=== PATIENT | male | born 1980 | race Caucasian/White ===

== ENCOUNTER → 2024-08-15 12:21 | Outpatient (REF) | payer BC, SELFPAY ==
[2024-08-15 13:40] LABS: Absolute Lymphocyte Count 0.92 X10^3/uL (0.83-4.51); Absolute Neutrophil Count 2.7 X10^3/uL (2.0-7.7); Basophil# 0.03 X10^3/uL; Basophil% 0.7 % (0-1); Eosinophil# 0.17 X10^3/uL; Eosinophils% 4.1 % (0-5); Hematocrit 36.6 % (40-54); Hemoglobin 11.1 g/dL (13.0-16.5); Lymphocyte # 0.92 X10^3/ul (0.83-4.51); Lymphocyte % 22.4 % (19-41); Mean Corp Hgb Conc 30.3 g/dL (32-36); Mean Corpuscular Hgb 23.8 pg (27.0-32.0); Mean Corpuscular Volume 78.4 fL (80-94); Mean Platelet Vol. 11.1 fl (6.2-12.0); Monocyte# 0.29 X10^3/uL; Monocyte% 7.1 % (0-10); NRBC Flagged by Analyzer 0 % (0-5); Neutrophil # 2.69 X10^3/uL (2.7-7.7); Neutrophil % 65.5 % (47-70); Platelet Count 228 K/mm3 (150-450); RBC Distribution Width CV 15.4 % (11.6-14.6); RBC Distribution Width SD 43.3 fl (35.1-43.9); Red Blood Count 4.67 M/mm3 (4.6-6.2); White Blood Count 4.1 K/mm3 (4.4-11.0)
[2024-08-15 14:08] LABS: ALB/GLOB Ratio 1.7 RATIO (0.9-2.4); AST(SGOT) 32 U/L (<=37); Alanine Aminotransfer ALT/SGPT 35 U/L (<=46); Albumin, Serum 4.5 g/dL (3.5-5.0); Alkaline Phosphatase 72 U/L (40-129); Anion Gap 10 (5-15); BUN 14 mg/dL (4-19); BUN/Creat Ratio 10.6 RATIO (10-20); Calcium,Total 9.3 mg/dL (7.6-11.0); Carbon Dioxide 25.6 mmol/L (21.0-32.0); Chloride 104 mmol/L (98-108); Cholesterol 144 mg/dL (<=200); Creatinine, Serum 1.27 mg/dL (0.70-1.20); EST Glomerular Filtration Rate 71 (>60); Ferritin 6 ng/mL (37-417); Globulin 2.6 g/dL (2.2-4.2); Glucose 101 mg/dL (70-99); High Density Lipoprotein 64 mg/dL; Low Density Lipoprotein Calc. 65 mg/dL; Potassium 4.5 mmol/L (3.3-5.1); Protein, Total 7.1 g/dL (5.9-8.4); Sodium Level 139 mmol/L (133-145); Total Bilirubin 0.31 mg/dL (0.00-1.30); Triglycerides 78 mg/dL; Very Low Density Lipoprotein 16 mg/dL (5-40); cholesterol:hdl ratio screen 2.26
[2024-08-15 14:44] LABS: Iron 17 ug/dL (65-175)
[2024-08-19 05:07] LABS: PSA, Total 0.9 ng/mL (0.0-4.0)
== END ==
LOC: LABSPEC 12:21
PROVIDERS: Referring Provider Nurse Practitioner Family; Visit Provider Nurse Practitioner Family
DX: K50.90 Crohn's disease, unspecified, without complications (principal); N41.1 Chronic prostatitis; R35.1 Nocturia; R19.7 Diarrhea, unspecified; K92.1 Melena
CPT/HCPCS: 80053; 80061; 82728; 83036; 83540; 84153; 85025

== ENCOUNTER → 2024-09-22 | Outpatient (CLI) | payer BC, SELFPAY ==
[2024-09-22 16:22] LABS: Absolute Lymphocyte Count 0.93 X10^3/uL (0.83-4.51); Absolute Neutrophil Count 2.4 X10^3/uL (2.0-7.7); Basophil# 0.02 X10^3/uL; Basophil% 0.5 % (0-1); Eosinophils% 2.7 % (0-5); Hematocrit 39.7 % (40-54); Hemoglobin 12.4 g/dL (13.0-16.5); Lymphocyte # 0.93 X10^3/ul (0.83-4.51); Lymphocyte % 25.4 % (19-41); Mean Corp Hgb Conc 31.2 g/dL (32-36); Mean Corpuscular Hgb 24.8 pg (27.0-32.0); Mean Corpuscular Volume 79.6 fL (80-94); Mean Platelet Vol. 10.3 fl (6.2-12.0); Monocyte# 0.21 X10^3/uL; Monocyte% 5.7 % (0-10); NRBC Flagged by Analyzer 0 % (0-5); Neutrophil # 2.39 X10^3/uL (2.7-7.7); Neutrophil % 65.4 % (47-70); Platelet Count 220 K/mm3 (150-450); RBC Distribution Width CV 19.7 % (11.6-14.6); RBC Distribution Width SD 54.3 fl (35.1-43.9); Red Blood Count 4.99 M/mm3 (4.6-6.2); White Blood Count 3.7 K/mm3 (4.4-11.0)
[2024-09-22 16:27] LABS: Iron 45 ug/dL (65-175)
[2024-09-22 16:59] LABS: Ferritin 19 ng/mL (37-417)
== END | disposition home or self-care (01) ==
LOC: LABSPEC 15:34
PROVIDERS: Referring Provider Nurse Practitioner Family; Visit Provider Nurse Practitioner Family
DX: K50.90 Crohn's disease, unspecified, without complications (principal); N41.1 Chronic prostatitis; R35.1 Nocturia; R19.7 Diarrhea, unspecified; K92.1 Melena; D50.9 Iron deficiency anemia, unspecified
CPT/HCPCS: 82728; 83540; 85025

== ENCOUNTER → 2024-10-12 | Outpatient (CLI) | payer BC, SELFPAY ==
[2024-10-13 00:28] LABS: Hematocrit 43.8 % (40-54); Hemoglobin 13.3 g/dL (13.0-16.5); Immature Granulocytes Count 0.010 X10^3/uL (0.0-0.0); Mean Corp Hgb Conc 30.4 g/dL (32-36); Mean Corpuscular Volume 85.4 fL (80-94); Mean Platelet Vol. 10.5 fl (6.2-12.0); NRBC Flagged by Analyzer 0 % (0-5); POSITIVE MORPHOLOGY YES; Platelet Count 212 K/mm3 (150-450); RBC Distribution Width CV 22.3 % (11.6-14.6); RBC Distribution Width SD 67.7 fl (35.1-43.9); Red Blood Count 5.13 M/mm3 (4.6-6.2); White Blood Count 3.8 K/mm3 (4.4-11.0)
[2024-10-13 00:32] LABS: Differential Indicated SCAN CRITERIA MET
[2024-10-13 01:52] LABS: Ferritin 42 ng/mL (37-417); Iron 48 ug/dL (65-175)
[2024-10-13 02:35] LABS: Acanthocytes RARE; Anisocytosis 2+; Crenated RBC 2+; Differential Comment SCANNED; Tear Drop Cell RARE
== END | disposition home or self-care (01) ==
PROVIDERS: Referring Provider Nurse Practitioner Family; Visit Provider Nurse Practitioner Family
DX: K50.90 Crohn's disease, unspecified, without complications (principal); N41.1 Chronic prostatitis; R35.1 Nocturia; R19.7 Diarrhea, unspecified; K92.1 Melena; D50.9 Iron deficiency anemia, unspecified
CPT/HCPCS: 82728; 83540; 85025

== ENCOUNTER → 2024-11-21 | Outpatient (CLI) | payer BC, SELFPAY ==
[2024-11-21 18:44] LABS: AST(SGOT) 19 U/L (<=37); Alanine Aminotransfer ALT/SGPT 22 U/L (<=46); Albumin, Serum 3.9 g/dL (3.5-5.0); Alkaline Phosphatase 61 U/L (40-129); Anion Gap 13 (5-15); BUN 17 mg/dL (4-19); BUN/Creat Ratio 14.6 RATIO (10-20); Calcium,Total 8.9 mg/dL (7.6-11.0); Carbon Dioxide 21.2 mmol/L (21.0-32.0); Chloride 102 mmol/L (98-108); Globulin 2.7 g/dL (2.2-4.2); Glucose 100 mg/dL (70-99); Potassium 3.9 mmol/L (3.3-5.1)
[2024-11-21 18:46] LABS: Hematocrit 31.5 % (40-54); Hemoglobin 10.2 g/dL (13.0-16.5); Immature Granulocytes Count 0.020 X10^3/uL (0.0-0.0); Mean Corp Hgb Conc 32.4 g/dL (32-36); Mean Corpuscular Volume 85.6 fL (80-94); Mean Platelet Vol. 10.1 fl (6.2-12.0); NRBC Flagged by Analyzer 0 % (0-5); Platelet Count 323 K/mm3 (150-450); RBC Distribution Width CV 18.1 % (11.6-14.6); RBC Distribution Width SD 56.1 fl (35.1-43.9); Red Blood Count 3.68 M/mm3 (4.6-6.2); White Blood Count 4.2 K/mm3 (4.4-11.0)
[2024-11-23 14:08] LABS: CRP, High Sensitivity 1.01 mg/L (0.00-3.00)
== END | disposition home or self-care (01) ==
PROVIDERS: PCP Nurse Practitioner Family; Referring Provider Nurse Practitioner Family; Visit Provider Nurse Practitioner Family
DX: K50.90 Crohn's disease, unspecified, without complications (principal); N41.1 Chronic prostatitis; R19.7 Diarrhea, unspecified; J18.9 Pneumonia, unspecified organism; R53.83 Other fatigue; D50.0 Iron deficiency anemia secondary to blood loss (chronic)
CPT/HCPCS: 80053; 82784; 82785; 85025; 86140; 86141; 86738; 86769

== ENCOUNTER → 2024-11-23 | Outpatient (CLI) | payer BC, SELFPAY | END | disposition home or self-care (01) | LOC: LABSPEC 16:08 | PROVIDERS: PCP Nurse Practitioner Family; Referring Provider Nurse Practitioner Family; Visit Provider Nurse Practitioner Family | DX: K50.90 Crohn's disease, unspecified, without complications (principal); R19.7 Diarrhea, unspecified; B96.82 Vibrio vulnificus as the cause of diseases classified elsewhere | CPT/HCPCS: 87493; 87506 ==

== ENCOUNTER → 2024-12-12 | Outpatient (CLI) | payer BC, SELFPAY ==
[2024-12-12 16:24] LABS: Ferritin 63 ng/mL (37-417)
--- OUTSIDE RECORDS SUMMARY | 2024-12-12 22:05 | XMS RPT_ITS | CCD ---
Author Organization [facility] Care Team Providers Care Dining Room Maid Name Role Phone Merlin Deutsch RDipti Unavailable Unavaila ble Stetler DO, Juan Joseer R Primary Care Provider Stetler DO, Juan Joseer R Primary Care Provider Stetler DO, Christadinaer R Primary Care Provider Unavailable Primary Care Provider Unavailabl e Louistler DO, Merlin R Primary Care Provider Ernesto William MD Primary Care Provider Richi Loja MD Unavailable Stetler DOJuan Joseer R Primary Care Provider Mariann Sánchez PA-C Unavailable [phone] [employer]-C, Lidia Wolff Attending Provider Unava ilable [employer]-C, Lidia Wolff Referring Provider Unava ilable Olya SWENSON, Sonia Sweeney Unavailable SELF Referring Unavailable RICHI LOJA Attending Unavailable MERLIN DEUTSCH Primary Care Unavailab le MERLIN DEUTSCH Primary Care Unavailab le RICHI LOJA Attending Unavailable MERLIN DEUTSCH Primary Care Unavailab le RICHI LOJA Referring Unavailable [employer] SPECIALIST-C, Lidia Wolff Primary Care Provider Un available [employer] SPECIALIST, Lidia Wolff Referring Unavailabl e [employer] SPECIALIST, Lidia Wolff Attending Unavailabl e [employer]IST, Lidia K Primary Care Unavailabl e [employer]IST, Lidia K Referring Unavailabl e [employer] SPECIALIST, Lidia Wolff Attending Unavailabl e [employer] SPECIALIST, Lidia Wolff Referring Unavailabl e [employer] SPECIALIST, Lidia Wolff Attending Unavailcorrine Koenig FIRE CREW SPECIALIST, Lidia K Referring Unavailabl e [employer] SPECIALIST, Lidia K Attending Unavailabl shaan Koenig FIRE CREW SPECIALIST, Lidia K Referring Unavailabl e [employer] SPECIALIST, Lidia K Attending Unavailabl e [employer] SPECIALIST, Lidia K Primary Care Unavailabl e STETLER, CHRISTADINAER R Attending Unavailab le STETLER, MERLIN R Primary Care Unavailab le STETLER, CHRISTOPHER R Primary Care Unavailab le CUCCI, SUKH R Admitting Unavailable NYDIA, JENNIFER DODSON Attending Unavailable LUCRECIA TIM Consulting Unavailable STETLER, JUAN JOSEER R Primary Care Unavailab le STETLER, CHRISTADINAER R Primary Care Unavailab le STETLER, CHRISTADINAER R Primary Care Unavailab le STETLER, CHRISTADINAER R Referring Unavailab le STETLER, CHRISTOPHER R Primary Care Unavailab le LASHNER, RICHI A Referring Unavailable STETLER, JUAN JOSEER R Primary Care Unavailab le Allergies Allergy Classification Reported Allergen(s) Allergy Type Date of Onset Reaction(s) Facility (20 sources) Mold Extract; Translations: [MOLD] Drug Allergy 0 Other: See Comments [facility] (20 sources) Pollen; Translations: [POLLEN EXTRACTS] Drug Intolerance 0 Other: See Comments [facility] (20 sources) adalimumab; Translations: [ADALIMUMAB] Drug Allergy 6 Other: See Comments [facility] (20 sources) Dust; Translations: [DUST] Allergy to substance 3 Other: See Comments [facility] Medications Current Medications Medication Drug Class(es) Dates Sig (Normalized) Sig (Original) acetaminophen 500 mg oral tablet (20 sources) Start: 12-20-2019 take 2 tablets by mouth every six hours as needed acetaminophen (TYLENOL) 500 mg tablet Take 2 tablets by mouth every 6 hours as needed. 12/20/2019 Active Comment on above: Take 2 tablets by mo [facility] every 6 hours as needed. acetylcysteine 600 mg oral capsule (20 sources) Antidote, Mucolytic, Antidote for Acetaminophen Overdose take 2 capsules by mouth twice daily acetylcysteine (NAC) 600 mg capsule Take 1,200 mg by mouth twice daily. Active Comment on above: [facility]. ascorbic acid 500 mg oral tablet (10 sources) Vitamin C take 1 tablet by mouth once daily ascorbic acid, vitamin C, (VITAMIN C) 500 mg tablet Take 500 mg by mouth once daily. Active calcium carb/magnesium carb (CALCIUM & MAGNESIUM CARBONATES ORAL) (10 sources) take 1 tablet by mouth once daily calcium carb/magnesium carb (CALCIUM & MAGNESIUM CARBONATES ORAL) Take 1 tablet by mouth once daily. Active calcium carb/vit D2/minerals (CALCIUM 600/MINERALS ORAL) (20 sources) take 1 tablet by mouth once daily calcium carb/vit D2/minerals (CALCIUM 600/MINERALS ORAL) Take 1 tablet by mouth once daily. Active calcium carb/vit D2/minerals (CALCIUM 600/MINERALS ORAL) Take by mouth. Active calcium carb/vit D2/minerals (CALCIUM 600/MINERALS ORAL) Take by mouth. 0 Active Comment on above: Take by mouth. Chlor-Mal/Phenyleph/Methscop (PE HCL-CPM-MSN ORAL) (13 sources) Chlor-Mal/Phenyl eph/Methscop (PE HCL-CPM-MSN ORAL) Take by mouth. Active Chlor-Mal/Phenyl eph/Methscop (PE HCL-CPM-MSN ORAL) Take by mouth. 0 Active Comment on above: Take by mouth. cholecalciferol 0.125 mg oral tablet (10 sources) Vitamin D take 1 tablet by mouth once daily cholecalciferol (VITAMIN D-3) 5,000 unit tab Take 5,000 Units by mouth once daily. Active cholecalciferol, vitamin D3, (VITAJOY DAILY D ORAL) (13 sources) cholecalciferol, vitamin D3, (VITAJOY DAILY D ORAL) Take by mouth. Active cholecalciferol, vitamin D3, (VITAJOY DAILY D ORAL) Take by mouth. 0 Active Comment on above: Take by mouth. ferrous sulfate 325 mg oral tablet (10 sources) take 1 tablet by mouth once daily ferrous sulfate (IRON) 325 mg (65 mg iron) tablet Take 325 mg by mouth once daily. Active fluticasone (20 sources) Corticosteroid End: 04-11-2024 fluticasone propionate (FLONASE NASAL) Use in the nose as needed. 04/11/2024 Discontinued fluticasone prop ionate (FLONASE NASAL) Use in the nose as needed. Active fluticasone prop ionate (FLONASE NASAL) Use in the nose as needed. 0 Active Comment on above: Use in the nose as n eeded. glucosam/chond-msm1/C/ bur[place]/bor (FXIQEFBKZBG-LWRQO-VWE COMPLEX PO) (10 sources) take 1 tablet by mouth three times daily glucosam/chond-msm1/C /burton/bor (QDRDDMDVQIY-PADPR-SA M COMPLEX PO) Take 1 tablet by mouth three times a day. Active glucosamine 1000 mg oral tablet (3 sources) Start: 5 take 1 tablet by mouth three times daily Glucosamine 1,000 mg tab Take 1 tablet by mouth three times a day. 04/11/2024 Active magnesium L-threonate 48 mg magnesium (667 mg) cap (10 sources) take 1 capsule by mouth three times daily magnesium L-threonate 48 mg magnesium (667 mg) cap Take 1 capsule by mouth three times a day. Active multivitamin tablet (20 sources) Start: 0 take 1 tablet by mouth twice daily multivitamin tablet Take 1 tablet by mouth two times a day. 04/06/1969 Active Start: 04-06-1969 multivitamin t ablet multivitamin tablet 04/06/1969 Active Start: 04-06-1969 multivitamin t ablet multivitamin tablet 0 04/06/1969 Active Comment on above: multivitamin tablet Naltrexone (10 sources) Opioid Antagonist take 1 capsule by mouth once daily naltrexone 4.5 mg cap Take 4.5 mg by mouth once daily. Active Eyayf-1-KSY-EPA-Fish Oil (FISH OIL) 1,000 mg (120 mg-180 mg) cap (20 sources) take 1 capsule by mouth twice daily Nbqsf-2-DFM-EPA-Fish Oil (FISH OIL) 1,000 mg (120 mg-180 mg) cap Take 2 g by mouth twice daily. Active take 1 capsule by mouth twice da ej Iykuu-9-GWT-EPA-Fish Oil (FISH OIL) 1,000 mg (120 mg-180 mg) cap Take 2 g by mouth twice daily. 0 Active Comment on above: Take 2 g by mouth tw ice daily. OTC NUTRITIONAL SUPPLEMENT (20 sources) take 1 capsule by mouth once daily OTC NUTRITIONAL SUPPLEMENT Take 1 capsule by mouth once daily. Avamocal Advanced - Natural detoxification and antioxidant Active take 1 capsule by mouth once olena ly OTC NUTRITIONAL SUPPLEMENT Take 1 capsule by mouth once daily. Biofilm disruptor - gut detox cleanse Active QUERCETIN DIHYDRATE, BULK, M ISC (20 sources) QUERCETIN DIHYDR ATE, BULK, MISC twice daily. quercetin 800mg with zinc Active QUERCETIN DIHYDR ATE, BULK, MISC twice daily. quercetin 800mg with zinc 0 Active Comment on above: twice daily. quercet in 800mg with zinc saw palmetto 320 mg capsule (18 sources) take 1 capsule by mouth once daily saw palmetto 320 mg capsule Take 1 capsule by mouth once daily. Active take 1 capsule by mouth once olena ly saw palmetto 320 mg capsule Take 1 capsule by mouth once daily. 0 Active Comment on above: Take 1 capsule by [facility] once daily. vedolizumab 300 mg injection (20 sources) Integrin Receptor Antagonist Start: 02-19-2021 End: 01-19-2024 vedolizumab (ENTYVIO) 300 mg injection Infuse 300mg via IV every 8 weeks. 1 Each 5 01/19/2024 Active Start: 06-27-2020 End: 08-20-2021 vedolizumab (ENTYVIO) 300 mg injection RECONSTITUTE WITH 4.8 ML STERILE WATER. ADD 5 ML TO 250 ML NS AND INFUSE 300 MG INTRAVENOUSLY OVER 30 MINUTES AT WEEK 6. THEN EVERY 8 WEEKS THEREAFTER 300 mL 5 06/27/2020 08/20/2021 Discontinued Comment on above: RECONSTITUTE WITH 4. 8 ML STERILE WATER. ADD 5 ML TO 250 ML NS AND INFUSE 300 MG INTRAVENOUSLY OVER 30 MINUTES AT WEEK 6. THEN EVERY 8 WEEKS THEREAFTER Infuse 300mg via IV every 8 weeks. Completed/Discontinued Medications Medication Drug Class(es) Dates Sig (Normalized) Sig (Original) polyethylene glycol 3350 381798 mg / potassium chloride 2970 mg / sodium bicarbonate 6740 mg / sodium chloride 5860 mg / sodium sulfate 13980 mg powder for oral solution (15 sources) Osmotic Laxative Start: 03-04-2021 peg 3350-Electrolytes (GOLYTELY) 236-22.74-6.74 -5.86 gram suspension Refer to printed prep instructions from your provider. 4000 mL 0 03/04/2021 Active Comment on above: Refer to printed pre p instructions from your provider. VSL#3 DS 900 billion cell pwpk (5 sources) Start: 01-12-2015 End: 08-20-2021 VSL#3 DS 900 billion cell pwpk one tab daily 0 01/12/2015 08/20/2021 Discontinued Start: 01-12-2015 VSL#3 DS 900 b illion cell pwpk one tab daily 0 01/12/2015 Active Comment on above: one tab daily Problems Active Problems Problem Classification Problem Date Documented Da te Episodic/Chronic Abdominal pain (1 source) Generalized abdominal pain; Translations: [Generalized abdominal pain] Onset: 5 Episodic Acute posthemorrhagic anemia (20 sources) Acute posthemorrhagic anemia; Translations: [Acute posthemorrhagic anemia] Onset: 5 11-10-2024 Episodic Gastrointestinal hemorrhage (13 sources) Gastrointestinal hemorrhage; Translations: [Gastrointestinal hemorrhage, unspecified] Onset: 5 11-09-2024 Episodic Inflammatory conditions of male genital organs (1 source) Chronic prostatitis; Translations: [Chronic prostatitis] Onset: 5 Chronic Other aftercare (1 source) Long-term current use of systemic steroid; Translations: [terminologist (current) use of systemic steroids] Episodic Other nutritional; endocrine; and metabolic disorders (1 source) Hypomagnesemia; Translations: [Hypomagnesemia] Onset: 5 Chronic Other nutritional; endocrine; and metabolic disorders (1 source) Hypocalcemia; Translations: [Hypocalcemia] Onset: 5 Chronic Regional enteritis and ulcerative colitis (20 sources) Crohn's disease of small AND large intestines; Translations: [Crohn's disease of both small and large intestine with intestinal obstruction] Onset: 5 Chronic Syncope (1 source) Syncope and collapse; Translations: [Syncope, unspecified syncope type] Onset: 5 Episodic Unclassified (1 source) Unknown / UNK(Unknown) Onset: 7 Past or Other Problems Problem Classification Problem Date Documented Da te Episodic/Chronic Genitourinary symptoms and ill-defined conditions (1 source) Nocturia; Translations: [Nocturia] Onset: 08-15-2024 Episodic Immunizations and screening for infectious disease (20 sources) Contact with or exposure to other viral diseases; Translations: [Close exposure to COVID-19 virus] Onset: 12-17-2019 12-20-2019 Episodic Other gastrointestinal disorders (1 source) Diarrhea, unspecified; Translations: [Diarrhea, unspecified] Onset: 08-15-2024 Episodic Other nervous system disorders (20 sources) Postoperative pain ; Translations: [Other acute postprocedural pain] Onset: 12-19-2019 12-20-2019 Episodic Other nutritional; endocrine; and metabolic disorders (17 sources) Hypomagnesemia; Translations: [Hypomagnesemia] Onset: 12-19-2019 Resolved: 12-20-2019 12-20-2019 Chronic Residual codes; unclassified (20 sources) Postoperative state; Translations: [Other specified postprocedural states] Onset: 12-19-2019 Resolved: 09-25-2022 12-20-2019 Episodic Residual codes; unclassified (19 sources) History of partial resection of colon; Translations: [Acquired absence of other specified parts of digestive tract] Onset: 01-02-2020 04-08-2023 Episodic Residual codes; unclassified (1 source) Acquired absence of other specified parts of digestive tract; Translations: [History of partial surgical removal of colon] Onset: 04-08-2023 Episodic Screening and history of mental health and substance abuse codes (4 sources) Patient encounter status; Translations: [Encounter for screening for depression] Onset: 04-11-2024 04-11-2024 Episodic Unclassified (1 source) Z13.6,Z13.1 Onset: 12-23-2016 Results Test Name Value Interpretation Reference Range Facility CBC panel Auto (Bld)on 12-09 Erythrocyte distribution width (RBC) [Ratio] 18.0 % High 11.5-15.0 [facility] Comment on above: Order Comment: Trisha nam Type: BLOOD SPECIMEN Ordering Facility: [facility] Address: [address] [place] [address] Performed By: #### 5 8410-2 #### [facility] CLIA [id number] [address] [place] [address] [place] [facility] Hematocrit (Bld) [Volume fraction] 40.7 % Normal 39.0-51.0 [facility] Comment on above: Order Comment: Trisha nam Type: BLOOD SPECIMEN Ordering Facility: [facility] Address: [address] [place] [address] Performed By: #### 5 8410-2 #### [facility] CLIA [id number] [address] STATES OF [facility] Hemoglobin (Bld) [Mass/Vol] 13.0 g/dL Normal 13.0-17.0 [facility] Comment on above: Order Comment: Speci men Type: BLOOD SPECIMEN Ordering Facility: [facility] Address: [address] [place] [address] Performed By: #### 5 8410-2 #### [facility] CLIA [id number] [address] OF [facility] MCH (RBC) [Entitic mass] 29.1 pg Normal 26.0-34.0 [facility] Comment on above: Order Comment: Speci men Type: BLOOD SPECIMEN Ordering Facility: [facility] Address: [address] [place] [address] Performed By: #### 5 8410-2 #### [facility] CLIA [id number] [address] MCHC (RBC) [Mass/Vol] 31.9 g/dL Normal 30.5-36.0 [facility] Comment on above: Order Comment: Speci men Type: BLOOD SPECIMEN Ordering Facility: [facility] Address: [address] [place] [address] Performed By: #### 5 8410-2 #### [facility] CLIA [id number] [address] MCV (RBC) [Entitic vol] 91.3 fL Normal 80.0-100.0 [facility] Comment on above: Order Comment: Speci men Type: BLOOD SPECIMEN Ordering Facility: [facility] Address: [address] [place] [address] Performed By: #### 5 8410-2 #### [facility] CLIA [id number] [address] Nucleated RBC (Bld) [#/Vol] 10*3/uL Normal <0.01 [facility] Comment on above: Order Comment: Speci men Type: BLOOD SPECIMEN Ordering Facility: [facility] Address: [address] [place] [address] Performed By: #### 5 8410-2 #### [facility] CLIA [id number] [address] STATES [facility] Platelet mean volume (Bld) [Entitic vol] 11.1 fL Normal 9.0-12.7 [facility] Comment on above: Order Comment: Speci men Type: BLOOD SPECIMEN Ordering Facility: [facility] Address: [address] [place] [address] Performed By: #### 5 8410-2 #### [facility] CLIA [id number] [address] [place] Platelets (Bld) [#/Vol] 209 10*3/uL Normal 150-400 [facility] Comment on above: Order Comment: Speci men Type: BLOOD SPECIMEN Ordering Facility: [facility] Address: [address] [place] [address] Performed By: #### 5 8410-2 #### [facility] CLIA [id number] [address] [place] RBC (Bld) [#/Vol] 4.46 10*6/uL Normal 4.20-6.00 [facility] Comment on above: Order Comment: Speci men Type: BLOOD SPECIMEN Ordering Facility: [facility] Address: [address] [place] [address] Performed By: #### 5 8410-2 #### [facility] CLIA [id number] [address] [place] WBC (Bld) [#/Vol] 4.06 10*3/uL Normal 3.70-11.00 [facility] Comment on above: Order Comment: Speci men Type: BLOOD SPECIMEN Ordering Facility: [facility] Address: [address] [place] [address] Performed By: #### 5 8410-2 #### [facility] CLIA [id number] [address] OF [place] Comprehensive metabolic 2000 panelon 12-09-2024 Albumin [Mass/Vol] 4.1 g/dL Normal 3.9-4.9 [facility] Comment on above: Order Comment: Speci men Type: BLOOD SPECIMENOrdering Facility: [facility] Address: [address] [place] [address] Performed By: #### 2 4323-8, 85862-9 ####[facility] [id number] [address] [place] ALP [Catalytic activity/Vol] 74 U/L Normal 38-113 [facility] Comment on above: Order Comment: Speci men Type: BLOOD SPECIMENOrdering Facility: [facility] Address: [address] [place] [address] Performed By: #### 2 4323-8, 76333-8 ####[facility] [id number] [address] [place] ALT With P-5'-P [Catalytic activity/Vol] 44 U/L Normal 10-54 [facility] Comment on above: Order Comment: Speci men Type: BLOOD SPECIMENOrdering Facility: [facility] Address: [address] [place] [address] Performed By: #### 2 4323-8, 42768-3 ####[facility] [id number] [place] [id number] [place] Anion gap [Moles/Vol] 10 mmol/L Normal 8-15 [facility] Comment on above: Order Comment: Speci men Type: BLOOD SPECIMENOrdering Facility: [facility] Address: [address] [place] [address] Performed By: #### 2 4323-8, 70502-6 ####[facility] [id number] [place] [address] [place] AST With P-5'-P [Catalytic activity/Vol] 31 U/L Normal 14-40 [facility] Comment on above: Order Comment: Speci men Type: BLOOD SPECIMENOrdering Facility: [facility] Address: [address] [place] [address] Performed By: #### 2 4323-8, 67413-9 ####[facility] [id number] [place] [address] [place] Bilirubin [Mass/Vol] 0.5 mg/dL Normal 0.2-1.3 [facility] Comment on above: Order Comment: Speci men Type: BLOOD SPECIMENOrdering Facility: [facility] Address: [address] [place] [address] Performed By: #### 2 4323-8, 83697-7 ####[facility] [id number] [place] [address] [place] Calcium [Mass/Vol] 9.4 mg/dL Normal 8.5-10.2 [facility] Comment on above: Order Comment: Speci men Type: BLOOD SPECIMENOrdering Facility: [facility] Address: [address] [place] [address] Performed By: #### 2 4323-8, 90260-4 ####[facility] [id number] [place] [address] [place] Chloride [Moles/Vol] 102 mmol/L Normal 98-107 [facility] Comment on above: Order Comment: Speci men Type: BLOOD SPECIMENOrdering Facility: [facility] Address: [address] [place] [address] Performed By: #### 2 4323-8, 74234-3 ####[facility] [id number] [place] [id number] [place] CO2 [Moles/Vol] 28 mmol/L Normal 22-30 [facility] Comment on above: Order Comment: Speci men Type: BLOOD SPECIMENOrdering Facility: [facility] Address: [address] [place] [address] Performed By: #### 2 4323-8, 37592-8 ####[facility] [id number] [place] [address] [place] Creatinine [Mass/Vol] 1.25 mg/dL High 0.73-1.22 [facility] Comment on above: Order Comment: Clarenceraina nam Type: BLOOD SPECIMENOrdering Facility: [facility] Address: [address] [facility] [place] [address] Performed By: #### 2 4323-8, 73741-1 ####[facility] [id number] [place] [address] [place] eGFRcr SerPlBld CKD-EPI 2020 72 mL/min/1.73m??? Normal >=60 [facility] Comment on above: Order Comment: Trisha nam Type: BLOOD SPECIMENOrdering Facility: [facility] Address: [address] [place] [address] Result Comment: Maday mated Glomerular Filtration Rate (eGFR) is calculated using the 2020 CKD-EPI creatinine equation. This equation utilizes serum creatinine, sex, and age as parameters. The creatinine assay has traceable calibration to isotope dilution-mass spectrometry. Refer to KDIGO guidelines for clinical interpretation. In patients with unstable renal function, e.g. those with acute kidney injury, the eGFR may not accurately reflect actual GFR. Performed By: #### 2 4323-8, 22518-9 ####[facility] [id number] [place] [id number] [place] Glucose [Mass/Vol] 74 mg/dL Normal 74-99 [facility] Comment on above: Order Comment: Clarenceraina nam Type: BLOOD SPECIMENOrdering Facility: [facility] Address: [address] [place] [address] Result Comment: The [place] [employer] (ADA) provides guidance for cutoff values for fasting glucose and random glucose. The ADA defines fasting as no caloric intake for at least 8 hours. Fasting plasma glucose results between 100 to 125 mg/dL indicate increased risk for diabetes (prediabetes). Fasting plasma glucose results greater than or equal to 126 mg/dL meet the criteria for diagnosis of diabetes. In the absence of unequivocal hyperglycemia, results should be confirmed by repeat testing. In a patient with classic symptoms of hyperglycemia or hyperglycemic crisis, random plasma glucose results greater than or equal to 200 mg/dL meet the criteria for diagnosis of diabetes. Reference: Standards of Medical Care in Diabetes 2016, [place] [employer]. Diabetes Care. 2016.39(Suppl 1). Performed By: #### 2 4323-8, 25831-1 ####[facility]ORY[facility]IA [id number] [place] [address] [place] Potassium [Moles/Vol] 4.5 mmol/L Normal 3.7-5.1 [facility] Comment on above: Order Comment: Speci men Type: BLOOD SPECIMENOrdering Facility: [facility] Address: [address] [place] [address] Performed By: #### 2 4323-8, 82963-8 ####[facility]ORYCLIA [id number] [place] [address] [place] Protein [Mass/Vol] 6.9 g/dL Normal 6.3-8.0 [facility] Comment on above: Order Comment: Speci men Type: BLOOD SPECIMENOrdering Facility: [facility] Address: [address] [place] [address] Performed By: #### 2 4323-8, 21301-4 ####[facility]ORYCLIA [id number] [place] [address] [place] Sodium [Moles/Vol] 140 mmol/L Normal 136-144 [facility] Comment on above: Order Comment: Speci men Type: BLOOD SPECIMENOrdering Facility: [facility] Address: [address] [place] [address] Performed By: #### 2 4323-8, 10853-2 ####[facility]ORY[facility]IA [id number] [address] [place] Urea nitrogen [Mass/Vol] 17 mg/dL Normal 9-24 [facility] Comment on above: Order Comment: Speci men Type: BLOOD SPECIMENOrdering Facility: [facility] Address: [address] [place] [address] Performed By: #### 2 4323-8, 27148-8 ####[facility]ORYCLIA [id number] [place] [id number] [place] Iron and Iron binding capaci ty panelon 12-09-2024 Iron [Mass/Vol] 43 ug/dL Normal 41-186 [facility] Comment on above: Order Comment: Speci men Type: BLOOD SPECIMENOrdering Facility: [facility] Address: [address] [place] [address] Performed By: #### 2 4323-8, 64488-6 ####[facility]ORYCLIA [id number] [address] Iron binding capacity [Mass/Vol] 282 ug/dL Normal 232-386 [facility] Comment on above: Order Comment: Speci men Type: BLOOD SPECIMENOrdering Facility: [facility] Address: [address] [place] [address] Performed By: #### 2 4323-8, 89347-3 ####[facility]ORYCLIA [id number] [address] OF [facility] Iron saturation [Mass fraction] 15.2 % Normal 15.0-57.0 [facility] Comment on above: Order Comment: Speci men Type: BLOOD SPECIMENOrdering Facility: [facility] Address: [address] [place] [address] Performed By: #### 2 4323-8, 87352-8 ####[facility]ATORYCLIA [id number] [address] OF [facility] CBC panel Auto (Bld)on 12-02 Erythrocyte distribution width (RBC) [Ratio] 18.6 % High 11.5-15.0 [facility] Comment on above: Order Comment: Speci men Type: BLOOD SPECIMEN [facility] Address: [address] [place] [address] Performed By: #### 5 8410-2 #### [facility] CLIA [id number] [address] Hematocrit (Bld) [Volume fraction] 36.3 % Low 39.0-51.0 [facility] Comment on above: Order Comment: Speci men Type: BLOOD SPECIMEN [facility] Address: [address] [place] [address] Performed By: #### 5 8410-2 #### [facility] CLIA [id number] [address] Hemoglobin (Bld) [Mass/Vol] 11.4 g/dL Low 13.0-17.0 [facility] Comment on above: Order Comment: Speci men Type: BLOOD SPECIMEN [facility]ing Facility: [facility] Address: [address] [place] [address] Performed By: #### 5 8410-2 #### [facility] CLIA [id number] [address] MCH (RBC) [Entitic mass] 28.4 pg Normal 26.0-34.0 [facility] Comment on above: Order Comment: Speci men Type: BLOOD SPECIMEN [facility] Address: [address] [place] [address] Performed By: #### 5 8410-2 #### [facility] CLIA [id number] [address] MCHC (RBC) [Mass/Vol] 31.4 g/dL Normal 30.5-36.0 [facility] Comment on above: Order Comment: Speci men Type: BLOOD SPECIMEN [facility] Address: [address] [place] [address] Performed By: #### 5 8410-2 #### [facility] CLIA [id number] [address] MCV (RBC) [Entitic vol] 90.3 fL Normal 80.0-100.0 [facility] Comment on above: Order Comment: Speci men Type: BLOOD SPECIMEN [facility] Address: [address] [place] [address] Performed By: #### 5 8410-2 #### [facility] CLIA [id number] [address] Nucleated RBC (Bld) [#/Vol] 10*3/uL Normal <0.01 [facility] Comment on above: Order Comment: Speci men Type: BLOOD SPECIMEN [facility] Address: [address] [place] [address] Performed By: #### 5 8410-2 #### [facility] CLIA [id number] [address] Platelet mean volume (Bld) [Entitic vol] 11.0 fL Normal 9.0-12.7 [facility] Comment on above: Order Comment: Speci men Type: BLOOD SPECIMEN [facility] Address: [address] [place] [address] Performed By: #### 5 8410-2 #### [facility] CLIA [id number] [address] [place] Platelets (Bld) [#/Vol] 258 10*3/uL Normal 150-400 [facility] Comment on above: Order Comment: Speci men Type: BLOOD SPECIMEN [facility] Address: [address] [place] [address] Performed By: #### 5 8410-2 #### [facility] CLIA [id number] [address] OF [place] RBC (Bld) [#/Vol] 4.02 10*6/uL Low 4.20-6.00 [facility] Comment on above: Order Comment: Speci men Type: BLOOD SPECIMEN [facility] Address: [address] [place] [address] Performed By: #### 5 8410-2 #### [facility] CLIA [id number] [address] [place] WBC (Bld) [#/Vol] 3.68 10*3/uL Low 3.70-11.00 [facility] Comment on above: Order Comment: Speci men Type: BLOOD SPECIMEN [facility] Address: [address] [place] [address] Performed By: #### 5 8410-2 #### [facility] CLIA [id number] [address] Comprehensive metabolic 2000 panelon 12-02-2024 Albumin [Mass/Vol] 3.9 g/dL Normal 3.9-4.9 [facility] Comment on above: Order Comment: Speci men Type: BLOOD SPECIMEN [facility] Address: [address] [place] [address] Performed By: #### 5 8410-2 #### [facility] CLIA [id number] [address] [place] ALP [Catalytic activity/Vol] 56 U/L Normal 38-113 [facility] Comment on above: Order Comment: Speci men Type: BLOOD SPECIMEN [facility] Address: [address] [place] [address] Performed By: #### 5 8410-2 #### [facility] CLIA [id number] [address] ALT With P-5'-P [Catalytic activity/Vol] 67 U/L High 10-54 [facility] Comment on above: Order Comment: Speci men Type: BLOOD SPECIMEN [facility] Address: [address] [place] [address] Performed By: #### 5 8410-2 #### [facility] CLIA [id number] [address] Anion gap [Moles/Vol] 9 mmol/L Normal 8-15 [facility] Comment on above: Order Comment: Speci men Type: BLOOD SPECIMEN [facility] Address: [address] [place] [address] Performed By: #### 5 8410-2 #### [facility] CLIA [id number] [address] AST With P-5'-P [Catalytic activity/Vol] 45 U/L High 14-40 [facility] Comment on above: Order Comment: Speci men Type: BLOOD SPECIMEN [facility] Address: [address] [place] [address] Performed By: #### 5 8410-2 #### [facility] CLIA [id number] 1 [place] [address] [place] Bilirubin [Mass/Vol] 0.3 mg/dL Normal 0.2-1.3 [facility] Comment on above: Order Comment: Speci men Type: BLOOD SPECIMEN [facility] Address: [address] [place] [address] Performed By: #### 5 8410-2 #### [facility] CLIA [id number] 1 [place] [address] [place] Calcium [Mass/Vol] 9.0 mg/dL Normal 8.5-10.2 [facility] Comment on above: Order Comment: Speci men Type: BLOOD SPECIMEN [facility] Address: [address] [place] [address] Performed By: #### 5 8410-2 #### [facility] CLIA [id number] 1 [place] [address] [place] Chloride [Moles/Vol] 105 mmol/L Normal 98-107 [facility] Comment on above: Order Comment: Speci men Type: BLOOD SPECIMEN [facility] Address: [address] [place] [address] Performed By: #### 5 8410-2 #### [facility] CLIA [id number] 1 [place] [address] [place] CO2 [Moles/Vol] 27 mmol/L Normal 22-30 [facility] Comment on above: Order Comment: Speci men Type: BLOOD SPECIMEN [facility] Address: [address] [place] [address] Performed By: #### 5 8410-2 #### [facility] CLIA [id number] [address] [place] Creatinine [Mass/Vol] 1.25 mg/dL High 0.73-1.22 [facility] Comment on above: Order Comment: Speci men Type: BLOOD SPECIMEN [facility] Address: [address] [place], [place] [address] Performed By: #### 5 8410-2 #### [facility] CLIA [id number] 1 [place] [address] [place] eGFRcr SerPlBld CKD-EPI 2020 72 mL/min/1.73m??? Normal >=60 [facility] Comment on above: Order Comment: Trisha nam Type: BLOOD SPECIMEN [facility] Address: [address] [place] [address] Result Comment: Maday mated Glomerular Filtration Rate (eGFR) is calculated using the 2020 CKD-EPI creatinine equation. This equation utilizes serum creatinine, sex, and age as parameters. The creatinine assay has traceable calibration to isotope dilution-mass spectrometry. Refer to KDIGO guidelines for clinical interpretation. In patients with unstable renal function, e.g. those with acute kidney injury, the eGFR may not accurately reflect actual GFR. Performed By: #### 5 8410-2 #### [facility] CLIA [id number] 1 [place] [address] [place] Glucose [Mass/Vol] 82 mg/dL Normal 74-99 [facility] Comment on above: Order Comment: Trisha nam Type: BLOOD SPECIMEN [facility] Address: [address] [place] [address] Result Comment: The [place] [employer] (ADA) provides guidance for cutoff values for fasting glucose and random glucose. The ADA defines fasting as no caloric intake for at least 8 hours. Fasting plasma glucose results between 100 to 125 mg/dL indicate increased risk for diabetes (prediabetes). Fasting plasma glucose results greater than or equal to 126 mg/dL meet the criteria for diagnosis of diabetes. In the absence of unequivocal hyperglycemia, results should be confirmed by repeat testing. In a patient with classic symptoms of hyperglycemia or hyperglycemic crisis, random plasma glucose results greater than or equal to 200 mg/dL meet the criteria for diagnosis of diabetes. Reference: Standards of Medical Care in Diabetes 2016, [place] [employer]. Diabetes Care. 2016.39(Suppl 1). Performed By: #### 5 8410-2 #### [facility] CLIA [id number] 1 [place] [address] [place] Potassium [Moles/Vol] 4.7 mmol/L Normal 3.7-5.1 [facility] Comment on above: Order Comment: Speci men Type: BLOOD SPECIMEN [facility] Address: [address] [place] [address] Performed By: #### 5 8410-2 #### [facility] CLIA [id number] 1 [place] [address] [place] Protein [Mass/Vol] 6.4 g/dL Normal 6.3-8.0 [facility] Comment on above: Order Comment: Speci men Type: BLOOD SPECIMEN [facility] Address: [address] [place] [address] Performed By: #### 5 8410-2 #### [facility] CLIA [id number] [address] [place] Sodium [Moles/Vol] 141 mmol/L Normal 136-144 [facility] Comment on above: Order Comment: Speci men Type: BLOOD SPECIMEN [facility] Address: [address] [place] [address] Performed By: #### 5 8410-2 #### [facility] CLIA [id number] 1 [place] [address] [place] Urea nitrogen [Mass/Vol] 12 mg/dL Normal 9-24 [facility] Comment on above: Order Comment: Speci men Type: BLOOD SPECIMEN [facility] Address: [address] [place] [address] Performed By: #### 5 8410-2 #### [facility] CLIA [id number] 1 [place] [address] [place] Iron and Iron binding capaci ty panelon 12-02-2024 Iron [Mass/Vol] 53 ug/dL Normal 41-186 [facility] Comment on above: Order Comment: Speci men Type: BLOOD SPECIMEN [facility] Address: [address] [place] [address] Performed By: #### 5 8410-2 #### [facility] CLIA [id number] [address] [place] Iron binding capacity [Mass/Vol] 307 ug/dL Normal 232-386 [facility] Comment on above: Order Comment: Speci men Type: BLOOD SPECIMEN [facility] Address: [address] [place] [address] Performed By: #### 5 8410-2 #### [facility] CLIA [id number] [address] [place] Iron saturation [Mass fraction] 17.3 % Normal 15.0-57.0 [facility] Comment on above: Order Comment: Speci men Type: BLOOD SPECIMEN [facility] Address: [address] [place] [address] Performed By: #### 5 8410-2 #### [facility] CLIA [id number] [address] CBC panel Auto (Bld)on 11-25 Erythrocyte distribution width (RBC) [Ratio] 18.2 % High 11.5-15.0 [facility] Comment on above: Order Comment: Speci men Type: BLOOD SPECIMEN [facility] Address: [address] [place] [address] Performed By: #### 5 8410-2 #### [facility] CLIA [id number] [address] [place] Hematocrit (Bld) [Volume fraction] 32.2 % Low 39.0-51.0 [facility] Comment on above: Order Comment: Speci men Type: BLOOD SPECIMEN [facility] Address: [address] [place] [address] Performed By: #### 5 8410-2 #### [facility] CLIA [id number] [address] [place] Hemoglobin (Bld) [Mass/Vol] 9.8 g/dL Low 13.0-17.0 [facility] Comment on above: Order Comment: Speci men Type: BLOOD SPECIMEN [facility] Address: [address] [place] [address] Performed By: #### 5 8410-2 #### [facility] CLIA [id number] [address] MCH (RBC) [Entitic mass] 27.3 pg Normal 26.0-34.0 [facility] Comment on above: Order Comment: Speci men Type: BLOOD SPECIMEN [facility] Address: [address] [place] [address] Performed By: #### 5 8410-2 #### [facility] CLIA [id number] [address] MCHC (RBC) [Mass/Vol] 30.4 g/dL Low 30.5-36.0 [facility] Comment on above: Order Comment: Speci men Type: BLOOD SPECIMEN [facility] Facility[facility] Address: [address] [place] [address] Performed By: #### 5 8410-2 #### [facility] CLIA [id number] [address] MCV (RBC) [Entitic vol] 89.7 fL Normal 80.0-100.0 [facility] Comment on above: Order Comment: Speci men Type: BLOOD SPECIMEN [facility] Facility[facility] Address: [address] [place] [address] Performed By: #### 5 8410-2 #### [facility] CLIA [id number] [address] Nucleated RBC (Bld) [#/Vol] 10*3/uL Normal <0.01 [facility] Comment on above: Order Comment: Speci men Type: BLOOD SPECIMEN [facility] Facility[facility] Address: [address] [place] [address] Performed By: #### 5 8410-2 #### [facility] CLIA [id number] [address] OF [facility] Platelet mean volume (Bld) [Entitic vol] 10.9 fL Normal 9.0-12.7 [facility] Comment on above: Order Comment: Speci men Type: BLOOD SPECIMEN [facility] Address: [address] [place] [address] Performed By: #### 5 8410-2 #### [facility] CLIA [id number] [address] [place] Platelets (Bld) [#/Vol] 255 10*3/uL Normal 150-400 [facility] Comment on above: Order Comment: Speci men Type: BLOOD SPECIMEN [facility] Address: [address] [place] [address] Performed By: #### 5 8410-2 #### [facility] CLIA [id number] 1 [place] [address] [place] RBC (Bld) [#/Vol] 3.59 10*6/uL Low 4.20-6.00 [facility] Comment on above: Order Comment: Speci men Type: BLOOD SPECIMEN [facility] Address: [address] [place] [address] Performed By: #### 5 8410-2 #### [facility] CLIA [id number] [address] [place] WBC (Bld) [#/Vol] 4.00 10*3/uL Normal 3.70-11.00 [facility] Comment on above: Order Comment: Speci men Type: BLOOD SPECIMEN [facility] Address: [address] [place] [address] Performed By: #### 5 8410-2 #### [facility] CLIA [id number] 1 [place] [address] [place] CDIFF (PCR)on 11-25-2024 CDIFF RESULTS CALLED TO AB BY AT [facility] 11/24/24 Hong Lara. REPORT READ BACK BY SEGUN. Pending 027 027 NAP1-B1 Presumptive Negative *for epidemiolologic???use C. Diff PCR Negative- No toxigenic C. Diff Detected Normal [facility] Comment on above: Performed By: #### L 3100.7870, L501.6710, L102.100, L3410.9996, L100.0100, L500.4050, L3410.9994 #### [facility] [address] [place], [address] Comprehensive metabolic 2000 panelon 11-25-2024 Albumin [Mass/Vol] 3.8 g/dL Low 3.9-4.9 [facility] Comment on above: Order Comment: Speci men Type: BLOOD SPECIMEN [facility] Address: [address] [place] [address] Performed By: #### 5 8410-2 #### [facility] CLIA [id number] [address] ALP [Catalytic activity/Vol] 72 U/L Normal 38-113 [facility] Comment on above: Order Comment: Speci men Type: BLOOD SPECIMEN [facility] Address: [address] [place] [address] Performed By: #### 5 8410-2 #### [facility] CLIA [id number] [address] STATES [facility] ALT With P-5'-P [Catalytic activity/Vol] 24 U/L Normal 10-54 [facility] Comment on above: Order Comment: Speci men Type: BLOOD SPECIMEN [facility] Address: [address] [place] [address] Performed By: #### 5 8410-2 #### [facility] CLIA [id number] [address] Anion gap [Moles/Vol] 10 mmol/L Normal 8-15 [facility] Comment on above: Order Comment: Speci men Type: BLOOD SPECIMEN [facility] Facility[facility] Address: [facility] [place] [address] Performed By: #### 5 8410-2 #### [facility] CLIA [id number] [address] [place] AST With P-5'-P [Catalytic activity/Vol] 26 U/L Normal 14-40 [facility] Comment on above: Order Comment: Speci men Type: BLOOD SPECIMEN [facility] Address: [address] [place] [address] Performed By: #### 5 8410-2 #### [facility] CLIA [id number] [address] [place] Bilirubin [Mass/Vol] 0.3 mg/dL Normal 0.2-1.3 [facility] Comment on above: Order Comment: Speci men Type: BLOOD SPECIMEN [facility] Facility[facility] Address: [address] [place] [address] Performed By: #### 5 8410-2 #### [facility] CLIA [id number] [address] [place] Calcium [Mass/Vol] 8.9 mg/dL Normal 8.5-10.2 [facility] Comment on above: Order Comment: Speci men Type: BLOOD SPECIMEN [facility] Facility: [facility] Address: [address] [place] [address] Performed By: #### 5 8410-2 #### [facility] CLIA [id number] [address] [place] Chloride [Moles/Vol] 106 mmol/L Normal 98-107 [facility] Comment on above: Order Comment: Speci men Type: BLOOD SPECIMEN [facility]ing Facility: [facility] Address: [address] [place] [address] Performed By: #### 5 8410-2 #### [facility] CLIA [id number] 1 [place] [address] [place] CO2 [Moles/Vol] 26 mmol/L Normal 22-30 [facility] Comment on above: Order Comment: Speci men Type: BLOOD SPECIMEN [facility]ing Facility: [facility] Address: [address] [place] [address] Performed By: #### 5 8410-2 #### [facility] CLIA [id number] [address] STATES OF [facility] Creatinine [Mass/Vol] 1.06 mg/dL Normal 0.73-1.22 [facility] Comment on above: Order Comment: Trisha nam Type: BLOOD SPECIMEN Ordering Facility: [facility] Address: [address] [place] [address] Performed By: #### 5 8410-2 #### [facility] CLIA [id number] [address] eGFRcr SerPlBld CKD-EPI 2020 88 mL/min/1.73m??? Normal >=60 [facility] Comment on above: Order Comment: Trisha nam Type: BLOOD SPECIMEN Ordering Facility: [facility] Address: [address] [place] [address] Result Comment: Maday mated Glomerular Filtration Rate (eGFR) is calculated using the 2020 CKD-EPI creatinine equation. This equation utilizes serum creatinine, sex, and age as parameters. The creatinine assay has traceable calibration to isotope dilution-mass spectrometry. Refer to KDIGO guidelines for clinical interpretation. In patients with unstable renal function, e.g. those with acute kidney injury, the eGFR may not accurately reflect actual GFR. Performed By: #### 5 8410-2 #### [facility] CLIA [id number] [address] STATES OF [facility] Glucose [Mass/Vol] 95 mg/dL Normal 74-99 [facility] Comment on above: Order Comment: Trisha nam Type: BLOOD SPECIMEN Ordering Facility: [facility] Address: [address] [place] [address] Result Comment: The [place] [employer] (ADA) provides guidance for cutoff values for fasting glucose and random glucose. The ADA defines fasting as no caloric intake for at least 8 hours. Fasting plasma glucose results between 100 to 125 mg/dL indicate increased risk for diabetes (prediabetes). Fasting plasma glucose results greater than or equal to 126 mg/dL meet the criteria for diagnosis of diabetes. In the absence of unequivocal hyperglycemia, results should be confirmed by repeat testing. In a patient with classic symptoms of hyperglycemia or hyperglycemic crisis, random plasma glucose results greater than or equal to 200 mg/dL meet the criteria for diagnosis of diabetes. Reference: Standards of Medical Care in Diabetes 2016, [place] [employer]. Diabetes Care. 2016.39(Suppl 1). Performed By: #### 5 8410-2 #### [facility] CLIA [id number] [address] STATES [facility] Potassium [Moles/Vol] 4.3 mmol/L Normal 3.7-5.1 [facility] Comment on above: Order Comment: Speci men Type: BLOOD SPECIMEN [facility]ing Facility: [facility] Address: [address] [place] [address] Performed By: #### 5 8410-2 #### [facility] CLIA [id number] [address] [place] [facility] Protein [Mass/Vol] 6.2 g/dL Low 6.3-8.0 [facility] Comment on above: Order Comment: Speci men Type: BLOOD SPECIMEN Ordering Facility: [facility] Address: [address] [place] [address] Performed By: #### 5 8410-2 #### [facility] CLIA [id number] [address] [place] [facility] Sodium [Moles/Vol] 142 mmol/L Normal 136-144 [facility] Comment on above: Order Comment: Speci men Type: BLOOD SPECIMEN [facility]ing Facility: [facility] Address: [address] [place] [address] Performed By: #### 5 8410-2 #### [facility] [facility] CLIA [id number] [address] [place] [facility] Urea nitrogen [Mass/Vol] 10 mg/dL Normal 9-24 [facility] Comment on above: Order Comment: Speci men Type: BLOOD SPECIMEN Ordering Facility: [facility] Address: [address] [place] [address] Performed By: #### 5 8410-2 #### [facility] CLIA [id number] [address] [place] Iron and Iron binding capaci ty panelon 11-25-2024 Iron [Mass/Vol] 21 ug/dL Low 41-186 [facility] Comment on above: Order Comment: Speci men Type: BLOOD SPECIMEN Ordering Facility: [facility] Address: [address] [place] [address] Performed By: #### 5 8410-2 #### [facility] CLIA [id number] [address] Iron binding capacity [Mass/Vol] 281 ug/dL Normal 232-386 [facility] Comment on above: Order Comment: Speci men Type: BLOOD SPECIMEN Ordering Facility: [facility] Address: [address] [place] [address] Performed By: #### 5 8410-2 #### [facility] CLIA [id number] [address] OF [facility] Iron saturation [Mass fraction] 7.5 % Low 15.0-57.0 [facility] Comment on above: Order Comment: Speci viv Type: BLOOD SPECIMEN Ordering Facility: [facility] Address: [address] [place] [address] Performed By: #### 5 8410-2 #### [facility] CLIA [id number] [address] OF [facility] ENTERIC PATHOGEN PANEL STOOL on 11-24-2024 EP PANEL RESULTS CALLED TO AB BY AT [facility] 11/24/24 1134 Usha Lara. REPORT READ BACK BY SEGUN. Normal Reference Range = Not Detected Nucleic acid amplification test method Vibrio species detected to include one or more of the following: V. cholerae and V. parahaemolyticus. Susceptibility testing not routinely performed but can be completed at the request by the ordering physician. Typical treatment may include Tetracycline/Doxycycli ne, Azithromycin, or Ciprofloxacin. This is an amplified DNA test which makes it both specific and sensitive. [facility] REPORT NO VIBRIO ISOLATED, UNABLE TO PERFORM SENSITIVITY PANEL. Copy of report sent to Infection Control Printer [id number] 11/23/24 4468 MLTIFFANI. CALLED AND LEFT MESSAGE TO RETURN OUR CALL FOR CRITICAL RESULT 11/24/24 0900 VSICK CAMPYLOBACTER Not Detected Norovirus Not Detected Rotavirus Not Detected Salmonella Not Detected Shiga Toxin Not Detected Shigella sp. Not Detected VIBRIO A Vibrio Detected A Yersinia Not Detected Vibrio Species * This is an amended result. * A prior result that was reported as final has been changed. 11/29/24 1606 by WENDY * This is an amended result. * A prior result that was reported as final has been changed. 11/30/24 0952 by DEAN Staley [facility] Comment on above: Performed By: #### L 3100.7870, L501.6710, L102.100, L3410.9996, L100.0100, L500.4050, L3410.9994 #### [facility] [address] [place], [address] CRP, High Sensitivity [id number] on 11-23-2024 CRP, HIGH SENS 1.01 mg/L Normal 0.00-3.00 [facility] Comment on above: Result Comment: Rela tive Risk for Future Cardiovascular Event Low <1.00 Average 1.00 - 3.00 High >3.00 Performed By: #### L 3100.7870, L501.6710, L102.100, L3410.9996, L100.0100, L500.4050, L3410.9994 #### [facility] [address] [place], [address] Clostridium difficile detect ion by polymerase chain reactionOrdered By: Lidia Koenig on 11-23-2024 C. difficile DNA LEILA+probe Ql (Unsp spec) [facility] [id number] 11-23-2024 [facility] Misc. 2 COMMENT Normal . [facility] Comment on above: Order Comment: REDRA WS NEEDED. ERRORS WHEN PROCESSED [id number] T-CELL REARRANGEMENT, PCR Result Comment: REDR ELEUTERIO NEEDED. ERRORS WHEN PROCESSED Test Ordered: [id number] T Cell Panel (gamma, beta) T-Cell PCR Interpretation Reference Range: . Test not performed. The required specimen for the test ordered was not received. RECEIVED WHOLE BLOOD IN TRANSFER TUBE REQUIRES Lavender-top (EDTA) tube, yellow-top (ACD) tube, green-top (heparin) tube, Martínez-top (K2-EDTA) tube, and Rhodell-top (K2-EDTA) tube, FFPE tissue block or slides, tissue in RPMI or frozen CONTACTED BRAYAN AT YOUR FACILITY ON 11-23-2024 T Clonal Size FIRE CREW SPECIALIST NOLAB Reference Range: . Block Number: FIRE CREW SPECIALIST NOLAB Reference Range: . Director Review: FIRE CREW SPECIALIST NOLAB Reference Range: . Methodology: FIRE CREW SPECIALIST NOLAB Reference Range: . References: FIRE CREW SPECIALIST NOLAB Reference Range: . TCRB Gene Clonality Results: NOLAB Reference Range: . Test not performed Clonal Size: FIRE CREW SPECIALIST NOLAB Reference Range: . Block Number: FIRE CREW SPECIALIST NOLAB Reference Range: . Director Review: FIRE CREW SPECIALIST NOLAB Reference Range: . Methodology: FIRE CREW SPECIALIST NOLAB Reference Range: . References: FIRE CREW SPECIALIST NOLAB Reference Range: . Performed at: [address] [id number] Farm Crew Leader: Gilmer Parker PhD, Phone: [phone] Performed at: [facility] [address] [place], [place] [id number] Farm Crew Leader: Amira Guthrie [facility], Phone: [phone] Performed By: #### L 3100.5956, L501.6110, L102.100, L3410.9996, L100.0100, L500.4050, L3410.9994 #### [facility] [address] [place], [address] L3410.9996on 11-23-2024 [facility] COMMENT Normal . [facility] Comment on above: Order Comment: REDRA WS NEEDED. ERRORS WHEN PROCESSED [id number] GENE REARRANEMENTS IGH IGK Result Comment: REDR ELEUTERIO NEEDED. ERRORS WHEN PROCESSED Test Ordered: [id number] Gene Rearrangements, IGH IGK B-Cell PCR Interpretation Reference Range: . Test not performed. The required specimen for the test ordered was not received. RECEIVED WHOLE BLOOD IN TRANSFER TUBE REQUIRES Lavender-top (EDTA) tube, yellow-top (ACD) tube, green-top (heparin) tube, Martínez-top (K2-EDTA) tube, and Rhodell-top (K2-EDTA) tube, FFPE tissue block or slides, tissue in RPMI or frozen CONTACTED BRAYAN AT YOUR FACILITY ON 11-23-2024 B Clonal Size FIRE CREW SPECIALIST NOLAB Reference Range: . Block Number: FIRE CREW SPECIALIST NOLAB Reference Range: . Director Review: FIRE CREW SPECIALIST NOLAB Reference Range: . Methodology: FIRE CREW SPECIALIST NOLAB Reference Range: . References: FIRE CREW SPECIALIST NOLAB Reference Range: . IgK PCR Interpretation NOLAB Reference Range: . Test not performed K Clonal Size FIRE CREW SPECIALIST NOLAB Reference Range: . Block Number: FIRE CREW SPECIALIST NOLAB Reference Range: . Director Review FIRE CREW SPECIALIST NOLAB Reference Range: . Methodology: FIRE CREW SPECIALIST NOLAB Reference Range: . References: FIRE CREW SPECIALIST NOLAB Reference Range: . Performed at: [facility] [employer] [address] [id number] Farm Crew Leader: Gilmer Praker PhD, Phone: [phone] Performed at: [facility] [address] [place], [place] [id number] Farm Crew Leader: Amira Guthrie [facility], Phone: [phone] Performed By: #### L 3100.7870, L501.6710, L102.100, L3410.9996, L100.0100, L500.4050, L3410.9994 #### [facility] [address] [place], [address] Sedimentation Rate 5215on SED RATE 22 mm/hr High 0-15 [facility] Comment on above: Result Comment: Perf ormed at: [address] [id number] Farm Crew Leader: Gilmer Parker PhD, Phone: [phone] Performed By: #### L 3100.7870, L501.6710, L102.100, L3410.9996, L100.0100, L500.4050, L3410.9994 #### [facility] [address] [place], [address] Absolute lymphocyte countOrd ered By: Lidia Koenig on 11-21-2024 Lymphocytes Auto (Unsp spec) [#/Vol] 0.93 10*3/uL 0.83-4.51 [facility] Absolute neutrophil countOrd ered By: Lidia Koenig on 11-21-2024 Neutrophils (Bld) [#/Vol] 2.7 10*3/uL 2.0-7.7 [facility] Anion gap in Serum or Plasma Ordered By: Lidia Koenig on 11-21-2024 Anion gap [Moles/Vol] 13 mmol/L 5-15 [facility] Automated lymphocyte count a s percentage of total leukocytesOrdered By: Lidia Koenig on 11-21-2024 Lymphocytes/100 WBC Auto (Unsp spec) 22.4 % 19-41 [facility] BUN/creatinine ratioOrdered By: Lidia Koenig on 11-21-2024 Urea nitrogen/Creatinine [Mass ratio] 14.6 mg/mg 10-20 [facility] Basophil percentageOrdered B y: Lidia Koenig on 11-21-2024 Basophils/100 WBC (Bld) 1.0 % 0-1 [facility] Bilirubin, totalOrdered By: Lidia Koenig on 11-21-2024 Bilirubin [Mass/Vol] 0.50 mg/dL 0.00-1.30 [facility] C-reactive protein measureme nt by high sensitivity methodOrdered By: Lidia Koenig on 11-21-2024 C-reactive protein measurement by high sensitivity method 1.01 mg/L 0.00-3.00 [facility] Comment on above: Relative Risk for Fu ture Cardiovascular Event Low <1.00 Average 1.00 - 3.00 High >3.00 CBC W/Diff, Automatedon 11-04 Absolute Lymph 0.93 X10 3/uL Normal 0.83-4.51 [facility] Comment on above: Performed By: #### L 3100.7870, L501.6710, L102.100, L3410.9996, L100.0100, L500.4050, L3410.9994 #### [facility] [address] [place], [address] Absolute Neut 2.7 X10 3/uL Normal 2.0-7.7 [facility] Comment on above: Performed By: #### L 3100.7870, L501.6710, L102.100, L3410.9996, L100.0100, L500.4050, L3410.9994 #### [facility] [address] [place], [address] Basophils/100 WBC (Bld) 1.0 % Normal 0-1 [facility] Comment on above: Performed By: #### L 3100.7870, L501.6710, L102.100, L3410.9996, L100.0100, L500.4050, L3410.9994 #### [facility] [address] [place], [address] Eosinophils/100 WBC (Bld) 3.9 % Normal 0-5 [facility] Comment on above: Performed By: #### L 3100.7870, L501.6710, L102.100, L3410.9996, L100.0100, L500.4050, L3410.9994 #### [facility] [address] [place], [address] Erythrocyte distribution width (RBC) [Ratio] 18.1 % High 11.6-14.6 [facility] Comment on above: Performed By: #### L 3100.7870, L501.6710, L102.100, L3410.9996, L100.0100, L500.4050, L3410.9994 #### [facility] [address] [place], [address] Hematocrit (Bld) [Volume fraction] 31.5 % Low 40-54 [facility] Comment on above: Performed By: #### L 3100.7870, L501.6710, L102.100, L3410.9996, L100.0100, L500.4050, L3410.9994 #### [facility] [address] [place], [address] Hemoglobin (Bld) [Mass/Vol] 10.2 g/dL Low 13.0-16.5 [facility] Comment on above: Performed By: #### L 3100.7870, L501.6710, L102.100, L3410.9996, L100.0100, L500.4050, L3410.9994 #### [facility] [address] [place], [address] IG% 0.500 Normal 0.0-0.9 [facility] Comment on above: Result Comment: IG% - Immature Granulocytes (promyelocytes, myelocytes and metamyelocytes) > 1% indicates that a LEFT SHIFT is Present. Performed By: #### L 3100.7870, L501.6710, L102.100, L3410.9996, L100.0100, L500.4050, L3410.9994 #### [facility] [address] [place], [address] Lymphocytes/100 WBC (Bld) 22.4 % Normal 19-41 [facility] Comment on above: Performed By: #### L 3100.7870, L501.6710, L102.100, L3410.9996, L100.0100, L500.4050, L3410.9994 #### [facility] [address] [place], [address] MCH (RBC) [Entitic mass] 27.7 pg Normal 27.0-32.0 [facility] Comment on above: Performed By: #### L 3100.7870, L501.6710, L102.100, L3410.9996, L100.0100, L500.4050, L3410.9994 #### [facility] [address], [address] MCHC (RBC) [Mass/Vol] 32.4 g/dL Normal 32-36 [facility] Comment on above: Performed By: #### L 3100.7870, L501.6710, L102.100, L3410.9996, L100.0100, L500.4050, L3410.9994 #### [facility] [address] [place], [address] MCV (RBC) [Entitic vol] 85.6 fL Normal 80-94 [facility] Comment on above: Performed By: #### L 3100.7870, L501.6710, L102.100, L3410.9996, L100.0100, L500.4050, L3410.9994 #### [facility] [address] [place], [address] Monocytes/100 WBC (Bld) 8.2 % Normal 0-10 [facility] Comment on above: Performed By: #### L 3100.7870, L501.6710, L102.100, L3410.9996, L100.0100, L500.4050, L3410.9994 #### [facility] [address], [address] Neutrophils/100 WBC (Bld) 64.0 % Normal 47-70 [facility] Comment on above: Performed By: #### L 3100.7870, L501.6710, L102.100, L3410.9996, L100.0100, L500.4050, L3410.9994 #### [facility] [address] [place], [address] Nucleated RBC (Bld) [#/Vol] 0 10*3/uL Normal 0-5 [facility] Comment on above: Performed By: #### L 3100.7870, L501.6710, L102.100, L3410.9996, L100.0100, L500.4050, L3410.9994 #### [facility] [address] [place], [address] Platelet mean volume (Bld) [Entitic vol] 10.1 fL Normal 6.2-12.0 [facility] Comment on above: Performed By: #### L 3100.7870, L501.6710, L102.100, L3410.9996, L100.0100, L500.4050, L3410.9994 #### [facility] [address] [place], [address] Platelets (Bld) [#/Vol] 323 10*3/uL Normal 150-450 [facility] Comment on above: Performed By: #### L 3100.7870, L501.6710, L102.100, L3410.9996, L100.0100, L500.4050, L3410.9994 #### [facility] [address] [place], [address] RBC (Bld) [#/Vol] 3.68 10*6/uL Low 4.6-6.2 [facility] Comment on above: Performed By: #### L 3100.7870, L501.6710, L102.100, L3410.9996, L100.0100, L500.4050, L3410.9994 #### [facility] [address] [place], [address] RDW SD 56.1 fl High 35.1-43.9 [facility] Comment on above: Performed By: #### L 3100.7870, L501.6710, L102.100, L3410.9996, L100.0100, L500.4050, L3410.9994 #### [facility] [address] [place], [address] WBC (Bld) [#/Vol] 4.2 10*3/uL Low 4.4-11.0 [facility] Comment on above: Performed By: #### L 3100.7870, L501.6710, L102.100, L3410.9996, L100.0100, L500.4050, L3410.9994 #### [facility] [address] [place], [address] CRPon 11-21-2024 C-REACTIVE PROT < 3.00 Normal 0.0-3.0 [facility] Comment on above: Performed By: #### L 3100.7870, L501.6710, L102.100, L3410.9996, L100.0100, L500.4050, L3410.9994 #### [facility] [address], [address] Carbon dioxide, total [Moles /volume] in Central venous bloodOrdered By: Lidia Koenig on 11-21-2024 CO2 [Moles/Vol] 21.2 mmol/L 21.0-32.0 [facility] Chloride assayOrdered By: Griffin Koenig on 11-21-2024 Chloride [Moles/Vol] 102 mmol/L 98-108 [facility] Comprehensive Metabolic Prof ilon 11-21-2024 Albumin [Mass/Vol] 3.9 g/dL Normal 3.5-5.0 [facility] Comment on above: Performed By: #### L 3100.7870, L501.6710, L102.100, L3410.9996, L100.0100, L500.4050, L3410.9994 #### [facility] [address] [place], [address] Albumin/Globulin [Mass ratio] 1.4 {ratio} Normal 0.9-2.4 [facility] Comment on above: Performed By: #### L 3100.7870, L501.6710, L102.100, L3410.9996, L100.0100, L500.4050, L3410.9994 #### [facility] [address] [place], [address] ALK PHOS 61 U/L Normal 40-129 [facility] Comment on above: Performed By: #### L 3100.7870, L501.6710, L102.100, L3410.9996, L100.0100, L500.4050, L3410.9994 #### [facility] [address] [place], [address] ALT [Catalytic activity/Vol] 22 U/L Normal <=46 [facility] Comment on above: Performed By: #### L 3100.7870, L501.6710, L102.100, L3410.9996, L100.0100, L500.4050, L3410.9994 #### [facility] [address] [place], [address] AST [Catalytic activity/Vol] 19 U/L Normal <=37 [facility] Comment on above: Performed By: #### L 3100.7870, L501.6710, L102.100, L3410.9996, L100.0100, L500.4050, L3410.9994 #### [facility] [address] [place], [address] Bilirubin [Mass/Vol] 0.50 mg/dL Normal 0.00-1.30 [facility] Comment on above: Performed By: #### L 3100.7870, L501.6710, L102.100, L3410.9996, L100.0100, L500.4050, L3410.9994 #### [facility] [address] [place], [address] BUN/CRE 14.6 RATIO Normal 10-20 [facility] Comment on above: Performed By: #### L 3100.7870, L501.6710, L102.100, L3410.9996, L100.0100, L500.4050, L3410.9994 #### [facility] [address] [place], [address] Calcium [Mass/Vol] 8.9 mg/dL Normal 7.6-11.0 [facility] Comment on above: Performed By: #### L 3100.7870, L501.6710, L102.100, L3410.9996, L100.0100, L500.4050, L3410.9994 #### [facility] [address] [place], [address] Chloride [Moles/Vol] 102 mmol/L Normal 98-108 [facility] Comment on above: Performed By: #### L 3100.7870, L501.6710, L102.100, L3410.9996, L100.0100, L500.4050, L3410.9994 #### [facility] [address] [place], [address] CO2 [Moles/Vol] 21.2 mmol/L Normal 21.0-32.0 [facility] Comment on above: Performed By: #### L 3100.7870, L501.6710, L102.100, L3410.9996, L100.0100, L500.4050, L3410.9994 #### [facility] [address] [place], [address] Creatinine [Mass/Vol] 1.16 mg/dL Normal 0.70-1.20 [facility] Comment on above: Performed By: #### L 3100.7870, L501.6710, L102.100, L3410.9996, L100.0100, L500.4050, L3410.9994 #### [facility] [address] [place], [address] GAP 13 Normal 5-15 [facility] Comment on above: Performed By: #### L 3100.7870, L501.6710, L102.100, L3410.9996, L100.0100, L500.4050, L3410.9994 #### [facility] [address] [place], [address] GFR/1.73 sq M.predicted among non-blacks MDRD (S/P/Bld) [Vol rate/Area] 79 mL/min/{1.73_m2} Normal >60 [facility] Comment on above: Result Comment: mL/m in/1.73m2 CKD-EPI Creatinine Equation (2020) Performed By: #### L 3100.7870, L501.6710, L102.100, L3410.9996, L100.0100, L500.4050, L3410.9994 #### [facility] [address] [place], [address] Globulin (S) [Mass/Vol] 2.7 g/dL Normal 2.2-4.2 [facility] Comment on above: Performed By: #### L 3100.7870, L501.6710, L102.100, L3410.9996, L100.0100, L500.4050, L3410.9994 #### [facility] [address] [place], [address] Glucose [Mass/Vol] 100 mg/dL High 70-99 [facility] Comment on above: Performed By: #### L 3100.7870, L501.6710, L102.100, L3410.9996, L100.0100, L500.4050, L3410.9994 #### [facility] [address] [place], [address] Potassium [Moles/Vol] 3.9 mmol/L Normal 3.3-5.1 [facility] Comment on above: Performed By: #### L 3100.7870, L501.6710, L102.100, L3410.9996, L100.0100, L500.4050, L3410.9994 #### [facility] [address] [place], [address] Sodium [Moles/Vol] 136 mmol/L Normal 133-145 [facility] Comment on above: Performed By: #### L 3100.7870, L501.6710, L102.100, L3410.9996, L100.0100, L500.4050, L3410.9994 #### [facility] [address] [place], [address] T PROT 6.6 g/dL Normal 5.9-8.4 [facility] Comment on above: Performed By: #### L 3100.7870, L501.6710, L102.100, L3410.9996, L100.0100, L500.4050, L3410.9994 #### [facility] [address] [place], [place], [id number] (870) Urea nitrogen [Mass/Vol] 17 mg/dL Normal 4-19 [facility] Comment on above: Performed By: #### L 3100.7870, L501.6710, L102.100, L3410.9996, L100.0100, L500.4050, L3410.9994 #### [facility] [address] [place], [address] ESR Westergren method (Bld) [Velocity]Ordered By: Lidia Koenig on 11-21-2024 ESR (Bld) [Velocity] 22 mm/h High 0-15 [facility] Comment on above: Performed at: [address] [id number] Director: Gilmer Parker PhD, Phone: [phone] Eosinophil percentageOrdered By: Lidia Koenig on 11-21-2024 Eosinophils/100 WBC (Bld) 3.9 % 0-5 [facility] Erythrocyte distribution wid th ratioOrdered By: Lidia Koenig on 11-21-2024 Erythrocyte distribution width (RBC) [Ratio] 18.1 % High 11.6-14.6 [facility] Erythrocyte distribution wid th standard deviationOrdered By: Lidia Koenig on 11-21-2024 Erythrocyte distribution width (RBC) [Ratio] 56.1 fl High 35.1-43.9 [facility] Glomerular filtration rate ( GFR) estimation/1.73 sq m using serum, plasma, or whole bOrdered By: Lidia Koenig on 11-21-2024 GFR/1.73 sq M.predicted among non-blacks MDRD (S/P/Bld) [Vol rate/Area] 79 mL/min/{1.73_m2} >60 [facility] Comment on above: mL/min/1.73m2 CKD-EP I Creatinine Equation (2020) Hematocrit Auto (Bld) [Volum e fraction]Ordered By: Lidia Koenig on 11-21-2024 Hematocrit (Bld) [Volume fraction] 31.5 % Low 40-54 [facility] Hemoglobin measurementOrdere d By: Lidia Koenig on 11-21-2024 Hemoglobin (Bld) [Mass/Vol] 10.2 g/dL Low 13.0-16.5 [facility] Immature granulocytes/100 WB C Auto (Bld)Ordered By: Lidia Koenig 11-21-2024 Immature granulocytes/100 WBC (Bld) 0.500 % 0.0-0.9 [facility] Comment on above: IG% - Immature Granu locytes (promyelocytes, myelocytes and metamyelocytes) > 1% indicates that a LEFT SHIFT is Present. Laboratory - Chemistry and C hemistry - challengeOrdered By: Lidia Koenig on 11-21-2024 AST [Catalytic activity/Vol] 19 U/L <38 [facility] MCV (mean corpuscular volume ) determinationOrdered By: Lidia Koenig on 11-21-2024 MCV (RBC) [Entitic vol] 85.6 fL 80-94 [facility] Mean corpuscular hemoglobin (MCH) determinationOrdered By: Lidia Koenig on 11-21-2024 MCH (RBC) [Entitic mass] 27.7 pg 27.0-32.0 [facility] Mean corpuscular hemoglobin concentration (MCHC) determinationOrdered By: Lidia Koenig on 11-21-2024 MCHC (RBC) [Mass/Vol] 32.4 g/dL 32-36 [facility] Mean platelet volume determi nationOrdered By: Lidia Keonig on 11-21-2024 Platelet mean volume (Bld) [Entitic vol] 10.1 fL 6.2-12.0 [facility] Monocyte percentageOrdered B y: Lidia Koenig on 11-21-2024 Monocytes/100 WBC (Bld) 8.2 % 0-10 [facility] Neutrophil percentageOrdered By: Lidia Koenig on 11-21-2024 Neutrophils/100 WBC (Bld) 64.0 % 47-70 [facility] [facility] Nucleated red blood cell per centageOrdered By: Lidia Koenig on 11-21-2024 Nucleated RBC/100 WBC (Bld) [Ratio] 0 % 0-5 [facility] Platelet countOrdered By: Griffin Koenig on 11-21-2024 Platelets (Bld) [#/Vol] 323 10*3/uL 150-450 [facility] Potassium measurement (mass/ volume)Ordered By: Lidia Koneig on 11-21-2024 Potassium (Unsp spec) [Mass/Vol] 3.9 mmol/L 3.3-5.1 [facility] RBC Auto (Bld) [#/Vol]Ordere d By: Lidia Koenig on 11-21-2024 RBC (Bld) [#/Vol] 3.68 10*6/uL Low 4.6-6.2 [facility] Serum creatinine measurement (mass/volume)Ordered By: Lidia Koenig on 11-21-2024 Creatinine [Mass/Vol] 1.16 mg/dL 0.70-1.20 [facility] Serum globulin measurementOr dered By: Lidia Koenig on 11-21-2024 Globulin (S) [Mass/Vol] 2.7 g/dL 2.2-4.2 [facility] Serum glucose measurement (m ass/volume)Ordered By: Lidia Koenig on 11-21-2024 Glucose [Mass/Vol] 100 mg/dL High 70-99 [facility] Serum or plasma alanine dubon otransferase (ALT) measurementOrdered By: Lidia Koenig on 11-21-2024 ALT [Catalytic activity/Vol] 22 U/L <47 [facility] Serum or plasma albumin juve urement (mass/volume)Ordered By: Lidia Koenig on 11-21-2024 Albumin [Mass/Vol] 3.9 g/dL 3.5-5.0 [facility] Serum or plasma albumin/glob ulin mass ratioOrdered By: Lidia Koenig on 11-21-2024 Albumin/Globulin [Mass ratio] 1.4 {ratio} 0.9-2.4 [facility] Serum or plasma alkaline janeth sphatase measurementOrdered By: Lidia Koenig on 11-21-2024 ALP [Catalytic activity/Vol] 61 U/L 40-129 [facility] Serum or plasma calcium juve urement (mass/volume)Ordered By: Lidia Koenig on 11-21-2024 Calcium [Mass/Vol] 8.9 mg/dL 7.6-11.0 [facility] Serum or plasma urea nitroge n measurement (mass/volume)Ordered By: Lidia Koenig on 11-21-2024 Urea nitrogen [Mass/Vol] 17 mg/dL 4-19 [facility] Sodium levelOrdered By: Mike Koenig on 11-21-2024 Sodium [Moles/Vol] 136 mmol/L 133-145 [facility] Total proteinOrdered By: Prashant Koenig on 11-21-2024 Protein [Mass/Vol] 6.6 g/dL 5.9-8.4 [facility] White blood cell (WBC) count Ordered By: Lidia Koenig on 11-21-2024 WBC (Bld) [#/Vol] 4.2 10*3/uL Low 4.4-11.0 [facility] CBC panel Auto (Bld)on 11-18 Erythrocyte distribution width (RBC) [Ratio] 19.2 % High 11.5 - 15.0 % [facility] Hematocrit (Bld) [Volume fraction] 34.5 % Low 39.0 - 51.0 % [facility] Hemoglobin (Bld) [Mass/Vol] 10.9 g/dL Low 13.0 - 17.0 g/dL [facility] Interpretation and review of laboratory results Abnormal [facility] MCH (RBC) [Entitic mass] 27.9 pg 26.0 - 34.0 pg [facility] MCHC (RBC) [Mass/Vol] 31.6 g/dL 30.5 - 36.0 g/dL [facility] MCV (RBC) [Entitic vol] 88.5 fL 80.0 - 100.0 fL [facility] Nucleated RBC (Bld) [#/Vol] NINF [facility] Platelet mean volume (Bld) [Entitic vol] 9.8 fL 9.0 - 12.7 fL [facility] Platelets (Bld) [#/Vol] 321 10*3/uL [facility] RBC (Bld) [#/Vol] 3.90 10*6/uL Low 4.20 - 6.0 0 m/uL [facility] WBC (Bld) [#/Vol] 5.67 10*3/uL [facility] Erythrocyte distribution width (RBC) [Ratio] 19.2 % High 11.5-15.0 [facility] Comment on above: Order Comment: Speci viv Type: BLOOD SPECIMEN Ordering Facility: [facility] Address: [address] [place] [address] Performed By: #### 5 8410-2 #### [facility] CLIA [id number] [address] [place] [address] [place] Hematocrit (Bld) [Volume fraction] 34.5 % Low 39.0-51.0 [facility] Comment on above: Order Comment: Speci viv Type: BLOOD SPECIMEN Ordering Facility: [facility] Address: [address] [place] [address] Performed By: #### 5 8410-2 #### [facility] CLIA [id number] [address] [place] [address] [place] Hemoglobin (Bld) [Mass/Vol] 10.9 g/dL Low 13.0-17.0 [facility] Comment on above: Order Comment: Speci men Type: BLOOD SPECIMEN Ordering Facility: [facility] Address: [address] [place] [address] Performed By: #### 5 8410-2 #### [facility] CLIA [id number] [address] [place] [address] [place] MCH (RBC) [Entitic mass] 27.9 pg Normal 26.0-34.0 [facility] Comment on above: Order Comment: Speci men Type: BLOOD SPECIMEN Ordering Facility: [facility] Address: [address] [place] [address] Performed By: #### 5 8410-2 #### [facility] CLIA [id number] [address] [place] [address] [place] MCHC (RBC) [Mass/Vol] 31.6 g/dL Normal 30.5-36.0 [facility] Comment on above: Order Comment: Speci men Type: BLOOD SPECIMEN Ordering Facility: [facility] Address: [address] [place] [address] Performed By: #### 5 8410-2 #### [facility] CLIA [id number] [address] [place] [address] [place] MCV (RBC) [Entitic vol] 88.5 fL Normal 80.0-100.0 [facility] Comment on above: Order Comment: Speci men Type: BLOOD SPECIMEN Ordering Facility: [facility] Address: [address] [place] [address] Performed By: #### 5 8410-2 #### [facility] CLIA [id number] [address] [place] [address] [place] Nucleated RBC (Bld) [#/Vol] 10*3/uL Normal <0.01 [facility] Comment on above: Order Comment: Speci men Type: BLOOD SPECIMEN Ordering Facility: [facility] Address: [address] [place] [address] Performed By: #### 5 8410-2 #### [facility] CLIA [id number] [address] [place], [place] [address] [place] Platelet mean volume (Bld) [Entitic vol] 9.8 fL Normal 9.0-12.7 [facility] Comment on above: Order Comment: Speci men Type: BLOOD SPECIMEN Ordering Facility: [facility] Address: [address] [place] [address] Performed By: #### 5 8410-2 #### [facility] CLIA [id number] [address] [place], [place] [address] [place] Platelets (Bld) [#/Vol] 321 10*3/uL Normal 150-400 [facility] Comment on above: Order Comment: Speci men Type: BLOOD SPECIMEN Ordering Facility: [facility] Address: [address] [place] [address] Performed By: #### 5 8410-2 #### [facility] CLIA [id number] [address] [place] [address] [place] RBC (Bld) [#/Vol] 3.90 10*6/uL Low 4.20-6.00 [facility] Comment on above: Order Comment: Speci men Type: BLOOD SPECIMEN Ordering Facility: [facility] Address: [address] [place] [address] Performed By: #### 5 8410-2 #### [facility] CLIA [id number] [address] [place] [address] [place] WBC (Bld) [#/Vol] 5.67 10*3/uL Normal 3.70-11.00 [facility] Comment on above: Order Comment: Speci men Type: BLOOD SPECIMEN Ordering Facility: [facility] Address: [address] [place], [place] [address] Performed By: #### 5 8410-2 #### [facility] CLIA [id number] [address] [place], [place] [address] [place] Comprehensive metabolic 2000 panelon 11-18-2024 Albumin [Mass/Vol] 4.1 g/dL 3.9 - 4.9 g/dL [facility] ALP [Catalytic activity/Vol] 59 U/L 38 - 113 U/L [facility] ALT [Catalytic activity/Vol] 27 U/L 10 - 54 U/L [facility] Anion gap [Moles/Vol] 11 mmol/L 8 - 15 mmol/L [facility] AST [Catalytic activity/Vol] 21 U/L 14 - 40 U/L [facility] Bilirubin [Mass/Vol] 0.4 mg/dL 0.2 - 1 .3 mg/dL [facility] Calcium [Mass/Vol] 9.6 mg/dL 8.5 - 10. 2 mg/dL [facility] Chloride [Moles/Vol] 103 mmol/L 98 - 10 7 mmol/L [facility] CO2 [Moles/Vol] 25 mmol/L 22 - 30 mmol/L [facility] Creatinine [Mass/Vol] 1.24 mg/dL High 0.73 - 1.22 mg/dL [facility] GFR/1.73 sq M.predicted among non-blacks MDRD (S/P/Bld) [Vol rate/Area] 73 mL/min/{1.73_m2} - PINF [facility] Comment on above: Estimated Glomerular Filtration Rate (eGFR) is calculated using the 2020 CKD-EPI creatinine equation. This equation utilizes serum creatinine, sex, and age as parameters. The creatinine assay has traceable calibration to isotope dilution-mass spectrometry. Refer to KDIGO guidelines for clinical interpretation. In patients with unstable renal function, e.g. those with acute kidney injury, the eGFR may not accurately reflect actual GFR. Glucose [Mass/Vol] 104 mg/dL High 74 - 99 mg/dL [facility] Comment on above: The [place] Diab[employer] s Association (ADA) provides guidance for cutoff values for fasting glucose and random glucose. The ADA defines fasting as no caloric intake for at least 8 hours. Fasting plasma glucose results between 100 to 125 mg/dL indicate increased risk for diabetes (prediabetes). Fasting plasma glucose results greater than or equal to 126 mg/dL meet the criteria for diagnosis of diabetes. In the absence of unequivocal hyperglycemia, results should be confirmed by repeat testing. In a patient with classic symptoms of hyperglycemia or hyperglycemic crisis, random plasma glucose results greater than or equal to 200 mg/dL meet the criteria for diagnosis of diabetes. Reference: Standards of Medical Care in Diabetes 2016, [place] [employer]. Diabetes Care. 2016.39(Suppl 1). Potassium [Moles/Vol] 5.0 mmol/L 3.7 - 5.1 mmol/L [facility] Protein [Mass/Vol] 7.0 g/dL 6.3 - 8.0 g/dL [facility] Sodium [Moles/Vol] 139 mmol/L 136 - 144 mmol/L [facility] Urea nitrogen [Mass/Vol] 19 mg/dL 9 - 24 mg/dL [facility] Albumin [Mass/Vol] 4.1 g/dL Normal 3.9-4.9 [facility] Comment on above: Order Comment: Clarencei viv Type: BLOOD SPECIMEN Ordering Facility: [facility] Address: [address] [place] [address] Performed By: #### 2 4323-8, 38545-8 #### [facility] CLIA [id number] [address] [place] [address] [place] ALP [Catalytic activity/Vol] 59 U/L Normal 38-113 [facility] Comment on above: Order Comment: Trisha nam Type: BLOOD SPECIMEN Ordering Facility: [facility] Address: [address] [place] [address] Performed By: #### 2 4323-8, 99853-1 #### [facility] CLIA [id number] [address] [place] [address] [place] ALT [Catalytic activity/Vol] 27 U/L Normal 10-54 [facility] Comment on above: Order Comment: Clarencei men Type: BLOOD SPECIMEN Ordering Facility: [facility] Address: [address] [place] [address] Performed By: #### 2 4323-8, 72563-7 #### [facility] CLIA [id number] [address] [place] [address] [place] Anion gap [Moles/Vol] 11 mmol/L Normal 8-15 [facility] Comment on above: Order Comment: Speci men Type: BLOOD SPECIMEN Ordering Facility: [facility] Address: [address] [place] [address] Performed By: #### 2 4323-8, 27127-7 #### [facility] CLIA [id number] [address] [place] [address] [place] AST [Catalytic activity/Vol] 21 U/L Normal 14-40 [facility] Comment on above: Order Comment: Speci men Type: BLOOD SPECIMEN Ordering Facility: [facility] Address: [address] [place] [address] Performed By: #### 2 4323-8, 79585-0 #### [facility] CLIA [id number] [address] [place] [address] [place] Bilirubin [Mass/Vol] 0.4 mg/dL Normal 0.2-1.3 [facility] Comment on above: Order Comment: Speci men Type: BLOOD SPECIMEN Ordering Facility: [facility] Address: [address] [place] [address] Performed By: #### 2 4323-8, 08165-4 #### [facility] CLIA [id number] [address] [place] [address] [place] Calcium [Mass/Vol] 9.6 mg/dL Normal 8.5-10.2 [facility] Comment on above: Order Comment: Speci men Type: BLOOD SPECIMEN Ordering Facility: [facility] Address: [address] [place], [place] [address] Performed By: #### 2 4323-8, 36183-6 #### [facility] CLIA [id number] [address] [place] [address] [place] Chloride [Moles/Vol] 103 mmol/L Normal 98-107 [facility] Comment on above: Order Comment: Speci men Type: BLOOD SPECIMEN Ordering Facility: [facility] Address: [address] [place] [address] Performed By: #### 2 4323-8, 68690-5 #### [facility] CLIA [id number] [address] [place] [address] [place] CO2 [Moles/Vol] 25 mmol/L Normal 22-30 [facility] Comment on above: Order Comment: Speci men Type: BLOOD SPECIMEN Ordering Facility: [facility] Address: [address] [place] [address] Performed By: #### 2 4323-8, 67588-5 #### [facility] CLIA [id number] [address] [place] [address] [place] [facility] Creatinine [Mass/Vol] 1.24 mg/dL High 0.73-1.22 [facility] Comment on above: Order Comment: Speci men Type: BLOOD SPECIMEN Ordering Facility: [facility] Address: [address] [place] [address] Performed By: #### 2 4323-8, 41684-8 #### [facility] CLIA [id number] [address] [place] [address] [place] [facility] eGFRcr SerPlBld CKD-EPI 2020 73 mL/min/1.73m??? Normal >=60 [facility] Comment on above: Order Comment: Speci men Type: BLOOD SPECIMEN Ordering Facility: [facility] Address: [address] [place] [address] Result Comment: Maday mated Glomerular Filtration Rate (eGFR) is calculated using the 2020 CKD-EPI creatinine equation. This equation utilizes serum creatinine, sex, and age as parameters. The creatinine assay has traceable calibration to isotope dilution-mass spectrometry. Refer to KDIGO guidelines for clinical interpretation. In patients with unstable renal function, e.g. those with acute kidney injury, the eGFR may not accurately reflect actual GFR. Performed By: #### 2 4323-8, 12531-0 #### [facility] CLIA [id number] [address] [place] [address] [place] Glucose [Mass/Vol] 104 mg/dL High 74-99 [facility] Comment on above: Order Comment: Speci men Type: BLOOD SPECIMEN Ordering Facility: [facility] Address: [address] [place] [address] Result Comment: The [place] Diabetes Association (ADA) provides guidance for cutoff values for fasting glucose and random glucose. The ADA defines fasting as no caloric intake for at least 8 hours. Fasting plasma glucose results between 100 to 125 mg/dL indicate increased risk for diabetes (prediabetes). Fasting plasma glucose results greater than or equal to 126 mg/dL meet the criteria for diagnosis of diabetes. In the absence of unequivocal hyperglycemia, results should be confirmed by repeat testing. In a patient with classic symptoms of hyperglycemia or hyperglycemic crisis, random plasma glucose results greater than or equal to 200 mg/dL meet the criteria for diagnosis of diabetes. Reference: Standards of Medical Care in Diabetes 2016, [place] [employer]. Diabetes Care. 2016.39(Suppl 1). Performed By: #### 2 4323-8, 69445-3 #### [facility] CLIA [id number] [address] [place] [address] [place] Potassium [Moles/Vol] 5.0 mmol/L Normal 3.7-5.1 [facility] Comment on above: Order Comment: Trisha nam Type: BLOOD SPECIMEN Ordering Facility: [facility] Address: [address] [place] [address] Performed By: #### 2 4323-8, 04003-8 #### [facility] CLIA [id number] [address] [place] [address] [place] Protein [Mass/Vol] 7.0 g/dL Normal 6.3-8.0 [facility] Comment on above: Order Comment: Trisha nam Type: BLOOD SPECIMEN Ordering Facility: [facility] Address: [address] [place] [address] Performed By: #### 2 4323-8, 89372-9 #### [facility] CLIA [id number] [address] [address] [place] Sodium [Moles/Vol] 139 mmol/L Normal 136-144 [facility] Comment on above: Order Comment: Speci men Type: BLOOD SPECIMEN Ordering Facility: [facility] Address: [address] [place] [address] Performed By: #### 2 4323-8, 62174-1 #### [facility] CLIA [id number] [address] [place] [address] [place] Urea nitrogen [Mass/Vol] 19 mg/dL Normal 9-24 [facility] Comment on above: Order Comment: Speci men Type: BLOOD SPECIMEN Ordering Facility: [facility] Address: [address] [place] [address] Performed By: #### 2 4323-8, 51935-3 #### [facility] CLIA [id number] [address] [place] [address] [place] Iron and Iron binding capaci ty panel 11-18-2024 Iron [Mass/Vol] 23 ug/dL Low 41 - 186 ug/dL [facility] Iron binding capacity [Mass/Vol] 304 ug/dL 232 - 386 ug/dL [facility] Iron/TIBC [Molar ratio] 7.6 % Low 15.0 - 57.0 % [facility] Iron [Mass/Vol] 23 ug/dL Low 41-186 [facility] Comment on above: Order Comment: Speci men Type: BLOOD SPECIMEN Ordering Facility: [facility] Address: [address] [place] [address] Performed By: #### 2 4323-8, 23962-5 #### [facility] CLIA [id number] [address] [place] [address] [place] Iron binding capacity [Mass/Vol] 304 ug/dL Normal 232-386 [facility] Comment on above: Order Comment: Speci men Type: BLOOD SPECIMEN Ordering Facility: [facility] Address: [address] [place] [address] Performed By: #### 2 4323-8, 41940-1 #### [facility] CLIA [id number] [address] [place] [address] [place] Iron/TIBC [Molar ratio] 7.6 % Low 15.0-57.0 [facility] Comment on above: Order Comment: Speci men Type: BLOOD SPECIMEN Ordering Facility: [facility] Address: [address] [place] [address] Performed By: #### 2 4323-8, 92861-8 #### [facility] CLIA [id number] [address] [place] [address] [place] No Panel Informationon 11-18 Interpretation and review of laboratory results Abnormal [facility] CBC panel Auto (Bld)on 11-14 Erythrocyte distribution width (RBC) [Ratio] 19.4 % High 11.5 - 15.0 % [facility] Hematocrit (Bld) [Volume fraction] 27.1 % Low 39.0 - 51.0 % [facility] Hemoglobin (Bld) [Mass/Vol] 8.7 g/dL Low 13.0 - 17.0 g/dL [facility] Interpretation and review of laboratory results Abnormal [facility] MCH (RBC) [Entitic mass] 28.3 pg 26.0 - 34.0 pg [facility] MCHC (RBC) [Mass/Vol] 32.1 g/dL 30.5 - 36.0 g/dL [facility] MCV (RBC) [Entitic vol] 88.3 fL 80.0 - 100.0 fL [facility] Nucleated RBC (Bld) [#/Vol] NINF [facility] Platelet mean volume (Bld) [Entitic vol] 11.0 fL 9.0 - 12.7 fL [facility] Platelets (Bld) [#/Vol] 233 10*3/uL [facility] RBC (Bld) [#/Vol] 3.07 10*6/uL Low 4.20 - 6.0 0 m/uL [facility] WBC (Bld) [#/Vol] 3.60 10*3/uL Low [facility] Erythrocyte distribution width (RBC) [Ratio] 19.4 % High 11.5-15.0 [facility] Comment on above: Order Comment: Speci men Type: BLOOD SPECIMEN Ordering Facility: [facility] Address: [address] [place] [address] Performed By: #### 5 8410-2 #### [facility] CLIA [id number] [address] Hematocrit (Bld) [Volume fraction] 27.1 % Low 39.0-51.0 [facility] Comment on above: Order Comment: Speci men Type: BLOOD SPECIMEN Ordering Facility: [facility] Address: [address] [place] [address] Performed By: #### 5 8410-2 #### [facility] CLIA [id number] [address] Hemoglobin (Bld) [Mass/Vol] 8.7 g/dL Low 13.0-17.0 [facility] Comment on above: Order Comment: Speci men Type: BLOOD SPECIMEN Ordering Facility: [facility] Address: [address] [place] [address] Performed By: #### 5 8410-2 #### [facility] CLIA [id number] [address] MCH (RBC) [Entitic mass] 28.3 pg Normal 26.0-34.0 [facility] Comment on above: Order Comment: Speci men Type: BLOOD SPECIMEN Ordering Facility: [facility] Address: [address] [place] [address] Performed By: #### 5 8410-2 #### [facility] CLIA [id number] [address] [place] MCHC (RBC) [Mass/Vol] 32.1 g/dL Normal 30.5-36.0 [facility] Comment on above: Order Comment: Speci men Type: BLOOD SPECIMEN Ordering Facility: [facility] Address: [address] [place] [address] Performed By: #### 5 8410-2 #### [facility] CLIA [id number] [address] MCV (RBC) [Entitic vol] 88.3 fL Normal 80.0-100.0 [facility] Comment on above: Order Comment: Speci men Type: BLOOD SPECIMEN Ordering Facility: [facility] Address: [address] [place] [address] Performed By: #### 5 8410-2 #### [facility] CLIA [id number] [address] [place] Nucleated RBC (Bld) [#/Vol] 10*3/uL Normal <0.01 [facility] Comment on above: Order Comment: Speci men Type: BLOOD SPECIMEN Ordering Facility: [facility] Address: [address] [place] [address] Performed By: #### 5 8410-2 #### [facility] CLIA [id number] [address] Platelet mean volume (Bld) [Entitic vol] 11.0 fL Normal 9.0-12.7 [facility] Comment on above: Order Comment: Speci men Type: BLOOD SPECIMEN Ordering Facility: [facility] Address: [address] [place] [address] Performed By: #### 5 8410-2 #### [facility] CLIA [id number] [address] Platelets (Bld) [#/Vol] 233 10*3/uL Normal 150-400 [facility] Comment on above: Order Comment: Speci men Type: BLOOD SPECIMEN Ordering Facility: [facility] Address: [address] [place] [address] Performed By: #### 5 8410-2 #### [facility] CLIA [id number] [address] [place] RBC (Bld) [#/Vol] 3.07 10*6/uL Low 4.20-6.00 [facility] Comment on above: Order Comment: Speci men Type: BLOOD SPECIMEN Ordering Facility: [facility] Address: [address] [place] [address] Performed By: #### 5 8410-2 #### [facility] CLIA [id number] [address] [place] [address] [place] WBC (Bld) [#/Vol] 3.60 10*3/uL Low 3.70-11.00 [facility] Comment on above: Order Comment: Trisha nam Type: BLOOD SPECIMEN Ordering Facility: [facility] Address: [address] [place] [address] Performed By: #### 5 8410-2 #### [facility] CLIA [id number] [address] [place] CNPNon 11-14-2024 CNPN Telephone ([employer]) JESUS DISLA ([id number]) 1980 M [facility] Date Time Provider Department 11/14/24 MERLIN DEUTSCH During your visit today, we recorded the following information about you: Anay Nahomy 11/14/2024 11:54 AM Signed Patient called in and wanted to know if you would put in lab orders for him? He would like to check the hemoglobin because it low. Patient just got out of the hospital [facility] on Thursday. He said he doesn't want to set up a hospital appt. Nahomy Cueva November 14, 2024 11:54 AM Merlin Deutsch DO 11/14/2024 12:07 PM Signed Chart reviewed. Order placed. Merlin Deutsch DO November 14, 2024 12:07 PM Allergies As of Date: 11/14/2024 Noted Allergy Reaction ADALIMUMAB 12/12/2015 14 - Other: See Comments DUST 11/12/2022 14 - Other: See Comments MOLD 12/08/2019 14 - Other: See Comments Comments: runny nose POLLEN EXTRACTS 12/08/2019 14 - Other: See Comments Comments: runny nose Date Reviewed: 11/10/2024 Reviewed by: Kailyn Nieto RN - Fully Assessed Reason for Visit: Patient Question [1477] Orders [681] Primary Visit Diagnosis:Crohn's disease of both small and large intestine with intestinal obstruction (HCC) [K50.812] Other Visit Diagnosis:Gastrointest inal hemorrhage, unspecified gastrointestinal hemorrhage type [K92.2] Order(s):COMPLETE BLOOD COUNT [CB] Order #: [id number] FUTURE Prescriptions as of 11/14/2024 - cholecalciferol (VITAMIN D-3) 5,000 unit tab Take 5,000 Units by mouth once daily. - glucosam/chond-msm1/C/ burton/bor (MWUKBPQCOUD-ZSPMV-YNP COMPLEX PO) Take 1 tablet by mouth three times a day. - magnesium L-threonate 48 mg magnesium (667 mg) cap Take 1 capsule by mouth three times a day. - ferrous sulfate (IRON) 325 mg (65 mg iron) tablet Take 325 mg by mouth once daily. - ascorbic acid, vitamin C, (VITAMIN C) 500 mg tablet Take 500 mg by mouth once daily. - calcium carb/magnesium carb (CALCIUM AND MAGNESIUM CARBONATES ORAL) Take 1 tablet by mouth once daily. - OTC NUTRITIONAL SUPPLEMENT Take 1 capsule by mouth once daily. Avamocal Advanced - Natural detoxification and antioxidant - OTC NUTRITIONAL SUPPLEMENT Take 1 capsule by mouth once daily. Biofilm disruptor - gut detox cleanse - naltrexone 4.5 mg cap Take 4.5 mg by mouth once daily. - vedolizumab (ENTYVIO) 300 mg injection Infuse 300mg via IV every 8 weeks. - saw palmetto 320 mg capsule Take 1 capsule by mouth once daily. - multivitamin tablet Take 1 tablet by mouth two times a day. - acetylcysteine (NAC) 600 mg capsule Take 1,200 mg by mouth twice daily. - Hsgnf-4-AFP-EPA-Fish Oil (FISH OIL) 1,000 mg (120 mg-180 mg) cap Take 2 g by mouth twice daily. - calcium carb/vit D2/minerals (CALCIUM 600/MINERALS ORAL) Take 1 tablet by mouth once daily. Problem List As Of Date 11/14/2024 Noted Resolved Crohn's disease of both small and large intesti*02/19/2015 Crohn's disease (HCC) [K50.90] 12/16/2019 Close exposure to COVID-19 virus [Z20.822] 12/17/2019 Post-op pain [G89.18] 12/19/2019 Post-operative state [Z98.890] 12/19/2019 09/25/2022 Hypomagnesemia [E83.42] 12/19/2019 12/20/2019 History of partial surgical removal of colon [Z*01/02/2020 Diagnosed: 04/08/2023 GI bleed [K92.2] 11/09/2024 Acute blood loss anemia [D62] 11/09/2024 ABLA (acute blood loss anemia) [D62] 11/10/2024 Encounter Status:Closed by MERLIN DEUTSCH on 11/14/24 [facility] CBC panel Auto (Bld)on 11-12 Erythrocyte distribution width (RBC) [Ratio] 18.7 % High 11.5-15.0 [facility] Comment on above: Order Comment: Trisha nam Type: BLOOD SPECIMEN Ordering Facility: [facility] Address: [address] [place] [address] Performed By: #### 5 8410-2 #### [employer] [facility] CLIA [id number] [address] [place] Hematocrit (Bld) [Volume fraction] 22.7 % Low 39.0-51.0 [facility] Comment on above: Order Comment: Clarencei men Type: BLOOD SPECIMEN Ordering Facility: [facility] Address: [address] [place] [address] Performed By: #### 5 8410-2 #### [employer] [facility] CLIA [id number] [address] [place] [address] [place] Hemoglobin (Bld) [Mass/Vol] 7.3 g/dL Low 13.0-17.0 [facility] Comment on above: Order Comment: Trisha nam Type: BLOOD SPECIMEN Ordering Facility: [facility] Address: [address] [place] [address] Performed By: #### 5 8410-2 #### [facility] CLIA [id number] [address] MCH (RBC) [Entitic mass] 27.4 pg Normal 26.0-34.0 [facility] Comment on above: Order Comment: Speci men Type: BLOOD SPECIMEN Ordering Facility: [facility] Address: [address] [place] [address] Performed By: #### 5 8410-2 #### [facility] CLIA [id number] [address] MCHC (RBC) [Mass/Vol] 32.2 g/dL Normal 30.5-36.0 [facility] Comment on above: Order Comment: Speci men Type: BLOOD SPECIMEN Ordering Facility: [facility] Address: [address] [place] [address] Performed By: #### 5 8410-2 #### [facility] CLIA [id number] [address] MCV (RBC) [Entitic vol] 85.3 fL Normal 80.0-100.0 [facility] Comment on above: Order Comment: Speci men Type: BLOOD SPECIMEN Ordering Facility: [facility] Address: [address] [place] [address] Performed By: #### 5 8410-2 #### [facility] CLIA [id number] [address] Nucleated RBC (Bld) [#/Vol] 10*3/uL Normal <0.01 [facility] Comment on above: Order Comment: Speci men Type: BLOOD SPECIMEN Ordering Facility: [facility] Address: [address] [place] [address] Performed By: #### 5 8410-2 #### [facility] CLIA [id number] [address] Platelet mean volume (Bld) [Entitic vol] 9.9 fL Normal 9.0-12.7 [facility] Comment on above: Order Comment: Speci men Type: BLOOD SPECIMEN Ordering Facility: [facility] Address: [address] [place] [address] Performed By: #### 5 8410-2 #### [facility] CLIA [id number] [address] Platelets (Bld) [#/Vol] 153 10*3/uL Normal 150-400 [facility] Comment on above: Order Comment: Speci men Type: BLOOD SPECIMEN Ordering Facility: [facility] Address: [address] [place] [address] Performed By: #### 5 8410-2 #### [facility] CLIA [id number] [address] RBC (Bld) [#/Vol] 2.66 10*6/uL Low 4.20-6.00 [facility] Comment on above: Order Comment: Speci men Type: BLOOD SPECIMEN Ordering Facility: [facility] Address: [address] [place] [address] Performed By: #### 5 8410-2 #### [facility] CLIA [id number] [address] WBC (Bld) [#/Vol] 3.63 10*3/uL Low 3.70-11.00 [facility] Comment on above: Order Comment: Speci men Type: BLOOD SPECIMEN Ordering Facility: [facility] Address: [address] [place] [address] Performed By: #### 5 8410-2 #### [facility] CLIA [id number] [address] Erythrocyte distribution width (RBC) [Ratio] 18.6 % High 11.5-15.0 [facility] Comment on above: Order Comment: Speci men Type: BLOOD SPECIMEN Ordering Facility: [facility] Address: [address] [place] [address] Performed By: #### 5 8410-2 #### [facility] CLIA [id number] [address] Hematocrit (Bld) [Volume fraction] 21.9 % Low 39.0-51.0 [facility] Comment on above: Order Comment: Speci men Type: BLOOD SPECIMEN Ordering Facility: [facility] Address: [address] [place] [address] Performed By: #### 5 8410-2 #### [facility] CLIA [id number] [address] Hemoglobin (Bld) [Mass/Vol] 7.2 g/dL Low 13.0-17.0 [facility] Comment on above: Order Comment: Speci men Type: BLOOD SPECIMEN Ordering Facility: [facility] Address: [address] [place] [address] Performed By: #### 5 8410-2 #### [facility] CLIA [id number] [address] OF [facility] MCH (RBC) [Entitic mass] 28.3 pg Normal 26.0-34.0 [facility] Comment on above: Order Comment: Speci men Type: BLOOD SPECIMEN Ordering Facility: [facility] Address: [address] [place] [address] Performed By: #### 5 8410-2 #### [facility] CLIA [id number] [address] OF [facility] MCHC (RBC) [Mass/Vol] 32.9 g/dL Normal 30.5-36.0 [facility] Comment on above: Order Comment: Speci men Type: BLOOD SPECIMEN Ordering Facility: [facility] Address: [address] [place] [address] Performed By: #### 5 8410-2 #### [facility] CLIA [id number] [address] MCV (RBC) [Entitic vol] 86.2 fL Normal 80.0-100.0 [facility] Comment on above: Order Comment: Speci men Type: BLOOD SPECIMEN Ordering Facility: [facility] Address: [address] [place] [address] Performed By: #### 5 8410-2 #### [facility] CLIA [id number] [address] [place] Nucleated RBC (Bld) [#/Vol] 10*3/uL Normal <0.01 [facility] Comment on above: Order Comment: Speci men Type: BLOOD SPECIMEN Ordering Facility: [facility] Address: [address] [place] [address] Performed By: #### 5 8410-2 #### [facility] CLIA [id number] [address] [place] Platelet mean volume (Bld) [Entitic vol] 9.9 fL Normal 9.0-12.7 [facility] Comment on above: Order Comment: Speci men Type: BLOOD SPECIMEN Ordering Facility: [facility] Address: [address] [place] [address] Performed By: #### 5 8410-2 #### [facility] CLIA [id number] [address] [place] Platelets (Bld) [#/Vol] 162 10*3/uL Normal 150-400 [facility] Comment on above: Order Comment: Speci men Type: BLOOD SPECIMEN Ordering Facility: [facility] Address: [address] [place] [address] Performed By: #### 5 8410-2 #### [facility] CLIA [id number] [address] RBC (Bld) [#/Vol] 2.54 10*6/uL Low 4.20-6.00 [facility] Comment on above: Order Comment: Speci men Type: BLOOD SPECIMEN Ordering Facility: [facility] Address: [address] [place] [address] Performed By: #### 5 8410-2 #### [facility] CLIA [id number] [address] [place] WBC (Bld) [#/Vol] 3.75 10*3/uL Normal 3.70-11.00 [facility] Comment on above: Order Comment: Speci men Type: BLOOD SPECIMEN Ordering Facility: [facility] Address: [facility] [place] [address] Performed By: #### 5 8410-2 #### [facility] CLIA [id number] [address] OF [facility] VASILEDSjassi 11-12-2024 [facility] HNO ID: [id number] Author: JENNIFER HILL MD Service: Hospital Medicine Author Type: Physician Type: Discharge Summary Filed: 11/12/2024 16:11 Note Text: DISCHARGE SUMMARY PATIENT NAME: Jesus Disla ADMISSION DATE: 11/09/2024 DISCHARGE DATE: 11/12/2024 ATTENDING PHYSICIAN: Jennifer Hill MD Code Status: Full Code Highest Readmission Risk Score: 17 The 30 day readmissions risk score is derived from an internally validated risk model which evaluates patient level characteristics, utilization history, medication orders and lab results up until the day of discharge. Patients with a score of 39 or above are considered highest risk for readmission. Specific patient level drivers will be listed at the bottom of the summary. CONSULTING TEAMS DURING HOSPITALIZATION: Treatment Team: Attending Provider: Jennifer Hill MD Consulting: Juliana Cevallos MD Consulting: Lucrecia Tim DO Primary Service: AVIS BOLAÑOS REASON FOR HOSPITALIZATION: FINAL DIAGNOSIS: Active Hospital Problems Diagnosis POA GI bleed Yes ABLA (acute blood loss anemia) Yes Acute blood loss anemia Yes Resolved Hospital Problems No resolved problems to display. OPERATIONS DURING HOSPITALIZATION: None PROCEDURES DURING HOSPITALIZATION: No procedures performed HOSPITAL COURSE: 44 year old male with PMH of Crohn's Disease diagnosed in 2003, s/p partial colectomy in 2019 and Laparoscopic ileocolic anastomosis with lymphadenectomy presents to the MICU with acute lower GI bleeding, presenting with multiple bloody bowel movements at work with lightheadedness, syncopal episode. He has been receiving Entyvio and iron infusions for chronic anemia. CTA positive for bleeding within the proximal ascending colon near enterocolic anastomosis. IR was consulted for an emergent embolization. However there was no active bleed found in the entero colic anastomosis and an embolization was not performed. (site of right groin sheath. ) bedside colonoscopy done on 11/10/24-Coagulation for hemostasis done. On 11/11/2024, patient received 1 more unit of blood transfusion. Vitals has been stable. No more GI bleed x 48 hours. GI saw patient, stable for discharge. Patient is to follow-up with his regular GI doctor in 2 weeks. Recommended recheck blood work in 3 to 5 days and follow-up with his primary care. Pt and family has no concerns with discharge today. Nursing staff has no concern with discharge today. Patient had the opportunity to ask questions and questions were answered to satisfaction. Discharge preparation required approximately 45 minutes, encompassing patient education, medication review, and completion of discharge planning and paperwork. Transitions of Care Critical Issues: follow-up with his regular GI doctor in 2 weeks. Recommended recheck blood work in 3 to 5 days and follow-up with his primary care. LABS AND PROCEDURES PENDING AT DISCHARGE: No pending results. PATIENT CONDITION AT DISCHARGE: Fair DISCHARGE DISPOSITION: Home with Self Care Constitutional - Vitals as above, NAD Respiratory - Clear to auscultate both sides. No crackles, wheezes or rales, No labored breathing noted CVS- RRR, no murmur/gallop/rub, pulse 2+ GI- NTND, bowel sounds normally heard INFORMATION PROVIDED TO PATIENT: You were admitted for bleeding bowel movement, syncope. CTA scan positive for bleeding within the proximal ascending colon near enterocolic anastomosis. After CT scan, attempted emergent embolization to control bleeding however there was no active bleeding found and embolization procedure was not done. Gastroenterology consult saw you and you had colonoscopy done on 11/10/24-Coagulation for hemostasis done. On 11/11/2024, patient received 1 more unit of blood transfusion. Patient is to follow-up with his regular GI doctor in 2 weeks. Recommended recheck blood work in 3 to 5 days and follow-up with his primary care. WOUND/SURGICAL SITE CARE: None DIET: Resume your pre-hospital diet ACTIVITY: Resume pre-hospital activity ALLERGIES[1] DISCHARGE MEDICATION: Medication List CONTINUE taking these medications CALCIUM AND MAGNESIUM CARBONATES ORAL CALCIUM 600/MINERALS ORAL ENTYVIO 300 mg injection Generic drug: vedolizumab Infuse 300mg via IV every 8 weeks. Fish OiL 1,000 (120-180) mg Cap Generic drug: Kekxj-9-EQQ-EPA-Fish Oil DSZUEKRCLZI-CYFHK-GJT COMPLEX PO Iron 325 mg (65 mg iron) tablet Generic drug: ferrous sulfate magnesium L-threonate 48 mg magnesium (667 mg) Cap multivitamin tablet NAC 600 mg capsule Generic drug: acetylcysteine naltrexone 4.5 mg Cap OTC NUTRITIONAL SUPPLEMENT OTC NUTRITIONAL SUPPLEMENT saw palmetto capsule VITAMIN C 500 mg tablet Generic drug: ascorbic acid (vitamin C) Vitamin D-3 5,000 unit Tab Generic drug: cholecalciferol STOP taking these medications ibuprofen 200 mg tablet Commonly known as: MOTRIN FUTURE APPOINTMENTS: (more content not included)... Normal [facility] CONSULT PROGon 11-12-2024 CONSULT PROG HNO ID: [id number] Author: CAROLINA SUMNER MD Service: Gastroenterology Author Type: Physician Type: Consult Progress Note Filed: 11/12/2024 14:02 Note Text: GI CONSULT PROGRESS NOTE SERVICE DATE: 11/12/2024 SERVICE TIME: 1430 CONSULTING SERVICE: Gastroenterology Subjective feels well no pain n/v no bleeding INTERVAL HPI: discharge planning today case reviewed with family pt/medical attending Current Facility-Administered Medications Medication Dose Route Frequency NaCl 0.9% iv flush bag 20 mL INTRAVENOUS PRN magnesium sulfate iv piggyback in sterile water 2 g 50 mL 2 g INTRAVENOUS PRN pantoprazole 40 mg injection (PROTONIX) 40 mg INTRAVENOUS BID AC (0600/1600) acetaminophen 1,000 mg tab(s) (TYLENOL) 1,000 mg ORAL/FEEDING TUBE q 6 H PRN NaCl 0.9% iv infusion 75 mL/hr INTRAVENOUS CONTINUOUS Objective PHYSICAL EXAM: Physical Exam Performed: ABDOMEN: Abdomen soft, non-tender, BS normal, No masses or organomegaly BP 93/54 Pulse 58 Temp (Src) 98.9 (Oral) Resp 18 Ht 5' 10 (1.78m) Wt 181 lb 10.5 oz (82.4kg) SpO2 94% BMI 26.07 kg/(m2). O2 Therapy: Room Air DATA: Diagnostic tests reviewed for today's visit: Most recent labs and imaging results. Impression/Recommendat ions lower gi bleed resolved ileocolonic ulcer noted on colonoscopy discharge palnning today can foll ow up with his regular gi as outpt diet as tolerated activity ad lynn etiology most likely related to recurrent crohns at anastomosis can follow up fecal calpropectin as outpt SIGNATURE: Carolina Sumner MD PATIENT NAME: Jesus Disla DATE: November 12, 2024 TIME: 1:58 PM Normal [facility] Renal function 2000 panelon 11-12-2024 Albumin [Mass/Vol] 2.8 g/dL Low 3.9-4.9 [facility] Comment on above: Order Comment: Speci men Type: BLOOD SPECIMEN Ordering Facility: [facility] Address: [address] [place] [address] Performed By: #### 5 8410-2 #### [facility] CLIA [id number] 1 [place] [address] [place] Anion gap [Moles/Vol] 7 mmol/L Low 8-15 [facility] Comment on above: Order Comment: Speci men Type: BLOOD SPECIMEN Ordering Facility: [facility] Address: [address] [place] [address] Performed By: #### 5 8410-2 #### [facility] CLIA [id number] 1 [place] [address] [place] Calcium [Mass/Vol] 7.9 mg/dL Low 8.5-10.2 [facility] Comment on above: Order Comment: Speci men Type: BLOOD SPECIMEN Ordering Facility: [facility] Address: [address] [place] [address] Performed By: #### 5 8410-2 #### [facility] CLIA [id number] 1 [place] [address] [place] Chloride [Moles/Vol] 108 mmol/L High 98-107 [facility] Comment on above: Order Comment: Speci men Type: BLOOD SPECIMEN Ordering Facility: [facility] Address: [address] [place] [address] Performed By: #### 5 8410-2 #### [facility] CLIA [id number] 1 [place] [address] [place] CO2 [Moles/Vol] 27 mmol/L Normal 22-30 [facility] Comment on above: Order Comment: Speci men Type: BLOOD SPECIMEN Ordering Facility: [facility] Address: [address] [place] [address] Performed By: #### 5 8410-2 #### [facility] CLIA [id number] 1 [place] [address] [place] Creatinine [Mass/Vol] 1.19 mg/dL Normal 0.73-1.22 [facility] Comment on above: Order Comment: Trihsa nam Type: BLOOD SPECIMEN Ordering Facility: [facility] Address: [address] [place] [address] Performed By: #### 5 8410-2 #### [facility] CLIA [id number] [address] [place] eGFRcr SerPlBld CKD-EPI 2020 76 mL/min/1.73m??? Normal >=60 [facility] Comment on above: Order Comment: Trisha nam Type: BLOOD SPECIMEN Ordering Facility: [facility] Address: [address] [place] [address] Result Comment: Maday mated Glomerular Filtration Rate (eGFR) is calculated using the 2020 CKD-EPI creatinine equation. This equation utilizes serum creatinine, sex, and age as parameters. The creatinine assay has traceable calibration to isotope dilution-mass spectrometry. Refer to KDIGO guidelines for clinical interpretation. In patients with unstable renal function, e.g. those with acute kidney injury, the eGFR may not accurately reflect actual GFR. Performed By: #### 5 8410-2 #### [facility] CLIA [id number] [address] [place] Glucose [Mass/Vol] 91 mg/dL Normal 74-99 [facility] Comment on above: Order Comment: Trisha nam Type: BLOOD SPECIMEN Ordering Facility: [facility] Address: [address] [place] [address] Result Comment: The [place] [employer] (ADA) provides guidance for cutoff values for fasting glucose and random glucose. The ADA defines fasting as no caloric intake for at least 8 hours. Fasting plasma glucose results between 100 to 125 mg/dL indicate increased risk for diabetes (prediabetes). Fasting plasma glucose results greater than or equal to 126 mg/dL meet the criteria for diagnosis of diabetes. In the absence of unequivocal hyperglycemia, results should be confirmed by repeat testing. In a patient with classic symptoms of hyperglycemia or hyperglycemic crisis, random plasma glucose results greater than or equal to 200 mg/dL meet the criteria for diagnosis of diabetes. Reference: Standards of Medical Care in Diabetes 2016, [place] [employer]. Diabetes Care. 2016.39(Suppl 1). Performed By: #### 5 8410-2 #### [facility] CLIA [id number] [address] STATES OF [facility] Phosphate [Mass/Vol] 3.9 mg/dL Normal 2.7-4.8 [facility] Comment on above: Order Comment: Speci men Type: BLOOD SPECIMEN Ordering Facility: [facility] Address: [address] [place] [address] Performed By: #### 5 8410-2 #### [facility] CLIA [id number] [address] STATES [facility] Potassium [Moles/Vol] 3.9 mmol/L Normal 3.7-5.1 [facility] Comment on above: Order Comment: Speci men Type: BLOOD SPECIMEN Ordering Facility: [facility] Address: [address] [place] [address] Performed By: #### 5 8410-2 #### [facility] CLIA [id number] [address] Sodium [Moles/Vol] 142 mmol/L Normal 136-144 [facility] Comment on above: Order Comment: Speci men Type: BLOOD SPECIMEN Ordering Facility: [facility] Address: [address] [place] [address] Performed By: #### 5 8410-2 #### [facility] CLIA [id number] [address] [place] Urea nitrogen [Mass/Vol] 8 mg/dL Low 9-24 [facility] Comment on above: Order Comment: Speci men Type: BLOOD SPECIMEN Ordering Facility: [facility] Address: [address] [place] [address] Performed By: #### 5 8410-2 #### [facility] CLIA [id number] [address] [place] CBC panel Auto (Bld)on 11-11 Erythrocyte distribution width (RBC) [Ratio] 18.8 % High 11.5-15.0 [facility] Comment on above: Order Comment: Speci men Type: BLOOD SPECIMEN Ordering Facility: [facility] Address: [address] [place] [address] Performed By: #### 5 8410-2 #### [facility] CLIA [id number] [address] OF [facility] Hematocrit (Bld) [Volume fraction] 21.9 % Low 39.0-51.0 [facility] Comment on above: Order Comment: Speci men Type: BLOOD SPECIMEN Ordering Facility: [facility] Address: [address] [place] [address] Performed By: #### 5 8410-2 #### [facility] CLIA [id number] [address] STATES [place] [facility] Hemoglobin (Bld) [Mass/Vol] 7.3 g/dL Low 13.0-17.0 [facility] Comment on above: Order Comment: Speci men Type: BLOOD SPECIMEN Ordering Facility: [facility] Address: [address] [place] [address] Performed By: #### 5 8410-2 #### [facility] CLIA [id number] [address] STATES [place] [facility] HOSPITAL MCH (RBC) [Entitic mass] 27.8 pg Normal 26.0-34.0 [facility] Comment on above: Order Comment: Speci men Type: BLOOD SPECIMEN Ordering Facility: [facility] Address: [address] [place] [address] Performed By: #### 5 8410-2 #### [facility] CLIA [id number] [address] [place] [facility] MCHC (RBC) [Mass/Vol] 33.3 g/dL Normal 30.5-36.0 [facility] Comment on above: Order Comment: Speci men Type: BLOOD SPECIMEN Ordering Facility: [facility] Address: [address] [place] [address] Performed By: #### 5 8410-2 #### [facility] CLIA [id number] [address] MCV (RBC) [Entitic vol] 83.3 fL Normal 80.0-100.0 [facility] Comment on above: Order Comment: Speci men Type: BLOOD SPECIMEN Ordering Facility: [facility] Address: [address] [place] [address] Performed By: #### 5 8410-2 #### [facility] CLIA [id number] [address] [place] Nucleated RBC (Bld) [#/Vol] 10*3/uL Normal <0.01 [facility] Comment on above: Order Comment: Speci men Type: BLOOD SPECIMEN Ordering Facility: [facility] Address: [address] [place] [address] Performed By: #### 5 8410-2 #### [facility] CLIA [id number] [address] Platelet mean volume (Bld) [Entitic vol] 9.2 fL Normal 9.0-12.7 [facility] Comment on above: Order Comment: Speci men Type: BLOOD SPECIMEN Ordering Facility: [facility] Address: [address] [place] [address] Performed By: #### 5 8410-2 #### [facility] CLIA [id number] [address] Platelets (Bld) [#/Vol] 152 10*3/uL Normal 150-400 [facility] Comment on above: Order Comment: Speci men Type: BLOOD SPECIMEN Ordering Facility: [facility] Address: [address] [place] [address] Performed By: #### 5 8410-2 #### [facility] CLIA [id number] [address] [place] RBC (Bld) [#/Vol] 2.63 10*6/uL Low 4.20-6.00 [facility] Comment on above: Order Comment: Speci men Type: BLOOD SPECIMEN Ordering Facility: [facility] Address: [address] [place] [address] Performed By: #### 5 8410-2 #### [facility] CLIA [id number] [address] WBC (Bld) [#/Vol] 4.30 10*3/uL Normal 3.70-11.00 [facility] Comment on above: Order Comment: Speci men Type: BLOOD SPECIMEN Ordering Facility: [facility] Address: [address] [place] [address] Performed By: #### 5 8410-2 #### [facility] CLIA [id number] [address] Erythrocyte distribution width (RBC) [Ratio] 19.0 % High 11.5-15.0 [facility] Comment on above: Order Comment: Speci men Type: BLOOD SPECIMEN Ordering Facility: [facility] Address: [address] [place] [address] Performed By: #### 5 8410-2 #### [facility] CLIA [id number] [address] Hematocrit (Bld) [Volume fraction] 22.4 % Low 39.0-51.0 [facility] Comment on above: Order Comment: Speci men Type: BLOOD SPECIMEN Ordering Facility: [facility] Address: [address] [place] [address] Performed By: #### 5 8410-2 #### [facility] CLIA [id number] [address] Hemoglobin (Bld) [Mass/Vol] 7.4 g/dL Low 13.0-17.0 [facility] Comment on above: Order Comment: Speci men Type: BLOOD SPECIMEN Ordering Facility: [facility] Address: [address] [place] [address] Performed By: #### 5 8410-2 #### [facility] CLIA [id number] [address] [place] [address] [place] MCH (RBC) [Entitic mass] 28.2 pg Normal 26.0-34.0 [facility] Comment on above: Order Comment: Speci men Type: BLOOD SPECIMEN Ordering Facility: [facility] Address: [address] [place] [address] Performed By: #### 5 8410-2 #### [facility] CLIA [id number] [address] MCHC (RBC) [Mass/Vol] 33.0 g/dL Normal 30.5-36.0 [facility] Comment on above: Order Comment: Speci men Type: BLOOD SPECIMEN Ordering Facility: [facility] Address: [address] [place] [address] Performed By: #### 5 8410-2 #### [facility] CLIA [id number] [address] MCV (RBC) [Entitic vol] 85.5 fL Normal 80.0-100.0 [facility] Comment on above: Order Comment: Speci men Type: BLOOD SPECIMEN Ordering Facility: [facility] Address: [address] [place] [address] Performed By: #### 5 8410-2 #### [facility] CLIA [id number] [address] Nucleated RBC (Bld) [#/Vol] 10*3/uL Normal <0.01 [facility] Comment on above: Order Comment: Speci men Type: BLOOD SPECIMEN Ordering Facility: [facility] Address: [address] [place] [address] Performed By: #### 5 8410-2 #### [facility] CLIA [id number] [address] Platelet mean volume (Bld) [Entitic vol] 9.7 fL Normal 9.0-12.7 [facility] Comment on above: Order Comment: Speci men Type: BLOOD SPECIMEN Ordering Facility: [facility] Address: [address] [place] [address] Performed By: #### 5 8410-2 #### [facility] CLIA [id number] [address] [place] Platelets (Bld) [#/Vol] 165 10*3/uL Normal 150-400 [facility] Comment on above: Order Comment: Speci men Type: BLOOD SPECIMEN Ordering Facility: [facility] Address: [address] [place] [address] Performed By: #### 5 8410-2 #### [facility] CLIA [id number] [address] [place] RBC (Bld) [#/Vol] 2.62 10*6/uL Low 4.20-6.00 [facility] Comment on above: Order Comment: Speci men Type: BLOOD SPECIMEN Ordering Facility: [facility] Address: [address] [place] [address] Performed By: #### 5 8410-2 #### [facility] CLIA [id number] [address] WBC (Bld) [#/Vol] 5.77 10*3/uL Normal 3.70-11.00 [facility] Comment on above: Order Comment: Speci men Type: BLOOD SPECIMEN Ordering Facility: [facility] Address: [address] [place] [address] Performed By: #### 5 8410-2 #### [facility] CLIA [id number] [address] Erythrocyte distribution width (RBC) [Ratio] 19.0 % High 11.5-15.0 [facility] Comment on above: Order Comment: Speci men Type: BLOOD SPECIMEN Ordering Facility: [facility] Address: [address] [place] [address] Performed By: #### 5 8410-2 #### [facility] CLIA [id number] [address] Hematocrit (Bld) [Volume fraction] 23.0 % Low 39.0-51.0 [facility] Comment on above: Order Comment: Speci men Type: BLOOD SPECIMEN Ordering Facility: [facility] Address: [address] [place] [address] Performed By: #### 5 8410-2 #### [facility] CLIA [id number] [address] Hemoglobin (Bld) [Mass/Vol] 7.8 g/dL Low 13.0-17.0 [facility] Comment on above: Order Comment: Speci men Type: BLOOD SPECIMEN Ordering Facility: [facility] Address: [address] [place] [address] Performed By: #### 5 8410-2 #### [facility] CLIA [id number] [address] MCH (RBC) [Entitic mass] 29.0 pg Normal 26.0-34.0 [facility] Comment on above: Order Comment: Speci men Type: BLOOD SPECIMEN Ordering Facility: [facility] Address: [address] [place] [address] Performed By: #### 5 8410-2 #### [facility] CLIA [id number] [address] MCHC (RBC) [Mass/Vol] 33.9 g/dL Normal 30.5-36.0 [facility] Comment on above: Order Comment: Speci men Type: BLOOD SPECIMEN Ordering Facility: [facility] Address: [address] [place] [address] Performed By: #### 5 8410-2 #### [facility] CLIA [id number] [address] MCV (RBC) [Entitic vol] 85.5 fL Normal 80.0-100.0 [facility] Comment on above: Order Comment: Speci men Type: BLOOD SPECIMEN Ordering Facility: [facility] Address: [address] [place] [address] Performed By: #### 5 8410-2 #### [facility] CLIA [id number] [address] Nucleated RBC (Bld) [#/Vol] 10*3/uL Normal <0.01 [facility] Comment on above: Order Comment: Speci men Type: BLOOD SPECIMEN Ordering Facility: [facility] Address: [address] [place] [address] Performed By: #### 5 8410-2 #### [facility] CLIA [id number] [address] Platelet mean volume (Bld) [Entitic vol] 9.9 fL Normal 9.0-12.7 [facility] Comment on above: Order Comment: Speci men Type: BLOOD SPECIMEN Ordering Facility: [facility] Address: [address] [place] [address] Performed By: #### 5 8410-2 #### [facility] CLIA [id number] [address] [place] Platelets (Bld) [#/Vol] 147 10*3/uL Low 150-400 [facility] Comment on above: Order Comment: Speci men Type: BLOOD SPECIMEN Ordering Facility: [facility] Address: [address] [place] [address] Performed By: #### 5 8410-2 #### [facility] CLIA [id number] [address] [place] RBC (Bld) [#/Vol] 2.69 10*6/uL Low 4.20-6.00 [facility] Comment on above: Order Comment: Speci men Type: BLOOD SPECIMEN Ordering Facility: [facility] Address: [address] [place] [address] Performed By: #### 5 8410-2 #### [facility] CLIA [id number] [address] [place] WBC (Bld) [#/Vol] 7.83 10*3/uL Normal 3.70-11.00 [facility] Comment on above: Order Comment: Speci men Type: BLOOD SPECIMEN Ordering Facility: [facility] Address: [facility] [place] [address] Performed By: #### 5 8410-2 #### [facility] CLIA [id number] [address] STATES OF [facility] Erythrocyte distribution width (RBC) [Ratio] 18.3 % High 11.5-15.0 [facility] Comment on above: Order Comment: Speci men Type: BLOOD SPECIMEN Ordering Facility: [facility] Address: [address] [place] [address] Performed By: #### 5 8410-2 #### [facility] CLIA [id number] [address] [place] Hematocrit (Bld) [Volume fraction] 21.6 % Low 39.0-51.0 [facility] Comment on above: Order Comment: Speci men Type: BLOOD SPECIMEN Ordering Facility: [facility] Address: [address] [place] [address] Performed By: #### 5 8410-2 #### [facility] CLIA [id number] [address] [place] Hemoglobin (Bld) [Mass/Vol] 6.8 g/dL Low 13.0-17.0 [facility] Comment on above: Order Comment: Speci men Type: BLOOD SPECIMEN Ordering Facility: [facility] Address: [address] [place] [address] Performed By: #### 5 8410-2 #### [facility] CLIA [id number] [address] STATES OF [facility] MCH (RBC) [Entitic mass] 27.4 pg Normal 26.0-34.0 [facility] Comment on above: Order Comment: Speci men Type: BLOOD SPECIMEN Ordering Facility: [facility] Address: [address] [place] [address] Performed By: #### 5 8410-2 #### [facility] CLIA [id number] [address] [place] [facility] MCHC (RBC) [Mass/Vol] 31.5 g/dL Normal 30.5-36.0 [facility] Comment on above: Order Comment: Speci men Type: BLOOD SPECIMEN Ordering Facility: [facility] Address: [address] [place] [address] Performed By: #### 5 8410-2 #### [facility] CLIA [id number] [address] MCV (RBC) [Entitic vol] 87.1 fL Normal 80.0-100.0 [facility] Comment on above: Order Comment: Speci men Type: BLOOD SPECIMEN Ordering Facility: [facility] Address: [address] [place] [address] Performed By: #### 5 8410-2 #### [facility] CLIA [id number] [address] Nucleated RBC (Bld) [#/Vol] 10*3/uL Normal <0.01 [facility] Comment on above: Order Comment: Speci men Type: BLOOD SPECIMEN Ordering Facility: [facility] Address: [address] [place] [address] Performed By: #### 5 8410-2 #### [facility] CLIA [id number] [address] Platelet mean volume (Bld) [Entitic vol] 9.8 fL Normal 9.0-12.7 [facility] Comment on above: Order Comment: Speci men Type: BLOOD SPECIMEN Ordering Facility: [facility] Address: [address] [place] [address] Performed By: #### 5 8410-2 #### [facility] CLIA [id number] [address] Platelets (Bld) [#/Vol] 150 10*3/uL Normal 150-400 [facility] Comment on above: Order Comment: Speci men Type: BLOOD SPECIMEN Ordering Facility: [facility] Address: [address] [place] [address] Performed By: #### 5 8410-2 #### [facility] CLIA [id number] [address] [place] RBC (Bld) [#/Vol] 2.48 10*6/uL Low 4.20-6.00 [facility] Comment on above: Order Comment: Speci men Type: BLOOD SPECIMEN Ordering Facility: [facility] Address: [address] [place] [address] Performed By: #### 5 8410-2 #### [facility] CLIA [id number] [address] [place] WBC (Bld) [#/Vol] 7.44 10*3/uL Normal 3.70-11.00 [facility] Comment on above: Order Comment: Speci men Type: BLOOD SPECIMEN Ordering Facility: [facility] Address: [address] [place] [address] Performed By: #### 5 8410-2 #### [facility] CLIA [id number] [address] CONSULT PROGon 11-11-2024 CONSULT PROG HNO ID: [id number] Author: MEAGAN ROSADO APRN.SHRINKER Service: Gastroenterology Author Type: Nurse Practitioner Type: Consult Progress Note Filed: 11/11/2024 10:22 Note Text: GI CONSULT PROGRESS NOTE SERVICE DATE: 11/11/2024 SERVICE TIME: 8:48 AM CONSULTING SERVICE: Gastroenterology Subjective INTERVAL HPI: GI following for LGIB. Patient s/p colonoscopy with Dr. Cevallos. Subsequently transferred out of ICU. However noted to have continued HgB drop, 6.8 this morning. Reports not bleeding with BM at this time. Current Facility-Administered Medications Medication Dose Route Frequency NaCl 0.9% iv flush bag 20 mL INTRAVENOUS PRN potassium chloride ER 20-40 mEq tab(s) (KLOR-CON) 20-40 mEq ORAL/FEEDING TUBE PRN Or potassium chloride iv piggyback 20 mEq/100 mL 20 mEq INTRAVENOUS PRN magnesium sulfate iv piggyback in sterile water 2 g 50 mL 2 g INTRAVENOUS PRN phosphorus 500 mg tab(s) (K PHOS NEUTRAL) 500 mg ORAL/FEEDING TUBE PRN(NO DISPENSE) calcium gluconate iv piggyback 2 g in NaCl (iso-osmotic) 100 mL 2 g INTRAVENOUS PRN(NO DISPENSE) pantoprazole 40 mg injection (PROTONIX) 40 mg INTRAVENOUS BID AC (0600/1600) acetaminophen 1,000 mg tab(s) (TYLENOL) 1,000 mg ORAL/FEEDING TUBE q 6 H PRN fentaNYL 50 mcg/mL injection (SUBLIMAZE) INTRAVENOUS PRN midazolam (PF) injection (VERSED) INTRAVENOUS PRN iv contrast (radiology procedure) INTRAVENOUS DIRECTED PRN Objective PHYSICAL EXAM: Physical Exam Performed: GENERAL: Alert, no distress, cooperative ABDOMEN: Abdomen soft, non-tender, BS normal, No masses or organomegaly BP 96/55 Pulse 64 Temp (Src) 98.4 (Oral) Resp 18 Ht 5' 10 (1.78m) Wt 181 lb 10.5 oz (82.4kg) SpO2 96% BMI 26.07 kg/(m2). O2 Therapy: Room Air DATA: Diagnostic tests reviewed for today's visit: Most recent labs and imaging results. WBC (k/uL) Date Value 11/11/2024 7.44 RBC (m/uL) Date Value 11/11/2024 2.48 (L) Hemoglobin (g/dL) Date Value 11/11/2024 6.8 (L) Hematocrit (%) Date Value 11/11/2024 21.6 (L) MCV (fL) Date Value 11/11/2024 87.1 MCH (pg) Date Value 11/11/2024 27.4 MCHC (g/dL) Date Value 11/11/2024 31.5 RDW-CV (%) Date Value 11/11/2024 18.3 (H) Platelet Count (k/uL) Date Value 11/11/2024 150 MPV (fL) Date Value 11/11/2024 9.8 Glucose (mg/dL) Date Value 11/11/2024 85 BUN (mg/dL) Date Value 11/11/2024 9 Creatinine (mg/dL) Date Value 11/11/2024 1.40 (H) Sodium (mmol/L) Date Value 11/11/2024 139 Potassium (mmol/L) Date Value 11/11/2024 4.0 Chloride (mmol/L) Date Value 11/11/2024 108 (H) CO2 (mmol/L) Date Value 11/11/2024 23 Protein, Total (g/dL) Date Value 11/09/2024 4.8 (L) Albumin (g/dL) Date Value 11/11/2024 3.0 (L) Calcium, Total (mg/dL) Date Value 11/11/2024 7.8 (L) Alkaline Phosphatase (U/L) Date Value 11/09/2024 37 (L) Bilirubin, Total (mg/dL) Date Value 11/09/2024 0.7 AST (U/L) Date Value 11/09/2024 20 ALT (U/L) Date Value 11/09/2024 16 Cholesterol, Total (mg/dL) Date Value 09/26/2022 111 Triglyceride (mg/dL) Date Value 09/26/2022 44 CTA abdomen/ pelvis 11/09 Active GI bleeding within the proximal ascending colon near an enterocolic anastomosis. Attempted IR embolization 11/09 No active bleed seen in area around the entero colic anastomosis Colonoscopy 11/10 - Preparation of the colon was fair. - Circumferential bleeding ulcer in the romeo-terminal ileum. Treated with bipolar cautery. - Stricture in the terminal ileum. - Blood in the entire examined colon. - The distal rectum and anal verge are normal on retroflexion view. - No specimens collected. Impression/Recommendat ions Lower GI bleed- notes bloody bowel movements at home. CTA positive for bleeding within the proximal ascending colon near enterocolic anastomosis. -continue to monitor HgB, transfuse as needed -continue to monitor and document any episodes of overt GI bleeding -avoid NSAID's -initiate IV PPI BID -maintain NPO status at this time -IR attempted embolization 11/09; no active bleeding noted -s/p colonoscopy with Circumferential bleeding ulcer in the romeo-terminal ileum and stricture within terminal ileum noted Crohn's disease- diagnosed in 2003; s/p partial colectomy in 2019 and laparoscopic ileocolic anastomosis. On . Last colonoscopy 2022. -continue to follow outpatient with established GI Dr. Loja [facility] will continue to follow GI attending: Dr. Cevallos After 4 pm and on weekends, please refer to the airborne electronics analyst list for the GI physician airborne electronics analyst. Physician can be reached via [employer] chat Some documentation from previous visit has been copied and pasted, documentation has been reviewed and edited as necessary to reflect today's visit SIGNATURE: Meagan Rosado APRN.SHRINKER PATIENT NAME: Jesus Disla DATE: November 11, 2024 TIME: 7:32 AM Normal [facility] Creatinine Unsp time (U) [Ma ss/Vol]on 11-11-2024 Creatinine (U) [Mass/Vol] 133.1 mg/dL Normal 46.8-314.5 [facility] Comment on above: Order Comment: Speci men Type: BLOOD SPECIMEN Ordering Facility: [facility] Address: [address] [place] [address] Performed By: #### 5 8410-2 #### [facility] CLIA [id number] [address] [place] Renal function 2000 panelon 11-11-2024 Albumin [Mass/Vol] 3.0 g/dL Low 3.9-4.9 [facility] Comment on above: Order Comment: Speci men Type: BLOOD SPECIMEN Ordering Facility: [facility] Address: [address] [place] [address] Performed By: #### 5 8410-2 #### [facility] CLIA [id number] [address] [place] Anion gap [Moles/Vol] 8 mmol/L Normal 8-15 [facility] Comment on above: Order Comment: Speci men Type: BLOOD SPECIMEN Ordering Facility: [facility] Address: [address] [place] [address] Performed By: #### 5 8410-2 #### [facility] CLIA [id number] [address] [place] Calcium [Mass/Vol] 7.8 mg/dL Low 8.5-10.2 [facility] Comment on above: Order Comment: Speci men Type: BLOOD SPECIMEN Ordering Facility: [facility] Address: [address] [place] [address] Performed By: #### 5 8410-2 #### [facility] CLIA [id number] [address] [place] Chloride [Moles/Vol] 108 mmol/L High 98-107 [facility] Comment on above: Order Comment: Speci men Type: BLOOD SPECIMEN Ordering Facility: [facility] Address: [address] [place] [address] Performed By: #### 5 8410-2 #### [facility] CLIA [id number] [address] [place] CO2 [Moles/Vol] 23 mmol/L Normal 22-30 [facility] Comment on above: Order Comment: Speci men Type: BLOOD SPECIMEN Ordering Facility: [facility] Address: [address] [place] [address] Performed By: #### 5 8410-2 #### [facility] CLIA [id number] [address] [place] Creatinine [Mass/Vol] 1.40 mg/dL High 0.73-1.22 [facility] Comment on above: Order Comment: Speci men Type: BLOOD SPECIMEN Ordering Facility: [facility] Address: [address] [place] [address] Performed By: #### 5 8410-2 #### [facility] CLIA [id number] [address] [place] eGFRcr SerPlBld CKD-EPI 2020 63 mL/min/1.73m??? Normal >=60 [facility] Comment on above: Order Comment: Speci men Type: BLOOD SPECIMEN Ordering Facility: [facility] Address: [address] [place] [address] Result Comment: Maday mated Glomerular Filtration Rate (eGFR) is calculated using the 2020 CKD-EPI creatinine equation. This equation utilizes serum creatinine, sex, and age as parameters. The creatinine assay has traceable calibration to isotope dilution-mass spectrometry. Refer to KDIGO guidelines for clinical interpretation. In patients with unstable renal function, e.g. those with acute kidney injury, the eGFR may not accurately reflect actual GFR. Performed By: #### 5 8410-2 #### [facility] CLIA [id number] [address] [place] Glucose [Mass/Vol] 85 mg/dL Normal 74-99 [facility] Comment on above: Order Comment: Speci men Type: BLOOD SPECIMEN Ordering Facility: [facility] Address: [address] [place] [address] Result Comment: The [place] [employer] (ADA) provides guidance for cutoff values for fasting glucose and random glucose. The ADA defines fasting as no caloric intake for at least 8 hours. Fasting plasma glucose results between 100 to 125 mg/dL indicate increased risk for diabetes (prediabetes). Fasting plasma glucose results greater than or equal to 126 mg/dL meet the criteria for diagnosis of diabetes. In the absence of unequivocal hyperglycemia, results should be confirmed by repeat testing. In a patient with classic symptoms of hyperglycemia or hyperglycemic crisis, random plasma glucose results greater than or equal to 200 mg/dL meet the criteria for diagnosis of diabetes. Reference: Standards of Medical Care in Diabetes 2016, [place] [employer]. Diabetes Care. 2016.39(Suppl 1). Performed By: #### 5 8410-2 #### [facility] CLIA [id number] [address] [place] [address] [place] Phosphate [Mass/Vol] 2.3 mg/dL Low 2.7-4.8 [facility] Comment on above: Order Comment: Speci men Type: BLOOD SPECIMEN Ordering Facility: [facility] Address: [address] [place] [address] Performed By: #### 5 8410-2 #### [facility] CLIA [id number] [address] [place] [address] [place] Potassium [Moles/Vol] 4.0 mmol/L Normal 3.7-5.1 [facility] Comment on above: Order Comment: Speci men Type: BLOOD SPECIMEN Ordering Facility: [facility] Address: [address] [place] [address] Performed By: #### 5 8410-2 #### [facility] CLIA [id number] 1 [place] [address] [place] Sodium [Moles/Vol] 139 mmol/L Normal 136-144 [facility] Comment on above: Order Comment: Speci men Type: BLOOD SPECIMEN Ordering Facility: [facility] Address: [address] [place] [address] Performed By: #### 5 8410-2 #### [facility] CLIA [id number] 1 [place] [address] [place] Urea nitrogen [Mass/Vol] 9 mg/dL Normal 9-24 [facility] Comment on above: Order Comment: Speci men Type: BLOOD SPECIMEN Ordering Facility: [facility] Address: [address] [place] [address] Performed By: #### 5 8410-2 #### [facility] CLIA [id number] 1 [place] [address] [place] Sodium ?Tm Ur-sCncon 025 Sodium Unsp time (U) [Moles/Vol] 131 mmol/L Normal 14-216 [facility] Comment on above: Order Comment: Speci men Type: BLOOD SPECIMEN Ordering Facility: [facility] Address: [address] [place] [address] Performed By: #### 5 8410-2 #### [facility] CLIA [id number] [address] [place] ALLIED HEALTHon 11-10-2024 ALLIED [facility]ALTH HNO ID: [id number] Author: TOM DAVILA Tech Service: Radiology Author Type: Technologist Type: Allied Health Filed: 11/10/2024 18:10 Note Text: Radiology Service Progress Note DATE OF SERVICE: November 10, 2024 TIME: 6:09 PM PATIENT IDENTITY VERIFICATION COMPLETED USING TWO (2) STANDARD IDENTIFIERS: Name and Date of confirmed by patient verbally and Name and Date of confirmed by identification band. FALL SCREENING: Has the patient had 2 falls in the last year or 1 fall with injury or currently using an Ambulatory Assistive Device (Walker, Cane, Wheelchair, Crutches, etc.)? Inpatient: Screened on floor PATIENT GENDER DATA: Assigned male at PATIENT RELEVANT IMPLANT DATA REVIEWED: Not Applicable PATIENT PRESENTS WITH AN IMPLANTABLE OR ATTACHED MANAGER BUSINESS PLANNING: No ALLERGIES: Reviewed and unchanged CONTRAST ALLERGY: NO. EXAM: CT -CONTRAST INDUCED NEPHROPATHY RISK FACTORS: Not applicable CREATININE: Creatinine Date Value Ref Range Status 11/10/2024 0.92 0.73 - 1.22 mg/dL Final 11/10/2024 1.21 0.73 - 1.22 mg/dL Final 11/09/2024 1.34 (H) 0.73 - 1.22 mg/dL Final Estimated Glomerular Filtration Rate Date Value Ref Range Status 11/10/2024 104 >=60 mL/min/1.73m? Final Comment: Estimated Glomerular Filtration Rate (eGFR) is calculated using the 2020 CKD-EPI creatinine equation. This equation utilizes serum creatinine, sex, and age as parameters. The creatinine assay has traceable calibration to isotope dilution-mass spectrometry. Refer to KDIGO guidelines for clinical interpretation. In patients with unstable renal function, e.g. those with acute kidney injury, the eGFR may not accurately reflect actual GFR. eGFR- Date Value Ref Range Status 03/13/2020 >60 Final P.O.C.T. RESULTS: POC done: Yes, See Lab Tab November 10, 2024 TREATMENT: N/A PERIPHERAL IV DATA: Inpatient - refer to LDA documentation RADIOLOGY DEPARTMENT: CT; Exam(s) Completed: Abdomen/Pelvis SIGNATURE: Lalo Pierson PATIENT NAME: Jesus Disla DATE: November 10, 2024 TIME: 6:09 PM Normal [facility] Basic metabolic 2000 panelon 11-10-2024 Anion gap [Moles/Vol] 11 mmol/L Normal 8-15 [facility] Comment on above: Order Comment: Trisha nam Type: BLOOD SPECIMEN Ordering Facility: [facility] Address: [address] [place] [address] Performed By: #### 5 8410-2 #### [facility] CLIA [id number] [address] [place] [address] [place] Calcium [Mass/Vol] 7.7 mg/dL Low 8.5-10.2 [facility] Comment on above: Order Comment: Trisha nam Type: BLOOD SPECIMEN Ordering Facility: [facility] Address: [address] [place] [address] Performed By: #### 5 8410-2 #### [facility] CLIA [id number] 1 [place] [address] [place] Chloride [Moles/Vol] 107 mmol/L Normal 98-107 [facility] Comment on above: Order Comment: Trisha nam Type: BLOOD SPECIMEN Ordering Facility: [facility] Address: [address] [place] [address] Performed By: #### 5 8410-2 #### [facility] CLIA [id number] [address] [place] CO2 [Moles/Vol] 23 mmol/L Normal 22-30 [facility] Comment on above: Order Comment: Speci men Type: BLOOD SPECIMEN Ordering Facility: [facility] Address: [address] [place] [address] Performed By: #### 5 8410-2 #### [facility] CLIA [id number] [address] [place] Creatinine [Mass/Vol] 0.92 mg/dL Normal 0.73-1.22 [facility] Comment on above: Order Comment: Speci men Type: BLOOD SPECIMEN Ordering Facility: [facility] Address: [address] [place] [address] Performed By: #### 5 8410-2 #### [facility] CLIA [id number] [address] [place] eGFRcr SerPlBld CKD-EPI 2020 104 mL/min/1.73m??? Normal >=60 [facility] Comment on above: Order Comment: Speci men Type: BLOOD SPECIMEN Ordering Facility: [facility] Address: [address] [place] [address] Result Comment: Maday mated Glomerular Filtration Rate (eGFR) is calculated using the 2020 CKD-EPI creatinine equation. This equation utilizes serum creatinine, sex, and age as parameters. The creatinine assay has traceable calibration to isotope dilution-mass spectrometry. Refer to KDIGO guidelines for clinical interpretation. In patients with unstable renal function, e.g. those with acute kidney injury, the eGFR may not accurately reflect actual GFR. Performed By: #### 5 8410-2 #### [facility] CLIA [id number] [address] [place] Glucose [Mass/Vol] 97 mg/dL Normal 74-99 [facility] Comment on above: Order Comment: Speci men Type: BLOOD SPECIMEN Ordering Facility: [facility] Address: [address] [place] [address] Result Comment: The [place] [employer] (ADA) provides guidance for cutoff values for fasting glucose and random glucose. The ADA defines fasting as no caloric intake for at least 8 hours. Fasting plasma glucose results between 100 to 125 mg/dL indicate increased risk for diabetes (prediabetes). Fasting plasma glucose results greater than or equal to 126 mg/dL meet the criteria for diagnosis of diabetes. In the absence of unequivocal hyperglycemia, results should be confirmed by repeat testing. In a patient with classic symptoms of hyperglycemia or hyperglycemic crisis, random plasma glucose results greater than or equal to 200 mg/dL meet the criteria for diagnosis of diabetes. Reference: Standards of Medical Care in Diabetes 2016, [place] [employer]. Diabetes Care. 2016.39(Suppl 1). Performed By: #### 5 8410-2 #### [facility] CLIA [id number] [address] [place] [address] [place] Potassium [Moles/Vol] 4.4 mmol/L Normal 3.7-5.1 [facility] Comment on above: Order Comment: Speci men Type: BLOOD SPECIMEN Ordering Facility: [facility] Address: [address] [place] [address] Performed By: #### 5 8410-2 #### [facility] CLIA [id number] [address] [place] [address] [place] Sodium [Moles/Vol] 141 mmol/L Normal 136-144 [facility] Comment on above: Order Comment: Speci men Type: BLOOD SPECIMEN Ordering Facility: [facility] Address: [address] [place] [address] Performed By: #### 5 8410-2 #### [facility] CLIA [id number] [address] [place] [address] [place] Urea nitrogen [Mass/Vol] 11 mg/dL Normal 9-24 [facility] Comment on above: Order Comment: Speci men Type: BLOOD SPECIMEN Ordering Facility: [facility] Address: [address] [place] [address] Performed By: #### 5 8410-2 #### [facility] CLIA [id number] [address] [place] Anion gap [Moles/Vol] 12 mmol/L Normal 8-15 [facility] Comment on above: Order Comment: Speci men Type: BLOOD SPECIMEN Ordering Facility: [facility] Address: [address] [place] [address] Performed By: #### 5 8410-2 #### [facility] CLIA [id number] [address] [place] [address] [place] Calcium [Mass/Vol] 7.8 mg/dL Low 8.5-10.2 [facility] Comment on above: Order Comment: Speci men Type: BLOOD SPECIMEN Ordering Facility: [facility] Address: [address] [place] [address] Performed By: #### 5 8410-2 #### [facility] CLIA [id number] [address] [place] Chloride [Moles/Vol] 107 mmol/L Normal 98-107 [facility] Comment on above: Order Comment: Speci men Type: BLOOD SPECIMEN Ordering Facility: [facility] Address: [address] [place] [address] Performed By: #### 5 8410-2 #### [facility] CLIA [id number] [address] [place] CO2 [Moles/Vol] 20 mmol/L Low 22-30 [facility] Comment on above: Order Comment: Speci men Type: BLOOD SPECIMEN Ordering Facility: [facility] Address: [address] [place] [address] Performed By: #### 5 8410-2 #### [facility] CLIA [id number] [address] [place] [address] [place] Creatinine [Mass/Vol] 1.21 mg/dL Normal 0.73-1.22 [facility] Comment on above: Order Comment: Speci men Type: BLOOD SPECIMEN Ordering Facility: [facility] Address: [address] [place] [address] Performed By: #### 5 8410-2 #### [facility] CLIA [id number] 1 [place] [address] [place] eGFRcr SerPlBld CKD-EPI 2020 75 mL/min/1.73m??? Normal >=60 [facility] Comment on above: Order Comment: Trisha nam Type: BLOOD SPECIMEN Ordering Facility: [facility] Address: [address] [place] [address] Result Comment: Maday mated Glomerular Filtration Rate (eGFR) is calculated using the 2020 CKD-EPI creatinine equation. This equation utilizes serum creatinine, sex, and age as parameters. The creatinine assay has traceable calibration to isotope dilution-mass spectrometry. Refer to KDIGO guidelines for clinical interpretation. In patients with unstable renal function, e.g. those with acute kidney injury, the eGFR may not accurately reflect actual GFR. Performed By: #### 5 8410-2 #### [facility] CLIA [id number] [address] [place] [address] [place] Glucose [Mass/Vol] 96 mg/dL Normal 74-99 [facility] Comment on above: Order Comment: Trisha nam Type: BLOOD SPECIMEN Ordering Facility: [facility] Address: [address] [place] [address] Result Comment: The [place] Diabetes [employer] (ADA) provides guidance for cutoff values for fasting glucose and random glucose. The ADA defines fasting as no caloric intake for at least 8 hours. Fasting plasma glucose results between 100 to 125 mg/dL indicate increased risk for diabetes (prediabetes). Fasting plasma glucose results greater than or equal to 126 mg/dL meet the criteria for diagnosis of diabetes. In the absence of unequivocal hyperglycemia, results should be confirmed by repeat testing. In a patient with classic symptoms of hyperglycemia or hyperglycemic crisis, random plasma glucose results greater than or equal to 200 mg/dL meet the criteria for diagnosis of diabetes. Reference: Standards of Medical Care in Diabetes 2016, [place] [employer]. Diabetes Care. 2016.39(Suppl 1). Performed By: #### 5 8410-2 #### [facility] CLIA [id number] [address] [place] [address] [place] Potassium [Moles/Vol] 4.5 mmol/L Normal 3.7-5.1 [facility] Comment on above: Order Comment: Speci men Type: BLOOD SPECIMEN Ordering Facility: [facility] Address: [address] [place] [address] Performed By: #### 5 8410-2 #### [facility] CLIA [id number] [address] [facility] Sodium [Moles/Vol] 139 mmol/L Normal 136-144 [facility] Comment on above: Order Comment: Speci men Type: BLOOD SPECIMEN Ordering Facility: [facility] Address: [address] [place] [address] Performed By: #### 5 8410-2 #### [facility] CLIA [id number] [address] [place] Urea nitrogen [Mass/Vol] 15 mg/dL Normal 9-24 [facility] Comment on above: Order Comment: Speci men Type: BLOOD SPECIMEN Ordering Facility: [facility] Address: [address] [place] [address] Performed By: #### 5 8410-2 #### [facility] CLIA [id number] [address] [place] CBC panel Auto (Bld)on 11-10 Erythrocyte distribution width (RBC) [Ratio] 18.5 % High 11.5-15.0 [facility] Comment on above: Order Comment: Speci men Type: BLOOD SPECIMEN Ordering Facility: [facility] Address: [address] [place] [address] Performed By: #### 5 8410-2 #### [facility] CLIA [id number] [address] [place] Hematocrit (Bld) [Volume fraction] 22.3 % Low 39.0-51.0 [facility] Comment on above: Order Comment: Speci men Type: BLOOD SPECIMEN Ordering Facility: [facility] Address: [address] [place] [address] Performed By: #### 5 8410-2 #### [facility] CLIA [id number] [address] [place] [address] [place] Hemoglobin (Bld) [Mass/Vol] 7.1 g/dL Low 13.0-17.0 [facility] Comment on above: Order Comment: Speci men Type: BLOOD SPECIMEN Ordering Facility: [facility] Address: [address] [place] [address] Performed By: #### 5 8410-2 #### [facility] CLIA [id number] [address] MCH (RBC) [Entitic mass] 27.6 pg Normal 26.0-34.0 [facility] Comment on above: Order Comment: Speci men Type: BLOOD SPECIMEN Ordering Facility: [facility] Address: [address] [place] [address] Performed By: #### 5 8410-2 #### [facility] CLIA [id number] [address] [facility] MCHC (RBC) [Mass/Vol] 31.8 g/dL Normal 30.5-36.0 [facility] Comment on above: Order Comment: Speci men Type: BLOOD SPECIMEN Ordering Facility: [facility] Address: [address] [place] [address] Performed By: #### 5 8410-2 #### [facility] CLIA [id number] [address] MCV (RBC) [Entitic vol] 86.8 fL Normal 80.0-100.0 [facility] Comment on above: Order Comment: Speci men Type: BLOOD SPECIMEN Ordering Facility: [facility] Address: [address] [place] [address] Performed By: #### 5 8410-2 #### [facility] CLIA [id number] [address] Nucleated RBC (Bld) [#/Vol] 10*3/uL Normal <0.01 [facility] Comment on above: Order Comment: Speci men Type: BLOOD SPECIMEN Ordering Facility: [facility] Address: [address] [place] [address] Performed By: #### 5 8410-2 #### [facility] CLIA [id number] [address] [place] Platelet mean volume (Bld) [Entitic vol] 9.9 fL Normal 9.0-12.7 [facility] Comment on above: Order Comment: Speci men Type: BLOOD SPECIMEN Ordering Facility: [facility] Address: [address] [place] [address] Performed By: #### 5 8410-2 #### [facility] CLIA [id number] [address] [place] Platelets (Bld) [#/Vol] 159 10*3/uL Normal 150-400 [facility] Comment on above: Order Comment: Speci men Type: BLOOD SPECIMEN Ordering Facility: [facility] Address: [address] [place] [address] Performed By: #### 5 8410-2 #### [facility] CLIA [id number] [address] [place] RBC (Bld) [#/Vol] 2.57 10*6/uL Low 4.20-6.00 [facility] Comment on above: Order Comment: Speci men Type: BLOOD SPECIMEN Ordering Facility: [facility] Address: [address] [place] [address] Performed By: #### 5 8410-2 #### [facility] CLIA [id number] [address] [place] WBC (Bld) [#/Vol] 5.41 10*3/uL Normal 3.70-11.00 [facility] Comment on above: Order Comment: Speci men Type: BLOOD SPECIMEN Ordering Facility: [facility] Address: [address] [place] [address] Performed By: #### 5 8410-2 #### [facility] CLIA [id number] [address] [place] Erythrocyte distribution width (RBC) [Ratio] 18.5 % High 11.5-15.0 [facility] Comment on above: Order Comment: Speci men Type: BLOOD SPECIMEN Ordering Facility: [facility] Address: [address] [place] [address] Performed By: #### 5 8410-2 #### [facility] CLIA [id number] [address] Hematocrit (Bld) [Volume fraction] 22.2 % Low 39.0-51.0 [facility] Comment on above: Order Comment: Speci men Type: BLOOD SPECIMEN Ordering Facility: [facility] Address: [address] [place] [address] Performed By: #### 5 8410-2 #### [facility] CLIA [id number] [address] [facility] Hemoglobin (Bld) [Mass/Vol] 7.6 g/dL Low 13.0-17.0 [facility] Comment on above: Order Comment: Speci men Type: BLOOD SPECIMEN Ordering Facility: [facility] Address: [address] [place] [address] Performed By: #### 5 8410-2 #### [facility] CLIA [id number] [address] MCH (RBC) [Entitic mass] 29.5 pg Normal 26.0-34.0 [facility] Comment on above: Order Comment: Speci men Type: BLOOD SPECIMEN Ordering Facility: [facility] Address: [address] [place] [address] Performed By: #### 5 8410-2 #### [facility] CLIA [id number] [address] [place] MCHC (RBC) [Mass/Vol] 34.2 g/dL Normal 30.5-36.0 [facility] Comment on above: Order Comment: Speci men Type: BLOOD SPECIMEN Ordering Facility: [facility] Address: [address] [place] [address] Performed By: #### 5 8410-2 #### [facility] CLIA [id number] [address] MCV (RBC) [Entitic vol] 86.0 fL Normal 80.0-100.0 [facility] Comment on above: Order Comment: Speci men Type: BLOOD SPECIMEN Ordering Facility: [facility] Address: [address] [place] [address] Performed By: #### 5 8410-2 #### [facility] CLIA [id number] [address] [place] Nucleated RBC (Bld) [#/Vol] 10*3/uL Normal <0.01 [facility] Comment on above: Order Comment: Speci men Type: BLOOD SPECIMEN Ordering Facility: [facility] Address: [address] [place] [address] Performed By: #### 5 8410-2 #### [facility] CLIA [id number] [address] [place] Platelet mean volume (Bld) [Entitic vol] 9.8 fL Normal 9.0-12.7 [facility] Comment on above: Order Comment: Speci men Type: BLOOD SPECIMEN Ordering Facility: [facility] Address: [address] [place] [address] Performed By: #### 5 8410-2 #### [facility] CLIA [id number] [address] [place] Platelets (Bld) [#/Vol] 161 10*3/uL Normal 150-400 [facility] Comment on above: Order Comment: Speci men Type: BLOOD SPECIMEN Ordering Facility: [facility] Address: [address] [place] [address] Performed By: #### 5 8410-2 #### [facility] CLIA [id number] [address] [place] RBC (Bld) [#/Vol] 2.58 10*6/uL Low 4.20-6.00 [facility] Comment on above: Order Comment: Speci men Type: BLOOD SPECIMEN Ordering Facility: [facility] Address: [address] [place] [address] Performed By: #### 5 8410-2 #### [facility] CLIA [id number] [address] [facility] WBC (Bld) [#/Vol] 6.02 10*3/uL Normal 3.70-11.00 [facility] Comment on above: Order Comment: Speci men Type: BLOOD SPECIMEN Ordering Facility: [facility] Address: [address] [place] [address] Performed By: #### 5 8410-2 #### [facility] CLIA [id number] [address] Erythrocyte distribution width (RBC) [Ratio] 18.5 % High 11.5-15.0 [facility] Comment on above: Order Comment: Speci men Type: BLOOD SPECIMEN Ordering Facility: [facility] Address: [address] [place] [address] Performed By: #### 5 8410-2 #### [facility] CLIA [id number] [address] Hematocrit (Bld) [Volume fraction] 23.0 % Low 39.0-51.0 [facility] Comment on above: Order Comment: Speci men Type: BLOOD SPECIMEN Ordering Facility: [facility] Address: [address] [place] [address] Performed By: #### 5 8410-2 #### [facility] CLIA [id number] [address] [place] [facility] Hemoglobin (Bld) [Mass/Vol] 7.3 g/dL Low 13.0-17.0 [facility] Comment on above: Order Comment: Speci men Type: BLOOD SPECIMEN Ordering Facility: [facility] Address: [address] [place] [address] Performed By: #### 5 8410-2 #### [facility] CLIA [id number] [address] MCH (RBC) [Entitic mass] 27.3 pg Normal 26.0-34.0 [facility] Comment on above: Order Comment: Speci men Type: BLOOD SPECIMEN Ordering Facility: [facility] Address: [facility] [place] [address] Performed By: #### 5 8410-2 #### [facility] CLIA [id number] [address] MCHC (RBC) [Mass/Vol] 31.7 g/dL Normal 30.5-36.0 [facility] Comment on above: Order Comment: Speci men Type: BLOOD SPECIMEN Ordering Facility: [facility] Address: [address] [place] [address] Performed By: #### 5 8410-2 #### [facility] CLIA [id number] [address] MCV (RBC) [Entitic vol] 86.1 fL Normal 80.0-100.0 [facility] Comment on above: Order Comment: Speci men Type: BLOOD SPECIMEN Ordering Facility: [facility] Address: [address] [place] [address] Performed By: #### 5 8410-2 #### [facility] CLIA [id number] [address] Nucleated RBC (Bld) [#/Vol] 10*3/uL Normal <0.01 [facility] Comment on above: Order Comment: Speci men Type: BLOOD SPECIMEN Ordering Facility: [facility] Address: [address] [place] [address] Performed By: #### 5 8410-2 #### [facility] CLIA [id number] [address] Platelet mean volume (Bld) [Entitic vol] 9.9 fL Normal 9.0-12.7 [facility] Comment on above: Order Comment: Speci men Type: BLOOD SPECIMEN Ordering Facility: [facility] Address: [address] [place] [address] Performed By: #### 5 8410-2 #### [facility] CLIA [id number] [address] [place] Platelets (Bld) [#/Vol] 161 10*3/uL Normal 150-400 [facility] Comment on above: Order Comment: Speci men Type: BLOOD SPECIMEN Ordering Facility: [facility] Address: [address] [place] [address] Performed By: #### 5 8410-2 #### [facility] CLIA [id number] [address] [place] RBC (Bld) [#/Vol] 2.67 10*6/uL Low 4.20-6.00 [facility] Comment on above: Order Comment: Speci men Type: BLOOD SPECIMEN Ordering Facility: [facility] Address: [address] [place] [address] Performed By: #### 5 8410-2 #### [facility] CLIA [id number] [address] [place] WBC (Bld) [#/Vol] 6.13 10*3/uL Normal 3.70-11.00 [facility] Comment on above: Order Comment: Speci men Type: BLOOD SPECIMEN Ordering Facility: [facility] Address: [address] [place] [address] Performed By: #### 5 8410-2 #### [facility] CLIA [id number] [address] [place] Erythrocyte distribution width (RBC) [Ratio] 18.6 % High 11.5-15.0 [facility] Comment on above: Order Comment: Speci men Type: BLOOD SPECIMENOrdering Facility: [facility] Address: [address] [place] [address] Performed By: #### 5 8410-2 ####[facility] [id number] [address] OF [facility] Hematocrit (Bld) [Volume fraction] 24.1 % Low 39.0-51.0 [facility] Comment on above: Order Comment: Speci men Type: BLOOD SPECIMENOrdering Facility: [facility] Address: [address] [place] [address] Performed By: #### 5 8410-2 ####[facility] [id number] [address] OF [facility] Hemoglobin (Bld) [Mass/Vol] 8.1 g/dL Low 13.0-17.0 [facility] Comment on above: Order Comment: Speci men Type: BLOOD SPECIMENOrdering Facility: [facility] Address: [address] [place] [address] Performed By: #### 5 8410-2 ####[facility] [id number] [address] MCH (RBC) [Entitic mass] 29.1 pg Normal 26.0-34.0 [facility] Comment on above: Order Comment: Speci men Type: BLOOD SPECIMENOrdering Facility: [facility] Address: [address] [place] [address] Performed By: #### 5 8410-2 ####[facility] [id number] [address] MCHC (RBC) [Mass/Vol] 33.6 g/dL Normal 30.5-36.0 [facility] Comment on above: Order Comment: Speci men Type: BLOOD SPECIMENOrdering Facility: [facility] Address: [address] [place] [address] Performed By: #### 5 8410-2 ####[facility]IA [id number] [address] MCV (RBC) [Entitic vol] 86.7 fL Normal 80.0-100.0 [facility] Comment on above: Order Comment: Speci men Type: BLOOD SPECIMENOrdering Facility: [facility] Address: [address] [place] [address] Performed By: #### 5 8410-2 ####[facility]IA [id number] [address] Nucleated RBC (Bld) [#/Vol] 10*3/uL Normal <0.01 [facility] Comment on above: Order Comment: Speci men Type: BLOOD SPECIMENOrdering Facility: [facility] Address: [address] [place] [address] Performed By: #### 5 8410-2 ####[facility] [id number] [address] [place] Platelet mean volume (Bld) [Entitic vol] 9.7 fL Normal 9.0-12.7 [facility] Comment on above: Order Comment: Speci men Type: BLOOD SPECIMENOrdering Facility: [facility] Address: [address] [place] [address] Performed By: #### 5 8410-2 ####[facility]ORYCLIA [id number] [address] [place] Platelets (Bld) [#/Vol] 184 10*3/uL Normal 150-400 [facility] Comment on above: Order Comment: Speci men Type: BLOOD SPECIMENOrdering Facility: [facility] Address: [address] [place] [address] Performed By: #### 5 8410-2 ####[facility]ORYCLIA [id number] [place] [address] [place] RBC (Bld) [#/Vol] 2.78 10*6/uL Low 4.20-6.00 [facility] Comment on above: Order Comment: Speci men Type: BLOOD SPECIMENOrdering Facility: [facility] Address: [address] [place] [address] Performed By: #### 5 8410-2 ####[facility]ORYCLIA [id number] [address] [place] WBC (Bld) [#/Vol] 6.09 10*3/uL Normal 3.70-11.00 [facility] Comment on above: Order Comment: Speci men Type: BLOOD SPECIMENOrdering Facility: [facility] Address: [address] [place] [address] Performed By: #### 5 8410-2 ####[facility]ORYCLIA [id number] [address] [place] CONSULT PROGon 11-10-2024 CONSULT PROG HNO ID: [id number] Author: MEAGAN ROSADO APRN.SHRINKER Service: Gastroenterology Author Type: Nurse Practitioner Type: Consult Progress Note Filed: 11/10/2024 10:02 Note Text: GI CONSULT PROGRESS NOTE SERVICE DATE: 11/10/2024 SERVICE TIME: 8:04 AM CONSULTING SERVICE: Gastroenterology Subjective INTERVAL HPI: GI following for lower GIB. IR attempted embolization without success overnight. Reports some pain at site of right groin sheath. Current Facility-Administered Medications Medication Dose Route Frequency iv contrast (radiology procedure) INTRAVENOUS DIRECTED PRN NaCl 0.9% iv flush bag 20 mL INTRAVENOUS PRN potassium chloride ER 20-40 mEq tab(s) (KLOR-CON) 20-40 mEq ORAL/FEEDING TUBE PRN Or potassium chloride iv piggyback 20 mEq/100 mL 20 mEq INTRAVENOUS PRN magnesium sulfate iv piggyback in sterile water 2 g 50 mL 2 g INTRAVENOUS PRN phosphorus 500 mg tab(s) (K PHOS NEUTRAL) 500 mg ORAL/FEEDING TUBE PRN(NO DISPENSE) calcium gluconate iv piggyback 2 g in NaCl (iso-osmotic) 100 mL 2 g INTRAVENOUS PRN(NO DISPENSE) acetaminophen 1,000 mg tab(s) (TYLENOL) 1,000 mg ORAL/FEEDING TUBE q 6 H pantoprazole 40 mg injection (PROTONIX) 40 mg INTRAVENOUS BID AC (0600/1600) Objective PHYSICAL EXAM: Physical Exam Performed: GENERAL: Alert, no distress, cooperative ABDOMEN: Abdomen soft, non-tender, BS normal, No masses or organomegaly BP 100/59 Pulse 62 Temp (Src) 99 (Oral) Resp 16 Ht 5' 10 (1.78m) Wt 181 lb 10.5 oz (82.4kg) SpO2 100% BMI 26.07 kg/(m2). O2 Therapy: Room Air DATA: Diagnostic tests reviewed for today's visit: Most recent labs and imaging results. WBC (k/uL) Date Value 11/10/2024 6.09 RBC (m/uL) Date Value 11/10/2024 2.78 (L) Hemoglobin (g/dL) Date Value 11/10/2024 8.1 (L) Hematocrit (%) Date Value 11/10/2024 24.1 (L) MCV (fL) Date Value 11/10/2024 86.7 MCH (pg) Date Value 11/10/2024 29.1 MCHC (g/dL) Date Value 11/10/2024 33.6 RDW-CV (%) Date Value 11/10/2024 18.6 (H) Platelet Count (k/uL) Date Value 11/10/2024 184 MPV (fL) Date Value 11/10/2024 9.7 Glucose (mg/dL) Date Value 11/10/2024 96 BUN (mg/dL) Date Value 11/10/2024 15 Creatinine (mg/dL) Date Value 11/10/2024 1.21 Sodium (mmol/L) Date Value 11/10/2024 139 Potassium (mmol/L) Date Value 11/10/2024 4.5 Chloride (mmol/L) Date Value 11/10/2024 107 CO2 (mmol/L) Date Value 11/10/2024 20 (L) Protein, Total (g/dL) Date Value 11/09/2024 4.8 (L) Albumin (g/dL) Date Value 11/09/2024 3.2 (L) Calcium, Total (mg/dL) Date Value 11/10/2024 7.8 (L) Alkaline Phosphatase (U/L) Date Value 11/09/2024 37 (L) Bilirubin, Total (mg/dL) Date Value 11/09/2024 0.7 AST (U/L) Date Value 11/09/2024 20 ALT (U/L) Date Value 11/09/2024 16 Cholesterol, Total (mg/dL) Date Value 09/26/2022 111 Triglyceride (mg/dL) Date Value 09/26/2022 44 CTA abdomen/ pelvis 11/09 Active GI bleeding within the proximal ascending colon near an enterocolic anastomosis. Attempted IR embolization 11/09 No active bleed seen in area around the entero colic anastomosis Impression/Recommendat ions Lower GI bleed- notes bloody bowel movements at home. CTA positive for bleeding within the proximal ascending colon near enterocolic anastomosis. -continue to monitor HgB, transfuse as needed -continue to monitor and document any episodes of overt GI bleeding -avoid NSAID's -initiate IV PPI BID -maintain NPO status at this time -IR attempted embolization 11/09; no active bleeding noted -discussed with Dr. Cevallos; plan for rapid prep this morning, followed by 1-2 hours NPO, in order to complete bedside colonoscopy today 11/10 Crohn's disease- diagnosed in 2003; s/p partial colectomy in 2019 and laparoscopic ileocolic anastomosis. On Entyv. Last colonoscopy 2022. -continue to follow outpatient with established GI Dr. Loja [facility] will continue to follow Discussed with GI attending Dr. Cevallos who agrees with above plan. After 4 pm and on weekends, please refer to the airborne electronics analyst list for the GI physician airborne electronics analyst. Physician can be reached via [employer] chat Some documentation from previous visit has been copied and pasted, documentation has been reviewed and edited as necessary to reflect today's visit SIGNATURE: Meagan Rosado APRN.ROBERT PATIENT NAME: Jesus Disla DATE: November 10, 2024 TIME: 8:04 AM Normal [facility] CT ABD/PEL W IVCONon 025 CT ABD/PEL W IVCON * * *Final Report* * * DATE OF EXAM: Nov 10 2024 6:15PM [facility] 0530 - CT ABD/PEL W IVCON / PROCEDURE REASON: Abdominal pain, acute, nonlocalized * * * * Physician Interpretation * * * * EXAMINATION: CT ABDOMEN AND PELVIS WITH IV CONTRAST CLINICAL HISTORY: Peritonitis or perforation suspected abdominal pain. Recent colonoscopy. Partial colectomy with ileocolic anastomosis TECHNIQUE: CT of the abdomen and pelvis was performed using standard technique, scanning from just above the dome of the diaphragm to the symphysis pubis. MQ: CTAP_3 Contrast: IV: 100 ml of Omnipaque 350 : ml of CT Radiation dose: Integrated Dose-length product (DLP) for this visit = 415 mGy*cm. CT Dose Reduction Employed: Automated exposure control(AEC) and iterative recon COMPARISON: CT abdomen pelvis 11/09/2024. RESULT: Liver: No mass. Biliary: No bile duct dilation. Cholecystectomy. Spleen: No mass. No splenomegaly. Pancreas: No mass or duct dilation. Adrenals: No mass. Kidneys: No hydronephrosis. GI tract: Diffuse distention of the colon is fluid-filled. Lymph nodes: No abdominal or pelvic lymphadenopathy. Mesentery/Peritoneum: No ascites or mass. Retroperitoneum: No mass. Vasculature: Aorta is nonaneurysmal. Pelvis: No mass, ascites or fluid collection. Bones/Soft Tissues: No acute osseous findings. Lower thorax: Noncontributory. Localizer images: No additional findings. IMPRESSION: Colonic ileus. Slot Machine Mechanic: KOURTNEY Transcribe Date/Time: Nov 10 2024 7:06P Dictated by : TORREY BRITT MD This examination was interpreted and the report reviewed and electronically signed by: TORREY BRITT MD on Nov 10 2024 7:16PM EST [id number] Normal [facility] Colonoscopyon 11-10-2024 Colonoscopy [facility] Gastrointestinal Endoscopy Patient Name: Jesus Disla Procedure Date: 11/10/2024 1:17 PM Date of : 1980 Admit Type: Inpatient Room: [place] [address] Gender: Male Note Status: Finalized Attending MD: Juliana Cevallos MD, [id number] Procedure: Colonoscopy Indications: Hematochezia Providers: Juliana Cevallos MD Patient Profile: Last Colonoscopy: 3 years ago. Refer to note in patient chart for documentation of history and physical. Referring Physician: Meagan Mejia (Referring MD) Medicines: Monitored Anesthesia Care Complications: No immediate complications. Procedure: Pre-Anesthesia Assessment: - Prior to the procedure, a History and Physical was performed, and patient medications and allergies were reviewed. The patient is competent. The risks and benefits of the procedure and the sedation options and risks were discussed with the patient. All questions were answered and informed consent was obtained. Patient identification and proposed procedure were verified by the physician, the nurse and the anesthesiologist in the pre-procedure area. Mental Status Examination: alert and oriented. Airway Examination: normal oropharyngeal airway and neck mobility. Respiratory Examination: clear to auscultation. CV Examination: normal. Prophylactic Antibiotics: The patient does not require prophylactic antibiotics. Prior Anticoagulants: The patient has taken no anticoagulant or antiplatelet agents. ASA Grade Assessment: II - A patient with mild systemic disease. After reviewing the risks and benefits, the patient was deemed in satisfactory condition to undergo the procedure. The anesthesia plan was to use moderate sedation / analgesia (conscious sedation). Immediately prior to administration of medications, the patient was re-assessed for adequacy to receive sedatives. The heart rate, respiratory rate, oxygen saturations, blood pressure, adequacy of pulmonary ventilation, and response to care were monitored throughout the procedure. The physical status of the patient was re-assessed after the procedure. - Prophylactic Antibiotics: The patient does not require prophylactic antibiotics. After I obtained informed consent, the scope was passed under direct vision. Throughout the procedure, the patient's blood pressure, pulse, and oxygen saturations were monitored continuously. The Colonoscope was introduced through the anus and advanced to the terminal ileum. I was present and participated during the entire procedure, including non-mendiola portions, and during the administration and monitoring of Moderate Sedation. The colonoscopy was performed without difficulty. The patient tolerated the procedure well. The quality of the bowel preparation was fair. The romeo-terminal ileum, the terminal ileum and the rectum were photographed. Scope Withdrawal Time: 0 hours 33 minutes 34 seconds Moderate Sedation: MAC anesthesia was administered by the anesthesia team. The administration of moderate sedation was initiated at 23:50. Findings: The perianal and digital rectal examinations were normal. The romeo-terminal ileum contained circumferential ulcer. Oozing was present. Stigmata of recent bleeding were present. Coagulation for hemostasis using bipolar probe was successful. The terminal ileum contained a benign-appearing, intrinsic moderate stenosis measuring 9 mm (inner diameter) that was non-traversed. Red blood was found in the entire colon. The retroflexed view of the distal rectum and anal verge was normal and showed no anal or rectal abnormalities. Estimated Blood Loss: Estimated blood loss was minimal. Impression: - Preparation of the colon was fair. - Circumferential bleeding ulcer in the romeo-terminal ileum. Treated with bipolar cautery. - Stricture in the terminal ileum. - Blood in the entire examined colon. - The distal rectum and anal verge are normal on retroflexion view. - No specimens collected. Recommendation: - [facility]. - Repeat colonoscopy for surveillance based on clinical status at that time. - Resume previous diet today. - Continue present medications. - Patient has a contact number available for emergencies. The signs and symptoms of potential delayed complications were discussed with the patient. Return to normal activities tomorrow. Written discharge instructions were provided to the patient. - The patient is not currently taking anticoagulant or antiplatelet agents. Procedure Code(s): --- Professional --- 32158, Colonoscopy, flexible; with control of bleeding, any method --- Technical --- 16368, Colonoscopy, flexible; with control of bleeding, any method Diagnosis Code(s): --- Professional --- K92.1, Melena (includes Hematochezia) --- Technical --- K92.1, Melena (includ (more content not included)... Normal [facility] Lactate (Bld) [Moles/Vol]on 11-10-2024 Lactate [Moles/Vol] 0.9 mmol/L Normal 0.5-2.2 [facility] Comment on above: Order Comment: Specraina nam Type: BLOOD SPECIMENOrdering Facility: [facility] Address: [address] [place] [address] Performed By: #### 3 2693-4 ####[facility] [id number] [address] Magnesium SerPl-ncon 11-10 Magnesium [Mass/Vol] 1.9 mg/dL Normal 1.7-2.3 [facility] Comment on above: Order Comment: Trisha nam Type: BLOOD SPECIMEN Ordering Facility: [facility] Address: [address] [place] [address] Performed By: #### 5 8410-2 #### [facility] CLIA [id number] [address] Phosphate SerPl-mCncon 11-10 Phosphate [Mass/Vol] 3.5 mg/dL Normal 2.7-4.8 [facility] Comment on above: Order Comment: Speci viv Type: BLOOD SPECIMEN Ordering Facility: [facility] Address: [address] [place] [address] Performed By: #### 5 8410-2 #### [facility] CLIA [id number] [address] [place] ALLIED HEALTHon 11-09-2024 ALLIED HEALTH HNO ID: [id number] Author: MAKAYLA LALA RT(R) Service: Radiology Author Type: Technologist Type: Allied Health Filed: 11/09/2024 13:36 Note Text: Radiology Service Progress Note DATE OF SERVICE: November 09, 2024 TIME: 1:36 PM PATIENT IDENTITY VERIFICATION COMPLETED USING TWO (2) STANDARD IDENTIFIERS: Name and Date of confirmed by patient verbally and Name and Date of confirmed by identification band. FALL SCREENING: Has the patient had 2 falls in the last year or 1 fall with injury or currently using an Ambulatory Assistive Device (Walker, Cane, Wheelchair, Crutches, etc.)? Emergency Room Patient: Screened in ED PATIENT GENDER DATA: Assigned male at PATIENT RELEVANT IMPLANT DATA REVIEWED: Not Applicable PATIENT PRESENTS WITH AN IMPLANTABLE OR ATTACHED MANAGER BUSINESS PLANNING: No ALLERGIES: Reviewed and unchanged CONTRAST ALLERGY: NO. EXAM: CT -CONTRAST INDUCED NEPHROPATHY RISK FACTORS: Not applicable CREATININE: Creatinine Date Value Ref Range Status 11/09/2024 1.34 (H) 0.73 - 1.22 mg/dL Final 02/04/2024 1.32 (H) 0.73 - 1.22 mg/dL Final 09/26/2022 1.35 0.50 - 1.40 mg/dL Final Comment: Patients receiving either N-Acetylcysteine (NAC) or Metamizole prior to venipuncture, may have falsely depressed results. Estimated Glomerular Filtration Rate Date Value Ref Range Status 11/09/2024 66 >=60 mL/min/1.73m? Final Comment: Estimated Glomerular Filtration Rate (eGFR) is calculated using the 2020 CKD-EPI creatinine equation. This equation utilizes serum creatinine, sex, and age as parameters. The creatinine assay has traceable calibration to isotope dilution-mass spectrometry. Refer to KDIGO guidelines for clinical interpretation. In patients with unstable renal function, e.g. those with acute kidney injury, the eGFR may not accurately reflect actual GFR. eGFR- Date Value Ref Range Status 03/13/2020 >60 Final P.O.C.T. RESULTS: POC done: Yes, See Lab Tab November 09, 2024 TREATMENT: N/A and No Hydration needed. PERIPHERAL IV DATA: Inpatient - refer to LDA documentation RADIOLOGY DEPARTMENT: CT; Exam(s) Completed: CTA Abdomen Pelvis SIGNATURE: Makayla Lala RT(R) PATIENT NAME: Jesus Disla DATE: November 09, 2024 TIME: 1:36 PM Normal [facility] BRIEF OP NOTon 11-09-2024 BRIEF OP NOT HNO ID: [id number] Author: BRYAN JAMES MD Service: Interventional Radiology Author Type: Physician Type: Brief Op Note Filed: 11/09/2024 21:55 Note Text: INTERVENTIONAL RADIOLOGY POST PROCEDURE NOTE DATE: 11/09/24 NAME: Jesus Disla LOG ID: [id number] Pre-Procedure Diagnosis: Active GI bleed at entero-colonic anastomosis. Compliance Consultant: Surgeon(s) and Role: * Bryan James MD, MD - Primary Procedure: SMA angiography Anesthesia: Local anesthesia and procedural sedation Findings: During the consent procedure the patient was informed that embolization of surgical anastomosis (like his entero-colonic anastomosis) have a higher risk of complications such as ischemia and bowel infarction. Selective angiography of the SMA and ileocolic arteries showed no evidence of active bleed in . Embolization was not performed. As per discussion with the referring team, the right groin sheath was left in place in case that the patient re-bleeds Estimated Blood Loss: 15 mL Specimen: None Complications: None Post-Op/Post-Procedure Diagnosis: No active bleed seen in area around the entero colic anastomosis Please see Radiology report for complete information Consultation to GI for endoscopy is recommended Normal [facility] CBC W Auto Differential pane l (Bld)on 11-09-2024 Basophils (Bld) [#/Vol] 0.03 10*3/uL Normal <0.11 [facility] Comment on above: Order Comment: Trisha nam Type: BLOOD SPECIMEN Ordering Facility: [facility] Address: [address] [place] [address] Performed By: #### 5 8410-2 #### [facility] CLIA [id number] [address] [place] [address] [place] Basophils/100 WBC (Bld) 0.3 % Normal [facility] Comment on above: Order Comment: Trisha nam Type: BLOOD SPECIMEN Ordering Facility: [facility] Address: [address] [place] [address] Performed By: #### 5 8410-2 #### [facility] CLIA [id number] [address] Differential cell count method Nom (Bld) Auto Normal [facility] Comment on above: Order Comment: Speci men Type: BLOOD SPECIMEN Ordering Facility: [facility] Address: [address] [place] [address] Performed By: #### 5 8410-2 #### [facility] CLIA [id number] [address] Eosinophils (Bld) [#/Vol] 0.09 10*3/uL Normal <0.46 [facility] Comment on above: Order Comment: Speci men Type: BLOOD SPECIMEN Ordering Facility: [facility] Address: [address] [place] [address] Performed By: #### 5 8410-2 #### [facility] CLIA [id number] [address] Eosinophils/100 WBC (Bld) 0.9 % Normal [facility] Comment on above: Order Comment: Speci men Type: BLOOD SPECIMEN Ordering Facility: [facility] Address: [address] [place] [address] Performed By: #### 5 8410-2 #### [facility] CLIA [id number] [address] Erythrocyte distribution width (RBC) [Ratio] 18.2 % High 11.5-15.0 [facility] Comment on above: Order Comment: Speci men Type: BLOOD SPECIMEN Ordering Facility: [facility] Address: [address] [place] [address] Performed By: #### 5 8410-2 #### [facility] CLIA [id number] [address] Hematocrit (Bld) [Volume fraction] 29.6 % Low 39.0-51.0 [facility] Comment on above: Order Comment: Speci men Type: BLOOD SPECIMEN Ordering Facility: [facility] Address: [address] [place] [address] Performed By: #### 5 8410-2 #### [facility] CLIA [id number] [address] [place] Hemoglobin (Bld) [Mass/Vol] 9.7 g/dL Low 13.0-17.0 [facility] Comment on above: Order Comment: Speci men Type: BLOOD SPECIMEN Ordering Facility: [facility] Address: [address] [place] [address] Performed By: #### 5 8410-2 #### [facility] CLIA [id number] [address] [place] Immature granulocytes (Bld) [#/Vol] 0.03 10*3/uL Normal <0.10 [facility] Comment on above: Order Comment: Speci men Type: BLOOD SPECIMEN Ordering Facility: [facility] Address: [address] [place] [address] Performed By: #### 5 8410-2 #### [facility] CLIA [id number] [address] Immature granulocytes/100 WBC (Bld) 0.3 % Normal [facility] Comment on above: Order Comment: Speci men Type: BLOOD SPECIMEN Ordering Facility: [facility] Address: [address] [place] [address] Performed By: #### 5 8410-2 #### [facility] CLIA [id number] [address] [place] Lymphocytes (Bld) [#/Vol] 0.84 10*3/uL Low 1.00-4.00 [facility] Comment on above: Order Comment: Speci men Type: BLOOD SPECIMEN Ordering Facility: [facility] Address: [address] [place] [address] Performed By: #### 5 8410-2 #### [facility] CLIA [id number] [address] [place] Lymphocytes/100 WBC (Bld) 8.8 % Normal [facility] [facility] Comment on above: Order Comment: Speci men Type: BLOOD SPECIMEN Ordering Facility: [facility] Address: [facility] [place] [address] Performed By: #### 5 8410-2 #### [facility] CLIA [id number] [address] MCH (RBC) [Entitic mass] 28.3 pg Normal 26.0-34.0 [facility] Comment on above: Order Comment: Speci men Type: BLOOD SPECIMEN Ordering Facility: [facility] Address: [address] [place] [address] Performed By: #### 5 8410-2 #### [facility] CLIA [id number] [address] MCHC (RBC) [Mass/Vol] 32.8 g/dL Normal 30.5-36.0 [facility] Comment on above: Order Comment: Speci men Type: BLOOD SPECIMEN Ordering Facility: [facility] Address: [address] [place] [address] Performed By: #### 5 8410-2 #### [facility] CLIA [id number] [address] MCV (RBC) [Entitic vol] 86.3 fL Normal 80.0-100.0 [facility] Comment on above: Order Comment: Speci men Type: BLOOD SPECIMEN Ordering Facility: [facility] Address: [address] [place] [address] Performed By: #### 5 8410-2 #### [facility] CLIA [id number] [address] Monocytes (Bld) [#/Vol] 0.49 10*3/uL Normal <0.87 [facility] Comment on above: Order Comment: Speci men Type: BLOOD SPECIMEN Ordering Facility: [facility] Address: [address] [place] [address] Performed By: #### 5 8410-2 #### [facility] CLIA [id number] [address] Monocytes/100 WBC (Bld) 5.1 % Normal [facility] Comment on above: Order Comment: Speci men Type: BLOOD SPECIMEN Ordering Facility: [facility] Address: [address] [place] [address] Performed By: #### 5 8410-2 #### [facility] CLIA [id number] [address] [place] Neutrophils (Bld) [#/Vol] 8.11 10*3/uL High 1.45-7.50 [facility] Comment on above: Order Comment: Speci men Type: BLOOD SPECIMEN Ordering Facility: [facility] Address: [address] [place] [address] Performed By: #### 5 8410-2 #### [facility] CLIA [id number] [address] Neutrophils/100 WBC (Bld) 84.6 % Normal [facility] Comment on above: Order Comment: Speci men Type: BLOOD SPECIMEN Ordering Facility: [facility] Address: [address] [place] [address] Performed By: #### 5 8410-2 #### [facility] CLIA [id number] [address] [place] Nucleated RBC (Bld) [#/Vol] 10*3/uL Normal <0.01 [facility] Comment on above: Order Comment: Speci men Type: BLOOD SPECIMEN Ordering Facility: [facility] Address: [address] [place] [address] Performed By: #### 5 8410-2 #### [facility] CLIA [id number] [address] [place] Nucleated RBC/100 WBC (Bld) [Ratio] 0.0 /100 WBC Normal [facility] Comment on above: Order Comment: Speci men Type: BLOOD SPECIMEN Ordering Facility: [facility] Address: [address] [place] [address] Performed By: #### 5 8410-2 #### [facility] CLIA [id number] [address] [place] Platelet mean volume (Bld) [Entitic vol] 9.7 fL Normal 9.0-12.7 [facility] Comment on above: Order Comment: Speci men Type: BLOOD SPECIMEN Ordering Facility: [facility] Address: [address] [place] [address] Performed By: #### 5 8410-2 #### [facility] CLIA [id number] [address] Platelets (Bld) [#/Vol] 215 10*3/uL Normal 150-400 [facility] Comment on above: Order Comment: Speci men Type: BLOOD SPECIMEN Ordering Facility: [facility] Address: [address] [place] [address] Performed By: #### 5 8410-2 #### [facility] CLIA [id number] [address] RBC (Bld) [#/Vol] 3.43 10*6/uL Low 4.20-6.00 [facility] Comment on above: Order Comment: Speci men Type: BLOOD SPECIMEN Ordering Facility: [facility] Address: [address] [place] [address] Performed By: #### 5 8410-2 #### [facility] CLIA [id number] [address] WBC (Bld) [#/Vol] 9.59 10*3/uL Normal 3.70-11.00 [facility] Comment on above: Order Comment: Speci men Type: BLOOD SPECIMEN Ordering Facility: [facility] Address: [address] [place] [address] Performed By: #### 5 8410-2 #### [facility] CLIA [id number] [address] CBC panel Auto (Bld)on 11-09 Erythrocyte distribution width (RBC) [Ratio] 18.4 % High 11.5-15.0 [facility] Comment on above: Order Comment: Speci men Type: BLOOD SPECIMEN Ordering Facility: [facility] Address: [address] [place] [address] Performed By: #### 5 8410-2 #### [facility] CLIA [id number] [address] OF [facility] Hematocrit (Bld) [Volume fraction] 30.8 % Low 39.0-51.0 [facility] Comment on above: Order Comment: Speci men Type: BLOOD SPECIMEN Ordering Facility: [facility] Address: [address] [place] [address] Performed By: #### 5 8410-2 #### [facility] CLIA [id number] [address] [facility] Hemoglobin (Bld) [Mass/Vol] 10.2 g/dL Low 13.0-17.0 [facility] Comment on above: Order Comment: Speci men Type: BLOOD SPECIMEN Ordering Facility: [facility] Address: [address] [place] [address] Performed By: #### 5 8410-2 #### [facility] CLIA [id number] [address] MCH (RBC) [Entitic mass] 28.5 pg Normal 26.0-34.0 [facility] Comment on above: Order Comment: Speci men Type: BLOOD SPECIMEN Ordering Facility: [facility] Address: [address] [place] [address] Performed By: #### 5 8410-2 #### [facility] CLIA [id number] [address] [facility] MCHC (RBC) [Mass/Vol] 33.1 g/dL Normal 30.5-36.0 [facility] Comment on above: Order Comment: Speci men Type: BLOOD SPECIMEN Ordering Facility: [facility] Address: [address] [place] [address] Performed By: #### 5 8410-2 #### [facility] CLIA [id number] [address] MCV (RBC) [Entitic vol] 86.0 fL Normal 80.0-100.0 [facility] Comment on above: Order Comment: Speci men Type: BLOOD SPECIMEN Ordering Facility: [facility] Address: [address] [place] [address] Performed By: #### 5 8410-2 #### [facility] CLIA [id number] [address] [place] Nucleated RBC (Bld) [#/Vol] 10*3/uL Normal <0.01 [facility] Comment on above: Order Comment: Speci men Type: BLOOD SPECIMEN Ordering Facility: [facility] Address: [address] [place] [address] Performed By: #### 5 8410-2 #### [facility] CLIA [id number] [address] [place] Platelet mean volume (Bld) [Entitic vol] 9.5 fL Normal 9.0-12.7 [facility] Comment on above: Order Comment: Speci men Type: BLOOD SPECIMEN Ordering Facility: [facility] Address: [address] [place] [address] Performed By: #### 5 8410-2 #### [facility] CLIA [id number] [address] [place] Platelets (Bld) [#/Vol] 249 10*3/uL Normal 150-400 [facility] Comment on above: Order Comment: Speci men Type: BLOOD SPECIMEN Ordering Facility: [facility] Address: [address] [place] [address] Performed By: #### 5 8410-2 #### [facility] CLIA [id number] [address] [place] RBC (Bld) [#/Vol] 3.58 10*6/uL Low 4.20-6.00 [facility] Comment on above: Order Comment: Speci men Type: BLOOD SPECIMEN Ordering Facility: [facility] Address: [address] [place] [address] Performed By: #### 5 8410-2 #### [facility] CLIA [id number] [address] [place] WBC (Bld) [#/Vol] 9.11 10*3/uL Normal 3.70-11.00 [facility] Comment on above: Order Comment: Speci men Type: BLOOD SPECIMEN Ordering Facility: [facility] Address: [place] [id number] Performed By: #### 5 8410-2 #### [facility] CLIA [id number] [address] [place] [id number] [place] CONSULTon 11-09-2024 CONSULT HNO ID: [id number] Author: MEAGAN ROSADO APRN.CNP Service: Gastroenterology Author Type: Nurse Practitioner Type: Consults Filed: 11/09/2024 16:04 Note Text: INITIAL CONSULT GASTROENTEROLOGY SERVICE DATE: 11/09/2024 SERVICE TIME: 4:03 PM Consulting Service: Gastroenterology Chief Complaint: BRBPR Opinion/advice regarding: Active GIB Subjective HPI: This is a 44 year old male who presents with complaints of active BRBPR. Per patient, last night he woke up with sharp abdominal pain and starting today he has had multiple bloody bowel movements at work with lightheadedness. He did have a syncopal episode at home where he was found by . Not currently on anticoagulants. History of partial colectomy in 2019 and Laparoscopic ileocolic anastomosis with lymphadenectomy; and actively receiving Entyvio and iron infusions for chronic anemia. Upon assessment, vitals notable for intermittent hypotension and overall soft BM since arrival; afebrile. Labs significant for HgB 9.7 (baseline 14), Creatinine 1.34. CTA abdomen/ pelvis noting Active GI bleeding within the proximal ascending colon near an enterocolic anastomosis. PAST MEDICAL HISTORY Diagnosis Date Crohn's disease (HCC) dx'd 2003 PAST SURGICAL HISTORY Procedure Laterality Date CHOLECYSTECTOMY 2008 FAMILY HISTORY Problem Relation Age of Onset Hyperlipidemia Father Social History Tobacco Use Smoking status: Never Passive exposure: Never Smokeless tobacco: Never Vaping Use Vaping status: Never Used Substance Use Topics Alcohol use: Yes Comment: once a month Drug use: Yes Comment: medical marijuana to sleep, 1-2x per week MEDICATIONS: Prior to Admission Medications: naltrexone 4.5 mg capTake 4.5 mg by mouth once daily.Disp: Rfl: Glucosamine 1,000 mg tabTake 1 tablet by mouth three times a day.Disp: Rfl: vedolizumab (ENTYVIO) 300 mg injectionInfuse 300mg via IV every 8 weeks.Disp: 1 EachRfl: 5 saw palmetto 320 mg capsuleTake 1 capsule by mouth once daily.Disp: Rfl: multivitamin tabletmultivitamin tabletDisp: Rfl: acetylcysteine (NAC) 600 mg capsuleTake 1,200 mg by mouth twice daily.Disp: Rfl: Khmza-5-PRQ-EPA-Fish Oil (FISH OIL) 1,000 mg (120 mg-180 mg) capTake 2 g by mouth twice daily.Disp: Rfl: calcium carb/vit D2/minerals (CALCIUM 600/MINERALS ORAL)Take by mouth.Disp: Rfl: Chlor-Mal/Phenyleph/Me thscop (PE HCL-CPM-MSN ORAL)Take by mouth.Disp: Rfl: cholecalciferol, vitamin D3, (VITAJOY DAILY D ORAL)Take by mouth.Disp: Rfl: acetaminophen (TYLENOL) 500 mg tabletTake 2 tablets by mouth every 6 hours as needed.Disp: Rfl: QUERCETIN DIHYDRATE, BULK, MISCtwice daily. quercetin 800mg with zincDisp: Rfl: Current Facility-Administered Medications Medication Dose Route Frequency iv contrast (radiology procedure) INTRAVENOUS DIRECTED PRN NaCl 0.9% iv flush bag 20 mL INTRAVENOUS PRN magnesium sulfate iv piggyback in sterile water 2 g 50 mL 2 g INTRAVENOUS ONCE lactated ringers iv infusion 100 mL/hr INTRAVENOUS CONTINUOUS potassium chloride ER 20-40 mEq tab(s) (KLOR-CON) 20-40 mEq ORAL/FEEDING TUBE PRN Or potassium chloride iv piggyback 20 mEq/100 mL 20 mEq INTRAVENOUS PRN magnesium sulfate iv piggyback in sterile water 2 g 50 mL 2 g INTRAVENOUS PRN phosphorus 500 mg tab(s) (K PHOS NEUTRAL) 500 mg ORAL/FEEDING TUBE PRN(NO DISPENSE) calcium gluconate iv piggyback 2 g in NaCl (iso-osmotic) 100 mL 2 g INTRAVENOUS PRN(NO DISPENSE) acetaminophen 1,000 mg tab(s) (TYLENOL) 1,000 mg ORAL/FEEDING TUBE q 6 H magnesium sulfate iv piggyback in sterile water 2 g 50 mL 2 g INTRAVENOUS ONCE ALLERGIES Allergen Reactions Adalimumab Other: See Comments Dust Other: See Comments Mold Other: See Comments runny nose Pollen Extracts Other: See Comments runny nose GI SPECIFIC REVIEW OF SYSTEMS: See above Objective PHYSICAL EXAM: BP 90/60 Pulse 65 Temp 36.8 ?C (98.2 ?F) (Oral) Resp 12 Wt 79.4 kg (175 lb) SpO2 100% BMI 24.41 kg/m? GENERAL- AAO x 3, no distress LUNGS: Clear to auscultation bilaterally CARDIAC: S1, S2 heard, no murmur appreciated ABDOMEN: Negative findings: no scars, striae, dilated veins, rashes, or lesions, bowel sounds normal and Positive findings: tenderness: moderate location: RLQ and LLQ DATA: Diagnostic Tests Reviewed for Today's Visit: Most recent labs and imaging results. WBC (k/uL) Date Value 11/09/2024 9.59 RBC (m/uL) Date Value 11/09/2024 3.43 (L) Hemoglobin (g/dL) Date Value 11/09/2024 10.5 (L) Hematocrit (%) Date Value 11/09/2024 29.6 (L) MCV (fL) Date Value 11/09/2024 86.3 MCH (pg) Date Value 11/09/2024 28.3 MCHC (g/dL) Date Value 11/09/2024 32.8 RDW-CV (%) Date Value 11/09/2024 18.2 (H) Platelet Count (k/uL) Date Value 11/09/2024 215 MPV (fL) Date Value 11/09/2024 9.7 Glucose (mg/dL) Date Value 11/09/2024 147 (H) BUN (mg/dL) Date Value 11/09/2024 12 Creatinine (mg/dL) Date Va (more content not included)... Normal [facility] CONSULT HNO ID: [id number] Author: SUKH DIANA MD Service: Pulmonary Disease Author Type: Physician Type: Consults Filed: 11/09/2024 17:06 Note Text: [facility] STAFF PHYSICIAN NOTE OF PERSONAL INVOLVEMENT IN CARE I have reviewed the history and physical examination obtained and documented by the resident and I personally participated in the mendiola components. I have discussed the case and management of the patient's care. The following comments revise or confirm relevant mendiola components of the note. Personally reviewed all pertinent data including labs, cultures, and imaging. CTA abd/pelvis 11/09 IMPRESSION: Active GI bleeding within the proximal ascending colon near an enterocolic anastomosis. CXR 11/09 IMPRESSION: No acute radiographic abnormality. IMPRESSION: - Acute blood loss anemia in setting of acute LGIB - Hx of crohns disease s/p colectomy - LENNIE - Hypomagnesemia PLAN: - Given findings on imaging and acuity of LGIB, recommend urgent IR embolization. - Consult GI for additional recommendations. Given LGIB, defer need for medical management (ie PPI, etc) - Continue with ongoing IVF resuscitation - prn pRBC transfusion, goal Hb > 7.0 mmHg - Monitor electrolytes. Keep K >4, Mg >2, Po4 >2.5 - Strict monitoring of I's AND O's and daily renal function - Resume home medications as tolerated - Glycemic control / monitoring - ICU prophylaxis w/ SCDs - Ongoing ICU supportive care - Code Status: Full Code This patient has a high probability of sudden, clinically significant deterioration, which requires the highest level of physician preparedness to intervene urgently. I managed/supervised life or organ supporting interventions that required frequent physician assessment. I devoted my full attention to the direct care of this patient for the amount of time indicated below. Time I spent with family or surrogate(s) is included only if the patient was incapable of providing the necessary information or participating in medical decision making. Time devoted to teaching and to any procedures I billed separately is not included. Critical Care Documentation: The patient has the following organ/system impairment(s): Acute blood loss and Acute kidney injury Time spent providing critical care services: 35 minutes. SIGNATURE: Sukh Diana MD [facility]: [phone] DATE of SERVICE: November 09, 2024 TIME of SERVICE: 2:55 PM Normal [facility] CTA ABD/PELV WO/W IVCONon CTA ABD/PELV WO/W IVCON * * *Final Repor t* * * DATE OF EXAM: Nov 09 2024 1:40PM [facility] 0467 - CTA ABD/PELV WO/W IVCON / PROCEDURE REASON: GI bleed * * * * Physician Interpretation * * * * EXAM TITLE: CTA ABD/PELV WO/W IVCON DATE: 11/09/2024 COMPARISON: 11/16/2019 CLINICAL INDICATION/HISTORY: History of Crohn's disease. GI bleed. TECHNIQUE: Initially, unenhanced imaging was performed through the abdomen and pelvis. Then, CT angiography was performed followed by delayed imaging. Sagittal, coronal and MIP reconstruction images were also obtained. CT Radiation dose: Integrated Dose-length product (DLP) for this visit = 1001 mGy*cm. CT Dose Reduction Employed: Automated exposure control(AEC) and iterative recon IV contrast: 100 mL Omnipaque 350 FINDINGS: CTA: The abdominal aorta is normal in course and caliber without dissection. The celiac axis and mesenteric arteries are widely patent as are solitary bilateral renal arteries. Iliac vessels show no significant atherosclerosis. ABDOMEN: Solitary calcified granuloma at the inferior right hepatic lobe. There is a tiny subcapsular cyst posteriorly on image 52 of series 12. No bile duct dilatation. Prior cholecystectomy. Normal size and appearance of the spleen. Normal pancreas. No adrenal nodule. No renal calculi, mass or hydronephrosis. Mass evaluation is suboptimal given the phases of enhancement obtained. Postoperative changes of prior enterocolic anastomosis noted within the right lower quadrant. Near the sutures, within the proximal ascending colon, there is active extravasation of contrast as seen on axial images 63 through 71 of series 12 compatible with active GI bleeding. Postoperative changes involving small bowel within the lower abdomen, left of midline. No obvious segment of abnormal bowel wall thickening. No bowel dilatation. There is no lymphadenopathy, omental nodule or free fluid. No acute bony abnormality. Degenerative changes at the L5-S1 level. The visualized lung smallwood are clear. PELVIS: No bladder mass or calculus. No free fluid or lymphadenopathy. No acute bony abnormality. IMPRESSION: Active GI bleeding within the proximal ascending colon near an enterocolic anastomosis. COMMUNICATION: Communicated with Dr. Michael on 11/09/2024 2:19 PM via verbal communication. Slot Machine Mechanic: [id number] Transcribe Date/Time: Nov 09 2024 1:59P Dictated by : CAROLIAN MENSAH MD This examination was interpreted and the report reviewed and electronically signed by: CAROLINA MENSAH MD on Nov 09 2024 2:19PM EST [id number] Normal [facility] Comprehensive metabolic 2000 panelon 11-09-2024 Albumin [Mass/Vol] 3.2 g/dL Low 3.9-4.9 [facility] Comment on above: Order Comment: Speci men Type: BLOOD SPECIMEN Ordering Facility: [facility] Address: [address] [place] [address] Performed By: #### 2 4323-8 #### [facility] CLIA [id number] [address] ALP [Catalytic activity/Vol] 37 U/L Low 38-113 [facility] Comment on above: Order Comment: Speci men Type: BLOOD SPECIMEN Ordering Facility: [facility] Address: [address] [place] [address] Performed By: #### 2 4323-8 #### [facility] CLIA [id number] [address] ALT With P-5'-P [Catalytic activity/Vol] 16 U/L Normal 10-54 [facility] Comment on above: Order Comment: Speci men Type: BLOOD SPECIMEN Ordering Facility: [facility] Address: [address] [place] [address] Performed By: #### 2 4323-8 #### [facility] CLIA [id number] [address] Anion gap [Moles/Vol] 9 mmol/L Normal 8-15 [facility] Comment on above: Order Comment: Speci men Type: BLOOD SPECIMEN Ordering Facility: [facility] Address: [address] [place] [address] Performed By: #### 2 4323-8 #### [facility] CLIA [id number] [address] AST With P-5'-P [Catalytic activity/Vol] 20 U/L Normal 14-40 [facility] Comment on above: Order Comment: Speci men Type: BLOOD SPECIMEN Ordering Facility: [facility] Address: [address] [place] [address] Performed By: #### 2 4323-8 #### [facility] CLIA [id number] [address] [place] Bilirubin [Mass/Vol] 0.7 mg/dL Normal 0.2-1.3 [facility] Comment on above: Order Comment: Speci men Type: BLOOD SPECIMEN Ordering Facility: [facility] Address: [address] [place] [address] Performed By: #### 2 4323-8 #### [facility] CLIA [id number] [address] [place] Calcium [Mass/Vol] 7.5 mg/dL Low 8.5-10.2 [facility] Comment on above: Order Comment: Speci men Type: BLOOD SPECIMEN Ordering Facility: [facility] Address: [address] [place] [address] Performed By: #### 2 4323-8 #### [facility] CLIA [id number] [address] [place] [address] [place] Chloride [Moles/Vol] 110 mmol/L High 98-107 [facility] Comment on above: Order Comment: Speci men Type: BLOOD SPECIMEN Ordering Facility: [facility] Address: [address] [place] [address] Performed By: #### 2 4323-8 #### [facility] CLIA [id number] [address] [place] [address] [place] CO2 [Moles/Vol] 22 mmol/L Normal 22-30 [facility] Comment on above: Order Comment: Speci men Type: BLOOD SPECIMEN Ordering Facility: [facility] Address: [address] [place] [address] Performed By: #### 2 4323-8 #### [facility] CLIA [id number] [address] [place] [address] [place] Creatinine [Mass/Vol] 1.34 mg/dL High 0.73-1.22 [facility] Comment on above: Order Comment: Speci men Type: BLOOD SPECIMEN Ordering Facility: [facility] Address: [address] [place] [address] Performed By: #### 2 4323-8 #### [facility] CLIA [id number] [address] [place] [address] [place] eGFRcr SerPlBld CKD-EPI 2020 66 mL/min/1.73m??? Normal >=60 [facility] Comment on above: Order Comment: Trisha nam Type: BLOOD SPECIMEN Ordering Facility: [facility] Address: [address] [place] [address] Result Comment: Maday mated Glomerular Filtration Rate (eGFR) is calculated using the 2020 CKD-EPI creatinine equation. This equation utilizes serum creatinine, sex, and age as parameters. The creatinine assay has traceable calibration to isotope dilution-mass spectrometry. Refer to KDIGO guidelines for clinical interpretation. In patients with unstable renal function, e.g. those with acute kidney injury, the eGFR may not accurately reflect actual GFR. Performed By: #### 2 4323-8 #### [facility] CLIA [id number] [address] [place] [address] [place] Glucose [Mass/Vol] 147 mg/dL High 74-99 [facility] Comment on above: Order Comment: Trisha nam Type: BLOOD SPECIMEN Ordering Facility: [facility] Address: [address] [place] [address] Result Comment: The [place] [employer] (ADA) provides guidance for cutoff values for fasting glucose and random glucose. The ADA defines fasting as no caloric intake for at least 8 hours. Fasting plasma glucose results between 100 to 125 mg/dL indicate increased risk for diabetes (prediabetes). Fasting plasma glucose results greater than or equal to 126 mg/dL meet the criteria for diagnosis of diabetes. In the absence of unequivocal hyperglycemia, results should be confirmed by repeat testing. In a patient with classic symptoms of hyperglycemia or hyperglycemic crisis, random plasma glucose results greater than or equal to 200 mg/dL meet the criteria for diagnosis of diabetes. Reference: Standards of Medical Care in Diabetes 2016, [place] [employer]. Diabetes Care. 2016.39(Suppl 1). Performed By: #### 2 4323-8 #### [facility] CLIA [id number] [address] [place] [address] [place] Potassium [Moles/Vol] 4.5 mmol/L Normal 3.7-5.1 [facility] [facility] Comment on above: Order Comment: Trisha nam Type: BLOOD SPECIMEN Ordering Facility: [facility] Address: [address] [place] [address] Performed By: #### 2 4323-8 #### [facility] CLIA [id number] [address] [place] Protein [Mass/Vol] 4.8 g/dL Low 6.3-8.0 [facility] Comment on above: Order Comment: Speci men Type: BLOOD SPECIMEN Ordering Facility: [facility] Address: [address] [place] [address] Performed By: #### 2 4323-8 #### [facility] CLIA [id number] [address] Sodium [Moles/Vol] 141 mmol/L Normal 136-144 [facility] Comment on above: Order Comment: Speci men Type: BLOOD SPECIMEN Ordering Facility: [facility] Address: [address] [place] [address] Performed By: #### 2 4323-8 #### [facility] CLIA [id number] [address] [place] Urea nitrogen [Mass/Vol] 12 mg/dL Normal 9-24 [facility] Comment on above: Order Comment: Speci men Type: BLOOD SPECIMEN Ordering Facility: [facility] Address: [address] [place] [address] Performed By: #### 2 4323-8 #### [facility] CLIA [id number] [address] OF [facility] ED NOTEon 11-09-2024 ED NOTE HNO ID: [id number] Author: TED BURR RN Service: Emergency Medicine Author Type: Registered Nurse Type: ED Notes Filed: 11/09/2024 15:13 Note Text: ICU resident at bedside [facility] ED NOTE HNO ID: [id number] Author: TED BURR RN Service: ? Author Type: Registered Nurse Type: ED Notes Filed: 11/09/2024 14:36 Note Text: Bed: 08-ED Expected date: Expected time: Means of arrival: Comments: Room 47 [facility] ED NOTE HNO ID: [id number] Author: LUIS ZEPEDA Medic Service: ? Author Type: Vibration Engineer and Cleaning And Maintenance Worker Type: ED Notes Filed: 11/09/2024 11:57 Note Text: Bed: 47-ED Expected date: Expected time: Means of arrival: Comments: Ceci 44yo vasovag syncope Normal [facility] ED PROV NOTEon 11-09-2024 ED PROV NOTE HNO ID: [id number] Author: TORREY MEREDITH MD Service: Emergency Medicine Author Type: Physician Type: ED Provider Notes Filed: 11/09/2024 17:01 Note Text: Brief HPI: eJsus Disla is a 44 year old male with a PMH as documented below who presents for evaluation of syncope and GI bleed. The patient has a history of Crohn's. He is status post partial colectomy and cholecystectomy. He states his Crohn's is rather well-controlled and states he has a flare approximately every 6 months. He states the pain started very early this morning. It woke him up from his sleep. The patient states he has had several bowel movements with bright red blood. He denies similar symptoms in the past. States he was sitting on a toilet when he had a syncopal episode. Denies chest pain, palpitations or shortness of breath. Denies trauma or injury from the fall. He did receive IV fluids in route by EMS. PAST MEDICAL HISTORY Diagnosis Date Crohn's disease (HCC) dx'd 2003 Constitutional: Nontoxic, well-appearing without any respiratory distress. Alert and oriented x 3. HEENT: Mucous membranes moist. Neck: Supple. Normal range of motion. No C-spine tenderness or step-offs. Cardiovascular: Heart is regular rate and rhythm without murmurs, rubs or gallops. Pulmonary: Lungs clear to auscultation bilaterally without wheezes, rhonchi as well as rales. Gastrointestinal: Abdomen soft, mild suprapubic tenderness, nondistended with normal active bowel sounds. No rebound, guarding or peritoneal signs. Genitourinary: No CVA tenderness. Muscle skeletal: Moves all extremities equally and normally. MDM: 44-year-old male history of Crohn's status post partial colectomy and cholecystectomy presenting after he had several delayed bowel movements and a syncopal episode. We noted the patient's blood pressure to be in 90s and he states at times as low as 80s. The patient confirmed that this is typical. He states he has had recent appointments for iron transfusions. He states this has been where his blood pressure has been running at those appointments as well. Blood work obtained a CTA of the abdomen and pelvis. He had an EKG. EKG showed unusual P wave axis, no ST or T wave abnormalities consistent with acute HI. The patient did have a drop in his hemoglobin. His was able to pull up blood work from October 12. His hemoglobin at that time was 13.3. Today it is 9.7. CMP with elevated creatinine 1.34 however similar to prior findings slightly lowmagnesium at 1.5. Chest x-ray showed no acute processes. CTA showed an active GI bleed. The patient had 2 IVs placed. We discussed risk benefits alternatives to a blood transfusion and the patient consented. He states he does not feel dizzy, lightheaded or short of breath. Blood pressure however again running in the 80s and 90s which he states is his baseline but this time. Interventional radiology as well as ICU consulted. Patient was admitted to the ICU for further management. See resident/PA note for disposition details TORREY MEREDITH 11/09/24 1701 Normal [facility] ED PROV NOTE HNO ID: [id number] Author: TORREY MEREDITH MD Service: Emergency Medicine Author Type: Resident Type: ED Provider Notes Filed: 11/09/2024 17:21 Note Text: Attestation signed by Torrey Meredith MD at 11/09/2024 5:21 PM Attending Note I evaluated the patient and personally participated in the medniola components. I agree with the resident's findings and plan as documented and have discussed the case and management of the patient's care with the resident. Critical Care I spent a total of 50 minutes of critical care time in the evaluation and management of this patient. This was necessary to treat or prevent deterioration of the following condition(s): Cardiovascular impairment, which the patient had and/or has a high probability of suddenly developing. The patient received Consultation by IR and ICU during the time that critical care was provided.I discussed the plan of care with the RESIDENT and agree with the findings documented. Critical care time excludes separately billed procedures. Torrey Meredith MD Signature: Torrey Meredith MD Date: 11/09/2024 Time: 5:20 PM ED Provider Note Patient Name: Jesus Disla : 1980 SERVICE DATE: 11/09/24 History Patient presents with: Diarrhea Syncope: Pt came from home by EMS. Pt stated having abd pain last night. Pt started having bloody liquid stool this morning and when home. Pt was in the bathroom at home, when he passed out. Denies injury. -Thinners. Aox3. Hx GI issues. The patient is a 44-year-old male with a past medical history of Crohn's disease who presents to the emergency department with concern for several bloody bowel movements and syncope at home. The patient was brought to the emergency department from home via EMS. EMS gave 1 L IV fluids and around. Patient states that last night he woke up in the middle the night felt sharp abdominal pain in his lower abdomen. The patient states he took ibuprofen and then went back to sleep. Patient states that when he went to work today he had several bloody bowel movements at work and felt lightheaded so he went home. The patient states that when he went home he went to the bathroom and syncopized in the bathroom and woke up next to his toilet where his found him. He reports that he then called EMS. The patient denies blood thinner use. The patient states that he was diagnosed with Crohn's approximately 25 years ago. He states that he had a partial colectomy in 2019. Patient states that over the last 2 years he has been relatively asymptomatic. Patient states he has regular infusions of Entyvio as well as iron transfusions for anemia. The patient reports during his recent iron infusions he was told that his blood pressure hasbeen low with a top number in the 90s. Patient reports his last bloody bowel movement was approximately 1 hour prior to arrival. The patient denies headache, visual changes, weakness, numbness. The patient denies shortness of breath or chest discomfort. The patient denies nausea, vomiting. PAST MEDICAL HISTORY Diagnosis Date Crohn's disease (HCC) dx'd 2003 PAST SURGICAL HISTORY Procedure Laterality Date CHOLECYSTECTOMY 2007 FAMILY HISTORY Problem Relation Age of Onset Hyperlipidemia Father Social History Tobacco Use Smoking status: Never Passive exposure: Never Smokeless tobacco: Never Vaping Use Vaping status: Never Used Substance and Sexual Activity Alcohol use: Yes Comment: once a month Drug use: Yes Comment: medical marijuana to sleep, 1-2x per week Sexual activity: Not on file ALLERGIES Allergen Reactions Adalimumab Other: See Comments Dust Other: See Comments Mold Other: See Comments runny nose Pollen Extracts Other: See Comments runny nose Review of Systems Constitutional: Negative for chills and fever. Respiratory: Negative for shortness of breath. Cardiovascular: Negative for chest pain. Gastrointestinal: Positive for abdominal pain, blood in stool and diarrhea. Negative for nausea and vomiting. Genitourinary: Negative for dysuria. Musculoskeletal: Negative for neck pain. Neurological: Negative for dizziness, weakness, numbness and headaches. Physical Exam Vitals [11/09/24 1204] BP Pulse Temp Temp src Resp SpO2 Weight Height 97/70 61 36.8 ?C (98.2 ?F) Oral 14 100 % 79.4 kg (175 lb) -- Physical Exam Vitals and nursing note reviewed. Constitutional: General: He is not in acute distress. Appearance: He is not toxic-appearing. HENT: Head: Normocephalic and atraumatic. Nose: Nose normal. Mouth/Throat: Mouth: Mucous membranes are moist. Eyes: Extraocular Movements: Extraocular movements intact. Pupils: Pupils are equal, round, and reactive to light. Cardiovascular: Rate and R (more content not included)... Normal [facility] EKGon 11-09-2024 Electrocardiogram Ventricular Rate : 6 1 BPM Atrial Rate : 61 BPM P-R Interval : 154 ms QRS Duration : 84 ms Q-T Interval : 420 ms QTC Calculation(Bazett) : 422 ms Calculated P [place] : -78 degrees Calculated R [place] : 77 degrees Calculated T [place] : 51 degrees UNUSUAL P AXIS, POSSIBLE ECTOPIC ATRIAL RHYTHM ABNORMAL ECG NO PREVIOUS ECGS AVAILABLE Confirmed by MD MEREDITH KRISTIN ([id number]) on 11/09/2024 12:01:45 PM NAME : JESUS DISLA PID : [id number] : 1980 Gender : Male Race : ORD : Procedure Date : Nov 09 2024 11:59:00 Edit Date : Nov 09 2024 12:01:51 Diagnosis: UNUSUAL P AXIS, POSSIBLE ECTOPIC ATRIAL RHYTHM ABNORMAL ECG NO PREVIOUS ECGS AVAILABLE Confirmed by MD MEREDITH KRISTIN ([id number]) on 11/09/2024 12:01:45 PM Test Reason : Location : : [facility] Overread By : MD MEREDITH KRISTIN Edited By : MD MEREDITH KRISTIN Referred By : , Acquired by : TRINA PÉREZ [facility] HISTORY PHYSICALon HISTORY PHYSICAL HNO ID: [id number] Author: BRYAN JAMES MD Service: Interventional Radiology Author Type: Physician Type: H&P Filed: 11/09/2024 21:41 Note Text: UPDATED HISTORY AND PHYSICAL EXAMINATION Date: 11/09/24 Name: Jesus Disla PHYSICAL EXAM MUST BE COMPLETED ON ADMISSION The History and Physical (completed in the past 30 days) has been reviewed and the patient has been examined. The contents accurately reflect the patient's condition with the following additions or revisions since the HANDP was completed. Examination indicates no changes. This HANDP can be found in the Electronic Medical Record dated 11/09/24. Normal [facility] HISTORY PHYSICAL HNO ID: [id number] Author: SUKH DIANA MD Service: Critical Care Author Type: Physician Type: H&P Filed: 11/09/2024 17:05 Note Text: MICU HANDP PATIENT NAME: Jesus Disal REASON FOR ADMISSION: Active GI bleed DATE: November 09, 2024 Subjective HPI Mr. Jesus Disla is a 44 year old male with PMH: -Crohn's disease Patient presented to [facility] on 11/09/2024 with complaints of abdominal pain and bright red bleeding with bowel movements. Per patient, last night he woke up with sharp abdominal pain and starting today he has had multiple bloody bowel movements at work with lightheadedness. He did have a syncopal episode at home where he was found by . Not currently on anticoagulants. History of partial colectomy in 2019 and Laparoscopic ileocolic anastomosis with lymphadenectomy; and actively receiving Entyvio and iron infusions for chronic anemia. Patient noted to have systolic Bps in the 90s which he states has been his baseline for the past few months. No bloody bowel movements in the ED. Otherwise hemodynamically stable. Patient currently denying abdominal pain or urge to defecate but continues to have lightheadedness. Workup in the ED did reveal Hgb of 9.7 (lowered from 13.3 his most recent value last month), no other acute findings. Review of Systems Constitutional: Negative for chills and fever. Respiratory: Negative for shortness of breath. Cardiovascular: Negative for chest pain. Gastrointestinal: Positive for diarrhea. Negative for abdominal pain, nausea and vomiting. Musculoskeletal: Negative for back pain. Skin: Negative for pallor. Neurological: Positive for light-headedness. All other systems reviewed and are negative. PAST MEDICAL HISTORY Diagnosis Date Crohn's disease (HCC) dx'd 2003 PAST SURGICAL HISTORY Procedure Laterality Date CHOLECYSTECTOMY 2007 FAMILY HISTORY Problem Relation Age of Onset Hyperlipidemia Father Social History Tobacco Use Smoking status: Never Passive exposure: Never Smokeless tobacco: Never Vaping Use Vaping status: Never Used Substance Use Topics Alcohol use: Yes Comment: once a month Drug use: Yes Comment: medical marijuana to sleep, 1-2x per week No current facility-administered medications on file prior to encounter. Current Outpatient Medications on File Prior to Encounter Medication Sig Glucosamine 1,000 mg tab Take 1 tablet by mouth three times a day. vedolizumab (ENTYVIO) 300 mg injection Infuse 300mg via IV every 8 weeks. saw palmetto 320 mg capsule Take 1 capsule by mouth once daily. multivitamin tablet multivitamin tablet acetylcysteine (NAC) 600 mg capsule Take 1,200 mg by mouth twice daily. Rvtdb-7-YEX-EPA-Fish Oil (FISH OIL) 1,000 mg (120 mg-180 mg) cap Take 2 g by mouth twice daily. calcium carb/vit D2/minerals (CALCIUM 600/MINERALS ORAL) Take by mouth. Chlor-Mal/Phenyleph/Me thscop (PE HCL-CPM-MSN ORAL) Take by mouth. cholecalciferol, vitamin D3, (VITAJOY DAILY D ORAL) Take by mouth. acetaminophen (TYLENOL) 500 mg tablet Take 2 tablets by mouth every 6 hours as needed. QUERCETIN DIHYDRATE, BULK, MISC twice daily. quercetin 800mg with zinc Objective OBJECTIVE BP 95/63 Pulse 63 Temp 36.8 ?C (98.2 ?F) (Oral) Resp (!) 10 Wt 79.4 kg (175 lb) SpO2 100% BMI 24.41 kg/m? Temp (24hrs), Av.8 ?C (98.2 ?F), Min:36.8 ?C (98.2 ?F), Max:36.8 ?C (98.2 ?F) Body mass index is 24.41 kg/m?., No results found for: HBA1C No intake or output data in the 24 hours ending 11/09/24 1440 Physical Exam Vitals and nursing note reviewed. Constitutional: Appearance: Normal appearance. HENT: Mouth/Throat: Pharynx: Oropharynx is clear. Eyes: Extraocular Movements: Extraocular movements intact. Conjunctiva/sclera: Conjunctivae normal. Pupils: Pupils are equal, round, and reactive to light. Cardiovascular: Rate and Rhythm: Normal rate and regular rhythm. Pulses: Normal pulses. Heart sounds: Normal heart sounds. Pulmonary: Effort: Pulmonary effort is normal. Breath sounds: Normal breath sounds. Abdominal: General: Abdomen is flat. Bowel sounds are normal. There is no distension. Palpations: Abdomen is soft. Tenderness: There is no abdominal tenderness. Musculoskeletal: General: No swelling. Skin: General: Skin is warm and dry. Capillary Refill: Capillary refill takes less than 2 seconds. Coloration: Skin is not pale. Neurological: Mental Status: He is alert. LABORATORY: BLOOD GAS: CBC: Recent Labs 11/09/24 1222 WBC 9.59 HB 9.7* HCT 29.6* PLT 215 MCV 86.3 RDWCV 18.2* NEUTP 84.6 ABSNEUT 8.11* LYMPHP 8.8 MONOP 5.1 EODINP 0.9 COAG: Recent Labs 11/09/24 1234 APTT 22.7* INR 1.2 CMP: Recent Labs 11/09/24 1234 11/09/24 1222 GLUC -- 147* NA -- 141 K -- 4.5 CHLOR -- 110* CO2 -- 22 ANION -- 9 BUN -- 12 CREAT -- 1.34* ALB -- 3.2* TBILI -- 0.7 ALKPHOS -- 37* AST -- 20 ALT -- 16 (more content not included)... Normal [facility] Hgb Bld-mCncon 11-09-2024 Hemoglobin (Bld) [Mass/Vol] 10.5 g/dL Low 13.0-17.0 [facility] Comment on above: Order Comment: Speci men Type: BLOOD SPECIMEN Ordering Facility: [facility] Address: [facility] [place] [address] Performed By: #### 5 8410-2 #### [facility] CLIA [id number] [address] STATES OF [facility] IR EMBOLIZATION HEMORRHAGEon 11-09-2024 IR EMBOLIZATION HEMORRHAGE * * *Final Report* * * DATE OF EXAM: Nov 09 2024 8:16PM [facility] 0825 - IR EMBOLIZATION HEMORRHAGE / PROCEDURE REASON: GI bleed * * * * Physician Interpretation * * * * 1. SONOGRAPHY-GUIDED PUNCTURE: Right common femoral artery 2. SELECTIVE CATHETERIZATION: Superior mesenteric artery (1st Order Branch) and ileocolic artery (2nd Order Branch) 3. MODERATE SEDATION CLINICAL DATA: GI bleed at the enterocolic anastomosis in patient with history of Crohn's disease. The referring physician has requested diagnostic angiography and embolization procedure considering that GI has declined to perform colonoscopy because of inadequate colonic preparation. COMPARISON: CTA of the abdomen and pelvis dated 11/09/2024. TECHNIQUE AND FINDINGS: The advantages, alternatives and potential complications of angiography and embolization procedure were discussed with the patient who understood the discussion and provided consent for the procedure. The discussed potential risks of above procedures included bleeding, vascular damage (thrombosis, dissection, rupture, etc.), nontarget embolization and infarction of surrounding organs (small bowel, colon, etc.), infection, contrast allergy, renal failure, adverse reaction to intraprocedural medications and aggravation of underlying medical conditions, among others. Special attention was given to the discussion of increased incidence of ischemic complications following the performance of embolization procedures of surgical anastomoses like the patient's enterocolic anastomosis where active extravasation was seen in CTA study. Preprocedural labs were in an acceptable range for above procedures. Time out was performed prior to the study. Color Doppler US confirmed patency of the right common femoral artery. A permanent sonography image was obtained. The surgical site was cleaned, prepped and draped. Maximal sterile barrier technique was used throughout the complete procedure. Local anesthesia was given to the soft tissues with lidocaine 1%. The right common femoral artery was punctured under direct sonographic guidance with a micro set using modified Seldinger. A Headroom guidewire and 5 Fr vascular sheath were then placed. Over the wire, a 5 Fr [employer] catheter was used to perform selective catheterization of the superior mesenteric artery (1st order branch). Injection of contrast media showed patency of the vessel with no definite extravasation. Subselective catheterization of the ileocolic artery was then performed using a 2.4 Fr Progreat microcatheter and Synchro microwire. Injection of contrast with 15 degrees of obliquity also did not demonstrate evidence of active extravasation in the area of interest. Consequently, no embolization procedure was performed. At the end of the procedure, the catheter and guidewire were removed. As per agreement with the referring team, the arterial angiographic sheath was left in place at the right common femoral artery in case that the GI bleed recurs overnight. The sheath will be fused with 30 mL per hour of NS to keep open. If the patient remains stable, then the sheath can be removed tomorrow morning. The patient tolerated the procedure well and was discharged from the IR suite in stable condition. There were no immediate complications. MODERATE SEDATION: Under Dr. Jackson's supervision, Versed 2 mg and Fentanyl 100 micrograms were provided intravenously for moderate conscious sedation. Heart rate, blood pressure and oxygen saturation were continuously monitored during the complete procedure by the IR physician and IR nurse. Moderate sedation physician-patient face time: 65 minutes. Contrast: 110 mL of Visipaque 270. Cumulative dose: 542 mGy. Fluoroscopy time: 36:12 minutes. Estimated blood loss: Less than 10 cc. Medications: Lidocaine 1% 10 cc. IMPRESSION: 1. Selective and subselective angiogram of the superior mesenteric and ileocolic arteries with no demonstration of active extravasation in the area of interest (enterocolic anastomosis) at the right lower quadrant. 2. No embolization procedure was performed in the absence of an area of active extravasation. 3. The right common femoral artery angiographic sheath was kept in place as per agreement with the referring team. The sheath will be kept overnight in case that the bleeding recurs. If stable, the sheath can be removed tomorrow morning. 4. No immediate complications. 5. Correlation with colonoscopy is recommended. Slot Machine Mechanic: KOURTNEY Transcribe Date/Time: Nov 10 2024 8:39P Dictated by : BRYAN JAMES MD This examination was interpreted and the report reviewed and electronically signed by: BRYAN JAMES MD on Nov 10 2024 9:10PM EST [id number] Normal [facility] Lipase SerPl-cCncon 11-10-19 25 Lipase [Catalytic activity/Vol] 16 U/L Normal 16-61 [facility] Comment on above: Order Comment: Trisha nam Type: BLOOD SPECIMEN Ordering Facility: [facility] Address: [address] [place] [address] Performed By: #### 5 8410-2 #### [facility] CLIA [id number] [address] [place] Magnesium SerPl-mCncon 11-09 Magnesium [Mass/Vol] 1.5 mg/dL Low 1.7-2.3 [facility] Comment on above: Order Comment: Trisha nam Type: BLOOD SPECIMEN Ordering Facility: [facility] Address: [address] [place] [address] Performed By: #### 5 8410-2 #### [facility] CLIA [id number] [address] [place] [address] [place] PT panel Coag (PPP)on 2024 INR Coag (PPP) [Relative time] 1.2 {INR} Normal 0.9-1.3 [facility] Comment on above: Order Comment: Trisha nam Type: BLOOD SPECIMEN Ordering Facility: [facility] Address: [address] [place] [address] Result Comment: Angely min K Antagonist (VKA) Therapeutic Range: INR 2 to 3 (Target INR of 2.5) Note: For patients treated with VKA drugs, such as warfarin, the [place] [employer] 2012 Guideline recommends a therapeutic INR range of 2 to 3 (target INR of 2.5). This recommendation includes high-risk patients with antiphospholipid syndrome with previous arterial or venous thromboembolism, current-generation mechanical or bioprosthetic aortic heart valve replacement. Note: Patients with mechanical aortic valve replacement and additional risk factors for thromboembolic events (atrial fibrillation, previous thromboembolism, LV dysfunction, hypercoagulable conditions) or an older generation mechanical AVR (i.e., ball in-Cage) or any mechanical MVR should have a INR therapeutic range of 2.5 to 3.5 (target INR of 3). Shilo GH, et al. Chest 2012, 141:7S-47S Javier RA, et al. [facility] 2017, 70: 252-289 Performed By: #### 5 8410-2 #### [facility] CLIA [id number] [address] [place] PT Coag (PPP) [Time] 12.5 s Normal 9.7-13.0 [facility] Comment on above: Order Comment: Speci men Type: BLOOD SPECIMEN Ordering Facility: [facility] Address: [address] [place] [address] Performed By: #### 5 8410-2 #### [facility] CLIA [id number] [address] [place] STAPHYLOCOCCUS AUREUS AND MR SA SCREEN, PCR, NASALon 11-09-2024 S. aureus and MRSA panel LEILA+probe (Nose) Not detected Normal Not Detected [facility] Comment on above: Order Comment: Speci men Type: SWABOrdering Facility: [facility] Address: [address] [place] [address] Performed By: #### S APCR ####[facility] [id number] [address] [place] TYPE + SCREENon 11-09-2024 ABO O Normal [facility] Comment on above: Order Comment: Speci men Type: BLOOD SPECIMEN [facility] Address: [address] [place] [address] Performed By: #### 5 8410-2 #### [facility] CLIA [id number] [address] Rh Nom (Bld) Positive Normal [facility] Comment on above: Order Comment: Speci men Type: BLOOD SPECIMEN [facility]ing Facility[facility] Address: [address] [place] [address] Performed By: #### 5 8410-2 #### [facility] CLIA [id number] [address] TYPE AND SCREEN EXPIRATION 11/12/2024 23:59 Normal [facility] Comment on above: Order Comment: Speci men Type: BLOOD SPECIMEN [facility]ing Facility[facility] Address: [address] [place] [address] Performed By: #### 5 8410-2 #### [facility] CLIA [id number] [address] XR CHEST 1V FRONTALon 2024 XR CHEST 1V FRONTAL * * *Final Report* * * DATE OF EXAM: Nov 09 2024 12:36PM AKX [id number] - XR CHEST 1V FRONTAL / PROCEDURE REASON: Syncope/presyncope * * * * Physician Interpretation * * * * EXAMINATION: CHEST RADIOGRAPH (SINGLE VIEW AP OR PA) CLINICAL HISTORY: Syncope/presyncope MQ: XC1_5 Comparison: None RESULT: Lines, tubes, and devices: None. Lungs and pleura: No consolidation. No lung mass. No pleural effusion. Cardiomediastinal silhouette: Normal cardiomediastinal silhouette. Other: . IMPRESSION: No acute radiographic abnormality. Slot Machine Mechanic: PSCB Transcribe Date/Time: Nov 09 2024 1:22P Dictated by : CAROLINA MENSAH MD This examination was interpreted and the report reviewed and electronically signed by: CAROLINA MENSAH MD on Nov 09 2024 1:25PM EST [id number] Normal [facility] aPTT PPPon 11-09-2024 aPTT Coag (PPP) [Time] 22.7 s Low 23.0-32.4 [facility] Comment on above: Order Comment: Speci men Type: BLOOD SPECIMEN [facility]ing Facility[facility] Address: [address] [place] [address] Performed By: #### 5 8410-2 #### [facility] CLIA [id number] [address] [place] [address] [place] CBC W/Diff, Automatedon 07-1 ACANTHOCYTE RARE Normal [facility] Comment on above: Performed By: #### L 503.6550, L100.0100, L503.6150 #### [facility] [address] [place], [address] Anisocytosis Ql (Bld) 2+ Normal [facility] Comment on above: Performed By: #### L 503.6550, L100.0100, L503.6150 #### [facility] [address] [place], [address] CRENATED RBC 2+ Normal [facility] Comment on above: Performed By: #### L 503.6550, L100.0100, L503.6150 #### [facility] [address] [place], [address] OVALOCYTE 1+ Normal [facility] Comment on above: Performed By: #### L 503.6550, L100.0100, L503.6150 #### [facility] [address] [place], [address] PLT EST ADEQUATE Normal ADEQ [facility] Comment on above: Performed By: #### L 503.6550, L100.0100, L503.6150 #### [facility] [address] [place], [address] SMEAR COMMENT SCANNED Normal [facility] Comment on above: Performed By: #### L 503.6550, L100.0100, L503.6150 #### [facility] [address] [place], [address] TEAR DROP RARE Normal [facility] Comment on above: Performed By: #### L 503.6550, L100.0100, L503.6150 #### [facility] [address] [place], [place], [address] Ferritinon 10-13-2024 Ferritin [Mass/Vol] 42 ng/mL Normal 37-417 [facility] Comment on above: Performed By: #### L 503.6550, L100.0100, L503.6150 #### [facility] [address] [place], [address] Ironon 10-13-2024 Iron [Mass/Vol] 48 ug/dL Low 65-175 [facility] Comment on above: Performed By: #### L 503.6550, L100.0100, L503.6150 #### [facility] [address] [place], [address] Absolute lymphocyte countOrd ered By: Lidia Koenig on 10-12-2024 Lymphocytes Auto (Unsp spec) [#/Vol] 0.93 10*3/uL 0.83-4.51 [facility] Absolute neutrophil countOrd ered By: Lidia Koenig on 10-12-2024 Neutrophils (Bld) [#/Vol] 2.4 10*3/uL 2.0-7.7 [facility] Automated lymphocyte count a s percentage of total leukocytesOrdered By: Lidia Koenig on 10-12-2024 Lymphocytes/100 WBC Auto (Unsp spec) 24.7 % 19-41 [facility] Basophil percentageOrdered B y: Lidia Koenig on 10-12-2024 Basophils/100 WBC (Bld) 0.5 % 0-1 [facility] Blood manual differential co mment interpretation (narrative result)Ordered By: Lidia Koenig on 10-12-2024 Manual differential comment Jae (Bld) [Interp] SCANNED [facility] Crenated erythrocyte detecti on by light microscopyOrdered By: Lidia Koenig on 10-12-2024 Carly cells LM Ql (Bld) 2+ [facility] Eosinophil percentageOrdered By: Lidia Koenig on 10-12-2024 Eosinophils/100 WBC (Bld) 2.7 % 0-5 [facility] Erythrocyte distribution wid th ratioOrdered By: Lidia Koenig on 10-12-2024 Erythrocyte distribution width (RBC) [Ratio] 22.3 % High 11.6-14.6 [facility] Erythrocyte distribution wid th standard deviationOrdered By: Lidia Koenig on 10-12-2024 Erythrocyte distribution width (RBC) [Ratio] 67.7 fl High 35.1-43.9 [facility] Hematocrit Auto (Bld) [Volum e fraction]Ordered By: Lidia Koenig on 10-12-2024 Hematocrit (Bld) [Volume fraction] 43.8 % 40-54 [facility] Hemoglobin measurementOrdere d By: Lidia Koenig on 10-12-2024 Hemoglobin (Bld) [Mass/Vol] 13.3 g/dL 13.0-16.5 [facility] Immature granulocytes/100 WB C Auto (Bld)Ordered By: Lidia Koenig on 10-12-2024 Immature granulocytes/100 WBC (Bld) 0.300 % 0.0-0.9 [facility] Comment on above: IG% - Immature Granu locytes (promyelocytes, myelocytes and metamyelocytes) > 1% indicates that a LEFT SHIFT is Present. Iron measurement (mass/mass) Ordered By: Lidia Koenig on 10-12-2024 Iron (Unsp spec) [Mass/Mass] 48 ug/dL Low 65-175 [facility] - Hematology and Cell countsOrdered By: Lidia Koenig on 10-12-2024 Anisocytosis Ql (Bld) 2+ [facility] MCV (mean corpuscular volume ) determinationOrdered By: Lidia Koenig on 10-12-2024 MCV (RBC) [Entitic vol] 85.4 fL 80-94 [facility] Mean corpuscular hemoglobin (MCH) determinationOrdered By: Lidia Koenig on 10-12-2024 MCH (RBC) [Entitic mass] 25.9 pg Low 27.0-32.0 [facility] Mean corpuscular hemoglobin concentration (MCHC) determinationOrdered By: Lidia Koenig on 10-12-2024 MCHC (RBC) [Mass/Vol] 30.4 g/dL Low 32-36 [facility] Mean platelet volume determi nationOrdered By: Lidia Koenig on 10-12-2024 Platelet mean volume (Bld) [Entitic vol] 10.5 fL 6.2-12.0 [facility] Monocyte percentageOrdered B y: Lidia Koenig on 10-12-2024 Monocytes/100 WBC (Bld) 7.4 % 0-10 [facility] Neutrophil percentageOrdered By: Lidia Koenig on 10-12-2024 Neutrophils/100 WBC (Bld) 64.4 % 47-70 [facility] Nucleated red blood cell per centageOrdered By: Lidia Koenig on 10-12-2024 Nucleated RBC/100 WBC (Bld) [Ratio] 0 % 0-5 [facility] Ovalocyte detectionOrdered B y: Lidia Koenig on 10-12-2024 Ovalocytes LM Ql (Bld) 1+ [facility] Platelet countOrdered By: Griffin Koenig on 10-12-2024 Platelets (Bld) [#/Vol] 212 10*3/uL 150-450 [facility] Platelet estimateOrdered By: Lidia Koenig on 10-12-2024 Platelets LM Ql (Bld) ADEQUATE ADEQ [facility] RBC Auto (Bld) [#/Vol]Ordere d By: Lidia Koenig on 10-12-2024 RBC (Bld) [#/Vol] 5.13 10*6/uL 4.6-6.2 [facility] Serum or plasma ferritin leslie surement (mass/volume)Ordered By: Lidia Koenig on 10-12-2024 Ferritin [Mass/Vol] 42 ng/mL 37-417 [facility] Teardrop cell detectionOrder ed By: Lidia Koenig on 10-12-2024 Dacrocytes LM Ql (Bld) RARE [facility] White blood cell (WBC) count Ordered By: Lidia Koenig on 10-12-2024 WBC (Bld) [#/Vol] 3.8 10*3/uL Low 4.4-11.0 [facility] Absolute lymphocyte countOrd ered By: Lidia Koenig on 09-22-2024 Lymphocytes Auto (Unsp spec) [#/Vol] 0.93 10*3/uL 0.83-4.51 [facility] Absolute neutrophil countOrd ered By: Lidia Koenig on 09-22-2024 Neutrophils (Bld) [#/Vol] 2.4 10*3/uL 2.0-7.7 [facility] Automated lymphocyte count a s percentage of total leukocytesOrdered By: Lidia Koengi on 09-22-2024 Lymphocytes/100 WBC Auto (Unsp spec) 25.4 % 19-41 [facility] Basophil percentageOrdered B y: Lidia Koenig on 09-22-2024 Basophils/100 WBC (Bld) 0.5 % 0-1 [facility] CBC W/Diff, Automatedon 09-04 Absolute Lymph 0.93 X10 3/uL Normal 0.83-4.51 [facility] Comment on above: Performed By: #### L 3100.7870, L501.6710, L102.100, L3410.9996, L100.0100, L500.4050, L3410.9994 #### [facility] [address] [place], [address] Absolute Neut 2.4 X10 3/uL Normal 2.0-7.7 [facility] Comment on above: Performed By: #### L 3100.7870, L501.6710, L102.100, L3410.9996, L100.0100, L500.4050, L3410.9994 #### [facility] [address] [place], [address] Basophils/100 WBC (Bld) 0.5 % Normal 0-1 [facility] Comment on above: Performed By: #### L 3100.7870, L501.6710, L102.100, L3410.9996, L100.0100, L500.4050, L3410.9994 #### [facility] [address] [place], [address] Eosinophils/100 WBC (Bld) 2.7 % Normal 0-5 [facility] Comment on above: Performed By: #### L 3100.7870, L501.6710, L102.100, L3410.9996, L100.0100, L500.4050, L3410.9994 #### [facility] [address] [place], [address] Erythrocyte distribution width (RBC) [Ratio] 19.7 % High 11.6-14.6 [facility] Comment on above: Performed By: #### L 3100.7870, L501.6710, L102.100, L3410.9996, L100.0100, L500.4050, L3410.9994 #### [facility] [address] [facility] [place], [address] Hematocrit (Bld) [Volume fraction] 39.7 % Low 40-54 [facility] Comment on above: Performed By: #### L 3100.7870, L501.6710, L102.100, L3410.9996, L100.0100, L500.4050, L3410.9994 #### [facility] [address] [facility] [place], [address] Hemoglobin (Bld) [Mass/Vol] 12.4 g/dL Low 13.0-16.5 [facility] Comment on above: Performed By: #### L 3100.7870, L501.6710, L102.100, L3410.9996, L100.0100, L500.4050, L3410.9994 #### [facility] [address] [facility] [place], [address] IG% 0.300 Normal 0.0-0.9 [facility] Comment on above: Result Comment: IG% - Immature Granulocytes (promyelocytes, myelocytes and metamyelocytes) > 1% indicates that a LEFT SHIFT is Present. Performed By: #### L 3100.7870, L501.6710, L102.100, L3410.9996, L100.0100, L500.4050, L3410.9994 #### [facility] [address], [address] Lymphocytes/100 WBC (Bld) 25.4 % Normal 19-41 [facility] Comment on above: Performed By: #### L 3100.7870, L501.6710, L102.100, L3410.9996, L100.0100, L500.4050, L3410.9994 #### [facility] [address] [place], [address] MCH (RBC) [Entitic mass] 24.8 pg Low 27.0-32.0 [facility] Comment on above: Performed By: #### L 3100.7870, L501.6710, L102.100, L3410.9996, L100.0100, L500.4050, L3410.9994 #### [facility] [address] [place], [address] MCHC (RBC) [Mass/Vol] 31.2 g/dL Low 32-36 [facility] Comment on above: Performed By: #### L 3100.7870, L501.6710, L102.100, L3410.9996, L100.0100, L500.4050, L3410.9994 #### [facility] [address] [place], [address] MCV (RBC) [Entitic vol] 79.6 fL Low 80-94 [facility] Comment on above: Performed By: #### L 3100.7870, L501.6710, L102.100, L3410.9996, L100.0100, L500.4050, L3410.9994 #### [facility] [address] [place], [address] Monocytes/100 WBC (Bld) 5.7 % Normal 0-10 [facility] Comment on above: Performed By: #### L 3100.7870, L501.6710, L102.100, L3410.9996, L100.0100, L500.4050, L3410.9994 #### [facility] [address] [place], [address] Neutrophils/100 WBC (Bld) 65.4 % Normal 47-70 [facility] Comment on above: Performed By: #### L 3100.7870, L501.6710, L102.100, L3410.9996, L100.0100, L500.4050, L3410.9994 #### [facility] [address] [facility] [place], [address] Nucleated RBC (Bld) [#/Vol] 0 10*3/uL Normal 0-5 [facility] Comment on above: Performed By: #### L 3100.7870, L501.6710, L102.100, L3410.9996, L100.0100, L500.4050, L3410.9994 #### [facility] [address] [facility] [place], [address] Platelet mean volume (Bld) [Entitic vol] 10.3 fL Normal 6.2-12.0 [facility] Comment on above: Performed By: #### L 3100.7870, L501.6710, L102.100, L3410.9996, L100.0100, L500.4050, L3410.9994 #### [facility] [address] [place], [address] Platelets (Bld) [#/Vol] 220 10*3/uL Normal 150-450 [facility] Comment on above: Performed By: #### L 3100.7870, L501.6710, L102.100, L3410.9996, L100.0100, L500.4050, L3410.9994 #### [facility] [address] [place], [address] RBC (Bld) [#/Vol] 4.99 10*6/uL Normal 4.6-6.2 [facility] Comment on above: Performed By: #### L 3100.7870, L501.6710, L102.100, L3410.9996, L100.0100, L500.4050, L3410.9994 #### [facility] [address] [place], [address] RDW SD 54.3 fl High 35.1-43.9 [facility] Comment on above: Performed By: #### L 3100.7870, L501.6710, L102.100, L3410.9996, L100.0100, L500.4050, L3410.9994 #### [facility] [address] [place], [address] WBC (Bld) [#/Vol] 3.7 10*3/uL Low 4.4-11.0 [facility] Comment on above: Performed By: #### L 3100.7870, L501.6710, L102.100, L3410.9996, L100.0100, L500.4050, L3410.9994 #### [facility] [address] [place], [address] Eosinophil percentageOrdered By: Lidia Koenig on 09-22-2024 Eosinophils/100 WBC (Bld) 2.7 % 0-5 [facility] Erythrocyte distribution wid th ratioOrdered By: Lidia Koenig on 09-22-2024 Erythrocyte distribution width (RBC) [Ratio] 19.7 % High 11.6-14.6 [facility] Erythrocyte distribution wid th standard deviationOrdered By: Lidia Koenig on 09-22-2024 Erythrocyte distribution width (RBC) [Ratio] 54.3 fl High 35.1-43.9 [facility] Ferritinon 09-22-2024 Ferritin [Mass/Vol] 19 ng/mL Low 37-417 [facility] Comment on above: Performed By: #### L 3100.7870, L501.6710, L102.100, L3410.9996, L100.0100, L500.4050, L3410.9994 #### [facility] [address] [place], [place], [address] Hematocrit Auto (Bld) [Volum e fraction]Ordered By: Lidia Koenig on 09-22-2024 Hematocrit (Bld) [Volume fraction] 39.7 % Low 40-54 [facility] Hemoglobin measurementOrdere d By: Lidia Koenig on 09-22-2024 Hemoglobin (Bld) [Mass/Vol] 12.4 g/dL Low 13.0-16.5 [facility] Immature granulocytes/100 WB C Auto (Bld)Ordered By: Lidia Koenig on 09-22-2024 Immature granulocytes/100 WBC (Bld) 0.300 % 0.0-0.9 [facility] Comment on above: IG% - Immature Granu locytes (promyelocytes, myelocytes and metamyelocytes) > 1% indicates that a LEFT SHIFT is Present. Ironon 09-22-2024 Iron [Mass/Vol] 45 ug/dL Low 65-175 [facility] Comment on above: Performed By: #### L 3100.7870, L501.6710, L102.100, L3410.9996, L100.0100, L500.4050, L3410.9994 #### [facility] [address] [place], [address] Iron measurement (mass/mass) Ordered By: Lidia Koenig on 09-22-2024 Iron (Unsp spec) [Mass/Mass] 45 ug/dL Low 65-175 [facility] MCV (mean corpuscular volume ) determinationOrdered By: Lidia Koenig on 09-22-2024 MCV (RBC) [Entitic vol] 79.6 fL Low 80-94 [facility] Mean corpuscular hemoglobin (MCH) determinationOrdered By: Lidia Koenig on 09-22-2024 MCH (RBC) [Entitic mass] 24.8 pg Low 27.0-32.0 [facility] Mean corpuscular hemoglobin concentration (MCHC) determinationOrdered By: Lidia Koenig on 09-22-2024 MCHC (RBC) [Mass/Vol] 31.2 g/dL Low 32-36 [facility] Mean platelet volume determi nationOrdered By: Lidia Koenig on 09-22-2024 Platelet mean volume (Bld) [Entitic vol] 10.3 fL 6.2-12.0 [facility] Monocyte percentageOrdered B y: Lidia Koenig on 09-22-2024 Monocytes/100 WBC (Bld) 5.7 % 0-10 [facility] Neutrophil percentageOrdered By: Lidia Koenig on 09-22-2024 Neutrophils/100 WBC (Bld) 65.4 % 47-70 [facility] Nucleated red blood cell per centageOrdered By: Lidia Koenig on 09-22-2024 Nucleated RBC/100 WBC (Bld) [Ratio] 0 % 0-5 [facility] Platelet countOrdered By: Griffin Koenig on 09-22-2024 Platelets (Bld) [#/Vol] 220 10*3/uL 150-450 [facility] RBC Auto (Bld) [#/Vol]Ordere d By: Lidia Koenig on 09-22-2024 RBC (Bld) [#/Vol] 4.99 10*6/uL 4.6-6.2 [facility] Serum or plasma ferritin leslie surement (mass/volume)Ordered By: Lidia Koenig on 09-22-2024 Ferritin [Mass/Vol] 19 ng/mL Low 37-417 [facility] White blood cell (WBC) count Ordered By: Lidia Koenig on 09-22-2024 WBC (Bld) [#/Vol] 3.7 10*3/uL Low 4.4-11.0 [facility] CNPNon 09-19-2024 ROBERTN Telephone (JOE) JESUS DISLA ([id number]) 1980 M [place] Date Time Provider Department 09/19/24 MERLIN DEUTSCH During your visit today, we recorded the following information about you: Nahomy Cueva 09/19/2024 8:54 AM Signed Patient phoned in regarding billing and coding from his 04/11/2024 appt. He said that his bill was coded wrong. I explained that I can't see billing information and would need him to call the billing phone number at . Patient voiced understanding. Nahomy Cueva September 19, 2024 8:53 AM Allergies As of Date: 09/19/2024 Noted Allergy Reaction ADALIMUMAB 12/12/2015 14 - Other: See Comments DUST 11/12/2022 14 - Other: See Comments MOLD 12/08/2019 14 - Other: See Comments Comments: runny nose POLLEN EXTRACTS 12/08/2019 14 - Other: See Comments Comments: runny nose Date Reviewed: 04/11/2024 Reviewed by: Merlin Deutsch DO - Fully Assessed Prescriptions as of 09/19/2024 - Glucosamine 1,000 mg tab Take 1 tablet by mouth three times a day. - vedolizumab (ENTYVIO) 300 mg injection Infuse 300mg via IV every 8 weeks. - saw palmetto 320 mg capsule Take 1 capsule by mouth once daily. - multivitamin tablet multivitamin tablet - acetylcysteine (NAC) 600 mg capsule Take 1,200 mg by mouth twice daily. - Odkrq-0-FXF-EPA-Fish Oil (FISH OIL) 1,000 mg (120 mg-180 mg) cap Take 2 g by mouth twice daily. - calcium carb/vit D2/minerals (CALCIUM 600/MINERALS ORAL) Take by mouth. - Chlor-Mal/Phenyleph/Me thscop (PE HCL-CPM-MSN ORAL) Take by mouth. - cholecalciferol, vitamin D3, (VITAJOY DAILY D ORAL) Take by mouth. - acetaminophen (TYLENOL) 500 mg tablet Take 2 tablets by mouth every 6 hours as needed. - QUERCETIN DIHYDRATE, BULK, MISC twice daily. quercetin 800mg with zinc Problem List As Of Date 09/19/2024 Noted Resolved Crohn's disease of both small and large intesti*02/19/2015 Crohn's disease (HCC) [K50.90] 12/16/2019 Close exposure to COVID-19 virus [Z20.822] 12/17/2019 Post-op pain [G89.18] 12/19/2019 Post-operative state [Z98.890] 12/19/2019 09/25/2022 Hypomagnesemia [E83.42] 12/19/2019 12/20/2019 History of partial surgical removal of colon [Z*01/02/2020 Diagnosed: 04/08/2023 Encounter Status:Closed by NAHOMY CUEVA on 09/19/[address] [facility] PSA Total (Rflx Free)on 08-04 COMMENT Comment Normal . [facility] Comment on above: Result Comment: The percent free PSA is performed on a reflex basis only when the total PSA is between 4.0 and 10.0 ng/mL. Performed By: #### L 3100.7870, L501.6710, L102.100, L3410.9996, L100.0100, L500.4050, L3410.9994 #### [facility] [address] [place], [address] PSA, TOTAL 0.9 ng/mL Normal 0.0-4.0 [facility] Comment on above: Result Comment: Daniel garduno ECLIA methodology. According to the [employer], Serum PSA should decrease and remain at undetectable levels after radical prostatectomy. The AUA defines biochemical recurrence as an initial PSA value 0.2 ng/mL or greater followed by a subsequent confirmatory PSA value 0.2 ng/mL or greater. Values obtained with different assay methods or kits cannot be used interchangeably. Results cannot be interpreted as absolute evidence of the presence or absence of malignant disease. Performed By: #### L 3100.7870, L501.6710, L102.100, L3410.9996, L100.0100, L500.4050, L3410.9994 #### [facility] [address] [place], [place], [id number] L3410.9992on 08-18-2024 [facility]. COMMENT Normal . [facility] Comment on above: Order Comment: [id number] 6HNK1 (CD57)PANEL Result Comment: Test Ordered: [id number] HNK1 (CD57) Panel Test(s) 147245-% CD8-/CD57+ Lymphs was developed and its performance characteristics determined by [facility]. It has not been cleared or approved by the Food and Drug Administration. % CD8-/CD57+ Lymphs 4.7 % BN Reference Range: 2.0-17.0 Abs.CD8-CD57+ Lymphs NOLAB Reference Range: . Test not performed WBC [facility] Reference Range: . Test not performed RBC [facility] Reference Range: . Test not performed Hemoglobin [facility] Reference Range: . Test not performed Hematocrit [facility] Reference Range: . Test not performed MCV [employer] [facility] Reference Range: . MCH [employer] [facility] Reference Range: . MCHC [employer]IST [facility] Reference Range: . RDW [employer]IST [facility] Reference Range: . Platelets [facility] Reference Range: . Test not performed Neutrophils [facility] Reference Range: . Test not performed Lymphs [facility] Reference Range: . Test not performed Monocytes [facility] Reference Range: . Test not performed Eos [facility] Reference Range: . Test not performed Basos [employer] [facility] Reference Range: . Immature Cells [employer] Reference Range: . Neutrophils (Absolute) [employer] Reference Range: . Lymphs (Absolute) NOLAB Reference Range: . Test not performed Monocytes(Absolute) [employer] Reference Range: . Eos (Absolute) NOLAB Reference Range: . Test not performed Baso (Absolute) NOLAB Reference Range: . Test not performed Immature Granulocytes [employer] Reference Range: . Immature Grans (Abs) [employer] Reference Range: . NRBC [employer] Reference Range: . Hematology Comments: [employer] Reference Range: . Performed at: [facility] [address] [id number] Farm Crew Leader: Gilmer Parker PhD, Phone: [phone] Performed at: [facility] [address], [place] [id number] Farm Crew Leader: Nolvia Medina MD, Phone: [phone] Performed By: #### L 3100.7870, L501.6710, L102.100, L3410.9996, L100.0100, L500.4050, L3410.9994 #### [facility] [address] [place], [place], [id number] Absolute lymphocyte countOrd ered By: Lidia Koenig on 08-15-2024 Lymphocytes Auto (Unsp spec) [#/Vol] 0.92 10*3/uL 0.83-4.51 [facility] Absolute neutrophil countOrd ered By: Lidia Koenig on 08-15-2024 Neutrophils (Bld) [#/Vol] 2.7 10*3/uL 2.0-7.7 [facility] Anion gap in Serum or Plasma Ordered By: Lidia Koenig on 08-15-2024 Anion gap [Moles/Vol] 10 mmol/L 5-15 [facility] Automated lymphocyte count a s percentage of total leukocytesOrdered By: Lidia Koenig on 08-15-2024 Lymphocytes/100 WBC Auto (Unsp spec) 22.4 % 19-41 [facility] BUN/creatinine ratioOrdered By: Lidia Koenig on 08-15-2024 Urea nitrogen/Creatinine [Mass ratio] 10.6 mg/mg 10-20 [facility] Basophil percentageOrdered B y: Lidia Koenig on 08-15-2024 Basophils/100 WBC (Bld) 0.7 % 0-1 [facility] Bilirubin, totalOrdered By: Lidia Koenig on 08-15-2024 Bilirubin [Mass/Vol] 0.31 mg/dL 0.00-1.30 [facility] CBC W/Diff, Automatedon 08-04 Absolute Lymph 0.92 X10 3/uL Normal 0.83-4.51 [facility] Comment on above: Performed By: #### L 3100.7870, L501.6710, L102.100, L3410.9996, L100.0100, L500.4050, L3410.9994 #### [facility] [address] [place], [address] Absolute Neut 2.7 X10 3/uL Normal 2.0-7.7 [facility] Comment on above: Performed By: #### L 3100.7870, L501.6710, L102.100, L3410.9996, L100.0100, L500.4050, L3410.9994 #### [facility] [address] [place], [address] Basophils/100 WBC (Bld) 0.7 % Normal 0-1 [facility] Comment on above: Performed By: #### L 3100.7870, L501.6710, L102.100, L3410.9996, L100.0100, L500.4050, L3410.9994 #### [facility] [address] [place], [address] Eosinophils/100 WBC (Bld) 4.1 % Normal 0-5 [facility] Comment on above: Performed By: #### L 3100.7870, L501.6710, L102.100, L3410.9996, L100.0100, L500.4050, L3410.9994 #### [facility] [address] [place], [address] Erythrocyte distribution width (RBC) [Ratio] 15.4 % High 11.6-14.6 [facility] Comment on above: Performed By: #### L 3100.7870, L501.6710, L102.100, L3410.9996, L100.0100, L500.4050, L3410.9994 #### [facility] [address] [place], [address] Hematocrit (Bld) [Volume fraction] 36.6 % Low 40-54 [facility] Comment on above: Performed By: #### L 3100.7870, L501.6710, L102.100, L3410.9996, L100.0100, L500.4050, L3410.9994 #### [facility] [address] [place], [address] Hemoglobin (Bld) [Mass/Vol] 11.1 g/dL Low 13.0-16.5 [facility] Comment on above: Performed By: #### L 3100.7870, L501.6710, L102.100, L3410.9996, L100.0100, L500.4050, L3410.9994 #### [facility] [address] [place], [address] IG% 0.200 Normal 0.0-0.9 [facility] Comment on above: Result Comment: IG% - Immature Granulocytes (promyelocytes, myelocytes and metamyelocytes) > 1% indicates that a LEFT SHIFT is Present. Performed By: #### L 3100.7870, L501.6710, L102.100, L3410.9996, L100.0100, L500.4050, L3410.9994 #### [facility] [address] [place], [address] Lymphocytes/100 WBC (Bld) 22.4 % Normal 19-41 [facility] Comment on above: Performed By: #### L 3100.7870, L501.6710, L102.100, L3410.9996, L100.0100, L500.4050, L3410.9994 #### [facility] [address] [place], [address] MCH (RBC) [Entitic mass] 23.8 pg Low 27.0-32.0 [facility] Comment on above: Performed By: #### L 3100.7870, L501.6710, L102.100, L3410.9996, L100.0100, L500.4050, L3410.9994 #### [facility] [address] [place], [address] MCHC (RBC) [Mass/Vol] 30.3 g/dL Low 32-36 [facility] Comment on above: Performed By: #### L 3100.7870, L501.6710, L102.100, L3410.9996, L100.0100, L500.4050, L3410.9994 #### [facility] [address] [place], [address] MCV (RBC) [Entitic vol] 78.4 fL Low 80-94 [facility] Comment on above: Performed By: #### L 3100.7870, L501.6710, L102.100, L3410.9996, L100.0100, L500.4050, L3410.9994 #### [facility] [address] [place], [address] Monocytes/100 WBC (Bld) 7.1 % Normal 0-10 [facility] Comment on above: Performed By: #### L 3100.7870, L501.6710, L102.100, L3410.9996, L100.0100, L500.4050, L3410.9994 #### [facility] [address] [place], [address] Neutrophils/100 WBC (Bld) 65.5 % Normal 47-70 [facility] Comment on above: Performed By: #### L 3100.7870, L501.6710, L102.100, L3410.9996, L100.0100, L500.4050, L3410.9994 #### [facility] [address] [place], [address] Nucleated RBC (Bld) [#/Vol] 0 10*3/uL Normal 0-5 [facility] Comment on above: Performed By: #### L 3100.7870, L501.6710, L102.100, L3410.9996, L100.0100, L500.4050, L3410.9994 #### [facility] [address] [place], [address] Platelet mean volume (Bld) [Entitic vol] 11.1 fL Normal 6.2-12.0 [facility] Comment on above: Performed By: #### L 3100.7870, L501.6710, L102.100, L3410.9996, L100.0100, L500.4050, L3410.9994 #### [facility] [address] [place], [address] Platelets (Bld) [#/Vol] 228 10*3/uL Normal 150-450 [facility] Comment on above: Performed By: #### L 3100.7870, L501.6710, L102.100, L3410.9996, L100.0100, L500.4050, L3410.9994 #### [facility] [address] [place], [address] RBC (Bld) [#/Vol] 4.67 10*6/uL Normal 4.6-6.2 [facility] Comment on above: Performed By: #### L 3100.7870, L501.6710, L102.100, L3410.9996, L100.0100, L500.4050, L3410.9994 #### [facility] [address] [place], [address] RDW SD 43.3 fl Normal 35.1-43.9 [facility] Comment on above: Performed By: #### L 3100.7870, L501.6710, L102.100, L3410.9996, L100.0100, L500.4050, L3410.9994 #### [facility] [address] [place], [address] WBC (Bld) [#/Vol] 4.1 10*3/uL Low 4.4-11.0 [facility] Comment on above: Performed By: #### L 3100.7870, L501.6710, L102.100, L3410.9996, L100.0100, L500.4050, L3410.9994 #### [facility] [address] [place], [place], [id number] Calculated very low density lipoprotein (VLDL) cholesterol measurementOrdered By: Lidia Koenig on 08-15-2024 Calculated very low density lipoprotein (VLDL) cholesterol measurement 16 mg/dL 5-40 [facility] Carbon dioxide, total [Moles /volume] in Central venous bloodOrdered By: Lidia Koenig on 08-15-2024 CO2 [Moles/Vol] 25.6 mmol/L 21.0-32.0 [facility] Chloride assayOrdered By: Griffin Koenig on 08-15-2024 Chloride [Moles/Vol] 104 mmol/L 98-108 [facility] Comprehensive Metabolic Prof ilon 08-15-2024 Albumin [Mass/Vol] 4.5 g/dL Normal 3.5-5.0 [facility] Comment on above: Performed By: #### L 3100.7870, L501.6710, L102.100, L3410.9996, L100.0100, L500.4050, L3410.9994 #### [facility] [address] [place], [place], [id number] Albumin/Globulin [Mass ratio] 1.7 {ratio} Normal 0.9-2.4 [facility] Comment on above: Performed By: #### L 3100.7870, L501.6710, L102.100, L3410.9996, L100.0100, L500.4050, L3410.9994 #### [facility] [address] [place], [place], [id number] ALK PHOS 72 U/L Normal 40-129 [facility] Comment on above: Performed By: #### L 3100.7870, L501.6710, L102.100, L3410.9996, L100.0100, L500.4050, L3410.9994 #### [facility] [address] [place], [address] ALT [Catalytic activity/Vol] 35 U/L Normal <=46 [facility] Comment on above: Performed By: #### L 3100.7870, L501.6710, L102.100, L3410.9996, L100.0100, L500.4050, L3410.9994 #### [facility] [address] [place], [address] AST [Catalytic activity/Vol] 32 U/L Normal <=37 [facility] Comment on above: Performed By: #### L 3100.7870, L501.6710, L102.100, L3410.9996, L100.0100, L500.4050, L3410.9994 #### [facility] [address] [place], [address] Bilirubin [Mass/Vol] 0.31 mg/dL Normal 0.00-1.30 [facility] Comment on above: Performed By: #### L 3100.7870, L501.6710, L102.100, L3410.9996, L100.0100, L500.4050, L3410.9994 #### [facility] [address] [place], [address] BUN/CRE 10.6 RATIO Normal 10-20 [facility] Comment on above: Performed By: #### L 3100.7870, L501.6710, L102.100, L3410.9996, L100.0100, L500.4050, L3410.9994 #### [facility] [address] [place], [address] Calcium [Mass/Vol] 9.3 mg/dL Normal 7.6-11.0 [facility] Comment on above: Performed By: #### L 3100.7870, L501.6710, L102.100, L3410.9996, L100.0100, L500.4050, L3410.9994 #### [facility] [address] [place], [address] Chloride [Moles/Vol] 104 mmol/L Normal 98-108 [facility] Comment on above: Performed By: #### L 3100.7870, L501.6710, L102.100, L3410.9996, L100.0100, L500.4050, L3410.9994 #### [facility] [address] [place], [address] CO2 [Moles/Vol] 25.6 mmol/L Normal 21.0-32.0 [facility] Comment on above: Performed By: #### L 3100.7870, L501.6710, L102.100, L3410.9996, L100.0100, L500.4050, L3410.9994 #### [facility] [address] [place], [address] Creatinine [Mass/Vol] 1.27 mg/dL High 0.70-1.20 [facility] Comment on above: Performed By: #### L 3100.7870, L501.6710, L102.100, L3410.9996, L100.0100, L500.4050, L3410.9994 #### [facility] [address] [place], [address] GAP 10 Normal 5-15 [facility] Comment on above: Performed By: #### L 3100.7870, L501.6710, L102.100, L3410.9996, L100.0100, L500.4050, L3410.9994 #### [facility] [address] [place], [address] GFR/1.73 sq M.predicted among non-blacks MDRD (S/P/Bld) [Vol rate/Area] 71 mL/min/{1.73_m2} Normal >60 [facility] Comment on above: Result Comment: mL/m in/1.73m2 CKD-EPI Creatinine Equation (2020) Performed By: #### L 3100.7870, L501.6710, L102.100, L3410.9996, L100.0100, L500.4050, L3410.9994 #### [facility] [address] [place], [address] Globulin (S) [Mass/Vol] 2.6 g/dL Normal 2.2-4.2 [facility] Comment on above: Performed By: #### L 3100.7870, L501.6710, L102.100, L3410.9996, L100.0100, L500.4050, L3410.9994 #### [facility] [address] [place], [address] Glucose [Mass/Vol] 101 mg/dL High 70-99 [facility] Comment on above: Performed By: #### L 3100.7870, L501.6710, L102.100, L3410.9996, L100.0100, L500.4050, L3410.9994 #### [facility] [address] [place], [address] Potassium [Moles/Vol] 4.5 mmol/L Normal 3.3-5.1 [facility] Comment on above: Performed By: #### L 3100.7870, L501.6710, L102.100, L3410.9996, L100.0100, L500.4050, L3410.9994 #### [facility] [address] [place], [address] Sodium [Moles/Vol] 139 mmol/L Normal 133-145 [facility] Comment on above: Performed By: #### L 3100.7870, L501.6710, L102.100, L3410.9996, L100.0100, L500.4050, L3410.9994 #### [facility] [address] [place], [address] T PROT 7.1 g/dL Normal 5.9-8.4 [facility] Comment on above: Performed By: #### L 3100.7870, L501.6710, L102.100, L3410.9996, L100.0100, L500.4050, L3410.9994 #### [facility] [address] [place], [place], [id number] Urea nitrogen [Mass/Vol] 14 mg/dL Normal 4-19 [facility] Comment on above: Performed By: #### L 3100.7870, L501.6710, L102.100, L3410.9996, L100.0100, L500.4050, L3410.9994 #### [facility] [address] [place], [address] Eosinophil percentageOrdered By: Lidia Koenig on 08-15-2024 Eosinophils/100 WBC (Bld) 4.1 % 0-5 [facility] Erythrocyte distribution wid th ratioOrdered By: Lidia Koenig on 08-15-2024 Erythrocyte distribution width (RBC) [Ratio] 15.4 % High 11.6-14.6 [facility] Erythrocyte distribution wid th standard deviationOrdered By: Lidia Koenig on 08-15-2024 Erythrocyte distribution width (RBC) [Ratio] 43.3 fl 35.1-43.9 [facility] Ferritinon 08-15-2024 Ferritin [Mass/Vol] 6 ng/mL Low 37-417 [facility] Comment on above: Performed By: #### L 3100.7870, L501.6710, L102.100, L3410.9996, L100.0100, L500.4050, L3410.9994 #### [facility] [address] [place], [address] Glomerular filtration rate ( GFR) estimation/1.73 sq m using serum, plasma, or whole bOrdered By: Lidia Koenig on 08-15-2024 GFR/1.73 sq M.predicted among non-blacks MDRD (S/P/Bld) [Vol rate/Area] 71 mL/min/{1.73_m2} >60 [facility] Comment on above: mL/min/1.73m2 CKD-EP I Creatinine Equation (2020) Hematocrit Auto (Bld) [Volum e fraction]Ordered By: Lidia Koenig on 08-15-2024 Hematocrit (Bld) [Volume fraction] 36.6 % Low 40-54 [facility] Hemoglobin A1con 08-15-2024 HbA1c (Bld) [Mass fraction] 5.0 % Normal <=5.6 [facility] Comment on above: Result Comment: Norm al < 5.7 % Prediabetic 5.7 - 6.4 % Diabetic >or= 6.5 % Please note range changes. Performed By: #### L 3100.7870, L501.6710, L102.100, L3410.9996, L100.0100, L500.4050, L3410.9994 #### [facility] [address] [place], [place], [id number] Hemoglobin A1c percentageOrd ered By: Lidia Koenig on 08-15-2024 HbA1c (Bld) [Mass fraction] 5.0 % <5.7 [facility] Comment on above: Normal < 5.7 % Predi abetic 5.7 - 6.4 % Diabetic >or= 6.5 % Please note range changes. Hemoglobin measurementOrdere d By: Lidia Koenig on 08-15-2024 Hemoglobin (Bld) [Mass/Vol] 11.1 g/dL Low 13.0-16.5 [facility] Immature granulocytes/100 WB C Auto (Bld)Ordered By: Lidia Koenig on 08-15-2024 Immature granulocytes/100 WBC (Bld) 0.200 % 0.0-0.9 [facility] Comment on above: IG% - Immature Granu locytes (promyelocytes, myelocytes and metamyelocytes) > 1% indicates that a LEFT SHIFT is Present. Ironon 08-15-2024 Iron [Mass/Vol] 17 ug/dL Low 65-175 [facility] Comment on above: Performed By: #### L 3100.7870, L501.6710, L102.100, L3410.9996, L100.0100, L500.4050, L3410.9994 #### [facility] [address] [place], [address] Iron measurement (mass/mass) Ordered By: Lidia Koenig on 08-15-2024 Iron (Unsp spec) [Mass/Mass] 17 ug/dL Low 65-175 [facility] LDL calc ser/plasOrdered By: Lidia Koenig on 08-15-2024 Cholesterol in LDL [Mass/Vol] 65 mg/dL [facility] Comment on above: Rsxipzjyma=571-837 m g/dL & Higher Ifil=631 mg/dL or greater Laboratory - Chemistry and C hemistry - challengeOrdered By: Lidia Koenig on 08-15-2024 AST [Catalytic activity/Vol] 32 U/L <38 [facility] Lipid Profileon 08-15-2024 CHOL:HDL 2.26 Normal [facility] Comment on above: Performed By: #### L 3100.7870, L501.6710, L102.100, L3410.9996, L100.0100, L500.4050, L3410.9994 #### [facility] [address] [place], [address] Cholesterol [Mass/Vol] 144 mg/dL Normal <=200 [facility] Comment on above: Result Comment: Chol esterol level, Desirable <200 mg/dL Borderline high cholesterol 200-239 mg/dL High cholesterol >=240 mg/dL Recommendations of the NCEP Adult Treatment Panel for the following risk-cutoff thresholds for the [place] population. Performed By: #### L 3100.7870, L501.6710, L102.100, L3410.9996, L100.0100, L500.4050, L3410.9994 #### [facility] [address] [place], [address] Cholesterol in HDL [Mass/Vol] 64 mg/dL Normal [facility] Comment on above: Result Comment: [place]y onal Cholesterol Education Program (NCEP) guidelines: <40 mg/dL: Low HDL-cholesterol (major risk factor for CHD) >= 60 mg/dL: High HDL-cholesterol (negative risk factor for CHD) HDL-cholesterol is affected by a number of factors, e.g. smoking, exercise, hormones, sex and age. Performed By: #### L 3100.7870, L501.6710, L102.100, L3410.9996, L100.0100, L500.4050, L3410.9994 #### [facility] [address] [place], [address] Cholesterol in LDL [Mass/Vol] 65 mg/dL Normal [facility] Comment on above: Result Comment: Bord gayack=638-912 mg/dL Higher Udex=430 mg/dL or greater Performed By: #### L 3100.7870, L501.6710, L102.100, L3410.9996, L100.0100, L500.4050, L3410.9994 #### [facility] [address] [place], [address] Cholesterol in VLDL [Mass/Vol] 16 mg/dL Normal 5-40 [facility] Comment on above: Performed By: #### L 3100.7870, L501.6710, L102.100, L3410.9996, L100.0100, L500.4050, L3410.9994 #### [facility] [address] [place], [address] Triglyceride [Mass/Vol] 78 mg/dL Normal [facility] Comment on above: Result Comment: The drugs N-Acetylcysteine and Metamizole may falsely depress this assay. Normal range: <150 mg/dL Borderline High: 150-199 mg/dL High: 200-499 mg/dL Very High: >500 mg/dL Performed By: #### L 3100.7870, L501.6710, L102.100, L3410.9996, L100.0100, L500.4050, L3410.9994 #### [facility] [address] [place], [place], [address] MCV (mean corpuscular volume ) determinationOrdered By: Lidia Koenig on 08-15-2024 MCV (RBC) [Entitic vol] 78.4 fL Low 80-94 [facility] Mean corpuscular hemoglobin (MCH) determinationOrdered By: Lidia Koenig on 08-15-2024 MCH (RBC) [Entitic mass] 23.8 pg Low 27.0-32.0 [facility] Mean corpuscular hemoglobin concentration (MCHC) determinationOrdered By: Lidia Koenig on 08-15-2024 MCHC (RBC) [Mass/Vol] 30.3 g/dL Low 32-36 [facility] Mean platelet volume determi nationOrdered By: Lidia Koenig on 08-15-2024 Platelet mean volume (Bld) [Entitic vol] 11.1 fL 6.2-12.0 [facility] Monocyte percentageOrdered B y: Lidia Koenig on 08-15-2024 Monocytes/100 WBC (Bld) 7.1 % 0-10 [facility] Neutrophil percentageOrdered By: Lidia Koenig on 08-15-2024 Neutrophils/100 WBC (Bld) 65.5 % 47-70 [facility] No Panel InformationOrdered By: Lidia Koenig on 08-15-2024 Prostate Specific Antigen Comment . [facility] Comment on above: The percent free PSA is performed on a reflex basis onlywhen the total PSA is between 4.0 and 10.0 ng/mL. Nucleated red blood cell per centageOrdered By: Lidia Koenig on 08-15-2024 Nucleated RBC/100 WBC (Bld) [Ratio] 0 % 0-5 [facility] Platelet countOrdered By: Griffin Koenig on 08-15-2024 Platelets (Bld) [#/Vol] 228 10*3/uL 150-450 [facility] Potassium measurement (mass/ volume)Ordered By: Lidia Koenig on 08-15-2024 Potassium (Unsp spec) [Mass/Vol] 4.5 mmol/L 3.3-5.1 [facility] RBC Auto (Bld) [#/Vol]Ordere d By: Lidia Koenig on 08-15-2024 RBC (Bld) [#/Vol] 4.67 10*6/uL 4.6-6.2 [facility] Screening total cholesterol/ high density lipoprotein (HDL) cholesterol ratioOrdered By: Lidia Koenig on 08-15-2024 Cholesterol.total/Suzanne sterol in HDL [Mass ratio] 2.26 {ratio} [facility] Serum creatinine measurement (mass/volume)Ordered By: Lidia Koenig on 08-15-2024 Creatinine [Mass/Vol] 1.27 mg/dL High 0.70-1.20 [facility] Serum globulin measurementOr dered By: Lidia Koenig on 08-15-2024 Globulin (S) [Mass/Vol] 2.6 g/dL 2.2-4.2 [facility] Serum glucose measurement (m ass/volume)Ordered By: Lidia Koenig on 08-15-2024 Glucose [Mass/Vol] 101 mg/dL High 70-99 [facility] Serum or plasma alanine dubon otransferase (ALT) measurementOrdered By: Lidia Koenig on 08-15-2024 ALT [Catalytic activity/Vol] 35 U/L <47 [facility] Serum or plasma albumin juve urement (mass/volume)Ordered By: Lidia Koenig on 08-15-2024 Albumin [Mass/Vol] 4.5 g/dL 3.5-5.0 [facility] Serum or plasma albumin/glob ulin mass ratioOrdered By: Lidia Koenig on 08-15-2024 Albumin/Globulin [Mass ratio] 1.7 {ratio} 0.9-2.4 [facility] Serum or plasma alkaline janeth sphatase measurementOrdered By: Lidia Koenig on 08-15-2024 ALP [Catalytic activity/Vol] 72 U/L 40-129 [facility] Serum or plasma calcium juve urement (mass/volume)Ordered By: Lidia Koenig on 08-15-2024 Calcium [Mass/Vol] 9.3 mg/dL 7.6-11.0 [facility] Serum or plasma cholesterol in HDL measurement (mass/volume)Ordered By: Lidia Koenig on 08-15-2024 Cholesterol in HDL [Mass/Vol] 64 mg/dL >40 [facility] Comment on above: National Cholesterol Education Program (NCEP) guidelines:<40 mg/dL: Low HDL-cholesterol (major risk factor for CHD)>= 60 mg/dL: High HDL-cholesterol (negative risk factor for CHD)HDL-cholesterol is affected by a number of factors, e.g. smoking, exercise, hormones, sex and age. Serum or plasma cholesterol measurement (mass/volume)Ordered By: Lidia Koenig on 08-15-2024 Cholesterol [Mass/Vol] 144 mg/dL <201 [facility] Comment on above: Cholesterol level, D esirable <200 mg/dLBorderline high cholesterol 200-239 mg/dLHigh cholesterol >=240 mg/dLRecommendations of the NCEP Adult Treatment Panel for the following risk-cutoff thresholds for the [place] population. Serum or plasma ferritin leslie surement (mass/volume)Ordered By: Lidia Koenig on 08-15-2024 Ferritin [Mass/Vol] 6 ng/mL Low 37-417 [facility] Serum or plasma urea nitroge n measurement (mass/volume)Ordered By: Lidia Koenig on 08-15-2024 Urea nitrogen [Mass/Vol] 14 mg/dL 4-19 [facility] Sodium levelOrdered By: Mike Koenig on 08-15-2024 Sodium [Moles/Vol] 139 mmol/L 133-145 [facility] Total proteinOrdered By: Prashant Koenig on 08-15-2024 Protein [Mass/Vol] 7.1 g/dL 5.9-8.4 [facility] Triglycerides measurementOrd ered By: Lidia Koenig on 08-15-2024 Triglyceride [Mass/Vol] 78 mg/dL <199 [facility] Comment on above: The drugs N-Acetylcy steine and Metamizole may falsely depress this assay. Normal range: <150 mg/dLBorderline High: 150-199 mg/dLHigh: 200-499 mg/dLVery High: >500 mg/dL White blood cell (WBC) count Ordered By: Lidia Koenig on 08-15-2024 WBC (Bld) [#/Vol] 4.1 10*3/uL Low 4.4-11.0 [facility] CNOVon 04-11-2024 CNOV Office Visit (FAMGA ) JESUS DISLA ([id number]) 1980 [facility] Date Time Provider Department 04/11/24 7:00 AM MERLIN DEUTSCH During your visit today, we recorded the following information about you: Pulse Respiration Blood pressure Weight 66/minute 20/minute 118/76 82.6 kg Height 1.803 m Merlin Deutsch DO 04/11/2024 7:12 AM Signed CC: Yearly Exam (Discuss recent lab work ordered by GI) Assessment AND Plan Wellness examination Discussed Immunizations - patient declines at this time. Screening for depression Encounter for screening examination for other mental health and behavioral disorders Crohn's disease of large intestine without complication (HCC) Under care of GI. History of partial surgical removal of colon HPI No concerns. Does have lump on left arm. No change. No Pain. Current Outpatient Medications on File Prior to Visit Medication Sig vedolizumab (ENTYVIO) 300 mg injection Infuse 300mg via IV every 8 weeks. saw palmetto 320 mg capsule Take 1 capsule by mouth once daily. multivitamin tablet multivitamin tablet acetylcysteine (NAC) 600 mg capsule Take 1,200 mg by mouth twice daily. Twgsx-8-OVA-EPA-Fish Oil (FISH OIL) 1,000 mg (120 mg-180 mg) cap Take 2 g by mouth twice daily. calcium carb/vit D2/minerals (CALCIUM 600/MINERALS ORAL) Take by mouth. Chlor-Mal/Phenyleph/Me thscop (PE HCL-CPM-MSN ORAL) Take by mouth. cholecalciferol, vitamin D3, (VITAJOY DAILY D ORAL) Take by mouth. acetaminophen (TYLENOL) 500 mg tablet Take 2 tablets by mouth every 6 hours as needed. QUERCETIN DIHYDRATE, BULK, MISC twice daily. quercetin 800mg with zinc No current facility-administered medications on file prior to visit. Medications were reviewed and verified. 01/17/2024 04/10/2024 INTAKE PAIN ASSESSMENT Are you having pain associated with your visit today? No No If pain assessment is 0, no action needed. If pain assessment is positive, please see assessment and plan. Merlin Deutsch DO Allergies: ALLERGIES Allergen Reactions Adalimumab Other: See Comments Dust Other: See Comments Mold Other: See Comments runny nose Pollen Extracts Other: See Comments runny nose Vital Signs: BP 118/76 Pulse 66 Resp 20 Ht 5' 11 (1.80m) Wt 182 lb (82.6kg) SpO2 99% BMI 25.40 kg/(m2). Physical Exam Constitutional: Appearance: Normal appearance. HENT: Head: Normocephalic and atraumatic. Cardiovascular: Rate and Rhythm: Normal rate and regular rhythm. Pulses: Normal pulses. Heart sounds: Normal heart sounds. No murmur heard. Pulmonary: Effort: Pulmonary effort is normal. Breath sounds: Normal breath sounds. Musculoskeletal: General: Normal range of motion. Right lower leg: No edema. Left lower leg: No edema. Skin: General: Skin is warm and dry. Neurological: General: No focal deficit present. Mental Status: He is alert and oriented to person, place, and time. Psychiatric: Mood and Affect: Mood normal. Behavior: Behavior normal. DO La Nena Canchola Christopher R, DO 04/11/2024 7:10 AM Written Under care of GI. Allergies As of Date: 04/11/2024 Noted Allergy Reaction ADALIMUMAB 12/12/2015 14 - Other: See Comments DUST 11/12/2022 14 - Other: See Comments MOLD 12/08/2019 14 - Other: See Comments Comments: runny nose POLLEN EXTRACTS 12/08/2019 14 - Other: See Comments Comments: runny nose Date Reviewed: 04/11/2024 Reviewed by: Merlin Deutsch DO - Fully Assessed Reason for Visit: Yearly Exam [187] Cmt: Discuss recent lab work ordered by GI Primary Visit Diagnosis:Wellness examination [Z00.00] Other Visit Diagnoses:Screening for depression [Z13.31] Encounter for screening examination for other mental health and behavioral disorders [Z13.39] Crohn's disease of large intestine without complication (HCC) [K50.10] History of partial surgical removal of colon [Z90.49] Order(s):DEPRESSION SCREENING [] Order #: [id number]: 1 ANXIETY SCREENING [] Order #: [id number]: 1 Glucosamine 1,000 mg tabTake 1 tablet by mouth three times a day.Disp: Rfl: Prescriptions as of 04/11/2024 - Glucosamine 1,000 mg tab Take 1 tablet by mouth three times a day. - vedolizumab (ENTYVIO) 300 mg injection Infuse 300mg via IV every 8 weeks. - saw palmetto 320 mg capsule Take 1 capsule by mouth once daily. - multivitamin tablet multivitamin tablet - acetylcysteine (NAC) 600 mg capsule Take 1,200 mg by mouth twice daily. - Sorzr-5-JAW-EPA-Fish Oil (FISH OIL) 1,000 mg (120 mg-180 mg) cap Take 2 g by mouth twice daily. - calcium carb/vit D2/minerals (CALCIUM 600/MINERALS ORAL) Take by mouth. - Chlor-Mal/Phenyleph/Me thscop (PE HCL-CPM-MSN ORAL) Take by mouth. - cholecalciferol, vitamin D3, (VITAJOY DAILY D ORAL) Take by mouth. - acetaminophen (TYLENOL) 500 mg tablet Take 2 tablets b (more content not included)... Normal [facility] BLOOD TB SCREEN, INCUBATEDon 02-04-2024 M. tuberculosis tuberculin stim IFN-g Ql (Bld) Negative Normal [facility] Comment on above: Order Comment: Speci men Type: BLOOD SPECIMEN Ordering Facility: [facility] Address: [address] [place] [address] Performed By: #### 5 5063-2 #### [facility] CLIA [id number] [address] MITOGEN MINUS NIL >9.99 Normal >=0.50 [facility] Comment on above: Order Comment: Trisha nam Type: BLOOD SPECIMEN Ordering Facility: [facility] Address: [address] [place] [address] Performed By: #### 5 8410-2 #### [facility] CLIA [id number] [address] TB GAMMA INTERPRETATION Infection with M . tuberculosis complex is unlikely. If latent tuberculosis infection is highly suspected, a negative result does not rule out the infection. Specimens from immunocompromised patients and those <5 years of age may show false negative results. In case of a contact investigation, please repeat 8-12 weeks after a known exposure. Normal [facility] Comment on above: Order Comment: Trisha nam Type: BLOOD SPECIMEN Ordering Facility: [facility] Address: [address] [place] [address] Performed By: #### 5 8410-2 #### [facility] CLIA [id number] [address] TB NIL 0.01 IU/mL Normal <=8.00 [facility] Comment on above: Order Comment: Trisha nam Type: BLOOD SPECIMEN Ordering Facility: [facility] Address: [address] [place] [address] Performed By: #### 5 8410-2 #### [facility] CLIA [id number] [address] TB1 AG MINUS NIL 0.00 IU/mL Normal <0.35 [facility] Comment on above: Order Comment: Trisha viv Type: BLOOD SPECIMEN Ordering Facility: [facility] Address: [address] [place] [address] Performed By: #### 5 8410-2 #### [facility] CLIA [id number] [address] TB2 AG MINUS NIL 0.00 IU/mL Normal <0.35 [facility] Comment on above: Order Comment: Speci men Type: BLOOD SPECIMEN Ordering Facility: [facility] Address: [address] [place] [address] Performed By: #### 5 8410-2 #### [facility] CLIA [id number] [address] CBC panel Auto (Bld)on 02-03 Erythrocyte distribution width (RBC) [Ratio] 13.0 % Normal 11.5-15.0 [facility] Comment on above: Order Comment: Speci men Type: BLOOD SPECIMENOrdering Facility: [facility] Address: [address] [place] [address] Performed By: #### 5 8410-2 ####[facility]ORYCLIA [id number] [address] STATES OF [facility] Hematocrit (Bld) [Volume fraction] 42.5 % Normal 39.0-51.0 [facility] Comment on above: Order Comment: Speci men Type: BLOOD SPECIMENOrdering Facility: [facility] Address: [address] [place] [address] Performed By: #### 5 8410-2 ####[facility]ORYCLIA [id number] [address] [place] Hemoglobin (Bld) [Mass/Vol] 14.5 g/dL Normal 13.0-17.0 [facility] Comment on above: Order Comment: Speci men Type: BLOOD SPECIMENOrdering Facility: [facility] Address: [address] [place] [address] Performed By: #### 5 8410-2 ####[facility]ORYCLIA [id number] [address] [place] MCH (RBC) [Entitic mass] 31.5 pg Normal 26.0-34.0 [facility] Comment on above: Order Comment: Speci men Type: BLOOD SPECIMENOrdering Facility: [facility] Address: [address] [place] [address] Performed By: #### 5 8410-2 ####[facility]ORYCLIA [id number] [address] [place] MCHC (RBC) [Mass/Vol] 34.1 g/dL Normal 30.5-36.0 [facility] Comment on above: Order Comment: Speci men Type: BLOOD SPECIMENOrdering Facility: [facility] Address: [address] [place] [address] Performed By: #### 5 8410-2 ####[facility]ORYCLIA [id number] [address] [place] MCV (RBC) [Entitic vol] 92.2 fL Normal 80.0-100.0 [facility] Comment on above: Order Comment: Speci men Type: BLOOD SPECIMENOrdering Facility: [facility] Address: [address] [place] [address] Performed By: #### 5 8410-2 ####[facility]ORYCLIA [id number] [address] [place] Nucleated RBC (Bld) [#/Vol] 10*3/uL Normal <0.01 [facility] Comment on above: Order Comment: Speci men Type: BLOOD SPECIMENOrdering Facility: [facility] Address: [address] [place] [address] Performed By: #### 5 8410-2 ####[facility]ORYCLIA [id number] [address] [place] Platelet mean volume (Bld) [Entitic vol] 10.3 fL Normal 9.0-12.7 [facility] Comment on above: Order Comment: Speci men Type: BLOOD SPECIMENOrdering Facility: [facility] Address: [address] [place] [address] Performed By: #### 5 8410-2 ####[facility]ORYCLIA [id number] [address] [place] Platelets (Bld) [#/Vol] 190 10*3/uL Normal 150-400 [facility] Comment on above: Order Comment: Speci men Type: BLOOD SPECIMENOrdering Facility: [facility] Address: [address] [place] [address] Performed By: #### 5 8410-2 ####[facility]ORYCLIA [id number] [address] RBC (Bld) [#/Vol] 4.61 10*6/uL Normal 4.20-6.00 [facility] Comment on above: Order Comment: Speci men Type: BLOOD SPECIMENOrdering Facility: [facility] Address: [address] [place] [address] Performed By: #### 5 8410-2 ####[facility]ORYCLIA [id number] [address] WBC (Bld) [#/Vol] 4.54 10*3/uL Normal 3.70-11.00 [facility] Comment on above: Order Comment: Speci men Type: BLOOD SPECIMENOrdering Facility: [facility] Address: [address] [place] [address] Performed By: #### 5 8410-2 ####[facility]ORYCLIA [id number] [address] OF [facility] CRP SerPl-mCncon 02-04-2024 CRP [Mass/Vol] mg/L Normal <0.9 [facility] Comment on above: Order Comment: Speci men Type: BLOOD SPECIMENOrdering Facility: [facility] Address: [address] [place] [address] Performed By: #### 1 988-5, 66272-7 ####[facility]ORYCLIA [id number] [address] Comprehensive metabolic 2000 panelon 02-04-2024 Albumin [Mass/Vol] 4.1 g/dL Normal 3.9-4.9 [facility] Comment on above: Order Comment: Speci men Type: BLOOD SPECIMENOrdering Facility: [facility] Address: [address] [place] [address] Performed By: #### 1 988-5, 99605-7 ####[facility]ORYCLIA [id number] [place] [address] [place] ALP [Catalytic activity/Vol] 58 U/L Normal 38-113 [facility] Comment on above: Order Comment: Speci men Type: BLOOD SPECIMENOrdering Facility: [facility] Address: [address] [place] [address] Performed By: #### 1 988-5, 06738-1 ####[facility]ORYCLIA [id number] [place] [address] [place] ALT With P-5'-P [Catalytic activity/Vol] 19 U/L Normal 10-54 [facility] Comment on above: Order Comment: Speci men Type: BLOOD SPECIMENOrdering Facility: [facility] Address: [address] [place] [address] Performed By: #### 1 988-5, 19259-4 ####[facility]ORYCLIA [id number] [address] [place] Anion gap [Moles/Vol] 7 mmol/L Low 8-15 [facility] Comment on above: Order Comment: Speci men Type: BLOOD SPECIMENOrdering Facility: [facility] Address: [address] [place] [address] Performed By: #### 1 988-5, 85328-0 ####[facility]ORYCLIA [id number] [address] [place] AST With P-5'-P [Catalytic activity/Vol] 23 U/L Normal 14-40 [facility] Comment on above: Order Comment: Speci men Type: BLOOD SPECIMENOrdering Facility: [facility] Address: [address] [place] [address] Performed By: #### 1 988-5, 31880-3 ####[facility]ORYCLIA [id number] [place] [id number] [place] Bilirubin [Mass/Vol] 0.5 mg/dL Normal 0.2-1.3 [facility] Comment on above: Order Comment: Speci men Type: BLOOD SPECIMENOrdering Facility: [facility] Address: [address] [place] [address] Performed By: #### 1 988-5, 03081-4 ####[facility]ORYCLIA [id number] [place] [address] [place] Calcium [Mass/Vol] 9.7 mg/dL Normal 8.5-10.2 [facility] Comment on above: Order Comment: Speci men Type: BLOOD SPECIMENOrdering Facility: [facility] Address: [address] [place] [address] Performed By: #### 1 988-5, 52293-1 ####[facility]ORYCLIA [id number] [place] [address] [place] Chloride [Moles/Vol] 105 mmol/L Normal 98-107 [facility] Comment on above: Order Comment: Speci men Type: BLOOD SPECIMENOrdering Facility: [facility] Address: [address] [place] [address] Performed By: #### 1 988-5, 26627-6 ####[facility]ATORYCLIA [id number] [place] [address] [place] CO2 [Moles/Vol] 29 mmol/L Normal 22-30 [facility] Comment on above: Order Comment: Speci men Type: BLOOD SPECIMENOrdering Facility: [facility] Address: [address] [place] [address] Performed By: #### 1 988-5, 77121-8 ####[facility]ORYCLIA [id number] [place] [address] [place] Creatinine [Mass/Vol] 1.32 mg/dL High 0.73-1.22 [facility] Comment on above: Order Comment: Speci men Type: BLOOD SPECIMENOrdering Facility: [facility] Address: [address] [place] [address] Performed By: #### 1 988-5, 51423-5 ####[facility]ATORYCLIA [id number] [place] [address] [place] Creatinine and Glomerular filtration rate.predicted panel (S/P/Bld) 68 mL/min/1.73m??? Normal >=60 [facility] Comment on above: Order Comment: Trisha nam Type: BLOOD SPECIMENOrdering Facility: [facility] Address: [address] [place] [address] Result Comment: Maday mated Glomerular Filtration Rate (eGFR) is calculated using the 2020 CKD-EPI creatinine equation. This equation utilizes serum creatinine, sex, and age as parameters. The creatinine assay has traceable calibration to isotope dilution-mass spectrometry. Refer to KDIGO guidelines for clinical interpretation. In patients with unstable renal function, e.g. those with acute kidney injury, the eGFR may not accurately reflect actual GFR. Performed By: #### 1 988-5, 63833-2 ####[facility]ATORYCLIA [id number] [place] [address] [place] Glucose [Mass/Vol] 87 mg/dL Normal 74-99 [facility] Comment on above: Order Comment: Trisha nam Type: BLOOD SPECIMENOrdering Facility: [facility] Address: [address] [place] [address] Result Comment: The [place] [employer] (ADA) provides guidance for cutoff values for fasting glucose and random glucose. The ADA defines fasting as no caloric intake for at least 8 hours. Fasting plasma glucose results between 100 to 125 mg/dL indicate increased risk for diabetes (prediabetes). Fasting plasma glucose results greater than or equal to 126 mg/dL meet the criteria for diagnosis of diabetes. In the absence of unequivocal hyperglycemia, results should be confirmed by repeat testing. In a patient with classic symptoms of hyperglycemia or hyperglycemic crisis, random plasma glucose results greater than or equal to 200 mg/dL meet the criteria for diagnosis of diabetes. Reference: Standards of Medical Care in Diabetes 2016, [place] [employer]. Diabetes Care. 2016.39(Suppl 1). Performed By: #### 1 988-5, 81075-1 ####[facility]ORYCLIA [id number] [place] [address] [place] Potassium [Moles/Vol] 4.6 mmol/L Normal 3.7-5.1 [facility] Comment on above: Order Comment: Speci men Type: BLOOD SPECIMENOrdering Facility: [facility] Address: [address] [place] [address] Performed By: #### 1 988-5, 41892-1 ####[facility]ORYCLIA [id number] [address] [place] Protein [Mass/Vol] 6.7 g/dL Normal 6.3-8.0 [facility] Comment on above: Order Comment: Speci men Type: BLOOD SPECIMENOrdering Facility: [facility] Address: [address] [place] [address] Performed By: #### 1 988-5, 65499-7 ####[facility]ATORYCLIA [id number] [place] [address] [place] Sodium [Moles/Vol] 141 mmol/L Normal 136-144 [facility] Comment on above: Order Comment: Speci men Type: BLOOD SPECIMENOrdering Facility: [facility] Address: [address] [place] [address] Performed By: #### 1 988-5, 69286-2 ####[facility]ORYCLIA [id number] [place] [address] [place] Urea nitrogen [Mass/Vol] 19 mg/dL Normal 9-24 [facility] Comment on above: Order Comment: Speci men Type: BLOOD SPECIMENOrdering Facility: [facility] Address: [address] [place] [address] Performed By: #### 1 988-5, 91146-9 ####[facility]ATORYCLIA [id number] [place] [address] [place] HBV core Ab Ser Qlon 024 HBV core Ab Ql (S) Negative Normal Negative [facility] Comment on above: Order Comment: Speci men Type: BLOOD SPECIMENOrdering Facility: [facility] Address: [address] [place] [address] Result Comment: No e vidence of current or past infection with Hepatitis B virus. Should recent infection be suspected, repeat testing may be considered 3-4 weeks after this draw. Performed By: #### 1 6933-4 ####[facility] LABCLIA [id number] [facility] [place] [address] [place] HBV surface Ab Ql (S)on 01-06 HBV surface Ab Qn (S) 3.50 mIU/mL Normal [facility] Comment on above: Order Comment: Speci men Type: BLOOD SPECIMENOrdering Facility: [facility] Address: [address] [place] [address] Result Comment: <8.5 mIU/mL: No serological evidence of immunity to Hepatitis B Virus. >/= 8.5 to <11.5 mIU/mL: No serological evidence of immunity to Hepatitis B Virus. >/= 11.5 mIU/mL: Consistent with serological evidence of immunity to Hepatitis B Virus. Performed By: #### 5 -3, ####[facility]CLIA [id number] [address] OF [facility] HBV surface Ab Ser Qlon 01-06 HBV surface Ab Ql (S) Negative Normal [facility] Comment on above: Order Comment: Speci men Type: BLOOD SPECIMENOrdering Facility: [facility] Address: [address] [place] [address] Result Comment: No s erological evidence of immunity to Hepatitis B Virus. Performed By: #### 5 , ####[facility]CLIA [id number] [address] [place] HBV surface Ag Ser Qlon 01-06 HBV surface Ag Ql (S) Non-Reactive Normal Nonreactive [facility] Comment on above: Order Comment: Speci men Type: BLOOD SPECIMENOrdering Facility: [facility] Address: [address] [place] [address] Performed By: #### 5 3, ####[facility]ATORYCLIA [id number] [place] [address] [place] HCV Ab Ser Qlon 02-04-2024 HCV Ab Ql (S) Non-Reactive Normal Nonreactive [facility] Comment on above: Order Comment: Speci men Type: BLOOD SPECIMEN Ordering Facility: [facility] Address: [address] [place] [address] Result Comment: The result suggests no evidence of active infection with Hepatitis C virus. Should recent infection be suspected, repeat testing may be considered 4-6 weeks after this draw. Performed By: #### 5 8410-2 #### [facility] CLIA [id number] [address] SURGICAL PATHOLOGYon 023 Addendum A. An immunohistochemical stain for CMV performed on block A1 is negative. Laboratory Developed Test (LDT) Disclaimer: Performance characteristics of immunohistochemical, immunofluorescent and chromogenic in-situ hybridization tests have been determined by the performing laboratory within [facility] [place] ([facility], [facility], [facility] or [facility]) in a manner consistent with CLIA requirements. One or more of these tests have not been cleared or approved by the FDA. [facility] is regulated under CLIA as qualified to perform high-complexity testing. These tests are used for clinical purposes. They should not be regarded as investigational or for research. Positive and negative controls stain appropriately. JEL 11/24/2022 [facility] Case Report Surgical Pathology Report Case: [id number] Authorizing Provider: Sunday Parker MD Collected: 11/20/2022 02:57 PM Ordering Location: [facility] Received: 11/20/2022 05:01 PM Surgery Pathologist: Dmitriy Quezada MD Specimens: A) - ANASTOMOSIS BIOPSY, ileocolonic anastamosis B) - SIGMOID COLON BIOPSY, erosion [facility] Diagnosis Comment A. Given the presenc e of ulcer, an immunohistochemical stain for cytomegalovirus (CMV) has been ordered, and the result will be reported in an addendum. Intact (non-ulcerated) mucosa is not identified. [facility] FINAL DIAGNOSIS A. Ileocolonic anastomosis, biopsy: - Ulcer with granulation tissue (see comment). - Negative for granulomas, pyloric gland metaplasia, or dysplasia. B. Sigmoid colon, biopsy: - Mildly active colitis with mucosal granuloma, negative for dysplasia. JEL 11/21/2022 [facility] Gross Description A. ANASTOMOSIS BIOPS Y Received in formalin are two pieces of brown, soft tissue aggregating to 0.5 x 0.2 x 0.1 cm. Totally submitted in one cassette. B. SIGMOID COLON BIOPSY Received in formalin are two pieces of martínez, soft tissue aggregating to 0.6 x 0.2 x 0.2 cm. Totally submitted in one cassette. November 21, 2022 12:17 AM Gross examination performed at [facility], [address] [place] [address] [facility] Performing Lab Diagnostic interpretation performed at [facility], [address] [place] [address] CLIA# [id number] Pasta Maker: Doni Gonzalez M.D. [facility] COLONOSCOPY SCREENINGon 11-04 [facility] 36on 09-24-2022 36 Spoke with pt notifi ed below messages. Normal [facility] 36 Will await appointme nt for lab draw because labs needed will vary per patient and medical history. Normal [facility] 36on 09-23-[address] [facility] 36 Name of caller: Dalton saleh Contact phone number: [phone] Relationship to Patient: patient Provider: Joao Vasquez Practice: [facility] Chief Complaint/Reason for Call: Patient is scheduled to see Cyndie Vasquez for first time visit on 10/03/22. Patient requesting that basic/annual labs be placed prior so that they can be reviewed at this appointment. Please advise. Best time of day caller can be reached: Any Patient advised that office/PCP has 24-48 business hours to return their call: No Normal [place] [address]on 09-22-2022 36 S: Patient spoke saeid h [facility] nurse regarding chest pain and urinary symptoms. B: Onset of symptoms/concern yesterday and urinary symptoms 6 months. A: Patient states that right sided chest pain just below collar bone started yesterday. Pain is minimal 1/10. When he takes a deep breath he can feel it. Denies any other symptoms. Denies shortness of breath. Urinary symptoms started 6 months ago with frequent urination. Denies blood in urine, fever or change in stream. Believes it's probably related to drinking more. R: Patient declined a sooner appointment. Patient appt made with Jc Liao 10/03. Patient advised he should make a New Patient appt for a physical also. Patient understands care advice. No further needs at this time. Patient instructed to call back with new or worsening symptoms. Reason for Disposition Chest pain(s) lasting a few seconds Urinating more frequently than usual (i.e., frequency) Protocols used: Chest Rviz-SLYIX-RT, Urinary Muwzzmnq-AICWP-LZ Normal [facility] Calprotectin, Fecalon 2019 Calprotectin, Comment SEE BELOW Normal [facility] Comment on above: Result Comment: INTE RPRETIVE INFORMATION: INTERPRETIVE INFORMATION: Calprotectin, Fecal <50.0 mg/kg : Normal 50.0-120.0 mg/kg: Borderline. Test should be re-evaluated in 4-6 weeks. >120.0 mg/kg : Abnormal Performing Laboratory: [facility] [address] [place] [address] Performed By: #### C ALFX #### [address] [address] Calprotectin, Interp Abnormal Normal [facility] Comment on above: Performed By: #### C ALFX #### [address] [address] Protein [Mass/Vol] 1024.0 mg/kg High <50.0 [facility] Comment on above: Performed By: #### C ALFX #### [address] [address] [address] ENTEROGRAPHY W IVCONon [facility] GLUon 12-23-2016 Glucose mass conc 87 mg/dL Normal [facility] Comment on above: Order Comment: Campu s: LK Result Comment: 70-1 00-Normal Fasting; [id number] Fasting; greaterthan 126 on more than one result-Diabetes. ADA guidelines Performed By: #### L 500.42955, L500.16755 ####[facility] [id number] [place], [place] [address]Rp# [phone] LIPIDon 12-23-2016 Cholesterol 102 mg/dL Normal 0-199 [facility] Comment on above: Order Comment: Betzy s: LK Performed By: #### L 500.99674, L500.92940 ####[facility] [id number] [place], [place] [address]Du# [phone] HDL Cholesterol 50 mg/dL Normal [place] 40 [facility] Comment on above: Order Comment: Campu s: LK Result Comment: Mary ents receiving Metamizole prior to venipuncture, mayhave falsely depressed results. Performed By: #### L 500.23516, L500.43346 ####[facility] [id number] [place], [place] [address]Iw# [phone] LDL Cholesterol 42 MG/DL Normal 0-129 [facility] Comment on above: Order Comment: Betzy s: LK Result Comment: ___C HOLESTEROL/HDL RATIO RISK___ CHD RISK = Total CHOL LDL HDL (CHOL/HDL) --------Recommended <200 <130 >35 <3.4 --Borderline 200-239 130-159 3.4-4.99 ------High >240 >160 >5.0 -- Performed By: #### L 500.36435, L500.84912 ####[facility] [id number] [place], [place] [address]Go# [phone] Triglyceride 50 mg/dL Normal 30-149 [facility] [place] Comment on above: Order Comment: Btezy jacob: NINO Result Comment: Mary ents receiving either N-Acetylcysteine (NAC) orMetamizole prior to venipuncture, may have falsely depressedresults. Performed By: #### L 500.89511, L500.72724 ####[facility] [id number] [place], [place] [address]Mw# [phone] Vital Signs Date Time Vital Sign Value Performing Clinician Lilly hernandez 11-18-2024 09:43-0400 Body height 177.8 cm Richi Loja MD Work Phone: [facility] 11-18-2024 09:43-0400 Body mass index (BMI) [Ratio] 24.89 kg/m2 Richi Loja MD Work Phone: [facility] 11-18-2024 09:43-0400 Body weight 78.7 kg Richi Loja MD Work Phone: [facility] 11-18-2024 09:43-0400 Diastolic blood pressure 57 mm[Hg] Richi Loja MD Work Phone: [facility] 11-18-2024 09:43-0400 Heart rate 85 /min Richi Loja MD Work Phone: [facility] 11-18-2024 09:43-0400 SaO2% (BldA) [Mass fraction] 100 % Richi Loja MD Work Phone: [facility] 11-18-2024 09:43-0400 Systolic blood pressure 106 mm[Hg] Richi Loja MD Work Phone: [facility] 04-11-2024 06:55-0500 Body height 180.3 cm Merlin Deutsch DO Work Phone: [facility] 04-11-2024 06:55-0500 Body mass index (BMI) [Ratio] 25.38 kg/m2 Christopher Stetler DO Work Phone: [facility] 04-11-2024 06:55-0500 Body weight 82.56 kg Christopher Stetler DO Work Phone: [facility] 04-11-2024 06:55-0500 Diastolic blood pressure 76 mm[Hg] Christopher Stetler DO Work Phone: [facility] 04-11-2024 06:55-0500 Heart rate 66 /min Christopher Stetler DO Work Phone: [facility] 04-11-2024 06:55-0500 Respiratory rate 20 /min Christopher Stetler DO Work Phone: [facility] 04-11-2024 06:55-0500 SaO2% (BldA) [Mass fraction] 99 % Christopher Stetler DO Work Phone: [facility] 04-11-2024 06:55-0500 Systolic blood pressure 118 mm[Hg] Christopher Stetler DO Work Phone: [facility] 11-20-2022 16:00-0400 Respiratory rate 18 /min Sunday Parker MD Work Phone: [facility] 11-20-2022 15:59-0400 Diastolic blood pressure 73 mm[Hg] Sunday Parker MD Work Phone: [facility] 11-20-2022 15:59-0400 Systolic blood pressure 109 mm[Hg] Sunday Parker MD Work Phone: [facility] 11-20-2022 15:10-0400 Body temperature 96.8 [degF] Sunday Parker MD Work Phone: [facility] 11-20-2022 13:32-0400 Body height 180.3 cm Sunday Parker MD Work Phone: [facility] 11-20-2022 13:32-0400 Body weight 80.3 kg Sunday Parker MD Work Phone: [facility] 11-20-2022 13:32-0400 SaO2% (BldA) [Mass fraction] 99 % Sunday Parker MD Work Phone: [facility] 12-30-2021 10:00-0400 Body temperature 98.2 [degF] Treatment [facility] 12-30-2021 10:00-0400 Body weight 81.7 kg Treatment [facility] 12-30-2021 10:00-0400 Diastolic blood pressure 63 mm[Hg] Treatment [facility] 12-30-2021 10:00-0400 Heart rate 52 /min Treatment [facility] 12-30-2021 10:00-0400 Respiratory rate 18 /min Treatment [facility] 12-30-2021 10:00-0400 SaO2% (BldA) [Mass fraction] 100 % Treatment [facility] 12-30-2021 10:00-0400 Systolic blood pressure 110 mm[Hg] Treatment [facility] 11-04-2021 10:00-0400 Body temperature 97.7 [degF] Treatment [facility] 11-04-2021 10:00-0400 Body weight 80.6 kg Treatment [facility] 11-04-2021 10:00-0400 Diastolic blood pressure 67 mm[Hg] Treatment [facility] 11-04-2021 10:00-0400 Heart rate 63 /min Treatment [facility] 11-04-2021 10:00-0400 Respiratory rate 18 /min Treatment [facility] 11-04-2021 10:00-0400 SaO2% (BldA) [Mass fraction] 100 % Treatment [facility] 11-04-2021 10:00-0400 Systolic blood pressure 104 mm[Hg] Treatment [facility] 09-09-2021 11:30-0400 Body temperature 98.29 [degF] Treatment [facility] 09-09-2021 11:30-0400 Body weight 80.83 kg Treatment [facility] 09-09-2021 11:30-0400 Diastolic blood pressure 67 mm[Hg] Treatment [facility] 09-09-2021 11:30-0400 Heart rate 89 /min Treatment [facility] 09-09-2021 11:30-0400 Respiratory rate 20 /[facility] 11:30-0400 Systolic blood pressure 110 mm[Hg] Treatment [facility] 06-28-2021 14:15-0400 Body temperature 97.5 [degF] Treatment [facility] Work Phone: [facility] 06-28-2021 14:15-0400 Body weight 80 kg Treatment [facility] Work Phone: [facility] 06-28-2021 14:15-0400 Diastolic blood pressure 60 mm[Hg] [facility] Work Phone: [facility] 06-28-2021 14:15-0400 Heart rate 72 /min [facility] Work Phone: [facility] 06-28-2021 14:15-0400 Respiratory rate 20 /min [facility] Work Phone: [facility] 06-28-2021 14:15-0400 SaO2% (BldA) [Mass fraction] 97 % Treatment [facility] Work Phone: [facility] 06-28-2021 14:15-0400 Systolic blood pressure 98 mm[Hg] Treatment [facility] Work Phone: [facility] Encounters Encounter Date Encounter Type Care Provider Facility Start: 12-09-2024 End: 12-09-2024 ambulatory MERLIN DEUTSCH Facility:[facility] Start: 12-06-2024 End: 12-06-2024 ambulatory Sonia Dobson RN Work Phone: [facility] Garment Assembly Supervisor Start: 12-06-2024 End: 12-06-2024 Telephone follow-up Sonia Dobson RN Work Phone: [facility] Garment Assembly Supervisor Comment on above: Transition Of Care ( TCM HOSPITAL DISCHARGE FOLLOW UP (final outreach)) Weekly phone contact (Recurring) for Transitional Care Management Start: 12-02-2024 End: 12-02-2024 ambulatory MERLIN DEUTSCH Facility:[facility] Start: 11-28-2024 End: 11-28-2024 ambulatory Sonia Dobson RN Work Phone: [facility] Garment Assembly Supervisor Start: 11-28-2024 End: 11-28-2024 Telephone follow-up Sonia Dobson RN Work Phone: [facility] Garment Assembly Supervisor Comment on above: Transition Of Care ( TCM HOSPITAL DISCHARGE FOLLOW UP ) Weekly phone contact (Recurring) for Transitional Care Management Start: 11-26-2024 End: 12-06-2024 Follow-up encounter Richi Loja MD Work Phone: Gastroenterology Start: 11-25-2024 End: 11-25-2024 ambulatory MERLIN DEUTSCH Facility:[facility] Start: 11-23-2024 End: 11-23-2024 Patient encounter procedure Lidia Koenig FIRE CREW SPECIALIST-C -Laboratory Specimen Work Phone: Start: 11-23-2024 End: 11-23-2024 ambulatory Lily Michelle [facility] Ambulatory Car e Comment on above: Population Health Na vigation Outreach (Left my contact info to schedule tcm ) Start: 11-23-2024 End: 11-23-2024 ambulatory Lidia Koenig FIRE CREW SPECIALIST Facility:[facility] Start: 11-21-2024 End: 11-21-2024 Patient encounter procedure Lidia Koenig FIRE CREW SPECIALIST-C -Laboratory Specimen Work Phone: Start: 11-21-2024 End: 11-21-2024 ambulatory Sonia Dobson RN Work Phone: [facility] Garment Assembly Supervisor Start: 11-21-2024 End: 11-21-2024 Telephone follow-up Sonia Dobson RN Work Phone: [facility] Garment Assembly Supervisor Comment on above: Transition Of Care ( TCM HOSPITAL DISCHARGE FOLLOW UP ) Weekly phone contact (Recurring) for Transitional Care Management Start: 11-21-2024 End: 11-21-2024 ambulatory Lidia Koenig FIRE CREW SPECIALIST Facility:[facility] Start: 11-18-2024 End: 11-18-2024 Patient encounter procedure Richi Loja MD Work Phone: Gastroenterology Comment on above: Crohn's disease of s mall and large intestines with complication (HCC) (Primary Dx) Start: 11-18-2024 End: 11-18-2024 ambulatory JUAN JOSEBENOIT DEUTSCH Facility:[facility] Start: 11-15-2024 End: 11-15-2024 Follow-up encounter Merlin Deutsch DO Work Phone: [facility] Start: 11-14-2024 End: 11-14-2024 Telephone encounter Merlin Deutsch DO Work Phone: [facility] Comment on above: Patient Question; Or ders Start: 11-14-2024 End: 11-14-2024 Telephone follow-up Sonia Dobson RN Work Phone: [facility] Comment on above: Transition Of Care ( TCM HOSPITAL DISCHARGE FOLLOW UP (Initial Outreach)) Initial phone contact for Transitional Care Management Start: 11-14-2024 End: 11-14-2024 ambulatory Sonia Dobson RN Work Phone: [facility] Start: 11-09-2024 End: 11-12-2024 Evaluation and management of inpatient ESTEVANMARIVEL DEUTSCH Facility:[facility] Start: 10-12-2024 End: 10-12-2024 ambulatory Lidia Koenig FIRE CREW SPECIALIST-C -Laboratory Specimen Start: 10-12-2024 End: 10-12-2024 Patient encounter procedure Lidia Koenig FIRE CREW SPECIALIST-C -Laboratory Specimen Work Phone: Start: 10-12-2024 End: 10-12-2024 ambulatory Lidia Koenig FIRE CREW SPECIALIST Facility:[facility] Start: 09-22-2024 End: 09-22-2024 ambulatory Lidia Koenig FIRE CREW SPECIALIST-C [facility] Work Phone: Start: 09-22-2024 End: 09-22-2024 Patient encounter procedure Lidia Koenig FIRE CREW SPECIALIST-C -Laboratory Specimen Work Phone: Start: 09-22-2024 End: 09-22-2024 ambulatory Lidia Koenig FIRE CREW SPECIALIST Facility:[facility] Start: 09-19-2024 End: 09-19-2024 Telephone encounter Merlin Deutsch DO Work Phone: [facility] Start: 08-15-2024 Registered Referred Lidia anderson [employer]RE CREW SPECIALIST-C -Laboratory Specimen Work Phone: Start: 08-15-2024 ambulatory Lidia Koenig NP Fa cility:[facility] Start: 07-26-2024 End: 07-26-2024 Telephone encounter Richi Loja MD Work Phone: Gastroenterology Comment on above: Insurance Authorizat ion ([place]/Entyvio vial authorization) Start: 04-11-2024 End: 04-11-2024 Patient encounter status Estevanadinabenoit Silvia La Nena DO Work Phone: [facility] Work Phone: Start: 04-11-2024 End: 04-11-2024 Periodic preventive med est patient 40-64yrs Merlin Deutsch DO Work Phone: [facility] Comment on above: Wellness examination (Primary Dx); Screening for depression; Encounter for screening examination for other mental health and behavioral disorders; Crohn's disease of large intestine without complication (HCC); History of partial surgical removal of colon Start: 04-11-2024 End: 04-11-2024 [id number] Start: 04-11-2024 Encounter for genera l adult medical examination without abnormal findings [facility] Start: 03-10-2024 End: 03-10-2024 Telephone encounter Richi Loja MD Work Phone: Gastroenterology Comment on above: Orders Start: 02-04-2024 End: 02-04-2024 ambulatory RICHI LOJA [facility] Start: 01-21-2024 End: 01-21-2024 Telephone encounter Richi Loja MD Work Phone: Gastroenterology Comment on above: Orders Start: 01-19-2024 End: 01-19-2024 Telemedicine consultation with patient Richi A Lashner MD Work Phone: Gastroenterology Start: 01-19-2024 End: 01-19-2024 ambulatory Richi Loja MD Work Phone: Gastroenterology Comment on above: Crohn's disease of s mall and large intestines with complication (HCC) (Primary Dx) Start: 11-29-2023 End: 11-29-2023 Telephone encounter Richi Loja MD Work Phone: Gastroenterology Comment on above: Orders Start: 07-13-2023 Telephone encounter Richi thayer MD Work Phone: [facility] Comment on above: Medication Authoriza tion (Entyvio approval, valid 08/09/2023 - 08/07/2024) Start: 02-06-2023 Telephone encounter Richi thayer MD Work Phone: Gastroenterology Comment on above: Orders Start: 12-10-2022 Telephone encounter Richi thayer MD Work Phone: Gastroenterology Comment on above: Medication Authoriza tion Start: 11-20-2022 End: 11-20-2022 Refill Richi Loja MD Work Phone: Gastroenterology Comment on above: Refill Request Crohn's disease of s mall and large intestines with complication (HCC) [K50.819] Start: 10-21-2022 End: 10-21-2022 ambulatory Richi Loja MD Work Phone: Gastroenterology Comment on above: Crohn's disease of s mall and large intestines with complication (HCC) (Primary Dx) Start: 10-21-2022 End: 10-21-2022 Telemedicine consultation with patient Richi Loja MD Work Phone: [facility] Start: 09-23-2022 Telephone encounter Cyndie Vasquez MUSKRAT TRAPPER - SHRINKER Work Phone: [facility] Internal Medicine Comment on above: Labs Only Start: 09-22-2022 ambulatory Rafa Tovar RN [facility] Clinical Communication Start: 09-22-2022 Patient encounter procedure Rafa Tovar RN [facility] Clinical Communication Start: 04-22-2022 Telephone encounter Richi thayer MD Work Phone: Gastroenterology Comment on above: Patient Update Start: 04-16-2022 Telephone encounter Richi thayer MD Work Phone: Gastroenterology Comment on above: Medication Problem ( Called [facility]) Start: 04-02-2022 Telephone encounter Richi thayer MD Work Phone: Gastroenterology Comment on above: Patient Assistance ( En[employer]vio) Start: 01-13-2022 Telephone encounter Richi thayer MD Work Phone: Gastroenterology Comment on above: Orders Start: 01-09-2022 Orders Only Richi Loja MD Work Phone: Gastroenterology Start: 12-30-2021 End: 12-30-2021 ambulatory Treatment 12 [facility] Comment on above: Crohn's disease of b oth small and large intestine with intestinal obstruction (HCC) (Primary Dx) Start: 12-24-2021 Refill Richi Loja MD Work Phone: Gastroenterology Comment on above: Refill Request Start: 11-04-2021 End: 11-04-2021 ambulatory Treatment 11 [facility] Comment on above: Crohn's disease of b oth small and large intestine with intestinal obstruction (HCC) (Primary Dx) Start: 09-09-2021 End: 09-09-2021 ambulatory Treatment 11 [facility] Comment on above: Crohn's disease of b oth small and large intestine with intestinal obstruction (HCC) (Primary Dx) Start: 09-03-2021 Telephone encounter Richi thayer MD Work Phone: Gastroenterology Comment on above: Patient Question Start: 08-28-2021 Telephone encounter Richi thayer MD Work Phone: Gastroenterology Comment on above: Medication Authoriza tion Start: 08-20-2021 End: 08-20-2021 ambulatory Fany Galeana MUSKRAT TRAPPER.SHRINKER Work Phone: Gastroenterology Comment on above: Crohn's disease of b oth small and large intestine without complication (HCC) (Primary Dx); terminologist current use of systemic steroids Start: 08-20-2021 End: 08-20-2021 Telemedicine consultation with patient Fany Galeana APRN.SHRINKER Work Phone: [facility] Start: 07-16-2021 Telephone encounter Alexandr san MD Work Phone: Gastroenterology Comment on above: Appointment Start: 06-28-2021 End: 06-28-2021 ambulatory Treatment 1 [facility] Work Phone: Hematology Comment on above: Crohn's disease of b oth small and large intestine with intestinal obstruction (HCC) (Primary Dx) Start: 03-09-2021 Chart abstracting Cici llanes Research Coordinator [facility] Start: 11-16-2019 End: 11-16-2019 Subsequent hospital visit by physician Ct On License Of [facility] (I-Stat) Work Phone: Radiology [facility] Comment on above: Crohn's disease of s mall intestine with complication (HCC) [K50.019] Crohn's disease of s mall intestine with unspecified complications [K50.019] Start: 12-23-2016 Ambulatory Merlin Deutsch Facility:[facility] Procedures Date Procedure Procedure Detail Performing Clinician Start: 11-23-2024 Iadna-dna/rna gi pthgn multiplex probe tq 6-11 Lidia Koenig FIRE CREW SPECIALIST-C Start: 11-23-2024 Clostridium difficile detection Lidia anderson FIRE CREW SPECIALIST-C Start: 11-23-2024 Nucleic acid assay Lidia Koenig FIRE CREW SPECIALIST-C Start: 11-10-2024 Colonoscopy Sonia Dobson RN Work Phone: Start: 11-09-2024 Antibody screen MERLIN DEUTSCH Comment on above: Order Comment: Specimen Type: BLOOD SPEC IMEN Ordering Facility: [facility] Address: [address] [place] [address] Performed By: #### 5 [id number] #### [facility] CLIA [id number] [address] [facility] Start: 10-12-2024 Red blood cell morphology Lidia vega FIRE CREW SPECIALIST-C Start: 08-15-2024 Procedure Lidia Koenig FIRE CREW SPECIALIST-C Comment on above: Test Ordered: [id number] HNK1 (CD57) PanelTe st(s) 955842-% CD8-/CD57+ Lymphswas developed and its performance characteristicsdetermined by [facility]. It has not been cleared or approvedby the Food and Drug Administration.% CD8-/CD57+ Lymphs 4.7 % Reference Range: 2.0-17.0Abs.CD8-CD57+ Lymphs NOLAB Reference Range: .Test not performedWBC NOLAB Reference Range: .Test not performedRBC NOLAB Reference Range: .Test not performedHemoglobin NOLAB Reference Range: .Test not performedHematocrit NOLAB Reference Range: .Test not performedMCV FIRE CREW SPECIALIST NOLAB Reference Range: .MCH FIRE CREW SPECIALIST NOLAB Reference Range: .MCHC FIRE CREW SPECIALIST NOLAB Reference Range: .RDW FIRE CREW SPECIALIST NOLAB Reference Range: .Platelets NOLAB Reference Range: .Test not performedNeutrophils NOLAB Reference Range: .Test not performedLymphs NOLAB Reference Range: .Test not performedMonocytes NOLAB Reference Range: .Test not performedEos NOLAB Reference Range: .Test not performedBasos FIRE CREW SPECIALIST NOLAB Reference Range: .Immature Cells FIRE CREW SPECIALIST NOLAB Reference Range: .Neutrophils (Absolute) FIRE CREW SPECIALIST NOLAB Reference Range: .Lymphs (Absolute) NOLAB Reference Range: .Test not performedMonocytes(Absolute) FIRE CREW SPECIALIST NOLAB Reference Range: .Eos (Absolute) NOLAB Reference Range: .Test not performedBaso (Absolute) NOLAB Reference Range: .Test not performedImmature Granulocytes FIRE CREW SPECIALIST NOLAB Reference Range: .Immature Grans (Abs) FIRE CREW SPECIALIST NOLAB Reference Range: .NRBC FIRE CREW SPECIALIST NOLAB Reference Range: .Hematology Comments: [employer] SPECIALIST NOLAB Reference Range: .Performed at: [address] [id number] Director: Gilmer Parker PhD, Phone: [phone] at: [address] [id number] Director: Nolvia Medina MD, Phone: [phone] Start: 08-15-2024 Prostate specific antigen measurement Lidia DEL RAELC Comment on above: Thania ECLIA methodology.According to the [place] [employer], Serum PSAshould decrease and remain at undetectable levels afterradical prostatectomy. The AUA defines biochemicalrecurrence as an initial PSA value 0.2 ng/mL or greaterfollowed by a subsequent confirmatory PSA value 0.2 ng/mLor greater. Values obtained with different assay methods orkits cannot be used interchangeably. Results cannot beinterpreted as absolute evidence of the presence or absenceof malignant disease. Start: 04-11-2024 Adult depression screening assessment Merlin Deutsch DO Work Phone: Start: 04-08-2023 Adult depression screening assessment Richi Loja MD Work Phone: Start: 11-20-2022 Level iv surg pathology gross&microscopic exam Sunday Parker MD Work Phone: Start: 11-20-2022 Colonoscopy flx dx w/collj spec when pfrmd Richi Loja MD Work Phone: Start: 11-20-2022 Colonoscopy Richi Loja MD Work Phone: Start: 09-26-2022 Lipid 1996 panel - Serum or Plasma Richi Loja MD Work Phone: Start: 12-14-2019 Colonoscopy Treatment [facility] Work Phone: Start: 11-16-2019 Ct abdomen & pelvis w/contrast material Richi Loja MD Work Phone: Plan of Treatment Date Care Activity Detail Author Start: 2038 HEPATITIS B (1 of 3 - Risk 3-dose series) HEPATITIS B (1 of 3 - Risk 3-dose series) [facility] Start: 2038 Hepatitis B Vaccine (1 of 3 - Risk 3-dose series) Hepatitis B Vaccine (1 of 3 - Risk 3-dose series) [facility] Start: 11-10-2029 Screening for malignant neoplasm of colon [facility] Start: 2028 Zoster Vaccines (1 of 2) Zoster Vaccines (1 of 2) [facility] Start: 12-03-2027 Diabetes Screening Diabetes Screening [facility] Start: 11-26-2027 Diabetes Screening Diabetes Screening [facility] Start: 11-21-2027 Colonoscopy COLONOSCOPY [facility] Start: 11-21-2027 COLORECTAL CANCER SCREENING COLORECTAL CANCER SCREENING [facility] Start: 11-21-2027 Screening for malignant neoplasm of colon [facility] Start: 11-19-2027 Diabetes Screening Diabetes Screening [facility] Start: 11-11-2027 Diabetes Screening Diabetes Screening [facility] Start: 09-27-2027 Lipid 1996 panel - Serum or Plasma Lipid Screening [facility] Start: 09-27-2027 Lipid panel Lipid Screening [facility] Start: 09-27-2027 LIPID SCREEN LIPID SCREEN [facility] Start: 02-03-2027 Diabetes Screening Diabetes Screening [facility] Start: 09-26-2025 Diabetes Screening Diabetes Screening [facility] Start: 04-12-2025 End: 04-12-2025 Patient encounter procedure 04/12/2025 7:00 AM EST Office Visit [facility] [address] [place] [address] Merlin Deutsch DO [address] [place] [address] wellness [facility] Comment on above: wellness Start: 04-11-2025 Anxiety Screening Anxiety Screening [facility] Start: 04-11-2025 Depression Screening Depression Screening [facility] Start: 12-13-2024 Colonoscopy COLONOSCOPY [facility] Start: 12-13-2024 COLORECTAL CANCER SCREENING COLORECTAL CANCER SCREENING [facility] Start: 12-09-2024 End: 12-09-2024 Patient encounter procedure 12/09/2024 10:00 AM EDT Office Visit Gastroenterology [address] [address] Richi Loja MD [address] [place] [address] hospital discharge Gastroenterology Comment on above: hospital discharge Start: 12-06-2024 End: 12-02-2025 Comprehensive metabolic 2000 panel - Serum or Plasma COMPREHENSIVE METABOLIC PANEL Lab Routine Crohn's disease of small and large intestines with complication (HCC) Expected: 12/06/2024, Expires: 03/07/2025 [facility] Work Phone: Comment on above: Expected: 12/06/2024, Expires: Start: 12-05-2024 Influenza vaccination [facility] Start: 11-23-2024 Procedure [facility] Start: 11-21-2024 Immunoglobulin measurement [facility] Start: 11-18-2024 End: 11-18-2024 Patient encounter procedure 11/18/2024 10:00 AM EDT Office Visit Gastroenterology [address] [address] Richi Loja MD [address] [place] [address] est pt- ok to double book per Dr. Loja [facility]enter[facility] Comment on above: est pt- ok to double book per Dr. Shakila vega Start: 04-11-2024 End: 04-11-2024 Patient encounter procedure 04/11/2024 7:00 AM EST Office Visit [facility] [address] [place] [id number] Merlin Deutsch, [address] [place], [place] [id number] WELLNESS [facility] Comment on above: WELLNESS Start: 04-08-2024 Anxiety Screening Anxiety Screening [facility] Start: 04-08-2024 Depression Screening Depression Screening [facility] Start: 01-19-2024 End: 04-19-2024 BLOOD TB SCREEN BLOOD TB SCREEN Lab Routine Crohn's disease of small and large intestines with complication (HCC) Expected: 01/19/2024, Expires: 04/19/2024 [facility] Comment on above: Expected: 01/19/2024, Expires: Start: 01-19-2024 End: 04-19-2024 C reactive protein [Mass/volume] in Serum or Plasma C-REACTIVE PROTEIN Lab Routine Crohn's disease of small and large intestines with complication (HCC) Expected: 01/19/2024, Expires: 04/19/2024 [facility] Comment on above: Expected: 01/19/2024, Expires: Start: 01-19-2024 End: 04-19-2024 CBC panel - Blood by Automated count COMPLETE BLOOD COUNT Lab Routine Crohn's disease of small and large intestines with complication (HCC) Expected: 01/19/2024, Expires: 04/19/2024 [facility] Work Phone: Comment on above: Expected: 01/19/2024, Expires: Start: 01-19-2024 End: 04-19-2024 Chronic hepatitis differentiation between hepatitis B and C virus panel - Serum or Plasma HEP REMOTE PANEL BL Lab Routine Crohn's disease of small and large intestines with complication (HCC) Expected: 01/19/2024, Expires: 04/19/2024 [facility] Comment on above: Expected: 01/19/2024, Expires: Start: 01-19-2024 End: 04-19-2024 Comprehensive metabolic 2000 panel - Serum or Plasma COMPREHENSIVE METABOLIC PANEL Lab Routine Crohn's disease of small and large intestines with complication (HCC) Expected: 01/19/2024, Expires: 04/19/2024 [facility] Comment on above: Expected: 01/19/2024, Expires: Start: 12-06-2023 Covid-19 Vaccine () Covid-19 Vaccine () [facility] Start: 12-06-2023 Influenza vaccination [facility] Start: 2023 Cologuard (FIT-DNA) Cologuard (FIT-DNA) [facility] Start: [address] Colonography [facility] Start: 2023 Fecal Occult Blood Fecal Occult Blood [facility] Start: 2023 Screening for malignant neoplasm of colon [facility] Start: 2023 Sigmoidoscopy Sigmoidoscopy [facility] Start: 04-06-2023 Behavioral Health Screening Behavioral Health Screening [facility] Start: 12-05-2022 Covid-19 Vaccine () Covid-19 Vaccine () [facility] Start: 12-05-2022 Influenza vaccination [facility] Start: 04-06-2022 DEPRESSION ASSESSMENT DEPRESSION ASSESSMENT [facility] Start: 12-05-2021 Influenza vaccination [facility] Start: 08-20-2021 End: 10-20-2021 BLOOD TB SCREEN BLOOD TB SCREEN Lab Routine Crohn's disease of both small and large intestine without complication (HCC) Expected: 08/20/2021, Expires: 10/20/2021 [facility] Work Phone: Comment on above: Expected: 08/20/2021, Expires: 2 Start: 08-20-2021 End: 10-20-2021 C reactive protein [Mass/volume] in Serum or Plasma C-REACTIVE PROTEIN (CRP) Lab Routine Crohn's disease of both small and large intestine without complication (HCC) Expected: 08/20/2021, Expires: 10/20/2021 [facility] Work Phone: Comment on above: Expected: 08/20/2021, Expires: 2 Start: 08-20-2021 End: 10-20-2021 CBC W Auto Differential panel - Blood CBC + DIFF Lab Routine Crohn's disease of both small and large intestine without complication (HCC) Expected: 08/20/2021, Expires: 10/20/2021 [facility] Work Phone: Comment on above: Expected: 08/20/2021, Expires: 2 Start: 08-20-2021 End: 10-20-2021 Comprehensive metabolic 2000 panel - Serum or Plasma COMP METABOLIC PANEL Lab Routine Crohn's disease of both small and large intestine without complication (HCC) Expected: 08/20/2021, Expires: 10/20/2021 [facility] Work Phone: Comment on above: Expected: 08/20/2021, Expires: 2 Start: 08-20-2021 End: 10-20-2021 FERRITIN BLD FERRITIN BLD Lab Routine Crohn's disease of both small and large intestine without complication (HCC) Expected: 08/20/2021, Expires: 10/20/2021 [facility] Work Phone: Comment on above: Expected: 08/20/2021, Expires: 2 Start: 08-20-2021 End: 10-20-2021 IRON + TIBC IRON + TIBC Lab Routine Crohn's disease of both small and large intestine without complication (HCC) Expected: 08/20/2021, Expires: 10/20/2021 [facility] Work Phone: Comment on above: Expected: 08/20/2021, Expires: 2 Start: 08-20-2021 End: 10-20-2021 VITAMIN B12 BLOOD VITAMIN B12 BLOOD Lab Routine Crohn's disease of both small and large intestine without complication (HCC) Expected: 08/20/2021, Expires: 10/20/2021 [facility] Work Phone: Comment on above: Expected: 08/20/2021, Expires: 2 Start: 08-20-2021 End: 10-20-2021 VITAMIN D 25 HYDROXY VITAMIN D 25 HYDROXY Lab Routine Crohn's disease of both small and large intestine without complication (HCC) Expected: 08/20/2021, Expires: 10/20/2021 [facility] Work Phone: Comment on above: Expected: 08/20/2021, Expires: 2 Start: 04-06-2021 DEPRESSION ASSESSMENT DEPRESSION ASSESSMENT [facility] Start: 12-05-2020 Influenza vaccination INFLUENZA (#1) [facility] Start: 2013 LIPID SCREEN LIPID SCREEN [facility] Start: 1997 DTaP/Tdap/Td Vaccines (1 - Tdap) DTaP/Tdap/Td Vaccines (1 - Tdap) [facility] Start: 1997 HEPATITIS A (1 of 2 - Risk 2-dose series) HEPATITIS A (1 of 2 - Risk 2-dose series) [facility] Start: 1997 Hepatitis A Vaccine (1 of 2 - Risk 2-dose series) Hepatitis A Vaccine (1 of 2 - Risk 2-dose series) [facility] Start: 1997 HEPATITIS B (1 of 3 - Risk 3-dose series) HEPATITIS B (1 of 3 - Risk 3-dose series) [facility] Start: 1997 Hepatitis B Vaccine (1 of 3 - 19+ 3-dose series) Hepatitis B Vaccine (1 of 3 - 19+ 3-dose series) [facility] Start: 1997 Urine microalbumin profile [facility] Start: 1996 Anxiety Screening Anxiety Screening [facility] Start: 1996 Depression Screening Depression Screening [facility] Start: 1996 Hepatitis C screening Hepatitis C Screening [facility] Start: 1996 HIV SCREENING HIV SCREENING [facility] Start: 1996 MMR (1 of 2 - Risk 2-dose series) MMR (1 of 2 - Risk 2-dose series) [facility] Start: 1996 MMR Vaccine (1 of 2 - Risk 2-dose series) MMR Vaccine (1 of 2 - Risk 2-dose series) [facility] Start: 1990 Adult depression screening assessment DEPRESSION SCREENING [facility] Start: 1988 Meningococcal B Vaccine: Consider Based On Risk (1 of 4 - Increased Risk) Meningococcal B Vaccine: Consider Based On Risk (1 of 4 - Increased Risk) [facility] Start: 1988 MENINGOCOCCAL B: Consider based on risk (1 of 4 - Increased Risk Bexsero 2-dose series) MENINGOCOCCAL B: Consider based on risk (1 of 4 - Increased Risk Bexsero 2-dose series) [facility] Start: 1988 MENINGOCOCCAL B: Consider based on risk (1 of 4 - Increased Risk) MENINGOCOCCAL B: Consider based on risk (1 of 4 - Increased Risk) [facility] Start: 1984 Pneumococcal vaccination Pneumococcal Vaccine (1 of 2 - PCV) [facility] Start: 1983 COVID-19 VACCINE (#1) COVID-19 VACCINE (#1) [facility] Start: 1983 COVID-19 VACCINE (1) COVID-19 VACCINE (1) [facility] Start: 1979 HEPATITIS A (1 of 2 - Risk 2-dose series) HEPATITIS A (1 of 2 - Risk 2-dose series) [facility] Start: 1979 MMR Vaccines (1 of 1 - Standard series) MMR Vaccines (1 of 1 - Standard series) [facility] Start: 1978 COVID-19 VACCINE (#1) COVID-19 VACCINE (#1) [facility] Start: 1978 Hepatitis B Vaccines (1 of 3 - 3-dose series) Hepatitis B Vaccines (1 of 3 - 3-dose series) [facility] Start: 1978 HIV screening HIV Screening [facility] Start: 1978 Lipid panel Lipid Panel [facility] End: 11-18-2025 CBC panel - Blood by Automated count COMPLETE BLOOD COUNT Lab Routine Crohn's disease of small and large intestines with complication (HCC) Once per week for 5 Occurrences starting 11/18/2024 until 11/18/2025, [address] [facility] Work Phone: Comment on above: Once per week for 5 Occurrences starting 11/18/2024 until 11/18/2025, 1 completed End: 11-18-2025 Comprehensive metabolic 2000 panel - Serum or Plasma COMPREHENSIVE METABOLIC PANEL Lab Routine Crohn's disease of small and large intestines with complication (HCC) Once per week for 5 Occurrences starting 11/18/2024 until 11/18/2025, 1 completed [facility] Comment on above: Once per week for 5 Occurrences starting 11/18/2024 until 11/18/2025, 1 completed End: 09-19-2022 Dxa bone density study 1/> sites axial skel DXA-AXIAL [facility] Radiology Routine Crohn's disease of both small and large intestine without complication (HCC) residential current use of systemic steroids 1 Occurrences starting 08/20/2021 until 09/19/2022 [facility] Work Phone: Comment on above: 1 Occurrences starting 08/20/2021 until 09/19/2022 IgA [Mass/volume] in Serum or Plasma [facility] IgE [Units/volume] i n Serum or Plasma [facility] IgG [Mass/volume] in Serum or Plasma [facility] IgM [Mass/volume] in Serum or Plasma [facility] End: 11-18-2025 Iron and Iron binding capacity panel - Serum or Plasma IRON AND TIBC Lab Routine Crohn's disease of small and large intestines with complication (HCC) Once per week for 5 Occurrences starting 11/18/2024 until 11/18/2025, 1 completed [facility] Comment on above: Once per week for 5 Occurrences starting 11/18/2024 until 11/18/2025, 1 completed Measurement of coronavirus antibody [facility] Mycoplasma IgM measurement [facility] Mycoplasma pneumonia e IgG Ab [Presence] in Serum [facility] Procedure [facility] End: 10-22-2023 Screening colonoscopy COLONOSCOPY SCREENING Endoscopy Routine Crohn's disease of small and large intestines with complication (HCC) 1 Occurrences starting 10/21/2022 until 10/22/2023 [facility] Work Phone: Comment on above: 1 Occurrences starting 10/21/2022 until 10/22/2023 [facility] Payers Date Payer Category Payer Self-pay 2021 Blue Bakari Elias [facility] BLUE ACCE PPO [id number] 2021 Unknown [employer] ELIAS ACCE SS PPO [id number] 2021-Present [phone] [address] [place] [id number] PPO [id number] 2021 Unknown [id number] 2021 Unknown [employer] BLUE CARD PPO OOS [id number] 2021-Present [phone] [address] [place] [address] PPO [id number] 2019 Unknown [id number] 2012 Private Health Insurance [id number] Unknown [id number] Unknown [id number] Unknown [id number] Unknown [id number] Unknown [id number] Social History Date Type Detail Facility Start: 12-14-2019 End: 04-11-2024 Tobacco smoking status NHIS Never smoked tobacco [facility] Start: 12-19-2019 End: 11-18-2024 Alcohol intake Current drinker of alcohol (finding) [facility] Start: 12-08-2019 History SDOH Alcohol Comment once a month [facility] Start: 12-19-2019 History SDOH Financial 5 [facility] Start: 1980 Sex Assigned At Not on file [facility] Start: 10-09-2019 End: 08-29-2021 Exposure to SARS-CoV-2 (event) Not sure [facility] Start: 12-14-2019 End: 04-11-2024 Tobacco use and exposure Smokeless tobacco non-user [facility] Tobacco smoking status NDIS Tobacco smoking consumption unknown [facility] Start: 09-25-2022 End: 11-10-2024 Gender identity Not on file [facility] Work Phone: Start: 09-25-2022 End: 11-10-2024 History of Social function [facility] Work Phone: Start: 10-20-2014 How hard is it for you to pay for the very basics like food, housing, medical care, and heating Not hard at all [facility] Work Phone: (I/We) worried whether (my/our) food would run out before (I/we) got money to buy more. DK or Refused [facility] Work Phone: Start: 01-11-2021 Gender identity Identifies as male gender (finding) [facility] Start: 02-19-2015 Alcohol intake Not Asked [facility] Start: 1980 Sex Assigned At Male [facility] Has the electric, gas, oil, or water company threatened to shut off services in your home in past 12Mo No [facility] Work Phone: (I/We) worried whether (my/our) food would run out before (I/we) got money to buy more. Never true [facility] NEGATED: Highlighted rowStart: NINF History of tobacco use Passive smoker [facility] Functional Status Date Assessment Result Facility 11-12-2024 Are you deaf, or do you have serious difficulty hearing No 11/12/2024 1:42 PM Lori Treviño, MESSI [facility] 11-12-2024 Are you blind, or do you have serious difficulty seeing, even when wearing glasses No 11/12/2024 1:42 PM Lori Treviño, MESSI No [facility] 11-12-2024 Do you have serious difficulty walking or climbing stairs No 11/12/2024 1:42 PM Lori Treviño, MESSI No [facility] 11-12-2024 Do you have difficul ty dressing or bathing No 11/12/2024 1:42 PM Lori Treviño, MESSI [facility] 11-12-2024 Because of a physica l, mental, or emotional condition, do you have difficulty doing errands alone such as visiting a physician's office or shopping No 11/12/2024 1:42 PM Lori Treviño, MESSI No [facility] 12-20-2019 Are you deaf, or do you have serious difficulty hearing No 12/20/2019 12:48 PM EDT Cindy Asher RN No [facility] 12-20-2019 Are you blind, or do you have serious difficulty seeing, even when wearing glasses No 12/20/2019 12:48 PM EDT Cindy Asher RN No [facility] 12-20-2019 Do you have serious difficulty walking or climbing stairs No 12/20/2019 12:48 PM EDT Cindy Asher RN No [facility] 12-20-2019 Do you have difficul ty dressing or bathing No 12/20/2019 12:48 PM EDT Cindy Asher RN No [facility] 12-20-2019 Because of a physica l, mental, or emotional condition, do you have difficulty doing errands alone such as visiting a physician's office or shopping No 12/20/2019 12:48 PM EDT Cindy Asher RN No [facility] Mental Status Date Assessment Result Facility 11-12-2024 Because of a physica l, mental, or emotional condition, do you have serious difficulty concentrating, remembering, or making decisions No 11/12/2024 1:42 PM EDT Lori Pretty RN [facility] 12-20-2019 Because of a physica l, mental, or emotional condition, do you have serious difficulty concentrating, remembering, or making decisions No 12/20/2019 12:48 PM EDT Cindy Asher RN [facility] Clinical Notes 11-16-2019 to 12-06-2024 Sonia Dobson RN - 12/06/2024 1:39 PM Sonia Baker RN - 11/28/2024 2:06 PM Lily Middleton - 11/23/2024 11:28 AM Sonia Baker RN - 11/21/2024 1:02 PM EDTPatient Instructions Note Date & Type Note Facility 12-06-2024 Note HNO ID: [id number] Author: SONIA DOBSON RN Service: ? Author Type: Registered Nurse Type: Progress Notes Filed: 12/06/2024 13:43 Note Text: TRANSITION CARE MANAGEMENT (TCM) FOLLOW-UP NOTE Provider Action/FYI Patient identified by name and date of : YES Spoke to patient who reports doing better. Denies any new or concerning symptoms. NO signs/symptoms of GI bleed. No questions or concerns today. Will fu with GI and Merlin Deutsch DO for continued care. Appreciative of call and time spent Advised please call your PCP office if you have any new questions or concerns and/or if you develop any new or worsening symptoms call 911 or go to the ED for further evaluation. Patient stated understanding and agreeable with plan of care. SUMMARY: -Pt discharged from [facility] on 11/12/24. -Follow up appointment on declined PCP FU; plans to fu with GI. -Admitted for: GI bleed (completed 11/18/24) [facility] Registrar plan for next outreach: No further follow up needed at this time [facility] Education Ordered -: No Sonia Dobson RN December 06, 2024 1:[address] [facility] 12-06-2024 History of Presen t illness Narrative TRANSITION CARE MANAGEMENT (TCM) FOLLOW-UP NOTE Provider Action/FYI Patient identified by name and date of : YES Spoke to patient who reports doing better. Denies any new or concerning symptoms. NO signs/symptoms of GI bleed. No questions or concerns today. Will fu with GI and Merlin Deutsch DO for continued care. Appreciative of call and time spent Advised please call your PCP office if you have any new questions or concerns and/or if you develop any new or worsening symptoms call 911 or go to the ED for further evaluation. Patient stated understanding and agreeable with plan of care. SUMMARY: -Pt discharged from [facility] on 11/12/24. -Follow up appointment on declined PCP FU; plans to fu with GI. -Admitted for: GI bleed (completed 11/18/24) [facility] Registrar plan for next outreach: No further follow up needed at this time [facility] Education Ordered -: No Sonia Dobson RN December 06, 2024 1:39 PM documented in this encounter [facility] 12-06-2024 Note Patient Outreach (MR ACOSTA) JESUS DISLA ([id number]) 1980 M U[place] Date Time Provider Department 12/06/24 SONIA DOBSON [facility] During your visit today, we recorded the following information about you: Sonia Dobson, RN 12/06/2024 1:43 PM Signed TRANSITION CARE MANAGEMENT (TCM) FOLLOW-UP NOTE Provider Action/FYI Patient identified by name and date of : YES Spoke to patient who reports doing better. Denies any new or concerning symptoms. NO signs/symptoms of GI bleed. No questions or concerns today. Will fu with GI and Merlin Deutsch, DO for continued care. Appreciative of call and time spent Advised please call your PCP office if you have any new questions or concerns and/or if you develop any new or worsening symptoms call 911 or go to the ED for further evaluation. Patient stated understanding and agreeable with plan of care. SUMMARY: -Pt discharged from [facility] on 11/12/24. -Follow up appointment on declined PCP FU; plans to fu with GI. -Admitted for: GI bleed (completed 11/18/24) Family Court Registrar plan for next outreach: No further follow up needed at this time [facility] Education Ordered -: No Sonia Dobson RN December 06, 2024 1:39 PM Allergies As of Date: 12/06/2024 Noted Allergy Reaction ADALIMUMAB 12/12/2015 14 - Other: See Comments DUST 11/12/2022 14 - Other: See Comments MOLD 12/08/2019 14 - Other: See Comments Comments: runny nose POLLEN EXTRACTS 12/08/2019 14 - Other: See Comments Comments: runny nose Date Reviewed: 11/18/2024 Reviewed by: Laurel Abdalla MA - Fully Assessed Reason for Visit: Transition Of Care [4074] Cmt: TCM HOSPITAL DISCHARGE FOLLOW UP (final outreach) Prescriptions as of 12/06/2024 - cholecalciferol (VITAMIN D-3) 5,000 unit tab Take 5,000 Units by mouth once daily. - glucosam/chond-msm1/C/burton/bor ([id number]-MJQIX-XUO COMPLEX PO) Take 1 tablet by mouth three times a day. - magnesium L-threonate 48 mg magnesium (667 mg) cap Take 1 capsule by mouth three times a day. - ferrous sulfate (IRON) 325 mg (65 mg iron) tablet Take 325 mg by mouth once daily. - ascorbic acid, vitamin C, (VITAMIN C) 500 mg tablet Take 500 mg by mouth once daily. - calcium carb/magnesium carb (CALCIUM AND MAGNESIUM CARBONATES ORAL) Take 1 tablet by mouth once daily. - OTC NUTRITIONAL SUPPLEMENT Take 1 capsule by mouth once daily. Avamocal Advanced - Natural detoxification and antioxidant - OTC NUTRITIONAL SUPPLEMENT Take 1 capsule by mouth once daily. Biofilm disruptor - gut detox cleanse - naltrexone 4.5 mg cap Take 4.5 mg by mouth once daily. - vedolizumab (ENTYVIO) 300 mg injection Infuse 300mg via IV every 8 weeks. - saw palmetto 320 mg capsule Take 1 capsule by mouth once daily. - multivitamin tablet Take 1 tablet by mouth two times a day. - acetylcysteine (NAC) 600 mg capsule Take 1,200 mg by mouth twice daily. - Qeycg-3-ELG-EPA-Fish Oil (FISH OIL) 1,000 mg (120 mg-180 mg) cap Take 2 g by mouth twice daily. - calcium carb/vit D2/minerals (CALCIUM 600/MINERALS ORAL) Take 1 tablet by mouth once daily. Problem List As Of Date 12/06/2024 Noted Resolved Crohn's disease of both small and large intesti*02/19/2015 Crohn's disease (HCC) [K50.90] 12/16/2019 Close exposure to COVID-19 virus [Z20.822] 12/17/2019 Post-op pain [G89.18] 12/19/2019 Post-operative state [Z98.890] 12/19/2019 09/25/2022 Hypomagnesemia [E83.42] 12/19/2019 12/20/2019 History of partial surgical removal of colon [Z*01/02/2020 Diagnosed: 04/08/2023 GI bleed [K92.2] 11/09/2024 Acute blood loss anemia [D62] 11/09/2024 ABLA (acute blood loss anemia) [D62] 11/10/2024 Encounter Status:Closed by SONIA DOBSON on 12/06/24 [facility] 11-28-2024 Note HNO ID: [id number] Author: SONIA DOBSON, RN Service: ? Author Type: Registered Nurse Type: Progress Notes Filed: 11/28/2024 14:07 Note Text: TRANSITION CARE MANAGEMENT (TCM) FOLLOW-UP NOTE Provider Action/FYI Follow up outreach attempt to patient following hospital discharge. No answer, left voice message with call back number. Will attempt another patient outreach next week. SUMMARY: -Pt discharged from [facility] on 11/12/24. -Follow up appointment on declined PCP FU; plans to fu with GI. -Admitted for: GI bleed Family Court Registrar plan for next outreach: No further follow up needed at this time CHAVO Education Ordered -: No Sonia Dobson RN November 28, 2024 2:[address] [facility] 11-28-2024 History of Presen t illness Narrative TRANSITION CARE MANAGEMENT (TCM) FOLLOW-UP NOTE Provider Action/FYI Follow up outreach attempt to patient following hospital discharge. No answer, left voice message with call back number. Will attempt another patient outreach next week. SUMMARY: -Pt discharged from [facility] on 11/12/24. -Follow up appointment on declined PCP FU; plans to fu with GI. -Admitted for: GI bleed Family Court Registrar plan for next outreach: No further follow up needed at this time CHAVO Education Ordered -: No Sonia Dobson RN November 28, 2024 2:06 PM documented in this encounter [facility] 11-28-2024 Note Patient Outreach (MR ACOSTA) JESUS DISLA ([id number]) 1980 M [facility] Date Time Provider Department 11/28/24 [facility] During your visit today, we recorded the following information about you: Sonia Dobson, RN 11/28/2024 2:07 PM Signed TRANSITION CARE MANAGEMENT (TCM) FOLLOW-UP NOTE Provider Action/FYI Follow up outreach attempt to patient following hospital discharge. No answer, left voice message with call back number. Will attempt another patient outreach next week. SUMMARY: -Pt discharged from [facility] on 11/12/24. -Follow up appointment on declined PCP FU; plans to fu with GI. -Admitted for: GI bleed Family Court Registrar plan for next outreach: No further follow up needed at this time CHAVO Education Ordered -: No Sonia Dobson RN November 28, 2024 2:06 PM Allergies As of Date: 11/28/2024 Noted Allergy Reaction ADALIMUMAB 12/12/2015 14 - Other: See Comments DUST 11/12/2022 14 - Other: See Comments MOLD 12/08/2019 14 - Other: See Comments Comments: runny nose POLLEN EXTRACTS 12/08/2019 14 - Other: See Comments Comments: runny nose Date Reviewed: 11/18/2024 Reviewed by: Laurel Abdalla MA - Fully Assessed Reason for Visit: Transition Of Care [4074] Cmt: TCM HOSPITAL DISCHARGE FOLLOW UP Prescriptions as of 11/28/2024 - cholecalciferol (VITAMIN D-3) 5,000 unit tab Take 5,000 Units by mouth once daily. - glucosam/chond-msm1/C/burton/bor (NLIMVDLRIHQ-ZNKPY-JWW COMPLEX PO) Take 1 tablet by mouth three times a day. - magnesium L-threonate 48 mg magnesium (667 mg) cap Take 1 capsule by mouth three times a day. - ferrous sulfate (IRON) 325 mg (65 mg iron) tablet Take 325 mg by mouth once daily. - ascorbic acid, vitamin C, (VITAMIN C) 500 mg tablet Take 500 mg by mouth once daily. - calcium carb/magnesium carb (CALCIUM AND MAGNESIUM CARBONATES ORAL) Take 1 tablet by mouth once daily. - OTC NUTRITIONAL SUPPLEMENT Take 1 capsule by mouth once daily. Avamocal Advanced - Natural detoxification and antioxidant - OTC NUTRITIONAL SUPPLEMENT Take 1 capsule by mouth once daily. Biofilm disruptor - gut detox cleanse - naltrexone 4.5 mg cap Take 4.5 mg by mouth once daily. - vedolizumab (ENTYVIO) 300 mg injection Infuse 300mg via IV every 8 weeks. - saw palmetto 320 mg capsule Take 1 capsule by mouth once daily. - multivitamin tablet Take 1 tablet by mouth two times a day. - acetylcysteine (NAC) 600 mg capsule Take 1,200 mg by mouth twice daily. - Gmiue-3-HDV-EPA-Fish Oil (FISH OIL) 1,000 mg (120 mg-180 mg) cap Take 2 g by mouth twice daily. - calcium carb/vit D2/minerals (CALCIUM 600/MINERALS ORAL) Take 1 tablet by mouth once daily. Problem List As Of Date 11/28/2024 Noted Resolved Crohn's disease of both small and large intesti*02/19/2015 Crohn's disease (HCC) [K50.90] 12/16/2019 Close exposure to COVID-19 virus [Z20.822] 12/17/2019 Post-op pain [G89.18] 12/19/2019 Post-operative state [Z98.890] 12/19/2019 09/25/2022 Hypomagnesemia [E83.42] 12/19/2019 12/20/2019 History of partial surgical removal of colon [Z*01/02/2020 Diagnosed: 04/08/2023 GI bleed [K92.2] 11/09/2024 Acute blood loss anemia [D62] 11/09/2024 ABLA (acute blood loss anemia) [D62] 11/10/2024 Encounter Status:Closed by SONIA DOBSON on 11/28/24 [facility] 11-23-2024 Note HNO ID: [id number] Author: ?, ?, ? Service: ? Author Type: ? Type: Progress Notes Filed: 11/23/2024 11:29 Note Text: TCM Outreach Patient information received from TCM nurse requesting to schedule patient for TCM appointment. Patient identified by name and date of : NO Outreach outcome: Outreach outcome: did not make contact: alice Jeanridge Lily Atchison November 23, 2024 11:[address] [facility] 11-23-2024 History of Presen t illness Narrative TCM Outreach Patient information received from TCM nurse requesting to schedule patient for TCM appointment. Patient identified by name and date of : NO Outreach outcome: Outreach outcome: did not make contact: left voicemail Lily Martinez November 23, 2024 11:29 AM documented in this encounter [facility] 11-23-2024 Note Patient Outreach ( KARLA) JESUS DISLA ([id number]) 1980 M [facility] Date Time Provider Department 11/23/24 LILY MARTINEZ [facility] During your visit today, we recorded the following information about you: Lily Martinez 11/23/2024 11:29 AM Signed TCM Outreach Patient information received from TCM nurse requesting to schedule patient for TCM appointment. Patient identified by name and date of : NO Outreach outcome: Outreach outcome: did not make contact: left voicemail Lily Martinez November 23, 2024 11:29 AM Allergies As of Date: 11/23/2024 Noted Allergy Reaction ADALIMUMAB 12/12/2015 14 - Other: See Comments DUST 11/12/2022 14 - Other: See Comments MOLD 12/08/2019 14 - Other: See Comments Comments: runny nose POLLEN EXTRACTS 12/08/2019 14 - Other: See Comments Comments: runny nose Date Reviewed: 11/18/2024 Reviewed by: Laurel Abdalla MA - Fully Assessed Reason for Visit: Population Health Navigation Outreach [3910] Cmt: Left my contact info to schedule tcm Prescriptions as of 11/23/2024 - cholecalciferol (VITAMIN D-3) 5,000 unit tab Take 5,000 Units by mouth once daily. - glucosam/chond-msm1/C/burton/bor (IUVCGBKZZIH-PLZML-IKI COMPLEX PO) Take 1 tablet by mouth three times a day. - magnesium L-threonate 48 mg magnesium (667 mg) cap Take 1 capsule by mouth three times a day. - ferrous sulfate (IRON) 325 mg (65 mg iron) tablet Take 325 mg by mouth once daily. - ascorbic acid, vitamin C, (VITAMIN C) 500 mg tablet Take 500 mg by mouth once daily. - calcium carb/magnesium carb (CALCIUM AND MAGNESIUM CARBONATES ORAL) Take 1 tablet by mouth once daily. - OTC NUTRITIONAL SUPPLEMENT Take 1 capsule by mouth once daily. Avamocal Advanced - Natural detoxification and antioxidant - OTC NUTRITIONAL SUPPLEMENT Take 1 capsule by mouth once daily. Biofilm disruptor - gut detox cleanse - naltrexone 4.5 mg cap Take 4.5 mg by mouth once daily. - vedolizumab (ENTYVIO) 300 mg injection Infuse 300mg via IV every 8 weeks. - saw palmetto 320 mg capsule Take 1 capsule by mouth once daily. - multivitamin tablet Take 1 tablet by mouth two times a day. - acetylcysteine (NAC) 600 mg capsule Take 1,200 mg by mouth twice daily. - Lkqqm-1-VBT-EPA-Fish Oil (FISH OIL) 1,000 mg (120 mg-180 mg) cap Take 2 g by mouth twice daily. - calcium carb/vit D2/minerals (CALCIUM 600/MINERALS ORAL) Take 1 tablet by mouth once daily. Problem List As Of Date 11/23/2024 Noted Resolved Crohn's disease of both small and large intesti*02/19/2015 Crohn's disease (HCC) [K50.90] 12/16/2019 Close exposure to COVID-19 virus [Z20.822] 12/17/2019 Post-op pain [G89.18] 12/19/2019 Post-operative state [Z98.890] 12/19/2019 09/25/2022 Hypomagnesemia [E83.42] 12/19/2019 12/20/2019 History of partial surgical removal of colon [Z*01/02/2020 Diagnosed: 04/08/2023 GI bleed [K92.2] 11/09/2024 Acute blood loss anemia [D62] 11/09/2024 ABLA (acute blood loss anemia) [D62] 11/10/2024 Encounter Status:Closed by BRYANTMICHELLELILY on 11/23/24 [facility] 11-21-2024 Note HNO ID: [id number] Author: SONIA DOBSON RN Service: ? Author Type: Registered Nurse Type: Progress Notes Filed: 11/21/2024 13:11 Note Text: TRANSITION CARE MANAGEMENT (TCM) FOLLOW-UP NOTE Provider Action/FYI Patient identified by name and date of : YES Spoke to patient who reports doing better. Completed GI OV 11/18/24 Blood counts are coming up. Denies any new or worsening symptoms. Has appointment with Provider outside of [facility] to possibly establish care as PCP. He is unsure yet. Considering change because of insurance and billing issues. Patient verbalized no medication or equipment needs Reminded of upcoming appts Will follow for TCM Appreciative of call and time spent Agreeable to outreach next week. Advised please call your PCP office if you have any new questions or concerns and/or if you develop any new or worsening symptoms call 911 or go to the ED for further evaluation. Patient stated understanding and agreeable with plan of care. SUMMARY: -Pt discharged from [facility] on 11/12/24. -Follow up appointment on declined PCP FU; plans to fu with GI. -Admitted for: GI bleed Transitions of Care Critical Issues: follow-up with his regular GI doctor in 2 weeks. Recommended recheck blood work in 3 to 5 days and follow-up with his primary care. Family Court Registrar plan for next outreach: Will follow up next week. CHAVO Education Ordered -: No Sonia Dobson RN November 21, 2024 1:[address] [facility] 11-21-2024 History of Presen t illness Narrative TRANSITION CARE MANAGEMENT (TCM) FOLLOW-UP NOTE Provider Action/FYI Patient identified by name and date of : YES Spoke to patient who reports doing better. Completed GI OV 11/18/24 Blood counts are coming up. Denies any new or worsening symptoms. Has appointment with Provider outside of [facility] to possibly establish care as PCP. He is unsure yet. Considering change because of insurance and billing issues. Patient verbalized no medication or equipment needs Reminded of upcoming appts Will follow for TCM Appreciative of call and time spent Agreeable to outreach next week. Advised please call your PCP office if you have any new questions or concerns and/or if you develop any new or worsening symptoms call 911 or go to the ED for further evaluation. Patient stated understanding and agreeable with plan of care. SUMMARY: -Pt discharged from [facility] on 11/12/24. -Follow up appointment on declined PCP FU; plans to fu with GI. -Admitted for: GI bleed Transitions of Care Critical Issues: follow-up with his regular GI doctor in 2 weeks. Recommended recheck blood work in 3 to 5 days and follow-up with his primary care. Family Court Registrar plan for next outreach: Will follow up next week. CHAVO Education Ordered -: No Sonia Dobson RN November 21, 2024 1:02 PM documented in this encounter [facility] 11-21-2024 Note Patient Outreach (MR CAC) JESUS DISLA ([id number]) 1980 M [facility] Date Time Provider Department 11/21/24 SONIA DOBSON [facility] During your visit today, we recorded the following information about you: Sonia Dobson RN 11/21/2024 1:11 PM Signed TRANSITION CARE MANAGEMENT (TCM) FOLLOW-UP NOTE Provider Action/FYI Patient identified by name and date of : YES Spoke to patient who reports doing better. Completed GI OV 11/18/24 Blood counts are coming up. Denies any new or worsening symptoms. Has appointment with Provider outside of [facility] to possibly establish care as PCP. He is unsure yet. Considering change because of insurance and billing issues. Patient verbalized no medication or equipment needs Reminded of upcoming appts Will follow for TCM Appreciative of call and time spent Agreeable to outreach next week. Advised please call your PCP office if you have any new questions or concerns and/or if you develop any new or worsening symptoms call 911 or go to the ED for further evaluation. Patient stated understanding and agreeable with plan of care. SUMMARY: -Pt discharged from [facility] on 11/12/24. -Follow up appointment on declined PCP FU; plans to fu with GI. -Admitted for: GI bleed Transitions of Care Critical Issues: follow-up with his regular GI doctor in 2 weeks. Recommended recheck blood work in 3 to 5 days and follow-up with his primary care. Family Court Registrar plan for next outreach: Will follow up next week. CHAVO Education Ordered -: No Sonia Dobson RN November 21, 2024 1:02 PM Allergies As of Date: 11/21/2024 Noted Allergy Reaction ADALIMUMAB 12/12/2015 14 - Other: See Comments DUST 11/12/2022 14 - Other: See Comments MOLD 12/08/2019 14 - Other: See Comments Comments: runny nose POLLEN EXTRACTS 12/08/2019 14 - Other: See Comments Comments: runny nose Date Reviewed: 11/18/2024 Reviewed by: Laurel Abdalla, ENZO - Fully Assessed Reason for Visit: Transition Of Care [4074] Cmt: TCM HOSPITAL DISCHARGE FOLLOW UP Prescriptions as of 11/21/2024 - cholecalciferol (VITAMIN D-3) 5,000 unit tab Take 5,000 Units by mouth once daily. - glucosam/chond-msm1/C/burton/bor (ZESAZSEGNBN-EJJMO-PJO COMPLEX PO) Take 1 tablet by mouth three times a day. - magnesium L-threonate 48 mg magnesium (667 mg) cap Take 1 capsule by mouth three times a day. - ferrous sulfate (IRON) 325 mg (65 mg iron) tablet Take 325 mg by mouth once daily. - ascorbic acid, vitamin C, (VITAMIN C) 500 mg tablet Take 500 mg by mouth once daily. - calcium carb/magnesium carb (CALCIUM AND MAGNESIUM CARBONATES ORAL) Take 1 tablet by mouth once daily. - OTC NUTRITIONAL SUPPLEMENT Take 1 capsule by mouth once daily. Avamocal Advanced - Natural detoxification and antioxidant - OTC NUTRITIONAL SUPPLEMENT Take 1 capsule by mouth once daily. Biofilm disruptor - gut detox cleanse - naltrexone 4.5 mg cap Take 4.5 mg by mouth once daily. - vedolizumab (ENTYVIO) 300 mg injection Infuse 300mg via IV every 8 weeks. - saw palmetto 320 mg capsule Take 1 capsule by mouth once daily. - multivitamin tablet Take 1 tablet by mouth two times a day. - acetylcysteine (NAC) 600 mg capsule Take 1,200 mg by mouth twice daily. - Mqeio-0-XHY-EPA-Fish Oil (FISH OIL) 1,000 mg (120 mg-180 mg) cap Take 2 g by mouth twice daily. - calcium carb/vit D2/minerals (CALCIUM 600/MINERALS ORAL) Take 1 tablet by mouth once daily. Problem List As Of Date 11/21/2024 Noted Resolved Crohn's disease of both small and large intesti*02/19/2015 Crohn's disease (HCC) [K50.90] 12/16/2019 Close exposure to COVID-19 virus [Z20.822] 12/17/2019 Post-op pain [G89.18] 12/19/2019 Post-operative state [Z98.890] 12/19/2019 09/25/2022 Hypomagnesemia [E83.42] 12/19/2019 12/20/2019 History of partial surgical removal of colon [Z*01/02/2020 Diagnosed: 04/08/2023 GI bleed [K92.2] 11/09/2024 Acute blood loss anemia [D62] 11/09/2024 ABLA (acute blood loss anemia) [D62] 11/10/2024 Encounter Status:Closed by SONIA DOBSON on 11/21/24 [facility] 11-18-2024 Note HNO ID: [id number] Author: RICHI LOJA MD Service: ? Author Type: Physician Type: Progress Notes Filed: 11/18/2024 10:11 Note Text: Follow Up Visit: BP 106/57 (BP Site: Left Arm, BP Position: Sitting, BP Cuff Size: Regular Adult) Pulse 85 Ht 177.8 cm (5' 10) Wt 78.7 kg (173 lb 8 oz) SpO2 100% BMI 24.89 kg/m? Medications: Current Outpatient Medications Medication Sig cholecalciferol (VITAMIN D-3) 5,000 unit tab Take 5,000 Units by mouth once daily. glucosam/chond-msm1/C/burton/bor (RZFQDLPVZYW-FLPVF-BUG COMPLEX PO) Take 1 tablet by mouth three times a day. magnesium L-threonate 48 mg magnesium (667 mg) cap Take 1 capsule by mouth three times a day. ferrous sulfate (IRON) 325 mg (65 mg iron) tablet Take 325 mg by mouth once daily. ascorbic acid, vitamin C, (VITAMIN C) 500 mg tablet Take 500 mg by mouth once daily. calcium carb/magnesium carb (CALCIUM AND MAGNESIUM CARBONATES ORAL) Take 1 tablet by mouth once daily. OTC NUTRITIONAL SUPPLEMENT Take 1 capsule by mouth once daily. Avamocal Advanced - Natural detoxification and antioxidant OTC NUTRITIONAL SUPPLEMENT Take 1 capsule by mouth once daily. Biofilm disruptor - gut detox cleanse naltrexone 4.5 mg cap Take 4.5 mg by mouth once daily. vedolizumab (ENTYVIO) 300 mg injection Infuse 300mg via IV every 8 weeks. saw palmetto 320 mg capsule Take 1 capsule by mouth once daily. multivitamin tablet Take 1 tablet by mouth two times a day. acetylcysteine (NAC) 600 mg capsule Take 1,200 mg by mouth twice daily. Frfgs-2-ERR-EPA-Fish Oil (FISH OIL) 1,000 mg (120 mg-180 mg) cap Take 2 g by mouth twice daily. calcium carb/vit D2/minerals (CALCIUM 600/MINERALS ORAL) Take 1 tablet by mouth once daily. No current facility-administered medications for this visit. Subjective: The patient is a 44-year-old male with Crohn?s disease, s/p right hemicolectomy with small bowel resection in 2019, presenting for follow-up after a recent hospitalization for acute GI bleeding. Two weeks prior to hospitalization, he experienced a weekend of mild nausea and malaise, but no change in bowel habits. On the night of symptom onset last week, he awoke with acute, severe, midline lower abdominal pain (below the umbilicus and above the groin) that was severe enough to wake him from sleep. He took Advil for the pain, which he rarely uses (approximately once per month). Later that night, he experienced significant hematochezia and syncope, prompting admission to [facility]. Colonoscopy revealed a circumferential bleeding ulcer at the neoterminal ileum anastomosis, which was treated with bipolar cautery. A stricture was also noted in the terminal ileum, and blood was present throughout the examined colon. No biopsies were taken. CT scan the following day showed diffuse, fluid-filled colonic distention. He did not receive steroids or other Crohn?s-specific therapy during hospitalization. His hemoglobin dropped to 7.2 g/dL, requiring one unit of transfused blood. Three days ago, his hemoglobin was 8.7 g/dL. He reports profound fatigue and low energy since discharge, with difficulty performing daily activities. Prior to this event, his hemoglobin was 14.5 g/dL (01/2024). He has a history of iron deficiency (iron 17, ferritin 6-7) and was previously receiving iron infusions with good effect. He is currently on Entyvio, with prior use of Humira. He also takes naltrexone for inflammation and multiple nutritional supplements. He denies joint pain, skin lesions, or other extraintestinal symptoms. He reports 3 formed bowel movements per day, with rare, minor rectal bleeding (twice per year). His weight is stable at 173 lbs, with intentional weight loss. Diagnostics: (No date) Laboratory Testing: - Hemoglobin: 8.7 g/dL (No date) Laboratory Testing: - Hemoglobin: 7.2 g/dL (No date) Colonoscopy: Circumferential bleeding ulcer in the neoterminal ileum treated with bipolar cautery; stricture in the terminal ileum; diffuse bleeding evident throughout the examined colon (11/10) CT Abdomen and Pelvis: Diffuse fluid-filled colonic distention without other acute findings Constitutional: (+) fatigue, (+) weight loss Gastrointestinal: (-) abdominal pain, (-) rectal bleeding Musculoskeletal: (-) arthralgia Skin: (-) skin lesions Physical Examination: GENERAL/CONSTITUTIONAL: Alert and active in no apparent distress HEAD: Normocephalic EYE: PERRLA, conjunctiva clear, no icterus EAR: Right: -normal, Left: -normal NOSE/SINUS: Nares normal, septum midline, mucosa normal OROPHARYNX: Moist mucous membranes, tonsils without hypertrophy, and no exudates present NECK/LYMPHATIC: Supple, no adenopathy CARDIAC: Regular rate and rhythm without murmurs or clicks RESPIRATORY: Clear to auscultation GASTROINTESTINAL: Abdomen is soft, non-tender, BS normal, no masses or organomegaly, and no abdominal or flank bruits noted on auscu (more content not included)... [facility] 11-18-2024 History of Presen t illness Narrative Follow Up Visit: BP 106/57 (BP Site: Left Arm, BP Position: Sitting, BP Cuff Size: Regular Adult) Pulse 85 Ht 177.8 cm (5' 10) Wt 78.7 kg (173 lb 8 oz) SpO2 100% BMI 24.89 kg/m Medications: Current Outpatient Medications Medication Sig cholecalciferol (VITAMIN D-3) 5,000 unit tab Take 5,000 Units by mouth once daily. glucosam/chond-msm1/C/burton/bor (DGFFGURKVLT-VMNYC-JMN COMPLEX PO) Take 1 tablet by mouth three times a day. magnesium L-threonate 48 mg magnesium (667 mg) cap Take 1 capsule by mouth three times a day. ferrous sulfate (IRON) 325 mg (65 mg iron) tablet Take 325 mg by mouth once daily. ascorbic acid, vitamin C, (VITAMIN C) 500 mg tablet Take 500 mg by mouth once daily. calcium carb/magnesium carb (CALCIUM & MAGNESIUM CARBONATES ORAL) Take 1 tablet by mouth once daily. OTC NUTRITIONAL SUPPLEMENT Take 1 capsule by mouth once daily. Avamocal Advanced - Natural detoxification and antioxidant OTC NUTRITIONAL SUPPLEMENT Take 1 capsule by mouth once daily. Biofilm disruptor - gut detox cleanse naltrexone 4.5 mg cap Take 4.5 mg by mouth once daily. vedolizumab (ENTYVIO) 300 mg injection Infuse 300mg via IV every 8 weeks. saw palmetto 320 mg capsule Take 1 capsule by mouth once daily. multivitamin tablet Take 1 tablet by mouth two times a day. acetylcysteine (NAC) 600 mg capsule Take 1,200 mg by mouth twice daily. Frcds-1-CEL-EPA-Fish Oil (FISH OIL) 1,000 mg (120 mg-180 mg) cap Take 2 g by mouth twice daily. calcium carb/vit D2/minerals (CALCIUM 600/MINERALS ORAL) Take 1 tablet by mouth once daily. No current facility-administered medications for this visit. Subjective: The patient is a 44-year-old male with Crohn s disease, s/p right hemicolectomy with small bowel resection in 2019, presenting for follow-up after a recent hospitalization for acute GI bleeding. Two weeks prior to hospitalization, he experienced a weekend of mild nausea and malaise, but no change in bowel habits. On the night of symptom onset last week, he awoke with acute, severe, midline lower abdominal pain (below the umbilicus and above the groin) that was severe enough to wake him from sleep. He took Advil for the pain, which he rarely uses (approximately once per month). Later that night, he experienced significant hematochezia and syncope, prompting admission to [facility]. Colonoscopy revealed a circumferential bleeding ulcer at the neoterminal ileum anastomosis, which was treated with bipolar cautery. A stricture was also noted in the terminal ileum, and blood was present throughout the examined colon. No biopsies were taken. CT scan the following day showed diffuse, fluid-filled colonic distention. He did not receive steroids or other Crohn s-specific therapy during hospitalization. His hemoglobin dropped to 7.2 g/dL, requiring one unit of transfused blood. Three days ago, his hemoglobin was 8.7 g/dL. He reports profound fatigue and low energy since discharge, with difficulty performing daily activities. Prior to this event, his hemoglobin was 14.5 g/dL (01/2024). He has a history of iron deficiency (iron 17, ferritin 6-7) and was previously receiving iron infusions with good effect. He is currently on Entyvio, with prior use of Humira. He also takes naltrexone for inflammation and multiple nutritional supplements. He denies joint pain, skin lesions, or other extraintestinal symptoms. He reports 3 formed bowel movements per day, with rare, minor rectal bleeding (twice per year). His weight is stable at 173 lbs, with intentional weight loss. Diagnostics: (No date) Laboratory Testing: - Hemoglobin: 8.7 g/dL (No date) Laboratory Testing: - Hemoglobin: 7.2 g/dL (No date) Colonoscopy: Circumferential bleeding ulcer in the neoterminal ileum treated with bipolar cautery; stricture in the terminal ileum; diffuse bleeding evident throughout the examined colon (11/10) CT Abdomen and Pelvis: Diffuse fluid-filled colonic distention without other acute findings Constitutional: (+) fatigue, (+) weight loss Gastrointestinal: (-) abdominal pain, (-) rectal bleeding Musculoskeletal: (-) arthralgia Skin: (-) skin lesions Physical Examination: GENERAL/CONSTITUTIONAL: Alert and active in no apparent distress HEAD: Normocephalic EYE: PERRLA, conjunctiva clear, no icterus EAR: Right: -normal, Left: -normal NOSE/SINUS: Nares normal, septum midline, mucosa normal OROPHARYNX: Moist mucous membranes, tonsils without hypertrophy, and no exudates present NECK/LYMPHATIC: Supple, no adenopathy CARDIAC: Regular rate and rhythm without murmurs or clicks RESPIRATORY: Clear to auscultation GASTROINTESTINAL: Abdomen is soft, non-tender, BS normal, no masses or organomegaly, and no abdominal or flank bruits noted on auscultation RECTAL: Deferred exam NEURO: Muscle tone normal, normal age-appropriate gait and no involuntary motions GENITOURINARY: Deferred MUSCULOSKELETAL: Extremities with FROM, no problems identified EXTREMITY: Normal exam, no clubbing, cyanosis, or edema SKIN: Normal color, no jaundice or rash CBC: @LASTLABX(WBC:2,HB,MCV,PLT,neut, lymphp])@ CMP: Alkaline Phosphatase (U/L) Date Value 11/09/2024 37 (L) AST (U/L) Date Value 11/09/2024 20 ALT (U/L) Date Value 11/09/2024 16 Bilirubin, Total (mg/dL) Date Value 11/09/2024 0.7 Glucose (mg/dL) Date Value 11/12/2024 91 BUN (mg/dL) Date Value 11/12/2024 8 (L) Creatinine (mg/dL) Date Value 11/12/2024 1.19 Sodium (mmol/L) Date Value 11/12/2024 142 Chloride (mmol/L) Date Value 11/12/2024 108 (H) CO2 (mmol/L) Date Value 11/12/2024 27 Protein, Total (g/dL) Date Value 11/09/2024 4.8 (L) Albumin (g/dL) Date Value 11/12/2024 2.8 (L) Calcium, Total (mg/dL) Date Value 11/12/2024 7.9 (L) TSH: No results found for: TSH Impression and Plan: Crohn's disease - suspect bleeding was from NSAID use. Will rec he strictly avoid NSAIDs, will check hgb now and every 1 week. Oral iron bid. I have confirmed and edited as necessary PFSH and ROS obtained by others. Richi Loja MD Date: November 18, 2024 documented in this encounter [facility] 11-15-2024 Progress note Formatting of t his note might be different from the original. Improving blood count. Keep follow up with GI [facility] 11-15-2024 Miscellaneous Notes Improving blood count. Keep follow up with GI documented in this encounter [facility] 11-14-2024 Telephone encounter Note Chart reviewed. Order placed. Merlin Deutsch DO November 14, 2024 12:07 PM [facility] 11-14-2024 Miscellaneous Notes Chart reviewed. Order placed. Merlin Deutsch DO November 14, 2024 12:07 PM Patient called in and wanted to know if you would put in lab orders for him? He would like to check the hemoglobin because it low. Patient just got out of the hospital [facility] on Thursday. He said he doesn't want to set up a hospital appt. Nahomy Cueva November 14, 2024 11:54 AM documented in this encounter [facility] 11-14-2024 Telephone encounter Note Patient called in and wanted to know if you would put in lab orders for him? He would like to check the hemoglobin because it low. Patient just got out of the [facility] on Thursday. He said he doesn't want to set up a hospital appt. Nahomy Anay November 14, 2024 11:54 AM [facility] 11-14-2024 Note HNO ID: [id number] Author: SONIA DOBSON RN Service: ? Author Type: Registered Nurse Type: Progress Notes Filed: 11/14/2024 10:01 Note Text: TRANSITION CARE MANAGEMENT (TCM) INITIAL CONTACT Provider Action/FYI: Please place orders for lab work Recommended recheck blood work in 3 to 5 days Thank you Initial contact with patient post discharge, spoke to patient. Patient identified by name and . Reports doing better Denies any new or worsening symptoms. Still with some intermittent dizziness No blood in stool; regular BMs with no signs of bleeding Tolerating regular diet and taking iron supplements. He will schedule fu with GI Pt denies questions or concerns regarding medications, self care, and discharge instructions. Pt has follow up appointments in place and is agreeable with recommended plan of care. Appreciative of call and time spent Agreeable to outreach next week. Advised please call your PCP office if you have any new questions or concerns and/or if you develop any new or worsening symptoms call 911 or go to the ED for further evaluation. Patient stated understanding and agreeable with plan of care. TCM Eligibility Documentation Program: Transitional Care Management Status: Enrolled Effective Dates: 11/14/2024 - present Responsible Staff: Sonia Dobson office system analyst date: 11/12/2024 (Program start) Date of initial contact: 11/14/2024 Initial contact Target status: Successful; Contact made within 2 business days post-discharge SUMMARY: -Pt discharged from [facility] on 11/12/24. -Follow up appointment on declined PCP FU; plans to fu with GI. -Admitted for: GI bleed Transitions of Care Critical Issues: follow-up with his regular GI doctor in 2 weeks. Recommended recheck blood work in 3 to 5 days and follow-up with his primary care. BRIEF HOSPITAL COURSE: HOSPITAL COURSE: 44 year old male with PMH of Crohn's Disease diagnosed in 2003, s/p partial colectomy in 2019 and Laparoscopic ileocolic anastomosis with lymphadenectomy presents to the MICU with acute lower GI bleeding, presenting with multiple bloody bowel movements at work with lightheadedness, syncopal episode. He has been receiving Entyvio and iron infusions for chronic anemia. CTA positive for bleeding within the proximal ascending colon near enterocolic anastomosis. IR was consulted for an emergent embolization. However there was no active bleed found in the entero colic anastomosis and an embolization was not performed. (site of right groin sheath. ) bedside colonoscopy done on 11/10/24-Coagulation for hemostasis done. On 11/11/2024, patient received 1 more unit of blood transfusion. Vitals has been stable. No more GI bleed x 48 hours. GI saw patient, stable for discharge. Patient is to follow-up with his regular GI doctor in 2 weeks. Recommended recheck blood work in 3 to 5 days and follow-up with his primary care. Pt and family has no concerns with discharge today. Nursing staff has no concern with discharge today. Patient had the opportunity to ask questions and questions were answered to satisfaction. Discharge preparation required approximately 45 minutes, encompassing patient education, medication review, and completion of discharge planning and paperwork. [facility] 11-14-2024 History of Presen t illness Narrative TRANSITION CARE MANAGEMENT (TCM) INITIAL CONTACT Provider Action/FYI: Please place orders for lab work Recommended recheck blood work in 3 to 5 days Thank you Initial contact with patient post discharge, spoke to patient. Patient identified by name and . Reports doing better Denies any new or worsening symptoms. Still with some intermittent dizziness No blood in stool; regular BMs with no signs of bleeding Tolerating regular diet and taking iron supplements. He will schedule fu with GI Pt denies questions or concerns regarding medications, self care, and discharge instructions. Pt has follow up appointments in place and is agreeable with recommended plan of care. Appreciative of call and time spent Agreeable to outreach next week. Advised please call your PCP office if you have any new questions or concerns and/or if you develop any new or worsening symptoms call 911 or go to the ED for further evaluation. Patient stated understanding and agreeable with plan of care. TCM Eligibility Documentation Program: Transitional Care Management Status: Enrolled Effective Dates: 11/14/2024 - present Responsible Staff: Sonia Dobson RN Discharge date: 11/12/2024 (Program start) Date of initial contact: 11/14/2024 Initial contact Target status: Successful; Contact made within 2 business days post-discharge SUMMARY: -Pt discharged from [facility] on 11/12/24. -Follow up appointment on declined PCP FU; plans to fu with GI. -Admitted for: GI bleed Transitions of Care Critical Issues: follow-up with his regular GI doctor in 2 weeks. Recommended recheck blood work in 3 to 5 days and follow-up with his primary care. BRIEF HOSPITAL COURSE: HOSPITAL COURSE: 44 year old male with PMH of Crohn's Disease diagnosed in 2003, s/p partial colectomy in 2019 and Laparoscopic ileocolic anastomosis with lymphadenectomy presents to the MICU with acute lower GI bleeding, presenting with multiple bloody bowel movements at work with lightheadedness, syncopal episode. He has been receiving Entyvio and iron infusions for chronic anemia. CTA positive for bleeding within the proximal ascending colon near enterocolic anastomosis. IR was consulted for an emergent embolization. However there was no active bleed found in the entero colic anastomosis and an embolization was not performed. (site of right groin sheath. ) bedside colonoscopy done on 11/10/24-Coagulation for hemostasis done. On 11/11/2024, patient received 1 more unit of blood transfusion. Vitals has been stable. No more GI bleed x 48 hours. GI saw patient, stable for discharge. Patient is to follow-up with his regular GI doctor in 2 weeks. Recommended recheck blood work in 3 to 5 days and follow-up with his primary care. Pt and family has no concerns with discharge today. Nursing staff has no concern with discharge today. Patient had the opportunity to ask questions and questions were answered to satisfaction. Discharge preparation required approximately 45 minutes, encompassing patient education, medication review, and completion of discharge planning and paperwork. documented in this encounter [facility] 11-14-2024 Note Patient Outreach (MR ACOSTA) JESUS DISLA ([id number]) 1980 M [facility] Date Time Provider Department 11/14/24 SONIA DOBSON [facility] During your visit today, we recorded the following information about you: Sonia Dobson RN 11/14/2024 10:01 AM Signed TRANSITION CARE MANAGEMENT (TCM) INITIAL CONTACT Provider Action/FYI: Please place orders for lab work Recommended recheck blood work in 3 to 5 days Thank you Initial contact with patient post discharge, spoke to patient. Patient identified by name and . Reports doing better Denies any new or worsening symptoms. Still with some intermittent dizziness No blood in stool; regular BMs with no signs of bleeding Tolerating regular diet and taking iron supplements. He will schedule fu with GI Pt denies questions or concerns regarding medications, self care, and discharge instructions. Pt has follow up appointments in place and is agreeable with recommended plan of care. Appreciative of call and time spent Agreeable to outreach next week. Advised please call your PCP office if you have any new questions or concerns and/or if you develop any new or worsening symptoms call 911 or go to the ED for further evaluation. Patient stated understanding and agreeable with plan of care. TCM Eligibility Documentation Program: Transitional Care Management Status: Enrolled Effective Dates: 11/14/2024 - present Responsible Staff: Sonia Dobson, office system analyst date: 11/12/2024 (Program start) Date of initial contact: 11/14/2024 Initial contact Target status: Successful; Contact made within 2 business days post-discharge SUMMARY: -Pt discharged from [facility] on 11/12/24. -Follow up appointment on declined PCP FU; plans to fu with GI. -Admitted for: GI bleed Transitions of Care Critical Issues: follow-up with his regular GI doctor in 2 weeks. Recommended recheck blood work in 3 to 5 days and follow-up with his primary care. BRIEF HOSPITAL COURSE: HOSPITAL COURSE: 44 year old male with PMH of Crohn's Disease diagnosed in 2003, s/p partial colectomy in 2019 and Laparoscopic ileocolic anastomosis with lymphadenectomy presents to the MICU with acute lower GI bleeding, presenting with multiple bloody bowel movements at work with lightheadedness, syncopal episode. He has been receiving Entyvio and iron infusions for chronic anemia. CTA positive for bleeding within the proximal ascending colon near enterocolic anastomosis. IR was consulted for an emergent embolization. However there was no active bleed found in the entero colic anastomosis and an embolization was not performed. (site of right groin sheath. ) bedside colonoscopy done on 11/10/24-Coagulation for hemostasis done. On 11/11/2024, patient received 1 more unit of blood transfusion. Vitals has been stable. No more GI bleed x 48 hours. GI saw patient, stable for discharge. Patient is to follow-up with his regular GI doctor in 2 weeks. Recommended recheck blood work in 3 to 5 days and follow-up with his primary care. Pt and family has no concerns with discharge today. Nursing staff has no concern with discharge today. Patient had the opportunity to ask questions and questions were answered to satisfaction. Discharge preparation required approximately 45 minutes, encompassing patient education, medication review, and completion of discharge planning and paperwork. Allergies As of Date: 11/14/2024 Noted Allergy Reaction ADALIMUMAB 12/12/2015 14 - Other: See Comments DUST 11/12/2022 14 - Other: See Comments MOLD 12/08/2019 14 - Other: See Comments Comments: runny nose POLLEN EXTRACTS 12/08/2019 14 - Other: See Comments Comments: runny nose Date Reviewed: 11/10/2024 Reviewed by: Kailyn Nieto RN - Fully Assessed Reason for Visit: Transition Of Care [4074] Cmt: [facility] DISCHARGE FOLLOW UP (Initial Outreach) Prescriptions as of 11/14/2024 - cholecalciferol (VITAMIN D-3) 5,000 unit tab Take 5,000 Units by mouth once daily. - glucosam/chond-msm1/C/burton/bor (XMUNATSIELW-HEVYP-KZC COMPLEX PO) Take 1 tablet by mouth three times a day. - magnesium L-threonate 48 mg magnesium (667 mg) cap Take 1 capsule by mouth three times a day. - ferrous sulfate (IRON) 325 mg (65 mg iron) tablet Take 325 mg by mouth once daily. - ascorbic acid, vitamin C, (VITAMIN C) 500 mg tablet Take 500 mg by mouth once daily. - calcium carb/magnesium carb (CALCIUM AND MAGNESIUM CARBONATES ORAL) Take 1 tablet by mouth once daily. - OTC NUTRITIONAL SUPPLEMENT Take 1 capsule by mouth once daily. Avamocal Advanced - Natural detoxification and antioxidant - OTC NUTRITIONAL SUPPLEMENT Take 1 capsule by mouth once daily. Biofilm disruptor - gut detox cleanse - naltrexone 4.5 mg cap Take 4.5 mg by mouth once daily. - vedolizumab (ENTYVIO) 300 mg injection Infuse 300mg via IV eric (more content not included)... [facility] 11-12-2024 Note HNO ID: [id number] Author: NOTE, INTERFACE, ? Service: ? Author Type: ? Type: Progress Notes Filed: 11/12/2024 15:51 Note Text: Epic Scheduled Downtime: 11/12/2024 1:00:00 AM to 11/12/2024 2:17:00 AM [facility] 11-11-2024 Note HNO ID: [id number] Author: JENNIFER HILL MD Service: Hospital Medicine Author Type: Physician Type: Progress Notes Filed: 11/11/2024 20:15 Note Text: DEPARTMENT OF HOSPITAL MEDICINE Hospital Medicine/Primary Attending: Jennifer Hill MD NIGHT AND WEEKEND COVERAGE: After 7pm please page [phone] S/p 1 unit PRBC this AM. No N V abdominal pain complaint. MEDICATIONS: Current Facility-Administered Medications Medication Dose Route Frequency NaCl 0.9% iv flush bag 20 mL INTRAVENOUS PRN magnesium sulfate iv piggyback in sterile water 2 g 50 mL 2 g INTRAVENOUS PRN pantoprazole 40 mg injection (PROTONIX) 40 mg INTRAVENOUS BID AC (0600/1600) acetaminophen 1,000 mg tab(s) (TYLENOL) 1,000 mg ORAL/FEEDING TUBE q 6 H PRN iv contrast (radiology procedure) INTRAVENOUS DIRECTED PRN NaCl 0.9% iv infusion 75 mL/hr INTRAVENOUS CONTINUOUS DATA: Diagnostic tests reviewed for today's visit: Lab data: CBC: Recent Labs 11/11/24 0842 11/11/24 0319 11/10/24 2033 11/10/24 1708 11/10/24 1525 11/10/24 0354 11/09/24 1641 11/09/24 1455 11/09/24 1222 WBC 7.83 7.44 5.41 6.02 6.13 6.09 9.11 -- 9.59 HB 7.8* 6.8* 7.1* 7.6* 7.3* 8.1* 10.2* 10.5* 9.7* HCT 23.0* 21.6* 22.3* 22.2* 23.0* 24.1* 30.8* -- 29.6* PLT 147* 150 159 161 161 184 249 -- 215 MCV 85.5 87.1 86.8 86.0 86.1 86.7 86.0 -- 86.3 RDWCV 19.0* 18.3* 18.5* 18.5* 18.5* 18.6* 18.4* -- 18.2* NEUTP -- -- -- -- -- -- -- -- 84.6 ABSNEUT -- -- -- -- -- -- -- -- 8.11* LYMPHP -- -- -- -- -- -- -- -- 8.8 MONOP -- -- -- -- -- -- -- -- 5.1 EODINP -- -- -- -- -- -- -- -- 0.9 COAG: Recent Labs 11/09/241233 APTT 22.7* INR 1.2 BMP: Recent Labs 11/11/2431811/10/24170711/10/24 03511/09/24 1222 GLUC 85 97 96 147* NA 139 141 139 141 K 4.0 4.4 4.5 4.5 CHLOR 108* 107 107 110* CO2 23 23 20* 22 ANION 8 11 12 9 BUN 9 11 15 12 CREAT 1.40* 0.92 1.21 1.34* CHEM: Recent Labs 11/11/2431811/10/24170711/10/2435311/09/24 1234 11/09/24 1222 ALB 3.0* -- -- -- 3.2* TPROT -- -- -- -- 4.8* CA 7.8* 7.7* 7.8* -- 7.5* MG -- -- 1.9 1.5* -- HEPATIC: Recent Labs 11/09/24 1234 11/09/24 1222 ALKPHOS -- 37* ALT -- 16 AST -- 20 TBILI -- 0.7 LIPASE 16 -- URINALYSIS:No results for input(s): PH, SPGR, UGLUC, UBILI, UKET, UHB, UPROT, UROBIL, UWBC, SSA in the last 168 hours. Invalid input(s): NITR CARDIAC: No results for input(s): PBNP in the last 168 hours. Problem List GI bleed (POA: Yes) Acute blood loss anemia (POA: Yes) ABLA (acute blood loss anemia) (POA: Yes) PHYSICAL EXAM: BP 96/55 Pulse 64 Temp (Src) 98.4 (Oral) Resp 18 Ht 5' 10 (1.78m) Wt 181 lb 10.5 oz (82.4kg) SpO2 96% BMI 26.07 kg/(m2). O2 Therapy: Room Air Follow up : Pt seen and examined. Constitutional - Vitals as above, NAD Respiratory - Clear to auscultate both sides. No crackles, wheezes or rales, No labored breathing noted CVS- RRR, no murmur/gallop/rub, pulse 2+ GI- NTND, bowel sounds normally heard HOSPITAL COURSE: 44 year old male with PMH of Crohn's Disease diagnosed in 2003, s/p partial colectomy in 2019 and Laparoscopic ileocolic anastomosis with lymphadenectomy presents to the MICU with acute lower GI bleeding, presenting with multiple bloody bowel movements at work with lightheadedness, syncopal episode. He has been receiving Entyvio and iron infusions for chronic anemia. CTA positive for bleeding within the proximal ascending colon near enterocolic anastomosis. IR was consulted for an emergent embolization. However there was no active bleed found in the entero colic anastomosis and an embolization was not performed. (site of right groin sheath. ) bedside colonoscopy done on 11/10/24-Coagulation for hemostasis done Acute blood loss anemia in setting of acute LGIB, CTA with active bleeding at entero-colonic anastomosis; s/p IR embolization attempt 11/09 w/o active bleeding - Hx of crohns disease s/p colectomy - LENNIE - Hypomagnesemia - Chronic anemia on OP iron infusions PLAN: - s/p colonoscopy this afternoon; GI following - Cont maintenance IVF - pRBC transfusion, goal Hb > 7.0 mmHg - Monitor UOP, I/O's and BMP Crohn's disease- diagnosed in 2003; s/p partial colectomy in 2019 and laparoscopic ileocolic anastomosis. On Entyvio. Last colonoscopy 2022. -continue to follow outpatient with established GI Dr. Loja Medication and Non-Pharmacologic VTE Prophylaxis/Anticoagulants 11/09/24 151 vte pharmacologic prophylaxis contraindicated (la,oh) 11/09/24 151 pneumatic compression sleeve(s) (la,oh) 11/09/24 151 activity - mobilize patient (la,ct) SIGNATURE: Jennifer Hill MD PATIENT NAME: Jesus Disla DATE: November 11, 2024 TIME: 9:17 AM PAGER/CONTACT #: Team color pager Disclaimer: Portions of this note may have been generated using [employer] voice recognition software. Reasonable efforts were made to correct any dictation errors t (more content not included)... [facility] 11-11-2024 Note HNO ID: [id number] Author: HANK TALBOT PA-C Service: Hospital Medicine Author Type: Physician Local Government Legislator Type: Plan of Care Filed: 11/11/2024 03:37 Note Text: 0336: This PA-Nichole was notified about this patient's Hgb of 6.8 by RN. 1 Unit of PRBCs ordered. Hank Talbot PA-C [facility] 11-10-2024 Note HNO ID: [id number] Author: EUGENE CAMPBELL RN Service: Care Management Author Type: Registered Nurse Type: Care Mgt Initial Assessment Filed: 11/10/2024 15:46 Note Text: CARE MANAGEMENT: ASSESSMENT AND DISCHARGE PLAN SERVICE DATE: November 10, 2024 SERVICE TIME: 3:45 PM PCP: Merlin Deutsch DO Primary Contact: Extended Emergency Contact Information Primary Emergency Contact: Janette Disla Address: [address] [place] [id number] [place] Mobile Relation: Spouse Admission Status: Inpatient Insurance Provider: [employer] Discharge Planning requested by: Per Department Practice Potential Transition Plans Home, To Be Determined Advance Directives Current Living Arrangements and Support Lives with: Spouse/significant other Type of Residence: Private Residence (House) Does the patient have to climb stairs at home?: Yes Support: Spouse/significant other How do you manage to accomplish the following: Independent: Ambulation, Medication Management, Bathe/Shower, Transportation to appointments/community, Dress, Meals/Meal Prep, Going to the bathroom Current Services/Equipment Discharge Planning Patient Goal(s): [place] of Choice Explained: [place] of Choice Given: No Reason Not Given: No placements necessary Are you interested in bedside delivery of your medications? No Discharge Planning Participant(s): Spouse/significant other Patient/Family Comments: Janette completed assessment Caregiver Assessment: Caregiver is ready, willing and able to meet the patient's needs as recommended by the inter-professional team: Yes Name of Caregiver: Janette Transport at Discharge: Transportation Arrangements: To Be Determined Needs Prior to Discharge: TBD Post-Acute Discharge Plan: Pt lives with spouse. I LOANS CONSULTANT- drives and works. No DME. Pt s/p colonoscopy. SIGNATURE: Eugene Campbell RN PATIENT NAME: Jesus Disla DATE: November 10, 2024 TIME: 3:45 PM [facility] 11-10-2024 Note HNO ID: [id number] Author: ANGELINA MCINTYRE RPh Service: Pharmacy Author Type: Pharmacist Type: Plan of Care Filed: 11/11/2024 09:45 Note Text: PHARMACY MEDICATION REVIEW Patient Name: Jesus Disla : 1980 The following medications were updated within the [facility] medication list: Medications ADDED to [facility] medication list cholecalciferol (VITAMIN D-3) 5,000 unit tab Take 5,000 Units by mouth once daily. glucosam/chond-msm1/C/burton/bor ([id number]-ALMAF-JGR COMPLEX PO) Take 1 tablet by mouth three times a day. magnesium L-threonate 48 mg magnesium (667 mg) cap Take 1 capsule by mouth three times a day. ibuprofen (MOTRIN) 200 mg tablet Take 400 mg by mouth every 8 hours as needed for pain. ferrous sulfate (IRON) 325 mg (65 mg iron) tablet Take 325 mg by mouth once daily. ascorbic acid, vitamin C, (VITAMIN C) 500 mg tablet Take 500 mg by mouth once daily. calcium carb/magnesium carb (CALCIUM AND MAGNESIUM CARBONATES ORAL) Take 1 tablet by mouth once daily. OTC NUTRITIONAL SUPPLEMENT Take 1 capsule by mouth once daily. Avamocal Advanced - Natural detoxification and antioxidant OTC NUTRITIONAL SUPPLEMENT Take 1 capsule by mouth once daily. Biofilm disruptor - gut detox cleanse Medications CHANGED on [employer]ANS [employer] medication list Medications REMOVED from [employer] medication list acetaminophen (TYLENOL) 500 mg tablet Adjust Sig - Block E-Cancel Chlor-Mal/Phenyleph/Methscop (PE HCL-CPM-MSN ORAL) Adjust Sig - Block E-Cancel cholecalciferol, vitamin D3, (VITAJOY DAILY D ORAL) Adjust Sig - Block E-Cancel Glucosamine 1,000 mg tab Adjust Sig - Block E-Cancel QUERCETIN DIHYDRATE, BULK, MISC Adjust Sig - Block E-Cancel Additional comments: Verified medication information with e-scripts/dispense report and chart review. Confirmed medications with patient. Patient stated no longer taking Tylenol, Chlor-Mal/Phenyleph/Methscop, VitaJoy Daily D, Glucosamine, and Quercetin - removed from med list. Patient stated taking Vit D3, Hzdyvadhxlf-bbtyf-NJJ, magnesium 48 mg, ibuprofen, iron, Vit C, Avamocal Advanced, Biofilm disruptor, and Calcium/magnesium - added to med list. Patient stated taking low dose naltrexone - found no current fill date. Required follow up actions for nursing: None The below information represents the best possible medication history: Yes Medication history completed by: Cleaning And Maintenance Worker: Chen Goodman (Entry Level Electrician) Source of history: Patient: Reliability of source: Appears reliable, clearly identified: Medication name, Medication dose, Medication route, and Medication frequency, Pharmacy records: e-scripts/dispense report, and [facility] records Medication nonadherence identified: No barriers noted Reconciliation completed: Yes Completed by: Angelina Mcintyre RPh All LOANS CONSULTANT medications addressed by LIP Patient interested in Bedside Delivery Services or using CC OP Pharmacy at discharge? Unable to assess Preferred outpatient pharmacy: e- [id number] [place] [address] - [address] [facility] - [phone] [facility] [phone] Pharmacy e- [facility] [place] [place] [address] - [address] - [phone] E- [facility] [place] [facility] [place] [address] - [address] [phone] Allergies: Adalimumab Other: See Comments Dust Other: See Comments Mold Other: See Comments Comment:runny nose Pollen Extracts Other: See Comments Comment:runny nose Prior to Admission Medications Prescriptions Last Dose Informant Patient Reported? Taking? OTC NUTRITIONAL SUPPLEMENT Yes Yes Sig: Take 1 capsule by mouth once daily. Avamocal Advanced - Natural detoxification and antioxidant OTC NUTRITIONAL SUPPLEMENT Yes Yes Sig: Take 1 capsule by mouth once daily. Biofilm disruptor - gut detox cleanse Dgnmg-1-MRD-EPA-Fish Oil (FISH OIL) 1,000 mg (120 mg-180 mg) cap Yes Yes Sig: Take 2 g by mouth twice daily. acetylcysteine (NAC) 600 mg capsule Yes Yes Sig: Take 1,200 mg by mouth twice daily. ascorbic acid, vitamin C, (VITAMIN C) 500 mg tablet Yes Yes Sig: Take 500 mg by mouth once daily. calcium carb/magnesium carb (CALCIUM AND MAGNESIUM CARBONATES ORAL) Yes Yes Sig: Take 1 tablet by mouth once daily. calcium carb/vit D2/minerals (CALCIUM 600/MINERALS ORAL) Yes Yes Sig: Take 1 tablet by mouth once daily. cholecalciferol (VITAMIN D-3) 5,000 unit tab Yes Yes Sig: Take 5,000 Units by mouth once daily. ferrous sulfate (IRON) 325 mg (65 mg iron) tablet Yes Yes Sig: Take 325 mg by mouth once daily. glucosam/chond-msm1/C/burton/bor (UIEXDMZAJTX-MGVLY-OBJ COMPLEX PO) Yes Yes Sig: Take 1 tablet by mouth three times a day. ibuprofen (MOTRIN) 200 mg tablet Yes Yes Sig: Take 400 mg by mouth every 8 hours as needed for pain. magnesium L-threonate 48 mg magnesium (667 mg) cap Yes Yes Sig: Take 1 capsule by mouth three times a day. multivitamin tablet Yes Yes Sig: Take (more content not included)... [facility] 11-10-2024 Note HNO ID: [id number] Author: MAYA ALEMAN MD Service: Critical Care Author Type: Physician Type: Progress Notes Filed: 11/10/2024 13:29 Note Text: Please link this to the resident's note completed on November 10, 2024 PATIENT NAME: Jesus Disla Impression/Recommendations [facility] STAFF PHYSICIAN NOTE OF PERSONAL INVOLVEMENT IN CARE I have reviewed the note obtained and documented by the resident and I personally participated in the mendiola components. I have discussed the case and management of the patient's care. All facets of the examination and diagnostic tests, including labs and imaging,were personally reviewed by me. Notes of other providers and relevant records were examined. Discussed with available caregivers, family, patient. The following comments revise or confirm relevant mendiola components of the note. Data: All data reviewed. All diagnostic tests, including labs/culture data/specimens and imaging, were personally reviewed by me, with my imaging review/additional comments noted below. IMPRESSION/PLAN: Critical Care Documentation: The patient has the following organ/system impairment(s): 44 yo M w/ hx most notable for Crohn's disease (since 2003),partial colectomy in 2019 and laparoscopic ileocolic anastomosis with lymphadenectomy; anemia, presented from home to [facility] on 11/09/24 w/ ab pain and BRB found to have ABLA/GI Bleeding; Admitted to MICU service for further evaluation; now w/ the following acute organ/system impairments and chronic conditions: - Acute blood loss anemia in setting of acute LGIB, CTA with active bleeding at entero-colonic anastomosis; s/p IR embolization attempt 11/09 w/o active bleeding - Hx of crohns disease s/p colectomy - LENNIE - Hypomagnesemia - Chronic anemia on OP iron infusions PLAN: - IR removed sheath - Planned for prep/colonoscopy this afternoon; GI following - Cont maintenance IVF (LR for 1 L) until allowed po - BG checks q6 while NPO - Continue with ongoing IVF resuscitation - prn pRBC transfusion, goal Hb > 7.0 mmHg - Monitor UOP, I/O's and BMP Rounding checklist: - Replete lytes prn - Monitor BG; goal <180, avoid hypoglycemia - DVT prophy: SCDs view in - GI prophy: PPI noted, defer ongoing needs to GI - Pain control; Home meds as venancio; see orders - Needs PT/OT: N - Lines: N/A - Indwelling santana: N - Wound consult/following- N/A - Ensure bowel regimen accordingly - Nutrition: NPO Code Status: Full code Data, notes, medications, and vitals reviewed today. SCHEDULED MEDS: peg 3350-Electrolytes, 4,000 mL, ONCE magnesium sulfate, 1 g, ONCE acetaminophen, 1,000 mg, q 6 H pantoprazole, 40 mg, BID AC (0600/1599) Lines, Drains, and Airways Line Duration Arterial Line/Sheath 11/09/24 1949 Right Femoral <1 day Peripheral 11/09/24 1207 Short Left Antecubital 18 Gauge <1 day Peripheral 11/09/24 1437 [facility] Short Right Antecubital 18 Gauge <1 day Orders Placed This Encounter DIET NPO Standing Status: Standing Number of Occurrences: 1 NPO Restrictions: FOR PROCEDURE VITAL SIGNS: Pain Level: 7 BP 100/59 Pulse 62 Temp (Src) 99 (Oral) Resp 16 Ht 5' 10 (1.78m) Wt 181 lb 10.5 oz (82.4kg) SpO2 100% BMI 26.07 kg/(m2). O2 Therapy: Room Air Temp (24hrs), Av.1 ?C (98.8 ?F), Min:36.8 ?C (98.2 ?F), Max:37.4 ?C (99.3 ?F) LABS: Recent Labs 11/10/24 0354 11/09/24 1641 11/09/24 1455 11/09/24 1222 WBC 6.09 9.11 -- 9.59 HB 8.1* 10.2* 10.5* 9.7* HCT 24.1* 30.8* -- 29.6* PLT 184 249 -- 215 Recent Labs 11/10/24 0354 11/09/24 1222 NA 139 141 K 4.5 4.5 CHLOR 107 110* CO2 20* 22 CREAT 1.21 1.34* BUN 15 12 GLUC 96 147* Recent Labs 11/10/24 0354 11/09/24 1234 11/09/24 1222 MG 1.9 1.5* -- CA 7.8* -- 7.5* P 3.5 -- -- TPROT -- -- 4.8* ALB -- -- 3.2* Recent Labs 11/09/24 1222 ALKPHOS 37* TBILI 0.7 AST 20 ALT 16 VENTILATOR INFORMATION: Settings: Patient Data: Weaning Data: 24 hour Intake AND Output: Date 11/09/24 07 - 11/10/2465811/10/24 07 - 11/11/24 0659 Shift 5964-9851 5065-8832 4716-1061 24 Hour Total 8236-2828 1566-2498 7106-8404 24 Hour Total INTAKE IV 100 100 Volume (mL) (magnesium sulfate iv piggyback in sterile water 2 g 50 mL) 50 50 Volume (mL) (magnesium sulfate iv piggyback in sterile water 2 g 50 mL) 50 50 Shift Total 100 100 OUTPUT Urine 276 132 7560 Void (ml) 183 096 8887 # of BMs Number of BMs 1 x 1 x Shift Total 054 957 9379 Weight (kg) 79.4 82.4 82.4 82.4 82.4 82.4 82.4 82.4 Intake/Output Summary (Last 24 hours) at 11/10/2024 0824 Last data filed at 11/10/2024 0129 Gross per 24 hour Intake 100 ml Output 1050 ml Net -950 ml Discussed with staff. Additionally, discussed with - Multi-disciplinary rounds performed with RN, PharmD, Resident(s) This patient has a high probability of sudden, clinically significant deterioration, which requires the highest (more content not included)... [facility] 11-10-2024 Note HNO ID: [id number] Author: MERLIN QUIROGA DO Service: Critical Care Author Type: Resident Type: Progress Notes Filed: 11/10/2024 14:06 Note Text: MICU PROGRESS NOTE PATIENT NAME: Jesus Disla REASON FOR ADMISSION: Active GI Bleed LOS: 1 Subjective HPI Mr. Jesus Disla is a 44 year old male with a pmhx of Crohn's Disease diagnosed in 2003. Patient presented to [facility] on 11/09/2024 with complaints of abdominal pain and bright red bleeding with bowel movements. Per patient, last night he woke up with sharp abdominal pain and starting today he has had multiple bloody bowel movements at work with lightheadedness. He did have a syncopal episode at home on the toilet where he was found by . Not currently on anticoagulants. History of partial colectomy in 2019 and Laparoscopic ileocolic anastomosis with lymphadenectomy; and actively receiving Entyvio and iron infusions for chronic anemia. says he has a flair of his Crohn's roughly every 6 months CTA positive for bleeding within the proximal ascending colon near enterocolic anastomosis. IR was consulted for an emergent embolization. However there was no active bleed found in the entero colic anastomosis and an embolization was not performed. INTERVAL EVENTS Patient experienced throughout the night, not getting much sleep, due to the femoral sheath still in place. Otherwise, he denied fever, chills, nausea, vomiting, chest pain, palpitations, shortness of breath, diarrhea, or constipation. This morning, patient had his femoral sheath removed and began the bowel prep for his colonoscopy scheduled at 2 pm. Pertinent results include: Hb 8.1 from 10.2 Magnesium 1.9 from 1.5 Calcium 7.8 Consultation updates, all recs are appreciated: IR- Found no active bleed seen in the area around the entero colic anastomosis. Recommended GI for endoscopy. GI- Will perform exploratory colonoscopy at 2pm Objective OBJECTIVE BP 113/70 Pulse 64 Temp 36.7 ?C (98.1 ?F) (Oral) Resp 13 Ht 177.8 cm (5' 10) Wt 82.4 kg (181 lb 10.5 oz) SpO2 99% BMI 26.07 kg/m? Temp (24hrs), Av.1 ?C (98.7 ?F), Min:36.7 ?C (98.1 ?F), Max:37.4 ?C (99.3 ?F) Body mass index is 26.07 kg/m?., No results found for: HBA1C Intake/Output Summary (Last 24 hours) at 11/10/2024 1334 Last data filed at 11/10/2024 0903 Gross per 24 hour Intake 200 ml Output 1350 ml Net -1150 ml LABORATORY: BLOOD GAS: CBC: Recent Labs 11/10/24 0354 11/09/24 1641 11/09/24 1455 11/09/24 1222 WBC 6.09 9.11 -- 9.59 HB 8.1* 10.2* 10.5* 9.7* HCT 24.1* 30.8* -- 29.6* PLT 184 249 -- 215 MCV 86.7 86.0 -- 86.3 RDWCV 18.6* 18.4* -- 18.2* NEUTP -- -- -- 84.6 ABSNEUT -- -- -- 8.11* LYMPHP -- -- -- 8.8 MONOP -- -- -- 5.1 EODINP -- -- -- 0.9 COAG: Recent Labs 11/09/24 1234 APTT 22.7* INR 1.2 CMP: Recent Labs 11/10/24 0354 11/09/24 1234 11/09/24 1222 GLUC 96 -- 147* NA 139 -- 141 K 4.5 -- 4.5 CHLOR 107 -- 110* CO2 20* -- 22 ANION 12 -- 9 BUN 15 -- 12 CREAT 1.21 -- 1.34* ALB -- -- 3.2* TBILI -- -- 0.7 ALKPHOS -- -- 37* AST -- -- 20 ALT -- -- 16 TPROT -- -- 4.8* MG 1.9 1.5* -- URINALYSIS:No results for input(s): PH, SPGR, UGLUC, UBILI, UKET, UHB, UPROT, UROBIL, UWBC, SSA in the last 168 hours. Invalid input(s): NITR Cardiac:No results for input(s): CKTEST, CKMB, CKMBP, TROPONIN, BNP in the last 168 hours. Microbiology: Positive Micro-30 Days No results found for the last 720 hours. IMAGING: CXR XR CHEST 1V FRONTAL Result Date: 11/09/2024 IMPRESSION: No acute radiographic abnormality. Slot Machine Mechanic: [facility] Transcribe Date/Time: Nov 09 2024 1:22P Dictated by : CAROLINA MENSAH MD This examination was interpreted and the report reviewed and electronically signed by: CAROLINA MENSAH MD on Nov 09 2024 1:25PM EST CTA Abdomen FINDINGS: CTA: The abdominal aorta is normal in course and caliber without dissection. The celiac axis and mesenteric arteries are widely patent as are solitary bilateral renal arteries. Iliac vessels show no significant atherosclerosis. ABDOMEN: Solitary calcified granuloma at the inferior right hepatic lobe. There is a tiny subcapsular cyst posteriorly on image 52 of series 12. No bile duct dilatation. Prior cholecystectomy. Normal size and appearance of the spleen. Normal pancreas. No adrenal nodule. No renal calculi, mass or hydronephrosis. Mass evaluation is suboptimal given the phases of enhancement obtained. Postoperative changes of prior enterocolic anastomosis noted within the right lower quadrant. Near the sutures, within the proximal ascending colon, there is active extravasation of contrast as seen on axial images 63 through 71 of series 12 compatible with active GI bleeding. Postoperative changes involving small bowel within the lower abdomen, left of midline. No obvious segment of abnormal bowel wall t (more content not included)... [facility] 09-19-2024 Miscellaneous Notes Patient phoned in regarding billing and coding from his 04/11/2024 appt. He said that his bill was coded wrong. I explained that I can't see billing information and would need him to call the billing phone number at . Patient voiced understanding. Nahomy Cueva September 19, 2024 8:53 AM documented in this encounter [facility] 09-19-2024 Telephone encounter Note Patient phoned in regarding billing and coding from his 04/11/2024 appt. He said that his bill was coded wrong. I explained that I can't see billing information and would need him to call the billing phone number at . Patient voiced understanding. Nahomy Cueva September 19, 2024 8:53 AM [facility] 07-26-2024 Telephone encounter Note Letter received 07/25 from [place] authorizing Entyvio vial, 7 visits, effective 08/08/24 - 08/08/25, scanned in [employer] Annetta Garcia [facility] 07-26-2024 Miscellaneous Notes Letter received 07/25 from [place] authorizing Entyvio vial, 7 visits, effective 08/08/24 - 08/08/25, scanned in Jelena Garcia documented in this encounter [facility] 04-11-2024 Note HNO ID: [id number] Author: MERLIN DEUTSCH DO Service: ? Author Type: Physician Type: Progress Notes Filed: 04/11/2024 07:12 Note Text: CC: Yearly Exam (Discuss recent lab work ordered by GI) Assessment AND Plan Wellness examination Discussed Immunizations - patient declines at this time. Screening for depression Encounter for screening examination for other mental health and behavioral disorders Crohn's disease of large intestine without complication (HCC) Under care of GI. History of partial surgical removal of colon HPI No concerns. Does have lump on left arm. No change. No Pain. Current Outpatient Medications on File Prior to Visit Medication Sig vedolizumab (ENTYVIO) 300 mg injection Infuse 300mg via IV every 8 weeks. saw palmetto 320 mg capsule Take 1 capsule by mouth once daily. multivitamin tablet multivitamin tablet acetylcysteine (NAC) 600 mg capsule Take 1,200 mg by mouth twice daily. Iedyi-4-LJR-EPA-Fish Oil (FISH OIL) 1,000 mg (120 mg-180 mg) cap Take 2 g by mouth twice daily. calcium carb/vit D2/minerals (CALCIUM 600/MINERALS ORAL) Take by mouth. Chlor-Mal/Phenyleph/Methscop (PE HCL-CPM-MSN ORAL) Take by mouth. cholecalciferol, vitamin D3, (VITAJOY DAILY D ORAL) Take by mouth. acetaminophen (TYLENOL) 500 mg tablet Take 2 tablets by mouth every 6 hours as needed. QUERCETIN DIHYDRATE, BULK, MISC twice daily. quercetin 800mg with zinc No current facility-administered medications on file prior to visit. Medications were reviewed and verified. 01/17/2024 04/10/2024 INTAKE PAIN ASSESSMENT Are you having pain associated with your visit today? No No If pain assessment is 0, no action needed. If pain assessment is positive, please see assessment and plan. Merlin Deutsch DO Allergies: ALLERGIES Allergen Reactions Adalimumab Other: See Comments Dust Other: See Comments Mold Other: See Comments runny nose Pollen Extracts Other: See Comments runny nose Vital Signs: BP 118/76 Pulse 66 Resp 20 Ht 5' 11 (1.80m) Wt 182 lb (82.6kg) SpO2 99% BMI 25.40 kg/(m2). Physical Exam Constitutional: Appearance: Normal appearance. HENT: Head: Normocephalic and atraumatic. Cardiovascular: Rate and Rhythm: Normal rate and regular rhythm. Pulses: Normal pulses. Heart sounds: Normal heart sounds. No murmur heard. Pulmonary: Effort: Pulmonary effort is normal. Breath sounds: Normal breath sounds. Musculoskeletal: General: Normal range of motion. Right lower leg: No edema. Left lower leg: No edema. Skin: General: Skin is warm and dry. Neurological: General: No focal deficit present. Mental Status: He is alert and oriented to person, place, and time. Psychiatric: Mood and Affect: Mood normal. Behavior: Behavior normal. Merlin Deutsch [facility] 04-11-2024 History of Presen t illness Narrative CC: Yearly Exam (Discuss recent lab work ordered by GI) Assessment & Plan Wellness examination Discussed Immunizations - patient declines at this time. Screening for depression Encounter for screening examination for other mental health and behavioral disorders Crohn's disease of large intestine without complication (HCC) Under care of GI. History of partial surgical removal of colon HPI No concerns. Does have lump on left arm. No change. No Pain. Current Outpatient Medications on File Prior to Visit Medication Sig vedolizumab (ENTYVIO) 300 mg injection Infuse 300mg via IV every 8 weeks. saw palmetto 320 mg capsule Take 1 capsule by mouth once daily. multivitamin tablet multivitamin tablet acetylcysteine (NAC) 600 mg capsule Take 1,200 mg by mouth twice daily. Wpicc-2-NQG-EPA-Fish Oil (FISH OIL) 1,000 mg (120 mg-180 mg) cap Take 2 g by mouth twice daily. calcium carb/vit D2/minerals (CALCIUM 600/MINERALS ORAL) Take by mouth. Chlor-Mal/Phenyleph/Methscop (PE HCL-CPM-MSN ORAL) Take by mouth. cholecalciferol, vitamin D3, (VITAJOY DAILY D ORAL) Take by mouth. acetaminophen (TYLENOL) 500 mg tablet Take 2 tablets by mouth every 6 hours as needed. QUERCETIN DIHYDRATE, BULK, MISC twice daily. quercetin 800mg with zinc No current facility-administered medications on file prior to visit. Medications were reviewed and verified. 01/17/2024 04/10/2024 INTAKE PAIN ASSESSMENT Are you having pain associated with your visit today? No No If pain assessment is 0, no action needed. If pain assessment is positive, please see assessment and plan. Merlin Deutsch DO Allergies: ALLERGIES Allergen Reactions Adalimumab Other: See Comments Dust Other: See Comments Mold Other: See Comments runny nose Pollen Extracts Other: See Comments runny nose Vital Signs: BP 118/76 Pulse 66 Resp 20 Ht 5' 11 (1.80m) Wt 182 lb (82.6kg) SpO2 99% BMI 25.40 kg/(m^2). Physical Exam Constitutional: Appearance: Normal appearance. HENT: Head: Normocephalic and atraumatic. Cardiovascular: Rate and Rhythm: Normal rate and regular rhythm. Pulses: Normal pulses. Heart sounds: Normal heart sounds. No murmur heard. Pulmonary: Effort: Pulmonary effort is normal. Breath sounds: Normal breath sounds. Musculoskeletal: General: Normal range of motion. Right lower leg: No edema. Left lower leg: No edema. Skin: General: Skin is warm and dry. Neurological: General: No focal deficit present. Mental Status: He is alert and oriented to person, place, and time. Psychiatric: Mood and Affect: Mood normal. Behavior: Behavior normal. Merlin Deutsch DO documented in this encounter [facility] 03-10-2024 Telephone encounter Note Received fax from [facility] with pt's Plan of Treatment from 02/26/24 to 02/25/2025. Dr. Loja reviewed and signed the POT. Faxed back to [facility] at [phone]. Caitlin Magdaleno RN March 10, 2024 12:47 PM [facility] 03-10-2024 Miscellaneous Notes Received fax from [facility] with pt's Plan of Treatment from 02/26/24 to 02/25/2025. Dr. Loja reviewed and signed the POT. Faxed back to [facility] at [phone]. Caitlin Magdaleno RN March 10, 2024 12:47 PM documented in this encounter [facility] 01-21-2024 Telephone encounter Note Received physical prescription for pt's Entyvio every [address] Loja. Faxed prescription and last office visit note to [facility] at [phone] AND [phone]. Advised [facility] in cover sheet pt has NOT yet completed his most recent lab orders. Received fax confirmation. Caitlin Magdaleno RN January 21, 2024 2:13 PM [facility] 01-21-2024 Miscellaneous Notes Received physical prescription for pt's Entyvio every [address] Loja. Faxed prescription and last office visit note to [facility] at [phone] AND [phone]. Advised [facility] in cover sheet pt has NOT yet completed his most recent lab orders. Received fax confirmation. Caitlin Magdaleno RN January 21, 2024 2:13 PM documented in this encounter [facility] 01-19-2024 Note HNO ID: [id number] Author: RICHI LOJA MD Service: ? Author Type: Physician Type: Progress Notes Filed: 01/19/2024 10:31 Note Text: Virtual visit, 20 minutes, patient agrees I have communicated my name and active licensure. The patient's identity and physical location were verified at the time of this visit. Either the patient or their legal equal opportunity representative has been informed of the risks and benefits of -- and alternatives to -- treatment through a remote evaluation and consents to proceed with the evaluation remotely. 43 yo with Crohn's disease, 12/24 had right hemicolectomy with small bowel resection for 3 strictures. 250cm of small bowel left. Now doing well on entyvio. Wt increased 15#, no abd pain, about 1-3 formed bm daily. Tried Humira in the past. Pt needs blood tests and Entyvio renewal. Crohn's disease - will check labs and refill Entyvio. Colonoscopy in 2 years. Richi Loja MD [facility] 01-19-2024 History of Presen t illness Narrative Virtual visit, 20 minutes, patient agrees I have communicated my name and active licensure. The patient's identity and physical location were verified at the time of this visit. Either the patient or their legal equal opportunity representative has been informed of the risks and benefits of -- and alternatives to -- treatment through a remote evaluation and consents to proceed with the evaluation remotely. 43 yo with Crohn's disease, 12/24 had right hemicolectomy with small bowel resection for 3 strictures. 250cm of small bowel left. Now doing well on entyvio. Wt increased 15#, no abd pain, about 1-3 formed bm daily. Tried Humira in the past. Pt needs blood tests and Entyvio renewal. Crohn's disease - will check labs and refill Entyvio. Colonoscopy in 2 years. Richi Loja MD documented in this encounter [facility] 11-29-2023 Telephone encounter Note Received fax from [facility] for orders for pt's Entyvio 300mg every 8 weeks. Order form completed and given to Lucy Donaldson PA-C for review and signature. Dr. Loja out of the office until 12/08/23. Advised [facility] pt needs an appointment/lab work. Last appointment: 10/21/22. Faxed back to [phone].Caitlin Magdaleno RN November 29, 2023 2:11 PM [facility] 11-29-2023 Miscellaneous Notes Received fax from [facility] for orders for pt's Entyvio 300mg every 8 weeks. Order form completed and given to Lucy Donaldson PA-C for review and signature. Dr. Loja out of the office until 12/08/23. Advised [facility] pt needs an appointment/lab work. Last appointment: 10/21/22. Faxed back to [phone].Caitlin Magdaleno RN November 29, 2023 2:11 PM documented in this encounter [facility] 07-13-2023 Miscellaneous Notes Summary: Entyvio approval, valid 08/09/2023 - 08/07/2024 Incoming fax received on 07/11/2023 from [employer] informing of Entyvio approval, valid 08/09/2023 - 08/07/2024. Scanned into [employer]. documented in this encounter [facility] 02-06-2023 Miscellaneous Notes Received fax from [facility] for pt's Plan of Treatment from 02/24/2023 to 02/25/2024. Dr. Loja reviewed and signed. Faxed back to [phone]. Caitlin Magdaleno RN February 06, 2023 10:35 AM documented in this encounter [facility] 12-10-2022 Miscellaneous Notes Called pt and advised him [facility] should be working on his PA for his Entyvio. Pt verbalized understanding. Caitlin Magdaleno RN December 10, 2022 2:21 PM Received call from patient, he received a call from [facility] informing him that he needs a PA for vedolizumab (ENTYVIO) 300 mg injection 1 Each 5 11/20/2022 Sig: Infuse 300mg via IV every 8 weeks. Sent to pharmacy as: vedolizumab (ENTYVIO) 300 mg injection Patient provided this contact number [phone]. Fiona Morillo documented in this encounter [facility] 11-20-2022 Miscellaneous Notes Received fax from [facility] requesting a refill for vedolizumab (ENTYVIO) 300 mg injection 1 Each 5 12/24/2021 Sig: Infuse 300mg via IV every 8 weeks. Additional orders sodium chloride 0.9% 50ml bag Sodium Chloride 0.9% 250 ml bag 0.9% 10ml sodium Chloride flush Last visit 10/11/22 Last lab 09/26/22 No upcoming visit Fiona Morillo documented in this encounter [facility] 11-20-2022 History and physical note HISTORY AND PHYSICAL EXAM SERVICE DATE: 11/20/2022 SERVICE TIME: 2:14 PM ASSESSMENT Crohn's Disease ASA 2 PLAN Colonoscopy with MAC (Monitored Anesthesia Care) SUBJECTIVE HPI: This is a 42 year old male who presents for colon examination. PAST ANESTHESIA HISTORY: No history of adverse event PAST MEDICAL HISTORY: PAST MEDICAL HISTORY Diagnosis Date Crohn's disease (HCC) dx'd 2003 PAST SURGICAL HISTORY: PAST SURGICAL HISTORY Procedure Laterality Date CHOLECYSTECTOMY 12/2019: Laparoscopic ileocolic anastomosis with lymphadenectomy; small bowel resection, TAP block MEDICATIONS: Prior to Admission medications as of 11/20/22 1328 Medication Sig Last Dose Taking multivitamin tablet multivitamin tablet Past Week Yes acetylcysteine (NAC) 600 mg capsule Take 1,200 mg by mouth twice daily. 11/15/2022 Ghpfy-0-NAJ-EPA-Fish Oil (FISH OIL) 1,000 mg (120 mg-180 mg) cap Take 2 g by mouth twice daily. 11/15/2022 calcium carb/vit D2/minerals (CALCIUM 600/MINERALS ORAL) Take by mouth. 11/17/2022 Chlor-Mal/Phenyleph/Methscop (PE HCL-CPM-MSN ORAL) Take by mouth. 11/15/2022 cholecalciferol, vitamin D3, (VITAJOY DAILY D ORAL) Take by mouth. 11/15/2022 vedolizumab (ENTYVIO) 300 mg injection Infuse 300mg via IV every 8 weeks. 09/24/2022 acetaminophen (TYLENOL) 500 mg tablet Take 2 tablets by mouth every 6 hours as needed. Unknown fluticasone propionate (FLONASE NASAL) Use in the nose as needed. 11/15/2022 QUERCETIN DIHYDRATE, BULK, MISC twice daily. quercetin 800mg with zinc 11/17/2022 ALLERGIES: ALLERGIES Allergen Reactions Adalimumab Other: See Comments Dust Other: See Comments Mold Other: See Comments runny nose Pollen Extracts Other: See Comments runny nose OBJECTIVE PHYSICAL EXAM: AIRWAY: Patent, Full neck flexion and extension, Uvula visible LUNGS: Lungs clear to auscultation. Good diaphragmatic excursion. CARDIAC: Regular rate. The remainder of the physical exam is noncontributory. SIGNATURE: Sunday Parker MD PATIENT NAME: Jesus Disla DATE: November 20, 2022 TIME: 2:14 PM Office documented in this encounter [facility] 10-21-2022 Instructions Richi Loja MD - 10/21/2022 10:13 AM EDT Images from the original note were not included. Bowel Preparation Instructions for: Miralax-Gatorade Preparations IF YOU DO NOT FOLLOW THESE DIRECTIONS, YOUR COLONOSCOPY WILL BE CANCELLED. [place] Instructions: Your bowel must be empty so that your doctor can clearly view your colon. Follow all of the instructions in this handout EXACTLY as they are written. Do NOT eat any solid food the ENTIRE day before your colonoscopy. Buy your bowel preparation at least 5 days before your colonoscopy. Four (4) Dulcolax laxative tablets containing 5mg of bisacodyl each (NOT Dulcolax stool softener) One (1) 8.3oz. bottle Miralax (238 grams) or generic equivalent 2 x 32oz. Bottles of Gatorade (NOT RED) Diabetic Patients: Use G2 (Gatorade 2) TRANSPORTATION on the Day of Your Exam A responsible adult MUST be present with you at Check In prior to your colonoscopy and REMAIN in the endoscopy area until you are discharged. You are NOT ALLOWED to drive, take a taxi or bus, or leave the Endoscopy Center ALONE. If you do not have a responsible seasonal driver (family member or friend) with you to take you home, your exam cannot be done with sedation and will be cancelled. Please bring a list of all of your current medications, including any Gxha-vch-Vbszhcr medications with you. Medications If you take insulin, diabetic medications or blood thinners such as Coumadin (warfarin), Plavix (clopidogrel), Ticlid (ticlopidine hydrochloride), Agrylin (anagrelide), Xarelto (Rivaroxaban), Pradaxa (Dabigatran), Eliquis (Apixaban), and Effient (Prasugrel). You MUST call the doctors who orders those medicines for instructions on altering the dosage before your colonoscopy. All other medications should be taken the day of the exam with a sip of water including ASPIRIN. Five (5) Days Before Your Colonoscopy Do NOT take medicines that stop diarrhea - such as Imodium, Kaopectate, or Pepto Bismol. Do NOT take fiber supplements - such as Metamucil, Citrucel, or Perdiem. Do NOT take products that contain iron - such as multi-vitamins (the label lists what is in the products). Three (3) Days Before Your Colonoscopy Do NOT eat high-fiber foods - such as popcorn, beans, seeds (flax, sunflower, quinoa), multigrain bread, nuts, salad/vegetables, or fresh and dried fruit. 1 Bowel Preparation Instructions for: Miralax-Gatorade Preparations One (1) Day Before Your Colonoscopy Only drink clear liquids the ENTIRE DAY before your colonoscopy. Do NOT eat any solid foods. Drink at least 8 ounces of clear liquids every hour after waking up. The clear liquids you can drink include: Clear Liquid (NO RED LIQUIDS) DO NOT DRINK Gatorade, Pedialyte or Powerade Clear broth or bouillon Coffee or tea (no milk or non-dairy creamer) Carbonated and non-carbonated soft drinks Walter-Aid or other fruit flavored drinks Strained fruit juices (no pulp) Jell-O, popsicles, hard candy Water Alcohol Milk or non-dairy creamers Noodles or vegetables in soup Juice with pulp Liquid you cannot see through Do not use tobacco/vaping products Mix 1/2 of Miralax bottle (119 grams) in each 32 ounces of Gatorade bottle until dissolved. Keep cool in the refrigerator. DO NOT ADD ICE. The bowel preparation solution will be consumed in two parts. Part 1 5:00 PM - Evening before your colonoscopy Take 4 Dulcolax tablets. 6 PM - Evening before your colonoscopy Drink 32 oz. of the mixed solution. Drink an 8 oz. glass of bowel preparation every 15 minutes for a total of 4 glasses. Fifteen (15) minutes later, drink an 8 oz. glass of of clear liquids every 15 minutes for a total of 2 glasses. You may continue to drink clear liquids till midnight. Part 2 On the day of your colonoscopy you may drink clear liquids up to (three) 3 hours prior to procedure. 4 1/2 hours before your colonoscopy Take another 32 oz. bottle of mixed solution. Drink an 8 oz. glass of bowel prep every 15 minutes for a total of 4 glasses. Fifteen (15) minutes later, drink an 8 oz. glass of clear liquids every 15 minutes for a total of 2 glasses. You may continue to drink clear liquids up to (three) 3 hours before your exam. 2 03/2019 documented in this encounter [facility] 10-21-2022 History of Presen t illness Narrative Telephone visit, 20 minutes, patient agrees I have communicated my name and active licensure. The patient's identity and physical location were verified at the time of this visit. Either the patient or their legal equal opportunity representative has been informed of the risks and benefits of -- and alternatives to -- treatment through a remote evaluation and consents to proceed with the evaluation remotely. 42 yo with Crohn's disease, 12/24 had right hemicolectomy with small bowel resection for 3 strictures. 250cm of small bowel left. Now doing well on entyvio. Wt increased 15#, no abd pain, about 1-3 formed bm daily. Tried Humira in the past. Recent hepatitis B and TB testing negative. Crohn's disease - Schedule colonoscopy under general anesthesia to see if therapy needs changing or if dilation needed. Richi Loja MD documented in this encounter [facility] 09-24-2022 Telephone encounter Note Spoke with pt notified below messages. [facility] [employer] 09-24-2022 Miscellaneous Notes Spoke with pt notified below messages. Will await appointment for lab draw because labs needed will vary per patient and medical history. . Name of caller: Jesus Contact phone number: [phone] Relationship to Patient: patient Provider: Joao Vasquez Practice: [facility] Chief Complaint/Reason for Call: Patient is scheduled to see Cyndie Vasquez for first time visit on 10/03/22. Patient requesting that basic/annual labs be placed prior so that they can be reviewed at this appointment. Please advise. Best time of day caller can be reached: Any Patient advised that office/PCP has 24-48 business hours to return their call: No documented in this encounter [facility] [employer] 09-24-2022 Telephone encounter Note Will await appointment for lab draw because labs needed will vary per patient and medical history. [employer] Work Phone: 09-23-2022 Telephone encounter Note . [facility] Telephone encounter Note Name of caller: Jesus Contact phone number: [phone] Relationship to Patient: patient Provider: Joao Vasquez Practice: [facility] Chief Complaint/Reason for Call: Patient is scheduled to see Cyndie Vasquez for first time visit on 10/03/22. Patient requesting that basic/annual labs be placed prior so that they can be reviewed at this appointment. Please advise. Best time of day caller can be reached: Any Patient advised that office/PCP has 24-48 business hours to return their call: No [facility] [employer] 09-22-2022 Telephone encounter Note S: Patient spoke with [facility] nurse regarding chest pain and urinary symptoms. B: Onset of symptoms/concern yesterday and urinary symptoms 6 months. A: Patient states that right sided chest pain just below collar bone started yesterday. Pain is minimal 1/10. When he takes a deep breath he can feel it. Denies any other symptoms. Denies shortness of breath. Urinary symptoms started 6 months ago with frequent urination. Denies blood in urine, fever or change in stream. Believes it's probably related to drinking more. R: Patient declined a sooner appointment. Patient appt made with Jc Liao 10/03. Patient advised he should make a New Patient appt for a physical also. Patient understands care advice. No further needs at this time. Patient instructed to call back with new or worsening symptoms. Reason for Disposition Chest pain(s) lasting a few seconds Urinating more frequently than usual (i.e., frequency) Protocols used: Chest Ooqj-DMDDR-HP, Urinary Rjbiljdj-LKCMK-LY T [facility] 09-22-2022 Miscellaneous Notes S: Patient spoke with [facility] nurse regarding chest pain and urinary symptoms. B: Onset of symptoms/concern yesterday and urinary symptoms 6 months. A: Patient states that right sided chest pain just below collar bone started yesterday. Pain is minimal 1/10. When he takes a deep breath he can feel it. Denies any other symptoms. Denies shortness of breath. Urinary symptoms started 6 months ago with frequent urination. Denies blood in urine, fever or change in stream. Believes it's probably related to drinking more. R: Patient declined a sooner appointment. Patient appt made with Jc Liao 10/03. Patient advised he should make a New Patient appt for a physical also. Patient understands care advice. No further needs at this time. Patient instructed to call back with new or worsening symptoms. Reason for Disposition Chest pain(s) lasting a few seconds Urinating more frequently than usual (i.e., frequency) Protocols used: Chest Tsst-UNGDO-AB, Urinary Xswdeoeu-JVRMG-UT documented in this encounter [facility] 04-29-2022 Miscellaneous Notes Called [facility] in [facility] where pt, receives his infusions for Entyvio, and spoke to Pao. Pao stated they received the auth for pt's Entyvio. Auth # [id number] from 01/2022 to 08/18/2022. Caitlin Magdaleno RN April 29, 2022 11:48 AM Pt call for a 2nd time wanting to know if his Prior authorization for his ENTIVIO would be approved by Thursday. Thanks again The pt would like know if his Patient Assistance for(entivio) will be approved by Thursday or do he needs to reschedule. Thanks Chacha Nayak documented in this encounter [facility] 04-22-2022 Miscellaneous Notes Called Entyvio and spoke to Adina who reviewed patient's chart and stated pt is NOT eligible for the Patient Assistance Program because he has insurance. But pt does have the Co-pay Card which has $20,000 on it and it renews each April for 5 years. The patient is able to use that towards deductibles and co-pays for his medicine. Called and left patient a detailed message with this information and advised pt if he has further or specific questions to call [employer] directly and they are more than willing to answer his questions/concerns. Caitlin Magdaleno RN April 22, 2022 3:17 PM ALEXUS FROM [facility] CALL STATING THAT THE PT IS NOT ELIGIBLE FOR THE PATIENT DIRECTOR ONCOLOGY PROGRAM BUT FOR THE CO-PAY PROGRAM. BEST CONTACT (ALEXUS [phone]) THANKS Chacha Nayak documented in this encounter [facility] 04-14-2022 Miscellaneous Notes Completed pt's form for Patient Assistance for Entyvio 300mg every 8 weeks[address] Form given to Dr. Loja to review and signature. Caitlin Magdaleno RN April 14, 2022 2:14 PM Patient's assistance forms have been placed on 's nurse(Caitlin) to be filled out and faxed. Pt# [phone] documented in this encounter [facility] 01-13-2022 Miscellaneous Notes Received fax from [facility] requesting additional information on order form for py's infusions. Added Ht, Wt, No labs to be drawn and peripheral IV flushes. Faxed back to [facility] at [phone]. Caitlin Magdaleno RN January 13, 2022 3:39 PM documented in this encounter [facility] 12-30-2021 Nurse Note Pt advised he is over due for labs to go after he leaves this appt or at least prior to his next infusion. Pt states understanding and is agreeable. documented in this encounter [facility] 12-24-2021 Miscellaneous Notes Patient phones requesting refills as follows: Requested Prescriptions Pending Prescriptions Disp Refills vedolizumab (ENTYVIO) 300 mg injection 1 Each 5 Sig: Infuse 300mg via IV every 8 weeks. Please review and advise. Gail GRAY documented in this encounter [facility] 09-03-2021 Miscellaneous Notes Patient called and requested information for infusion centers he can look into to get his Entyvio outside of [facility]. This nurse sent pt a [employer] list of the infusion centers she is aware of with the phone numbers. Offered pt if he needs further assistance to call this office and we would be happy to assist. Caitlin Magdaleno RN September 03, 2021 12:56 PM documented in this encounter [facility] 08-28-2021 Miscellaneous Notes Received fax from [employer] regarding pt's Entyvio. Entyvio 300mg has been approved from 08/23/21-08/22/2022. Refernce #: [id number]. Will advise pt via [employer]. Caitlin Magdaleno RN August 28, 2021 4:16 PM documented in this encounter [facility] 08-20-2021 Instructions Fany Galeana APRN.SHRINKER - 08/20/2021 4:22 PM EDT BONE MINERAL DENSITY PATIENT INSTRUCTIONS ========= Bone mineral density testing measures the amount of calcium in certain parts of your bones. This information determines how strong your bones are. The test is used to detect osteoporosis, a disease in which the bone's mineral content and density are low, increasing a person's risk of fractures. The lumbar spine (lower back) and the hip are the skeletal sites usually examined. For the test, remember that: 1. You cannot take this test if you are . 2. Eat a normal diet on the day of the test. 3. Take your medications as you normally would. 4. DO NOT take calcium supplements (such as Tums) for 24 hours before the test. 5. On the day of the test, leave valuables (jewelry or credit cards) at home. 6. The test should be performed prior to oral, rectal or IV contrast studies, or at least 7 days after any of these studies. For the test, you may be asked to wear a hospital gown. You will lie on your back, on a padded table, in a comfortable position. Generally, you can resume your usual activities immediately. documented in this encounter [facility] 08-20-2021 History of Presen t illness Narrative VIRTUAL VISIT FOLLOW UP Jesus Disla [id number] has requested a video telemedicine follow-up visit. Jesus Disla verbalized informed consent to proceed with the video telemedicine follow-up visit. Jesus Disla was informed that the details of this video visit would be recorded as part of their electronic medical record. Patient location at time of call: personal residence Patient presents with: IBD Follow Up I had a virtual visit with Mr. Disla today for follow up of Crohn's disease. Last seen on 03/04/[address] Loja. UPDATED HISTORY: - Feeling really well - Has not scheduled the repeat colonoscopy that was ordered d/t work schedule - COVID+ in the beginning of the year, and had some GI symptoms afterwards, but he modified his diet and was able to get the GI symptoms under control Current Clinical Symptoms # of bowel movements daily: 1-2 # of liquid stools daily: 0 Consistency: soft, formed Bloody bowel movements: no Urgency: no Abdominal pain: no Abdominal distention: no Nausea/vomiting: no Weight loss over last 3 months: no IBD HX TEMPLATE Diagnosis Crohn's Disease: Date of diagnosis (year): 2003 Symptoms at diagnosis: increase in frequency, urgency, BRBPR, abdominal cramping Prior Medications/Dates/Reason for Switch Surgery: Yes: Small Bowel Resection (2019) Systemic steroids last year: Yes - none in the past year Enteric or rectal steroids last year: Yes - Entocort (ineffective- pt reports) Systemic 5-ASA: Yes, reason for switch: ineffective Local 5-ASA: No Thiopurines: No Methotrexate: No Biologics: adalimumab x 3 years, (liver levels were elevated, so he stopped taking it) Small molecules: No Current Medications Vedolizumab 300 mg IV Q8 weeks - LD: 07/02/2021 @ infusion clinic in [place] - started in 04/2020 Prior Complications and Extraintestinal Manifestations Clostridium difficile: no Anemia: no Malnutrition/nutritional deficiencies/hypoalbuminemia: no Thrombosis: no Ocular: no Dermatologic: no Arthropathy/Arthralgia: no Oral ulcers: no Primary Sclerosing Cholangitis: no Other: no Labs TB Status: Negative Hepatitis B Status: Non-reactive TPMT: Unknown PAST MEDICAL HISTORY Diagnosis Date Crohn's disease (HCC) dx'd 2003 PAST SURGICAL HISTORY Procedure Laterality Date CHOLECYSTECTOMY 2007 No family history on file. Social History Tobacco Use Smoking status: Never Smoker Smokeless tobacco: Never Used Vaping Use Vaping Use: Never used Substance Use Topics Alcohol use: Yes Comment: once a month Drug use: Yes Comment: medical marijuana to sleep, 1-2x per week Current Outpatient Medications Medication Sig Dispense Refill peg 3350-Electrolytes (GOLYTELY) [id number] -5.86 gram suspension Refer to printed prep instructions from your provider. 4000 mL 0 vedolizumab (ENTYVIO) 300 mg injection Infuse 300mg via IV every 8 weeks. 1 Each 5 acetaminophen (TYLENOL) 500 mg tablet Take 2 tablets by mouth every 6 hours as needed. fluticasone propionate (FLONASE NASAL) Use in the nose as needed. QUERCETIN DIHYDRATE, BULK, MISC twice daily. quercetin 800mg with zinc No current facility-administered medications for this visit. ALLERGIES Allergen Reactions Mold Other: See Comments runny nose Pollen Extracts Other: See Comments runny nose Personal Habits: -Smoking: no -ETOH: socially, once every 2-4 weeks, 2-3 drinks/sitting -Illegal drug use/marijuana: no -NSAIDs: no PHYSICAL FINDINGS OF NOTE: General: alert and appropriate, in no distress and well-hydrated, well nourished, Psych: Appropriate mood and interaction Skin: no rash noted, Head: normocephalic, no abnormality or lesion noted, Eyes: visual acuity is grossly normal, no injection, and EOMI, Ears: external ears normal without erythema or edema, Nose: external nose normal without rhinorrhea, Oropharynx: moist mucus membranes, no tonsillar hypertrophy/exudate, uvula midline and pharynx non-erythematous, lips, teeth and gums are without obvious lesion, Neck: full ROM, no cervical LNs noted, Respiratory: breathing non-labored, and no grunting/flaring/retractions, Chest: equal chest rise with normal respiratory effort, Abdomen: flat appearing. Visible protrusions or hernias: No Incisions/scars: None Areas of pain/tenderness: Denies Neuro: Patient seen sitting with normal appearing strength and coordination REVIEWED ITEMS Last Procedure OR (12/16/2019) - Dr. Neil Procedures: Laparoscopic ileocolic anastomosis with lymphadenectomy; small bowel resection, TAP block Findings: 350 cm of small bowel measured to beginning of the case; but performed a right hemicolectomy with ileocolic end-to-side anastomosis and lymphadenectomy, and we attempted to perform 3 segmental small bowel resections and multiple stricturoplasties but the bowel was friable did not old suture and there was essentially no clear landing zone for the anastomoses thus a single resection was ultimately performed of approximately 90 cm loss approximately 250 cm of small bowel remaining in situ We used a small clean incision device and the incision was 7 cm Pathology: 1. Ileum, appendix, colon, ileocolic resection (A) - Chronic active enteritis with ulceration, non-necrotizing granulomas, and stricture. - Appendix with fibrous obliteration. - Portion of colon with no significant diagnostic alteration. - Multiple benign lymph nodes with non-necrotizing granulomas. 2. Small bowel, segmental resection (B) - Chronic active enteritis with ulceration, non-necrotizing granulomas and acute serositis. - Multiple benign lymph nodes with non-necrotizing granulomas. See comment. RUPA/charito 12/21/2019 COMMENT The morphologic findings are consistent with the clinical history of Crohn's disease. There is no evidence of dysplasia. Assessment IMPRESSION (copied from previous notes and reflects today's medical decision making): Mr. Disla is a 41 year old male with PMHx of cholecystectomy, Covid+, and stricturing SB Crohn's disease (dx 2003) s/p SBR in 12/2019 (Dr. Neil) for 3 strictures, with 250cm of small bowel remaining. Previously treated with prednisone, Entocort (ineffective per pt), Pentasa (ineffective per pt), and ADA (for 3 years but self-DC'd d/t elevated liver enzymes). He was off of medical therapies from [id number] and was started on Vedolizumab in 04/2020, s/p SBR, with positive clinical response. He presents virtually today for follow up and endorses feeling well overall. Encouraged to schedule colonoscopy (order was placed in 02/2021) in order to reassess disease activity and endoscopic response to Vedolizumab therapy. Will plan to order routine blood work and consult Ashok Guerrero, IBD RD, for nutritional management and support. Biologic statement of necessity: Mr. Disla requires Entyvio to maintain remission, and is tolerating it with no side effects. It is medically necessary to continue this medication otherwise he is at risk of flares, steroids, hospitalization and possibly surgery. Biologics are not interchangeable. Health Maintenance: - Skin: follows with Portable Router Operator annually - Bones: has never had a DXA scan- will place order - Vitamin D: has not been checked, will order- currently taking 5,000 units/day - Vitamin B12: has not been checked, will order - Vaccines: Covid (no), Pneumonia (no), Flu (no), Tdap (unsure), Hep A/B (unsure), Shingrex (no- had a minor case of shingles). Deferred vaccinations at this time. - Psychosocial assessment: I am fine. - Interested in IBD RD and deferred Dr. Villarreal's services at this time PLAN - Continue Entyvio Q8 weeks - Routine IBD labs - issues addressed as above - Consult to Ashok Guerrero, IBD RD, for nutritional management and support - Colonoscopy (order previously placed) to reassess disease activity s/p Enyvio therapy - Follow up with Dr. Loja in 6 months PATIENT IS OK TO BE CONTACTED BY IBD GI RESEARCH TEAM TO EXPLORE PARTICIPATION IN RESEARCH STUDIES - yes I spent 25 minutes in the virtual visit, with more than 50% of the total [id number] time of the visit in counseling / coordination of care. I have confirmed and edited as necessary, the PFSH and ROS obtained by others. I will communicate my recommendations and prescriptions to the patient's primary care provider. Unrelated to E/M, telemedicine, or virtual visit service provided within previous 7 days. No E/M service or procedure anticipated within next 24 hours. Fany Galeana APRN.ROBERT August 20, 2021 11:31 AM documented in this encounter [facility] 07-16-2021 Miscellaneous Notes Left message for patient to call and schedule colonoscopy. Message sent in Totsy also. Juaquin Nazario RN documented in this encounter [facility] 03-09-2021 History of Presen t illness Narrative VOC Study: Tableau Screening Note Non-invasive disease activity monitoring in patients withinflammatory bowel disease (IBD) using volatile organic compounds. IRB NO.: [id number] WIRE HARNESS DESIGN ENGINEER: Grant Adam M.D./Abel Feliciano M.D Research Coordinator: Velia Anderson Email: [email or web address] Research Coordinator: Vasile Lopes Email: Research Coordinator: Claire Flores 4 Email: [email or web address] Screened: Yes Was patient Consented during current visit: N/A, ineligible Assigned cohort based on patients diagnosis: Crohn's:Yes Ulcerative Colitis:No Non-IBD:No Screened by: Cici Rico Date: 03/09/2021 documented in this encounter [facility] 12-19-2019 History of Past i llness Narrative Problem Noted Date Resolved Date Hypomagnesemia 12/19/2019 12/20/2019 Last Assessment & Plan: Replace to keep Mag > 1.7 as needed per protocol documented as of this encounter (statuses as of 06/28/2021) [facility] History of Past illness Narrative* Problem Noted Date Resolved Date Hypomagnesemia 12/19/2019 12/20/2019 Last Assessment & Plan: Replace to keep Mag > 1.7 as needed per protocol documented as of this encounter (statuses as of 07/16/2021) [facility] History of Past illness Narrative* Problem Noted Date Resolved Date Hypomagnesemia 12/19/2019 12/20/2019 Last Assessment & Plan: Replace to keep Mag > 1.7 as needed per protocol documented as of this encounter (statuses as of 07/18/2021) [facility] History of Past illness Narrative* Problem Noted Date Resolved Date Hypomagnesemia 12/19/2019 12/20/2019 Last Assessment & Plan: Replace to keep Mag > 1.7 as needed per protocol documented as of this encounter (statuses as of 08/20/2021) [facility] History of Past illness Narrative* Problem Noted Date Resolved Date Hypomagnesemia 12/19/2019 12/20/2019 Last Assessment & Plan: Replace to keep Mag > 1.7 as needed per protocol documented as of this encounter (statuses as of 08/28/2021) [facility] History of Past illness Narrative* Problem Noted Date Resolved Date Hypomagnesemia 12/19/2019 12/20/2019 Last Assessment & Plan: Replace to keep Mag > 1.7 as needed per protocol documented as of this encounter (statuses as of 09/03/2021) [address]14-2020 History of Past illness Narrative* Problem Noted Date Resolved Date Hypomagnesemia 12/19/2019 12/20/2019 Last Assessment & Plan: Replace to keep Mag > 1.7 as needed per protocol documented as of this encounter (statuses as of 09/09/2021) [facility] History of Past illness Narrative* Problem Noted Date Resolved Date Hypomagnesemia 12/19/2019 12/20/2019 Last Assessment & Plan: Replace to keep Mag > 1.7 as needed per protocol documented as of this encounter (statuses as of 11/04/2021) [address]14-2020 History of Past illness Narrative* Problem Noted Date Resolved Date Hypomagnesemia 12/19/2019 12/20/2019 Last Assessment & Plan: Replace to keep Mag > 1.7 as needed per protocol documented as of this encounter (statuses as of 12/24/2021) [address]14-2020 History of Past illness Narrative* Problem Noted Date Resolved Date Hypomagnesemia 12/19/2019 12/20/2019 Last Assessment & Plan: Replace to keep Mag > 1.7 as needed per protocol documented as of this encounter (statuses as of 12/30/2021) [address]14-2020 History of Past illness Narrative* Problem Noted Date Resolved Date Hypomagnesemia 12/19/2019 12/20/2019 Last Assessment & Plan: Replace to keep Mag > 1.7 as needed per protocol documented as of this encounter (statuses as of 01/09/2022) [address]14-2020 History of Past illness Narrative* Problem Noted Date Resolved Date Hypomagnesemia 12/19/2019 12/20/2019 Last Assessment & Plan: Replace to keep Mag > 1.7 as needed per protocol documented as of this encounter (statuses as of 01/13/2022) [facility] History of Past illness Narrative* Problem Noted Date Resolved Date Hypomagnesemia 12/19/2019 12/20/2019 Last Assessment & Plan: Replace to keep Mag > 1.7 as needed per protocol documented as of this encounter (statuses as of 04/14/2022) [address]14-2020 History of Past illness Narrative* Problem Noted Date Resolved Date Hypomagnesemia 12/19/2019 12/20/2019 Last Assessment & Plan: Replace to keep Mag > 1.7 as needed per protocol documented as of this encounter (statuses as of 04/22/2022) [address]-2020 History of Past illness Narrative* Problem Noted Date Resolved Date Hypomagnesemia 12/19/2019 12/20/2019 Last Assessment & Plan: Replace to keep Mag > 1.7 as needed per protocol documented as of this encounter (statuses as of 04/29/2022) [place] [id number] History of Past illness Narrative* Problem Noted Date Diagnosed Date Resolved Date Post-operative state 12/19/2019 023 Last Assessment & Plan: GI soft diet Encourage ambulation and IS use Discharge today Hypomagnesemia 12/19/2019 12/20/2019 Last Assessment & Plan: Replace to keep Mag > 1.7 as needed per protocol documented as of this encounter (statuses as of 10/21/2022) [place] [id number] History of Past illness Narrative* Problem Noted Date Diagnosed Date Resolved Date Post-operative state 12/19/2019 023 Last Assessment & Plan: GI soft diet Encourage ambulation and IS use Discharge today Hypomagnesemia 12/19/2019 12/20/2019 Last Assessment & Plan: Replace to keep Mag > 1.7 as needed per protocol documented as of this encounter (statuses as of 11/21/2022) [place] [id number] History of Past illness Narrative* Problem Noted Date Diagnosed Date Resolved Date Post-operative state 12/19/2019 023 Last Assessment & Plan: GI soft diet Encourage ambulation and IS use Discharge today Hypomagnesemia 12/19/2019 12/20/2019 Last Assessment & Plan: Replace to keep Mag > 1.7 as needed per protocol documented as of this encounter (statuses as of 12/11/2022) [facility] History of Past illness Narrative* Problem Noted Date Diagnosed Date Resolved Date Post-operative state 12/19/2019 023 Last Assessment & Plan: GI soft diet Encourage ambulation and IS use Discharge today Hypomagnesemia 12/19/2019 12/20/2019 Last Assessment & Plan: Replace to keep Mag > 1.7 as needed per protocol documented as of this encounter (statuses as of 02/06/2023) [facility] History of Past illness Narrative* Problem Noted Date Diagnosed Date Resolved Date Post-operative state 12/19/2019 023 Last Assessment & Plan: GI soft diet Encourage ambulation and IS use Discharge today Hypomagnesemia 12/19/2019 12/20/2019 Last Assessment & Plan: Replace to keep Mag > 1.7 as needed per protocol documented as of this encounter (statuses as of 02/09/2023) [facility] History of Past illness Narrative* Problem Noted Date Diagnosed Date Resolved Date Post-operative state 12/19/2019 023 Last Assessment & Plan: GI soft diet Encourage ambulation and IS use Discharge today Hypomagnesemia 12/19/2019 12/20/2019 Last Assessment & Plan: Replace to keep Mag > 1.7 as needed per protocol documented as of this encounter (statuses as of 07/13/2023) [facility] History of Present illness Narrative* Matthew Kowalski Tech (Tech) - 11/16/2019 2:30 PM EDT Radiology Service Progress Note PATIENT NAME: Jesus Disla DATE OF SERVICE: November 16, 2019 TIME: 2:15 PM PATIENT IDENTITY VERIFICATION COMPLETED USING TWO (2) IDENTIFIERS: Name and Date of confirmedby patient verbally. FALL SCREENING: Has the patient had 2 falls in the last year or 1 fall with injury or currently using an Ambulatory Assistive Device (Walker, Cane, Wheelchair, Crutches, etc.)? No PATIENT GENDER DATA: Male PATIENT RELEVANT IMPLANT DATA REVIEWED: Yes RADIOLOGY DEPARTMENT: CT; Exam(s) Completed: ENTEROGRAPHY PERIPHERAL IV DATA: Site assessment: Clean,Dry and Intact, Site disposition Discontinued SIGNED BY: Lalo Rosario November 16, 2019 2:15 PM Radiology Service Progress Note DATE OF SERVICE: November 16, 2019 TIME: 12:49 PM PATIENT WEIGHT: LBS PATIENT IDENTITY VERIFICATION COMPLETED USING TWO (2) STANDARD IDENTIFIERS: Name and Date of confirmed by patient verbally. FALL SCREENING: Has the patient had 2 falls in the last year or 1 fall with injury or currently using an Ambulatory Assistive Device (Walker, Cane, Wheelchair, Crutches, etc.)? No PATIENT GENDER DATA: Male ALLERGIES: Reviewed and unchanged CONTRAST ALLERGY: No EXAM: CT -CONTRAST INDUCED NEPHROPATHY RISK FACTORS: Not applicable CREATININE: No results found for: CREAT, EGFROTH, EGFRAA P.O.C.T. RESULTS: N/A November 16, 2019 TREATMENT: N/A and No Hydration needed: End Stage Renal Disease, patient with set dialysis schedule. IV SITE: Ambulatory: A peripheral IV was started in the Left antecubital site with a Angio cath: 22gauge. and A Saline lock was inserted per protocol IV SITE APPEARANCE: Clean,Dry and Intact SIGNATURE: Essie Hancock RN PATIENT NAME: Jesus Disla DATE: November 16, 2019 TIME: 12:49 PM [facility] Diagnosis Crohn's disease of both small and large intestine with intestinal obstruction (HCC)- Primary Regional enteritis of small intestine with large [facility] Crohn's disease of both small and large intestine without complication (HCC)- Primary Regional enteritis of small intestine with large intestine residential current use of systemic steroids Encounter for long-term (current) use of steroids [facility] Crohn's disease of both small and large intestine with intestinal obstruction (HCC)- Primary Regional enteritis of small intestine with large intestine [facility] Diagnosis Crohn's disease of both small and large intestine with intestinal obstruction (HCC)- Primary Regional enteritis of small intestine with large intestine [facility] Diagnosis Crohn's disease of small and large intestines with complication (HCC)- [facility] Diagnosis Crohn's disease of small and large intestines with complication (HCC) [facility] Diagnosis Crohn's disease of small intestine with complication (HCC) Regional enteritis of small intestine [facility] Diagnosis Crohn's disease of both small and large intestine with intestinal obstruction (HCC)- Primary Regional enteritis of small intestine with large intestine Post-op pain Other acute postoperative pain Close exposure to COVID-19 virus Post-op pain Other acute postoperative pain Hypomagnesemia Disorders of magnesium metabolism Crohn's disease of small and large intestines with complication (HCC)- [facility] Crohn's disease of both small and large intestine with intestinal obstruction (HCC)- Primary Regional enteritis of small intestine with large intestine Post-op pain Other acute postoperative pain Close exposure to COVID-19 virus Post-op pain Other acute postoperative pain Hypomagnesemia Disorders of magnesium metabolism Wellness examination- Primary Screening for depression Encounter for screening examination for other mental health and behavioral disorders Crohn's disease of large intestine without complication (HCC) Regional enteritis of large intestine History of partial surgical removal of colon * Assessment & Plan Note - Merlin Deutsch DO - 04/11/2024 7:10 AM EST Associated Problem(s): Crohn's disease (HCC) Under care of GI. [facility] noteNo assessment information availableWAdena [facility]ike [facility] Work Phone: Evaluation note* Diagnosis Crohn's disease of both small and large intestine with intestinal obstruction (HCC)- Primary Regional enteritis of small intestine with large intestine Post-op pain Other acute postoperative pain Close exposure to COVID-19 virus Post-op pain Other acute postoperative pain Hypomagnesemia Disorders of magnesium metabolism Wellness examination- Primary Screening for depression Encounter for screening examination for other mental health and behavioral disorders Crohn's disease of large intestine without complication (HCC) Regional enteritis of large intestine History of partial surgical removal of colon Crohn's disease of both small and large intestine with intestinal obstruction (HCC)- Primary Regional enteritis of small intestine with large intestine Gastrointestinal hemorrhage, unspecified gastrointestinal hemorrhage type documented in this encounter [facility] note* Diagnosis Crohn's disease of both small and large intestine with intestinal obstruction (HCC)- Primary Regional enteritis of small intestine with large intestine Post-op pain Other acute postoperative pain Close exposure to COVID-19 virus Post-op pain Other acute postoperative pain Hypomagnesemia Disorders of magnesium metabolism Wellness examination- Primary Screening for depression Encounter for screening examination for other mental health and behavioral disorders Crohn's disease of large intestine without complication (HCC) Regional enteritis of large intestine History of partial surgical removal of colon Crohn's disease of small and large intestines with complication (HCC)- Primary documented in this encounter [facility] note* Diagnosis Crohn's disease of both small and large intestine with intestinal obstruction (HCC)- Primary Regional enteritis of small intestine with large intestine Post-op pain Other acute postoperative pain Close exposure to COVID-19 virus Post-op pain Other acute postoperative pain Hypomagnesemia Disorders of magnesium metabolism Wellness examination- Primary Screening for depression Encounter for screening examination for other mental health and behavioral disorders Crohn's disease of large intestine without complication (HCC) Regional enteritis of large intestine History of partial surgical removal of colon Crohn's disease of small and large intestines with complication (HCC)- Primary documented in this encounter [facility] for referral (narrative)* Outpatient Procedure (Routine) - Pending Review Specialty Diagnoses / Procedures Referred By Emil zarate Referred To Contact [facility] [place] Diagnoses Crohn's disease of small and large intestines with complication (HCC) Procedures COLONOSCOPY SCREENING COLONOSCOPY FLX DX W/COLLJ SPEC WHEN Richi Renee MD [id number] [place] [address] Referral ID Status Reason Start Date Expiration Date Visits Requested Visits Authorized [id number] Pending Review Auto-Generat ed Referral 10/21/2022 10/22/2023 1 1 [facility] for referral (narrative)* Outpatient Procedure (Routine) - Closed Specialty Diagnoses / Procedures Referred By Contac t Referred To Contact [facility] Diagnoses Crohn's disease of small and large intestines with complication (HCC) Procedures COLONOSCOPY SCREENING COLONOSCOPY FLX DX W/COLLJ SPEC WHEN Richi Renee MD [address] [place] [address] [place] [address] Referral ID Status Reason Start Date Expiration Date V isits Requested Visits Authorized [id number] Closed Auto-Generate d Referral 10/21/2022 10/22/2023 1 1 [facility] for referral (narrative)* Diagnostic Procedure Only (Routine) - Closed Specialty Diagnoses / Procedures Referred By Contac t Referred To Contact [facility] Diagnoses Crohn's disease of small intestine with complication (HCC) Procedures CT ENTEROGRAPHY W IVCON CT ABD & PELVIS W/CONTRAST Richi Loja MD [id number] [id number] Referral ID Status Reason Start Date Expiration Date V isits Requested Visits Authorized [id number] Closed Auto-Generate d Referral 11/11/2019 05/09/2020 3 3 [facility] for referral (narrative)No reason for referral information availableWAdena [facility] Work Phone: Reason for visit Narrative* Outpatient Procedure (Routine) - Closed Specialty Diagnoses / Procedures Referred By Emil zarate Referred To Contact [facility] Diagnoses Crohn's disease of small and large intestines with complication (HCC) Procedures COLONOSCOPY SCREENING COLONOSCOPY FLX DX W/CO[place]J [place] [address] [place] [address] [facility] [address] [place] [address] Referral ID Status Reason Start Date Expiration Date V isits Requested Visits Authorized [id number] Closed Auto-Generate d Referral 10/21/2022 10/22/2023 1 1 [facility] for visit Narrative* Diagnostic Procedure Only (Routine) - Closed Specialty Diagnoses / Procedures Referred By Emil zarate Referred To Contact CT [facility] Diagnoses Crohn's disease of small intestine with complication (HCC) Procedures CT ENTEROGRAPHY W IVCON CT ABD & PELVIS W/CONTRAST Richi Loja MD [address] [place] [address] Ct Imaging [place] [facility] Referral ID Status Reason Start Date Expiration Date V isits Requested Visits Authorized [id number] Closed Auto-Generate d Referral 11/11/2019 05/09/2020 3 3 [facility] Summary Purpose Family History No Family History Records FoundNo Family History Records FoundNo Family History Records FoundNo Family History Records FoundNo Family History Records FoundNo Family History Records FoundNo Family History Records Found Advance Directives No Advanced Directives Records FoundDocuments on File Type Date Recorded Patient Flight Service Agent Expl anation Advance Directive(s) 12/09/2019 12:40 PM Documents on File Type Date Recorded Patient Flight Service Agent Expl anation Advance Directive(s) 12/09/2019 12:40 PM Date Activated Date Inactivated Comments 11/09/2024 3:16 PM 11/12/2024 7:17 PM Question Answer Comments Full Code Order Discussed With: Patient Medications Administered Section Inactive Administered Medications - up to 3 most recent administrations Medication Order MAR Action Action Date Dose Rate Site vedolizumab 300 mg in NaCl 0.9% 250 mL (ENTYVIO) 300 mg, INTRAVENOUS, Administer over 30 Minutes, ONCE, 1 dose, On Thu06/28/21 at 1430, Approx Total Volume: Exp: 06/29/21 @ 14:15 After the infusion is complete flush with 30 mL of sterile 0.9% Sodium Chloride Injection. Refrigerate. EXP: (24 HR) New Bag/Syringe/Bottle 06/28/2021 2:36 PM EDT 300 mg Inactive Administered Medications - up to 3 most recent administrations Medication Order MAR Action Action Date Dose Rate Site vedolizumab 300 mg in NaCl 0.9% 250 mL (ENTYVIO) 300 mg, INTRAVENOUS, Administer over 30 Minutes, ONCE, 1 dose, On Thu09/09/21 at 1130, Approx Total Volume: 280 mL EXP: 09/10/21 @ 1130 After the infusion is complete flush with 30 mL of sterile 0.9% Sodium Chloride Injection. Refrigerate. EXP: (24 HR) New Bag/Syringe/Bottle 09/09/2021 11:45 AM EDT 300 mg Inactive Administered Medications - up to 3 most recent administrations Medication Order MAR Action Action Date Dose Rate Site vedolizumab 300 mg in NaCl 0.9% 250 mL (ENTYVIO) 300 mg, INTRAVENOUS, Administer over 30 Minutes, ONCE, 1 dose, On Thu11/04/21 at 1000, Approx Total Volume: 280 mL Exp: 11/05/21 @ 1000 After the infusion is complete flush with 30 mL of sterile 0.9% Sodium Chloride Injection. Refrigerate. EXP: (24 HR) New Bag/Syringe/Bottle 11/04/2021 10:20 AM EDT 300 mg Inactive Administered Medications - up to 3 most recent administrations Medication Order MAR Action Action Date Dose Rate Site vedolizumab 300 mg in NaCl 0.9% 250 mL (ENTYVIO) 300 mg, INTRAVENOUS, Administer over 30 Minutes, ONCE, 1 dose, On Thu12/30/21 at 1030, Approx Total Volume: -- Exp: 9/27/22@1000 After the infusion is complete flush with 30 mL of sterile 0.9% Sodium Chloride Injection. Patient own medication Refrigerate. EXP: (24 HR) New Bag/Syringe/Bottle 12/30/2021 10:18 AM EDT 300 mg Inactive Administered Medications - up to 3 most recent administrations Medication Order MAR Action Action Date Dose Rate Site NaCl 0.9% iv infusion 50 mL/hr, INTRAVENOUS, CONTINUOUS, Starting on Kailey 11/20/22 at 1400, Until Kailey 11/20/22 at 1510, Preprocedure Rate Verify 11/20/2022 3:10 PM EDT 50 mL/hr 50 mL/hr Continued by Anesthesia 11/20/2022 2:22 PM EDT 50 mL/hr New Bag/Syringe/Bottle 11/20/2022 1:36 PM EDT 50 mL/hr 5 0 mL/hr Reason for Referral Specialty Diagnoses / Procedures Referred By Emil zarate Referred To Contact Nutrition Diagnoses Crohn's disease of both small and large intestine without complication (HCC) Procedures CONSULT TO NUTRITION THERAPY OFFICE/OUTPATIENT [facility] 60-74 MINUTES Fany Galeana, MARLON.SHRINKER [address] [place] [address] Referral ID Status Reason Start Date Expiration Date Visits Requested Visits Authorized [id number] Authorized PCP Requested Referral 08/20/2021 08/20/2022 1 1 Additional Source Comments INFORMATION SOURCE (unrecogn ized section and content) DATE CREATED AUTHOR 09/30/2017 Nakia García [facility]ben[facility] [place] DATE CREATED AUTHOR AUTHOR'S ORGANIZ ATION 03/18/2020 [facility] DATE CREATED AUTHOR AUTHOR'S ORGANIZ ATION 09/25/2022 [facility] DATE CREATED AUTHOR AUTHOR'S ORGANIZ ATION 11/23/2024 [facility] DATE CREATED AUTHOR AUTHOR'S ORGANIZ ATION 12/04/[address] [facility] DATE CREATED AUTHOR AUTHOR'S ORGANIZ ATION 12/07/2024 Nakia García ntbenoit DATE CREATED AUTHOR AUTHOR'S ORGANIZ ATION 12/11/2024 [facility] (unrecognized sect ion and content) No Status Records FoundNo Status Records FoundNo Status Records FoundNo Status Records FoundNo Status Records FoundNo Status Records Found Source Comments (unrecognize d section and content) In the event this informatio n is protected by the Federal Confidentiality of Alcohol and Drug Abuse Patient Records regulations: The Federal rules restrict any use of the information to criminally investigate or prosecute any alcohol or drug abuse patient.[facility] Hospital[facility] the event this information is protected by the Federal Confidentiality of Alcohol and Drug Abuse Patient Records regulations: The Federal rules restrict any use of the information to criminally investigate or prosecute any alcohol or drug abuse patient.[facility] Hospital[facility] the event this information is protected by the Federal Confidentiality of Alcohol and Drug Abuse Patient Records regulations: The Federal rules restrict any use of the information to criminally investigate or prosecute any alcohol or drug abuse patient.[facility] HospitalIn the event this information is protected by the Federal Confidentiality of Alcohol and Drug Abuse Patient Records regulations: The Federal rules restrict any use of the information to criminally investigate or prosecute any alcohol or drug abuse patient.[facility] HospitalIn the event this information is protected by the Federal Confidentiality of Alcohol and Drug Abuse Patient Records regulations: The Federal rules restrict any use of the information to criminally investigate or prosecute any alcohol or drug abuse patient.[facility] HospitalIn the event this information is protected by the Federal Confidentiality of Alcohol and Drug Abuse Patient Records regulations: The Federal rules restrict any use of the information to criminally investigate or prosecute any alcohol or drug abuse patient.[facility] HospitalIn the event this information is protected by the Federal Confidentiality of Alcohol and Drug Abuse Patient Records regulations: The Federal rules restrict any use of the information to criminally investigate or prosecute any alcohol or drug abuse patient.[facility] HospitalIn the event this information is protected by the Federal Confidentiality of Alcohol and Drug Abuse Patient Records regulations: The Federal rules restrict any use of the information to criminally investigate or prosecute any alcohol or drug abuse patient.[facility] HospitalIn the event this information is protected by the Federal Confidentiality of Alcohol and Drug Abuse Patient Records regulations: The Federal rules restrict any use of the information to criminally investigate or prosecute any alcohol or drug abuse patient.[facility] HospitalIn the event this information is protected by the Federal Confidentiality of Alcohol and Drug Abuse Patient Records regulations: The Federal rules restrict any use of the information to criminally investigate or prosecute any alcohol or drug abuse patient.[facility] HospitalIn the event this information is protected by the Federal Confidentiality of Alcohol and Drug Abuse Patient Records regulations: The Federal rules restrict any use of the information to criminally investigate or prosecute any alcohol or drug abuse patient.[facility] HospitalIn the event this information is protected by the Federal Confidentiality of Alcohol and Drug Abuse Patient Records regulations: The Federal rules restrict any use of the information to criminally investigate or prosecute any alcohol or drug abuse patient.[facility] HospitalIn the event this information is protected by the Federal Confidentiality of Alcohol and Drug Abuse Patient Records regulations: The Federal rules restrict any use of the information to criminally investigate or prosecute any alcohol or drug abuse patient.[facility] HospitalIn the event this information is protected by the Federal Confidentiality of Alcohol and Drug Abuse Patient Records regulations: The Federal rules restrict any use of the information to criminally investigate or prosecute any alcohol or drug abuse patient.[facility] HospitalIn the event this information is protected by the Federal Confidentiality of Alcohol and Drug Abuse Patient Records regulations: The Federal rules restrict any use of the information to criminally investigate or prosecute any alcohol or drug abuse patient.[facility] HospitalIn the event this information is protected by the Federal Confidentiality of Alcohol and Drug Abuse Patient Records regulations: The Federal rules restrict any use of the information to criminally investigate or prosecute any alcohol or drug abuse patient.[facility] HospitalIn the event this information is protected by the Federal Confidentiality of Alcohol and Drug Abuse Patient Records regulations: The Federal rules restrict any use of the information to criminally investigate or prosecute any alcohol or drug abuse patient.[facility] HospitalIn the event this information is protected by the Federal Confidentiality of Alcohol and Drug Abuse Patient Records regulations: The Federal rules restrict any use of the information to criminally investigate or prosecute any alcohol or drug abuse patient.[facility] HospitalIn the event this information is protected by the Federal Confidentiality of Alcohol and Drug Abuse Patient Records regulations: The Federal rules restrict any use of the information to criminally investigate or prosecute any alcohol or drug abuse patient.[facility] the event this information is protected by the Federal Confidentiality of Alcohol and Drug Abuse Patient Records regulations: The Federal rules restrict any use of the information to criminally investigate or prosecute any alcohol or drug abuse patient.[facility] HospitalIn the event this information is protected by the Federal Confidentiality of Alcohol and Drug Abuse Patient Records regulations: The Federal rules restrict any use of the information to criminally investigate or prosecute any alcohol or drug abuse patient.[facility] HospitalIn the event this information is protected by the Federal Confidentiality of Alcohol and Drug Abuse Patient Records regulations: The Federal rules restrict any use of the information to criminally investigate or prosecute any alcohol or drug abuse patient.[facility] HospitalIn the event this information is protected by the Federal Confidentiality of Alcohol and Drug Abuse Patient Records regulations: The Federal rules restrict any use of the information to criminally investigate or prosecute any alcohol or drug abuse patient.[facility] HospitalIn the event this information is protected by the Federal Confidentiality of Alcohol and Drug Abuse Patient Records regulations: The Federal rules restrict any use of the information to criminally investigate or prosecute any alcohol or drug abuse patient.[facility] HospitalIn the event this information is protected by the Federal Confidentiality of Alcohol and Drug Abuse Patient Records regulations: The Federal rules restrict any use of the information to criminally investigate or prosecute any alcohol or drug abuse patient.[facility] HospitalIn the event this information is protected by the Federal Confidentiality of Alcohol and Drug Abuse Patient Records regulations: The Federal rules restrict any use of the information to criminally investigate or prosecute any alcohol or drug abuse patient.[facility] HospitalIn the event this information is protected by the Federal Confidentiality of Alcohol and Drug Abuse Patient Records regulations: The Federal rules restrict any use of the information to criminally investigate or prosecute any alcohol or drug abuse patient.[facility] HospitalIn the event this information is protected by the Federal Confidentiality of Alcohol and Drug Abuse Patient Records regulations: The Federal rules restrict any use of the information to criminally investigate or prosecute any alcohol or drug abuse patient.[facility] HospitalIn the event this information is protected by the Federal Confidentiality of Alcohol and Drug Abuse Patient Records regulations: The Federal rules restrict any use of the information to criminally investigate or prosecute any alcohol or drug abuse patient.[facility] HospitalIn the event this information is protected by the Federal Confidentiality of Alcohol and Drug Abuse Patient Records regulations: The Federal rules restrict any use of the information to criminally investigate or prosecute any alcohol or drug abuse patient.[facility] HospitalIn the event this information is protected by the Federal Confidentiality of Alcohol and Drug Abuse Patient Records regulations: The Federal rules restrict any use of the information to criminally investigate or prosecute any alcohol or drug abuse patient.[facility] HospitalIn the event this information is protected by the Federal Confidentiality of Alcohol and Drug Abuse Patient Records regulations: The Federal rules restrict any use of the information to criminally investigate or prosecute any alcohol or drug abuse patient.[facility] HospitalIn the event this information is protected by the Federal Confidentiality of Alcohol and Drug Abuse Patient Records regulations: The Federal rules restrict any use of the information to criminally investigate or prosecute any alcohol or drug abuse patient.[facility] HospitalIn the event this information is protected by the Federal Confidentiality of Alcohol and Drug Abuse Patient Records regulations: The Federal rules restrict any use of the information to criminally investigate or prosecute any alcohol or drug abuse patient.[facility] HospitalIn the event this information is protected by the Federal Confidentiality of Alcohol and Drug Abuse Patient Records regulations: The Federal rules restrict any use of the information to criminally investigate or prosecute any alcohol or drug abuse patient.[facility] HospitalIn the event this information is protected by the Federal Confidentiality of Alcohol and Drug Abuse Patient Records regulations: The Federal rules restrict any use of the information to criminally investigate or prosecute any alcohol or drug abuse patient.[facility] HospitalIn the event this information is protected by the Federal Confidentiality of Alcohol and Drug Abuse Patient Records regulations: The Federal rules restrict any use of the information to criminally investigate or prosecute any alcohol or drug abuse patient.[facility] HospitalIn the event this information is protected by the Federal Confidentiality of Alcohol and Drug Abuse Patient Records regulations: The Federal rules restrict any use of the information to criminally investigate or prosecute any alcohol or drug abuse patient.[facility] HospitalIn the event this information is protected by the Federal Confidentiality of Alcohol and Drug Abuse Patient Records regulations: The Federal rules restrict any use of the information to criminally investigate or prosecute any alcohol or drug abuse patient.[facility] HospitalIn the event this information is protected by the Federal Confidentiality of Alcohol and Drug Abuse Patient Records regulations: The Federal rules restrict any use of the information to criminally investigate or prosecute any alcohol or drug abuse patient.[facility] HospitalIn the event this information is protected by the Federal Confidentiality of Alcohol and Drug Abuse Patient Records regulations: The Federal rules restrict any use of the information to criminally investigate or prosecute any alcohol or drug abuse patient.[facility] Reason for Visit (unrecogniz ed section and content) Specialty Diagnoses / Procedures Referred By Contlibra t Referred To Contact Diagnoses Crohn's disease of both small and large intestine with intestinal obstruction (HCC) Crohn's Procedures INJECTION, VEDOLIZUMAB Richi Loja MD [address] [place] [address] [place] [facility] Of [facility] [address] [place] [address] Referral ID Status Reason Start Date Expiration Date V isits Requested Visits Authorized [id number] Authorized 10/23/2020 04/05/2022 99 99 Reason Comments Appointment Reason Comments IBD Follow Up Reason Comments Medication Authorization Reason Comments Patient Question Reason Comments Non-Chemotherapy Treatment Entyvio Specialty Diagnoses / Procedures [facility]erred To Contact Diagnoses Crohn's disease of both small and large intestine with intestinal obstruction (HCC) Crohn's Procedures INJECTION, VEDOLIZUMAB Richi Loja MD [address] [place] [address] [place] [facility] Of [facility] [address] [place] [address] Referral ID Status Reason Start Date Expiration Date V isits Requested Visits Authorized [id number] Authorized 10/23/2020 08/22/2022 12 12 Referral ID Status Reason Start Date Expiration Date V isits Requested Visits Authorized [id number] Pending Review 10/23/2020 08/22/2022 12 12 Reason Onset Date Comments Refill Request 12/24/2021 Reason Comments Non-Chemotherapy Treatment entyvio Reason Comments Orders Reason Comments Patient Assistance Entyvio Reason Comments Patient Update Reason Comments Medication Problem Called [facility] Reason Onset Date Comments Labs Only 09/23/2022 Reason Onset Date Comments Chest Pain 09/22/2022 Reason Comments Crohns Reason Comments Refill Request Reason Comments Radiology CT Specialty Diagnoses / Procedures Referred By Emil Referred To Contact CT IMAGING Diagnoses Crohn's disease of small intestine with complication (HCC) Procedures CT ENTEROGRAPHY W IVCON CT ABD & PELVIS W/CONTRAST Richi Loja MD [address] [place] [address] [facility] [place] [id number] Referral ID Status Reason Start Date Expiration Date V isits Requested Visits Authorized [id number] Closed Auto-Generate d Referral 11/11/2019 05/09/2020 3 3 Reason Comments Medication Authorization Entyvio approva l, valid 08/09/2023 - 08/07/2024 Reason Comments Crohns Reason Comments Yearly Exam Discuss recent lab w ork ordered by GI Reason Comments Insurance Authorization [place]/Entyvio v ial authorization Reason Onset Date Comments Transition Of Care 11/14/2024 [facility] DISCHARGE FOLLOW UP (Initial Outreach) Reason Comments Patient Question Orders Reason Comments Established Patient Reason Onset Date Comments Transition Of Care 11/21/2024 [facility] DISCHARGE FOLLOW UP Reason Onset Date Comments Population Health Navigation Outreach 11/23/2024 Left my contact info to schedule [facility] Reason Onset Date Comments Transition Of Care 11/28/2024 [facility]GE FOLLOW UP Reason Onset Date Comments Transition Of Care 12/06/2024 [facility] DISCHARGE FOLLOW UP (final outreach) Care Teams (unrecognized sec tion and content) Dining Room Maid Relationship Specialty Start Date End Date Merlin Deutsch DO [address] [place] [address] PCP - General Family Practice 12/09/19 Dining Room Maid Relationship Specialty Start Date End Date Merlin Deutsch [address] [address] PCP - General Family Practice 12/09/19 Dining Room Maid Relationship Specialty Start Date End Date Merlin Deutsch [address] [address] PCP - General Family Practice 12/09/19 Dining Room Maid Relationship Specialty Start Date End Date Merlin Deutsch DO [address] [place] [address] PCP - General Family Practice 12/09/19 Dining Room Maid Relationship Specialty Start Date End Date Merlin Deutsch DO [address] [place] [address] PCP - General Family Practice 12/09/19 Dining Room Maid Relationship Specialty Start Date End Date Merlin Deutsch [address] [address] PCP - General Family Practice 12/09/19 Dining Room Maid Relationship Specialty Start Date End Date Merlin Deutsch DO [address] [place] [address] PCP - General Family Practice 12/09/19 Dining Room Maid Relationship Specialty Start Date End Date Merlin Deutsch, DO [address] [place] [address] PCP - General Family Practice 12/09/19 Dining Room Maid Relationship Specialty Start Date End Date Merlin Deutsch, DO [address] [place] [address] PCP - General Family Medicine 12/09/19 Dining Room Maid Relationship Specialty Start Date End Date Merlin Deutsch DO [address] [place] [address] PCP - General Family Medicine 12/09/19 Dining Room Maid Relationship Specialty Start Date End Date Merlin Deutsch DO [address] [place] [address] PCP - General Family Medicine 12/09/19 Dining Room Maid Relationship Specialty Start Date End Date Merlin Deutsch DO [address] [place] [address] PCP - General Family Medicine 12/09/19 Dining Room Maid Relationship Specialty Start Date End Date Merlin Deutsch DO [address] [place] [address] PCP - General Family Medicine 12/09/19 Dining Room Maid Relationship Specialty Start Date End Date Merlin Deutsch DO [address] [place] [address] PCP - General Family Medicine 12/09/19 Dining Room Maid Relationship Specialty Start Date End Date Merlin Deutsch DO [address] [place] [address] PCP - General Family Medicine 12/09/19 Dining Room Maid Relationship Specialty Start Date End Date Merlin Deutsch DO [address] [place] [address] PCP - General Family Medicine 12/09/19 Dining Room Maid Relationship Specialty Start Date End Date Ernesto William MD [address] [place] [address] PCP - General Internal Medicine 10/20/14 12/08/19 Dining Room Maid Relationship Specialty Start Date End Date Ernesto William MD [address] [place] [address] PCP - General Internal Medicine 10/20/14 12/08/19 Dining Room Maid Relationship Specialty Start Date End Date Merlin Deutsch DO [address] [place] [address] PCP - General Family Medicine 12/09/19 Richi Loja MD [address] [place], [place] [id number] [employer] Officer Gastroenterology 11/04/22 Dining Room Maid Relationship Specialty Start Date End Date Merlin Deutsch DO [address] [place] [address] PCP - General Family Medicine 12/09/19 [place] [address] [place] [address] [employer] Officer Gastroenterology 11/04/22 Dining Room Maid Relationship Specialty Start Date End Date Merlin Deutsch DO [address] [place] [address] PCP - General Family Medicine 12/09/19 Richi Loja MD [address] [place] [address] [employer] Officer Gastroenterology 11/04/22 Dining Room Maid Relationship Specialty Start Date End Date Merlin Deutsch DO [address] [place] [address] PCP - General Family Medicine 12/09/19 Richi Loja MD [address] [place] [address] [employer] Officer Gastroenterology 11/04/22 Mariann Sánchez PA-C [address] [place] [address] [employer] Family Medicine 03/11/24 Dining Room Maid Relationship Specialty Start Date End Date Merlin Deutsch DO [address] [place] [address] PCP - General Family Medicine 12/09/19 Richi Loja MD [address] [place] [address] [employer] Officer Gastroenterology 11/04/22 Mariann Sánchez PA-C [address] [place] [address] [employer] Family [facility] 03/11/24 Dining Room Maid Relationship Specialty Start Date End Date Merlin Deutsch DO [address] [place] [address] PCP - General Family Medicine 12/09/19 Richi Loja MD [address] [address] [employer] Officer Gastroenterology 11/04/22 Mariann Sánchez PA-C [address] [place] [address] [facility] 03/11/24 Team Status: Active Member Role Status Dates Lidia Koenig FIRE CREW SPECIALIST, FIRE CREW SPECIALIST-C Attending Provider Active Start: August 15, 2024 Lidia Koenig FIRE CREW SPECIALIST, FIRE CREW SPECIALIST-C Referring Provider Active Start: August 15, 2024 Team Status: Inactive Member Role Status Dates Lidia Koenig FIRE CREW SPECIALIST, FIRE CREW SPECIALIST-C Attending Provider Active Start: September 22, 2024 End: September 22, 2024 Lidia Koenig FIRE CREW SPECIALIST, FIRE CREW SPECIALIST-C Referring Provider Active Start: September 22, 2024 End: September 22, 2024 Team Status: Active Member Role/Relationship Status Dates Lidia Koenig FIRE CREW SPECIALIST, FIRE CREW SPECIALIST-C Attending Provider Active Start: August 15, 2024 Lidia Koenig FIRE CREW SPECIALIST, FIRE CREW SPECIALIST-C Referring Provider Active Start: August 15, 2024 Team Status: Inactive Member Role/Relationship Status Dates Lidia Koenig FIRE CREW SPECIALIST, FIRE CREW SPECIALIST-C Attending Provider Active Start: September 22, 2024 End: September 22, 2024 Lidia Koenig FIRE CREW SPECIALIST, FIRE CREW SPECIALIST-C Referring Provider Active Start: September 22, 2024 End: September 22, 2024 Team Status: Inactive Member Role/Relationship Status Dates Lidia Koenig FIRE CREW SPECIALIST, FIRE CREW SPECIALIST-C Attending Provider Active Start: October 12, 2024 End: October 12, 2024 Lidia Koenig FIRE CREW SPECIALIST, FIRE CREW SPECIALIST-C Referring Provider Active Start: October 12, 2024 End: October 12, 2024 Dining Room Maid Relationship Specialty Start Date End Date Merlin Deutsch DO [address] [place] [address] PCP - General Family Medicine 12/09/19 Richi Loja MD [address] [place] [address] [employer] Officer Gastroenterology 11/04/22 Mariann Sánchez PA-C [address] [place] [address] [employer] Family Medicine 03/11/24 Sonia Dobson RN [address] [place] [address] Primary Care Project Management Intern 11/14/24 Dining Room Maid Relationship Specialty Start Date End Date Merlin Deutsch DO [address] [place], [place] [id number] PCP - General Family Medicine 12/09/19 Richi Loja MD [address] [place] [address] [employer] Officer Gastroenterology 11/04/22 Mariann Sánchez PA-C [address] [place] [address] Lock Plater Family [facility] 03/11/24 Sonia Dobson RN [address] [place] [address] Primary Care Project Management Intern 11/14/24 Dining Room Maid Relationship Specialty Start Date End Date Merlin Deutsch DO [address] [place] [address] PCP - General Family Medicine 12/09/19 Richi Loja MD [address] [place] [address] [employer] Officer Gastroenterology 11/04/22 Mariann Sánchez PA-C [address] [place] [address] [employer] Family [facility] 03/11/24 Sonia Dobson RN [address] [place] [address] Primary Care Project Management Intern 11/14/24 Team Status: Active Member Role/Relationship Status Dates Lidia Koenig FIRE CREW SPECIALIST, FIRE CREW SPECIALIST-C Primary Care Provider Activ e Team Status: Active Member Role/Relationship Status Dates Lidia Koenig [employer] SPECIALIST, FIRE CREW SPECIALIST-C Attending Provider Active Start: August 15, 2024 Lidia Koenig [employer]W SPECIALIST, FI[employer] CREW SPECIALIST-C Referring Provider Active Start: August 15, 2024 Team Status: Inactive Member Role/Relationship Status Dates Lidia Koenig [employer] SPECIALIST, FIRE CREW SPECIALIST-C Attending Provider Active Start: September 22, 2024 End: September 22, 2024 Lidia Koenig [employer] CREW SPECIALIST, FIRE CREW SPECIALIST-C Referring Provider Active Start: September 22, 2024 End: September 22, 2024 Team Status: Inactive Member Role/Relationship Status Dates Lidia Koenig FI[employer]W SPECIALIST, FIRE CREW SPECIALIST-C Attending Provider Active Start: October 12, 2024 End: October 12, 2024 Lidia Koenig [employer]W SPECIALIST, FIRE CREW SPECIALIST-C Referring Provider Active Start: October 12, 2024 End: October 12, 2024 Team Status: Active Member Role/Relationship Status Dates Lidia Koenig [employer] SPECIALIST, FIRE CREW SPECIALIST-C Primary Care Provider Activ e Start: November 21, 2024 Lidai Koenig [employer]W SPECIALIST, FIRE CREW SPECIALIST-C Attending Provider Active Start: November 21, 2024 Lidia Koenig [employer] CREW SPECIALIST, FIRE CREW SPECIALIST-C Referring Provider Active Start: November 21, 2024 Team Status: Inactive Member Role/Relationship Status Dates Lidia Koenig FI[employer] CREW SPECIALIST, FIRE CREW SPECIALIST-C Primary Care Provider Activ e Start: November 23, 2024 End: November 23, 2024 Lidia Koenig [employer] CREW SPECIALIST, FIRE CREW SPECIALIST-C Attending Provider Active Start: November 23, 2024 End: November 23, 2024 Lidia Koenig [employer] CREW SPECIALIST, FIRE CREW SPECIALIST-C Referring Provider Active Start: November 23, 2024 End: November 23, 2024 Team Status: Inactive Member Role/Relationship Status Dates Lidia Koenig FI[employer] CREW SPECIALIST, FIRE CREW SPECIALIST-C Primary Care Provider Activ e Start: November 21, 2024 End: November 21, 2024 Lidia Koenig NP, [employer]W SPECIALIST-C Attending Provider Active Start: November 21, 2024 End: November 21, 2024 Lidia Koenig NP, FI[employer]W SPECIALIST-C Referring Provider Active Start: November 21, 2024 End: November 21, 2024 Dining Room [employer]id Relationship Specialty Start Date End Date Merlin Deutsch DO [address] [place] [address] PCP - General Family Medicine 12/09/19 Richi Loja MD [address] [address] [employer] Officer Gastroenterology 11/04/22 Mariann Sánchez PA-C [address] [place] [id number] [place] [facility] 03/11/24 Sonia Dobson, RN [address] [place] [address] [phone] Primary Care Project Management Intern 11/14/24 Goals (unrecognized section and content) Goals may be documented in a n alternate sectionGoals may be documented in an alternate sectionGoals may be documented in an alternate sectionGoals may be documented in an alternate section FOR RECORDS PERTAINING TO PATIENTS WHO ARE OR HAVE BEEN ENROLLED IN A CHEMICAL DEPENDENCY/SUBSTANCEABUSE PROGRAM, SOME INFORMATION MAY BE OMITTED. This clinical summary was aggregated from multiple sources. Caution should be exercised in using it in the provision of clinical care. This summary normalizes information from multiple sources, and as a consequence, information in this document may materially change the coding, format and clinical context of patient data. In addition, data may be omitted in some cases. CLINICAL DECISIONS SHOULD BE BASED ON THE PRIMARY CLINICAL RECORDS. [facility] [employer] [facility]. provides no warranty or guarantee of the accuracy or completeness of information in this document.
== END | disposition home or self-care (01) ==
LOC: LABSPEC 15:10
PROVIDERS: PCP Nurse Practitioner Family; Referring Provider Nurse Practitioner Family; Visit Provider Nurse Practitioner Family
DX: K50.90 Crohn's disease, unspecified, without complications (principal); N41.1 Chronic prostatitis; D50.8 Other iron deficiency anemias; A04.8 Other specified bacterial intestinal infections; R53.83 Other fatigue
CPT/HCPCS: 82728

== ENCOUNTER → 2024-12-26 | Outpatient (CLI) | payer BC, SELFPAY ==
[2024-12-26 13:52] LABS: Ferritin 80 ng/mL (37-417); Iron 82 ug/dL (65-175)
== END | disposition home or self-care (01) ==
PROVIDERS: PCP Nurse Practitioner Family; Referring Provider Nurse Practitioner Family; Visit Provider Nurse Practitioner Family
DX: K50.90 Crohn's disease, unspecified, without complications (principal); N41.1 Chronic prostatitis; R35.1 Nocturia; K92.1 Melena
CPT/HCPCS: 82728; 83540

== ENCOUNTER → 2025-01-05 | Outpatient (CLI) | payer BC, SELFPAY | END | disposition home or self-care (01) | PROVIDERS: PCP Nurse Practitioner Family; Referring Provider Nurse Practitioner Family; Visit Provider Nurse Practitioner Family | DX: K50.90 Crohn's disease, unspecified, without complications (principal); R19.7 Diarrhea, unspecified; B96.82 Vibrio vulnificus as the cause of diseases classified elsewhere | CPT/HCPCS: 87177; 87209; 87493; 87506 ==

== ENCOUNTER → 2025-01-12 | Outpatient (CLI) | payer BC, SELFPAY ==
[2025-01-12 14:21] LABS: Hematocrit 43.2 % (40-54); Hemoglobin 14.8 g/dL (13.0-16.5); Immature Granulocytes Count 0.010 X10^3/uL (0.0-0.0); Mean Corp Hgb Conc 34.3 g/dL (32-36); Mean Corpuscular Volume 86.6 fL (80-94); Mean Platelet Vol. 10.2 fl (6.2-12.0); NRBC Flagged by Analyzer 0 % (0-5); Platelet Count 197 K/mm3 (150-450); RBC Distribution Width CV 13.4 % (11.6-14.6); RBC Distribution Width SD 42.0 fl (35.1-43.9); Red Blood Count 4.99 M/mm3 (4.6-6.2); White Blood Count 3.7 K/mm3 (4.4-11.0)
[2025-01-12 14:45] LABS: Ferritin 101 ng/mL (37-417); Iron 97 ug/dL (65-175)
== END | disposition home or self-care (01) ==
LOC: LABSPEC 12:49
PROVIDERS: PCP Nurse Practitioner Family; Referring Provider Nurse Practitioner Family; Visit Provider Nurse Practitioner Family
DX: K50.90 Crohn's disease, unspecified, without complications (principal); N41.1 Chronic prostatitis; R35.1 Nocturia; R19.7 Diarrhea, unspecified; K92.1 Melena
CPT/HCPCS: 82728; 83540; 85025

== ENCOUNTER → 2025-02-06 | Outpatient (CLI) | payer BC, SELFPAY ==
[2025-02-06 18:08] LABS: Hematocrit 42.8 % (40-54); Hemoglobin 14.8 g/dL (13.0-16.5); Immature Granulocytes Count 0.010 X10^3/uL (0.0-0.0); Mean Corp Hgb Conc 34.6 g/dL (32-36); Mean Corpuscular Volume 87.0 fL (80-94); Mean Platelet Vol. 10.0 fl (6.2-12.0); NRBC Flagged by Analyzer 0 % (0-5); Platelet Count 192 K/mm3 (150-450); RBC Distribution Width CV 13.3 % (11.6-14.6); RBC Distribution Width SD 42.0 fl (35.1-43.9); Red Blood Count 4.92 M/mm3 (4.6-6.2); White Blood Count 4.5 K/mm3 (4.4-11.0)
[2025-02-06 18:31] LABS: AST(SGOT) 28 U/L (<=37); Alanine Aminotransfer ALT/SGPT 27 U/L (<=46); Albumin, Serum 4.3 g/dL (3.5-5.0); Alkaline Phosphatase 73 U/L (40-129); Anion Gap 9 (5-15); BUN 15 mg/dL (4-19); BUN/Creat Ratio 11.3 RATIO (10-20); Calcium,Total 9.1 mg/dL (7.6-11.0); Carbon Dioxide 26.2 mmol/L (21.0-32.0); Chloride 104 mmol/L (98-108); Ferritin 54 ng/mL (37-417); Globulin 2.4 g/dL (2.2-4.2); Glucose 95 mg/dL (70-99); Iron 70 ug/dL (65-175); Iron Binding Capacity,Total 259 ug/dL (250-450); Iron Binding Capacity,Unsat 189 ug/dL (228-428); Potassium 4.7 mmol/L (3.3-5.1)
== END | disposition home or self-care (01) ==
LOC: LABSPEC 16:36
PROVIDERS: PCP Nurse Practitioner Family; Visit Provider Nurse Practitioner Family
DX: K50.90 Crohn's disease, unspecified, without complications (principal); N41.1 Chronic prostatitis; D50.8 Other iron deficiency anemias
CPT/HCPCS: 80053; 82728; 83540; 83550; 85025

== ENCOUNTER → 2025-03-22 | Outpatient (CLI) | payer BC, SELFPAY ==
[2025-03-22 12:55] LABS: Hematocrit 43.2 % (40-54); Hemoglobin 15.4 g/dL (13.0-16.5); Immature Granulocytes Count 0.020 X10^3/uL (0.0-0.0); Mean Corp Hgb Conc 35.6 g/dL (32-36); Mean Corpuscular Volume 88.2 fL (80-94); Mean Platelet Vol. 9.9 fl (6.2-12.0); NRBC Flagged by Analyzer 0 % (0-5); Platelet Count 214 K/mm3 (150-450); RBC Distribution Width CV 13.8 % (11.6-14.6); RBC Distribution Width SD 44.3 fl (35.1-43.9); Red Blood Count 4.90 M/mm3 (4.6-6.2); White Blood Count 4.8 K/mm3 (4.4-11.0)
[2025-03-22 13:31] LABS: AST(SGOT) 30 U/L (<=37); Alanine Aminotransfer ALT/SGPT 35 U/L (<=46); Albumin, Serum 4.4 g/dL (3.5-5.0); Alkaline Phosphatase 66 U/L (40-129); Anion Gap 10 (5-15); BUN 15 mg/dL (4-19); BUN/Creat Ratio 10.8 RATIO (10-20); Calcium,Total 9.5 mg/dL (7.6-11.0); Carbon Dioxide 28.0 mmol/L (21.0-32.0); Chloride 103 mmol/L (98-108); Ferritin 86 ng/mL (37-417); Globulin 2.5 g/dL (2.2-4.2); Glucose 98 mg/dL (70-99); Iron 63 ug/dL (65-175); Iron Binding Capacity,Total 279 ug/dL (250-450); Iron Binding Capacity,Unsat 216 ug/dL (228-428); Potassium 4.9 mmol/L (3.3-5.1)
== END | disposition home or self-care (01) ==
LOC: LABSPEC 12:43
PROVIDERS: PCP Nurse Practitioner Family; Visit Provider Nurse Practitioner Family
DX: K50.90 Crohn's disease, unspecified, without complications (principal); N41.1 Chronic prostatitis; D50.8 Other iron deficiency anemias
CPT/HCPCS: 80053; 82728; 83540; 83550; 85025